=== PATIENT | male | born 1965 | race Two or more races ===

== ENCOUNTER 2017-07-20 11:19 | Inpatient (IN) | payer MEDICAID ==
[2017-07-20] VITALS (26 sets, daily range): BP systolic 82–108; BP diastolic 47–81
[~2017-07-20] VITALS: Ht 172.7 cm; Wt 57.6 kg
--- NOTE | 2017-07-20 12:47 | Emergency Room Report ---
History of Present Illness General Chief Complaint: General Complaint Source: Patient Present Illness HPI 51-year-old male brought in by ambulance with 3-4 months of generalized weakness , unintentional weight loss, occasional fevers and chills, occasional diarrhea occasional "acid" in stomach. History of HIV, not on anticoagulation for a number of years. Denies history of PCP pneumonia, TB, or other opportunistic infections. Patient not taking any other medications. States unable to keep any food or liquid down lately. Otherwise denies chest pain, shortness of breath, abdominal pain, urinary complaints. Allergies: Coded Allergies: No Known Allergies (Unverified , 07/20/17) Patient History Past Medical History: HIV Past Surgical History: none Pertinent Family History: none Social History: Denies: smoking, alcohol use, drug use Immunizations: UTD Reviewed Nursing Documentation: PMH: Agreed, PSxH: Agreed Review of Systems All Other Systems: negative except mentioned in HPI Physical Exam Vital Signs Date Time Temp Pulse Resp B/P (MAP) Pulse Ox O2 Delivery O2 Flow Rate FiO2 07/20/17 11:06 98.1 110 16 105/77 98 Sp02 EP Interpretation: reviewed, normal General Appearance: normal inspection, well appearing, no apparent distress, alert, GCS 15, non-toxic, cachetic, thin Head: normocephalic, atraumatic Eyes: bilateral eye PERRL, bilateral eye EOMI ENT: normal ENT inspection, hearing grossly normal, normal voice Neck: normal inspection, full range of motion, supple, no bony tend Respiratory: normal inspection, lungs clear, normal breath sounds, no respiratory distress, no retraction, no wheezing Cardiovascular #1: regular rate, rhythm, no edema Gastrointestinal: normal inspection, normal bowel sounds, non tender, soft, no guarding, no hernia Genitourinary: no CVA tenderness Musculoskeletal: normal inspection, back normal, normal range of motion, Miranda' s Sign negative Neurologic: normal inspection, alert, oriented x3, responsive, mustanger III-XII nml as tested, motor strength/tone normal, speech normal Psychiatric: normal inspection, judgement/insight normal, mood/affect normal Skin: normal inspection, normal color, no rash Lymphatic: normal inspection Medical Decision Making Diagnostic Impression: Primary Impression: Weakness Additional Impressions: HIV disease Hyponatremia Elevated lipase Pneumonia Qualified Codes: J18.9 - Pneumonia, unspecified organism ER Course Labs significant for hyponatremia, elevated lipase No leukocytosis, H&H stable No other significant metabolic abnormality Patient was given IV fluid hydration in the ER CXR with left sided infiltrates - possibly PNA Given history of HIV, also possible TB although unlikely given no adenopathy on CXR Was given Abx Blood Cx pending Patient placed in isolation - PCR in progress CT shows ground glass opacities Endorsed to Dr Weir at 211pm EKG Diagnostic Results Rate: tachycardiac Rhythm: NSR ST Segments: other Rhythm Strip Diag. Results EP Interpretation: yes Rate: 127 Rhythm: NSR, no PVC's Chest X-Ray Diagnostic Results Chest X-Ray Diagnostic Results : Chest X-Ray Ordered: Yes # of Views/Limited/Complete: 1 View Indication: Other - weakness EP Interpretation: Yes Interpretation: no effusion, no pneumothorax, other - Left sided infiltrates Last Vital Signs Date Time Temp Pulse Resp B/P (MAP) Pulse Ox O2 Delivery O2 Flow Rate FiO2 07/20/17 11:06 98.1 110 16 105/77 98 Status: improved Disposition: ADMITTED INPATIENT Condition: Serious Referrals: NOT CHOSEN ROHAN/,REFERRING (PCP) HALEY ZAMORA M.D. Jul 20, 2017 12:47
[2017-07-20 13:04] LABS: MEAN CORPUSCULAR HEMOGLOBIN 28.8 PG (27.0-31.0); MEAN CORPUSCULAR HGB CONC 34.1 G/DL (32.0-36.0); MEAN CORPUSCULAR VOLUME 85 FL (80-99); PLATELET COUNT 180 K/UL (150-450); RED BLOOD COUNT 4.42 M/UL (4.70-6.10); RED CELL DISTRIBUTION WIDTH 11.6 % (11.6-14.8); WHITE BLOOD COUNT 10.8 K/UL (4.8-10.8)
[2017-07-20 13:10] LABS: INR 1.2 (0.9-1.1); PROTHROMBIN TIME 12.5 SEC (9.30-11.50)
[2017-07-20 13:27] LABS: ALANINE AMINOTRANSFERASE 44 U/L (12-78); ALBUMIN/GLOBULIN RATIO 0.5 (1.0-2.7); ANION GAP 9 mmol/L (5-15); ASPARTATE AMINO TRANSFERASE 67 U/L (15-37); CALCIUM 8.4 MG/DL (8.5-10.1); CARBON DIOXIDE 23 MMOL/L (21-32); CHLORIDE 95 MMOL/L (98-107); CREATININE 1.3 MG/DL (0.55-1.30); GLOMERULAR FILTRATION RATE 58.7 mL/min (>60); LIPASE 641 U/L (73-393); POTASSIUM 3.5 MMOL/L (3.5-5.1); SODIUM 127 MMOL/L (136-145)
[2017-07-20 14:04] LABS: BAND NEUTROPHILS % (MANUAL) 0 % (0-8); BASOPHILS % (MANUAL) 0 % (0-2); EOSINOPHILS % (MANUAL) 0 % (0-3); LYMPHOCYTES % (MANUAL) 6 % (20-45); NEUTROPHILS % (MANUAL) 92 % (45-75); PLATELET ESTIMATE ADEQUATE; PLATELET MORPHOLOGY NORMAL; TOTAL CELLS COUNTED 100
[2017-07-20 14:05] LABS: HYPOCHROMASIA 1+
--- NOTE | 2017-07-20 14:18 | Diagnostic Imaging Report ---
Clinical Indication: PAIN, weakness, 3-4 months generalized weakness, unintentional weight loss, occasional fevers and chills, occasional diarrhea Technique: No oral contrast utilized, per emergency room physician request IV administration nonionic contrast. Venous phase spiral acquisition obtained through the abdomen and pelvis. Multiplanar reconstructions were generated. Total dose length product 526 mGycm. CTDIvol(s) 10 mGy. Dose reduction achieved using automated exposure control Comparison: None Findings: Lack of enteric contrast limits assessment of the GI tract. The appendix is not identified, but there are no findings to suggest acute appendicitis. No evidence of diverticulosis or acute diverticulitis. No small bowel distention. No free or loculated intraperitoneal air or fluid is evident. The liver is slightly hypoattenuating, consistent with mild fatty change. Bladder, bile ducts, pancreas, spleen are unremarkable. Multiple accessory splenules. The adrenals and kidneys are unremarkable. No retroperitoneal or mesenteric mass or adenopathy. No pelvic mass or adenopathy. The lung bases demonstrate some groundglass consolidation in the inferior left lower lobe, atelectasis or scarring in the anterior left lower lobe, and reticular infrahilar opacities on the right. No effusions. The bones are unremarkable. Impression: Limit evaluation of the GI tract, due to lack of enteric contrast No definite acute abdominal pathology Left basilar on or groundglass opacity, likely infiltrates secondary to pneumonia. There is also some atelectasis or scarring in the anterior left lower lobe. Reticular opacities in the right pulmonary infrahilar region likely represent chronic postinflammatory changes. Mild fatty liver The CT scanner at [facility] is accredited by the [employer] and the scans are performed using protocols designed to limit radiation exposure to as low as reasonably achievable to attain images of sufficient resolution adequate for diagnostic evaluation.
--- NOTE | 2017-07-20 14:38 | Diagnostic Imaging Report ---
Indication: COUGH Technique: One view of the chest Comparison: none Findings: Multiple patchy infiltrates are seen scattered throughout the left lung, predominantly peripherally. More questionable faint patchy infiltrates are seen scattered within the right lung. There may be some minimal right hilar adenopathy. Normal heart size. The pleural spaces are clear Impression: Scattered patchy left lung infiltrates, more questionable scattered right lung infiltrates, is likely representing pneumonia, nonspecific as regards etiology. Equivocal slight right hilar adenopathy; if real, raises possibility of tuberculous pneumonia as etiology of the above Findings discussed by phone with Dr. Gomez and Dr. Phillips in the emergency room at the time of interpretation
[2017-07-20] MEDS ORDERED: NS 1000ml 1,400 ML IVLG ONE (15:30)
[2017-07-20] MEDS ORDERED: cefTRIAXone 1 GM in D5W 55 ML IVPB ONE (15:45)
[2017-07-20] MEDS ORDERED: Azithromycin 500 MG in D5W 275 ML IVPB ONE (15:45)
[2017-07-20] MEDS ORDERED: Azithromycin 500mg Inj IV ONE (15:47)
[2017-07-20] MEDS ORDERED: Cefepime 2gm ONE (16:23)
[2017-07-20] MEDS ORDERED: Zosyn 3.375gm inj ONE (16:24)
[2017-07-20] MEDS: Piperacillin/Tazobactam 3.375 GM in NS 55 ML IV ONE ×2 (16:30→17:20)
[2017-07-20] MEDS: Cefepime HCl 2 GM in NS 110 ML IV ONE ×2 (16:37→16:43)
[2017-07-20] MEDS ORDERED: Hydromorphone 0.5mg/0.5ml inj IVP PRN (17:15)
--- NOTE | 2017-07-20 17:28 | Infectious Diseases Prog Note ---
Assessment/Plan Assessment/Plan Full consult dictated: A) 1) pna, ? cap, ? pcp, ? fungal, sepsis, shock, fevers, ? TB pna 2) hiv, aids 3) allergies - negative 4) pmh o/w negative P) 1) zosyn, vancomycin, bactrim, diflucan, azithromycin 2) check culture, sputum, afb, isolation, labs, chest x-ray 3) orders entered and noted 4) thank you Subjective Allergies: Coded Allergies: No Known Allergies (Unverified , 07/20/17) Objective Vital Signs Last 24 Hour Vital Signs Date Time Temp Pulse Resp B/P (MAP) Pulse Ox O2 Delivery O2 Flow Rate FiO2 07/20/17 16:33 115 23 96/59 100 Room Air 07/20/17 16:06 103.5 125 31 85/65 99 Room Air 07/20/17 13:20 124 20 93/59 98 Room Air 07/20/17 13:10 122 20 94/63 98 Room Air 07/20/17 12:50 131 20 94/63 98 Room Air 07/20/17 12:40 137 20 92/59 98 Room Air 07/20/17 12:20 135 22 82/51 98 Room Air 07/20/17 12:10 137 16 92/48 98 Room Air 07/20/17 11:06 98.1 110 16 105/77 98 Height (Feet): 5 Height (Inches): 8.00 Weight (Pounds): 100 Laboratory Tests Test 07/20/17 12:20 07/20/17 14:35 07/20/17 16:12 White Blood Count 10.8 K/UL (4.8-10.8) Red Blood Count 4.42 M/UL (4.70-6.10) L Hemoglobin 12.7 G/DL (14.2-18.0) L Hematocrit 37.4 % (42.0-52.0) L Mean Corpuscular Volume 85 FL (80-99) Mean Corpuscular Hemoglobin 28.8 PG (27.0-31.0) Mean Corpuscular Hemoglobin Concent 34.1 G/DL (32.0-36.0) Red Cell Distribution Width 11.6 % (11.6-14.8) Platelet Count 180 K/UL (150-450) Mean Platelet Volume 9.0 FL (6.5-10.1) Neutrophils (%) (Auto) % (45.0-75.0) Lymphocytes (%) (Auto) % (20.0-45.0) Monocytes (%) (Auto) % (1.0-10.0) Eosinophils (%) (Auto) % (0.0-3.0) Basophils (%) (Auto) % (0.0-2.0) Differential Total Cells Counted 100 Neutrophils % (Manual) 92 % (45-75) H Lymphocytes % (Manual) 6 % (20-45) L Monocytes % (Manual) 2 % (1-10) Eosinophils % (Manual) 0 % (0-3) Basophils % (Manual) 0 % (0-2) Band Neutrophils 0 % (0-8) Platelet Estimate Adequate Platelet Morphology Normal Hypochromasia 1+ Prothrombin Time 12.5 SEC (9.30-11.50) H Prothromb Time International Ratio 1.2 (0.9-1.1) H Activated Partial Thromboplast Time 36 SEC (23-33) H Sodium Level 127 MMOL/L (136-145) L Potassium Level 3.5 MMOL/L (3.5-5.1) Chloride Level 95 MMOL/L (98-107) L Carbon Dioxide Level 23 MMOL/L (21-32) Anion Gap 9 mmol/L (5-15) Blood Urea Nitrogen 16 mg/dL (7-18) Creatinine 1.3 MG/DL (0.55-1.30) Estimat Glomerular Filtration Rate 58.7 mL/min (>60) Glucose Level 110 MG/DL (74-106) H Calcium Level 8.4 MG/DL (8.5-10.1) L Total Bilirubin 0.8 MG/DL (0.2-1.0) Aspartate Amino Transf (AST/SGOT) 67 U/L (15-37) H Alanine Aminotransferase (ALT/SGPT) 44 U/L (12-78) Alkaline Phosphatase 59 U/L (46-116) Total Protein 7.0 G/DL (6.4-8.2) Albumin 2.2 G/DL (3.4-5.0) L Globulin 4.8 g/dL Albumin/Globulin Ratio 0.5 (1.0-2.7) L Lipase 641 U/L (73-393) H M. tuberculosis Complex DNA (PCR) Pending Lactic Acid Level 1.30 mmol/L (0.66-2.22) Current Medications Medications (Trade) Dose Ordered Sig/Gabriela Route PRN Reason Start Time Stop Time Status Last Admin Dose Admin Acetaminophen (Tylenol) 650 mg Q4H PRN ORAL Mild Pain (Pain Scale 1-3) 07/20/17 17:15 08/19/17 17:14 Dextrose (Dextrose 50%) STAT PRN IV Hypoglycemia 07/20/17 17:15 08/19/17 17:14 Dextrose/ Electrolytes 1,000 ml @ 125 mls/hr Q8H IV 07/20/17 18:00 08/19/17 17:59 Diphenhydramine HCl (Benadryl) 25 mg Q6H PRN ORAL Itching/Pruritis 07/20/17 17:15 08/19/17 17:14 Docusate Sodium (Colace) 100 mg EVERY 12 HOURS ORAL 07/20/17 21:00 08/19/17 20:59 Enoxaparin Sodium (Lovenox) 40 mg QHS SUBQ 07/20/17 21:00 08/19/17 20:59 Hydromorphone HCl (Dilaudid) 0.5 mg Q6H PRN IVP Moderate to Severe Pain 07/20/17 17:15 07/27/17 17:14 Ondansetron HCl (Zofran) 4 mg Q6H PRN IVP Nausea & Vomiting 07/20/17 17:15 08/19/17 17:14 WEN ANTOINE Jul 20, 2017 17:28
[2017-07-20] MEDS ORDERED: Lidocaine 1% MPF 10mg/ml 5ml ONE (17:45)
[2017-07-20] MEDS ORDERED: Levophed 4mg/4mL Inj IV ONE (17:58)
[2017-07-20] MEDS ORDERED: Lidocaine 1% MPF 10mg/ml 5ml INJ ONE (18:00)
--- NOTE | 2017-07-20 18:13 | Emergency Room Report ---
History of Present Illness General Chief Complaint: General Complaint Source: Patient Present Illness Allergies: Coded Allergies: No Known Allergies (Unverified , 07/20/17) Physical Exam Vital Signs Date Time Temp Pulse Resp B/P (MAP) Pulse Ox O2 Delivery O2 Flow Rate FiO2 07/20/17 11:06 98.1 110 16 105/77 98 07/20/17 12:10 Room Air Procedures Critical Care Time Critical Care Time 40 minutes of CC time 51-year-old female, septic shock VS: Febrile hypotensive tachycardic Airway patent. Not hypoxic. PLAN: IV access, labs, lactate, troponin, Blood/Urine Cx, Abx, IVF Anticipate admission to ICU CC time also includes review of labs, review of EMR, discussion with family and paperwork from SNF, d/w hospitalist CC could include dosing of pressors, additional Abx CC time does not include procedures Central Line Central Line : Consent: Written Maximal Sterile Barrier Tech: yes cap, yes mask, yes sterile gown, yes sterile gloves, yes large sterile sheet, yes hand hygiene, yes chlorhexidine prep Central Line Postion: internal jugular (R) Anesthesia: Lidocaine cc's of anesthesia: 5 Complications: none Central Line Post Position: sutured, good blood return, position confirmed w / CXR Attempts: One Patient Tolerated: Well Complications: None Medical Decision Making Diagnostic Impression: Primary Impression: Weakness Additional Impressions: Elevated lipase Hyponatremia Pneumonia Qualified Codes: J18.9 - Pneumonia, unspecified organism HIV disease Septic shock ER Course I received signout on this patient 51-year-old male, not feeling well for multiple days, HIV, cough, diarrhea Patient persistently hypotensive and tachycardic Fluids, antibiotics, Tylenol given Patient continues to be hypotensive with a map of 53 despite 3 L Left-sided IJ central line placed with ultrasound Patient tolerated this procedure well Patient was already seen by Dr Yarbrough, I informed him at 630pm patient going to ICU Patient will be admitted to ICU Sepsis Re-examination Time: 6pm VS: Temp 99.5 HR 95 BP 90/60 RR AND 20 CVS: RRR Respiratory: Lungs clear bilaterally Peripheral pulses: 2+ radial Capillary refill: <2 seconds Skin exam: warm, dry, no rash, not mottled Chest X-Ray Diagnostic Results Chest X-Ray Diagnostic Results : Chest X-Ray Ordered: Yes # of Views/Limited/Complete: 1 View Indication: Other - cvp EP Interpretation: Yes Interpretation: no consolidation, no effusion, no pneumothorax, other - cvp in appropriate position Impression: No acute disease Electronically Signed by: Electronically signed by Anat Phillips MD Last Vital Signs Date Time Temp Pulse Resp B/P (MAP) Pulse Ox O2 Delivery O2 Flow Rate FiO2 07/20/17 17:32 99.5 98 21 82/47 95 Room Air Disposition: ADMITTED INPATIENT Condition: Serious Referrals: NOT CHOSEN IPA/,REFERRING (PCP) Anat Phillips M.D. Jul 20, 2017 18:13
[2017-07-20 19:14] LABS: APPEARANCE,URINE CLEAR; KETONES,URINE 1+ (NEGATIVE); LEUKOCYTE ESTERASE ,URINE NEGATIVE (NEGATIVE); NITRITE,URINE NEGATIVE (NEGATIVE); PH,URINE 6.5 (4.5-8.0); PROTEIN,URINE 1+ (NEGATIVE); UROBILINOGEN,URINE NORMAL MG/DL (0.0-1.0)
[2017-07-20 19:22] LABS: BACTERIA,URINE FEW /HPF; SQUAMOUS EPITHELIAL CELL,UR OCCASIONAL /LPF (NONE/OCC); WBC,URINE 0-2 /HPF (0 - 0)
[2017-07-20] MEDS ORDERED: Vancomycin 1gm in D5W 275ml IVPB SCH (20:00)
[2017-07-20] MEDS: Docusate 100mg cap ORAL SCH (21:00)
[2017-07-20] MEDS: Enoxaparin 40mg Inj SUBQ SCH (21:18)
[2017-07-20] MEDS: Trimethoprim/Sulfamethoxazole 20 ML in D5W 500ml 550 ML IV SCH (21:58)
[2017-07-20] MEDS ORDERED: Trimethoprim/Sulfamethoxazole 20 ML in D5W 500ml 550 ML IV SCH (23:00)
[2017-07-20] MEDS: D5NS w/KCl 40mEq 1000ml 1,000 ML IV SCH (23:01)
[2017-07-20] MEDS: Piperacillin/Tazobactam 3.375 GM in D5W 55 ML IVPB SCH (23:03)
--- NOTE | 2017-07-20 23:17 | History and Physical Report ---
DATE OF ADMISSION: 07/20/2017 CHIEF COMPLAINT: Generalized weakness and cough. HISTORY OF PRESENT ILLNESS: This is a 51-year-old male, who was brought in by the ambulance. The patient has been suffering from generalized weakness. The patient has AIDS. The patient has been neglecting himself. He has been diagnosed with AIDS in 2009. The patient stopped taking his anti-HIV medications many years ago. He has noticed gradual weight loss during the last 3 years. The patient also noticed a gradual development of nonproductive cough and fever. He also developed other symptoms such as acid reflux. 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 PAST MEDICAL HISTORY: AIDS. MEDICATIONS: None. ALLERGIES: No known allergies. FAMILY HISTORY: Unremarkable. SOCIAL HISTORY: Nonsmoker and nondrinker. No history of illicit drug abuse. REVIEW OF SYSTEMS: HEENT: Hearing and eyesight are normal. ENDOCRINE: No history of diabetes, thyroid, or adrenal problems. RESPIRATORY: Significant for nonproductive cough. He denies hemoptysis. CARDIOVASCULAR: He denies chest pain or palpitations. GASTROINTESTINAL: Significant for diarrhea. He denies hematochezia or melena. NEUROLOGICAL: No history of stroke, syncope, or Parkinson disease. PHYSICAL EXAMINATION: GENERAL: This is a middle-aged male, who is extremely cachectic. VITAL SIGNS: Temperature is 103.5, rectal; pulse 115, apical; respiratory rate 23; blood pressure 96/57; and pulse oximetry is 100% on room air. HEENT: Head is normocephalic and atraumatic. Pupils are equal, round, and reactive to light and accommodation consensually. NECK: Supple. Trachea midline. There was no lymphadenopathy or thyromegaly. LUNGS: Clear to auscultation and percussion. HEART: Tachycardia. S1 and S2. No rubs, murmurs, or gallops. ABDOMEN: Scaphoid. Soft and nontender. Bowel sounds were active. There was no hepatosplenomegaly. EXTREMITIES: Notable for muscle wasting. There was no clubbing, cyanosis, or edema. NEUROLOGICAL: He is alert and oriented x4. Cranial nerves II through XII intact. LABORATORY AND ANCILLARY DATA: CBC; hemoglobin 12.7, WBC 10.8 with 92% neutrophils. Serum chemistry sodium 127, potassium 3.5, and albumin is 2.2. MTB PCR pending. Chest x-ray shows scattered patchy left lung infiltrates, questionable scattered right lung infiltrates, representing pneumonia, cannot rule out TB. His CT scan of the abdomen and pelvis shows left basilar ground-glass appearing lung infiltrates and reticular opacities in the right pulmonary area, infrahilar, most likely representing chronic postinflammatory changes. ASSESSMENT: 1. Acquired immunodeficiency syndrome, untreated. 2. Pneumonia, rule out tuberculosis versus other types of pneumonia, immunocompromised. 3. Wasting syndrome. PLAN: 1. ID consult. 2. Reinstitute anti-HIV treatment. 3. Nutritional support. 4. IV fluid Rehydration. Jose Roberson M.D. DR: ZIYAD JOB#: [id number] CC:
[2017-07-21] VITALS (43 sets, daily range): BP systolic 90–113; BP diastolic 58–80
--- NOTE | 2017-07-21 01:46 | Consultation ---
DATE OF CONSULTATION: 07/20/2017 INFECTIOUS DISEASES CONSULTATION CONSULTING PHYSICIAN: Gisela Garcia M.D. ATTENDING PHYSICIAN: Jose Roberson M.D. REASON FOR CONSULTATION: Sepsis, shock, pneumonia, HIV, AIDS. CHIEF COMPLAINT: The patient's chief complaint coming in to the hospital is sepsis, shock, pneumonia, and weakness. HISTORY OF PRESENT ILLNESS: This is a 51-year-old male with a history of HIV in presumptive age at this time, was cachectic, who has been not taking his HIV medications. He was on Atripla in the past. He does not know his T-cell count or viral load. The patient presents to [facility] and is in septic shock, right now requiring full support. His systolic blood pressure has been in the 80s and he has been tachycardic. The patient on chest x-ray has pneumonia. CT of the abdomen and pelvis is unremarkable. The patient has been placed on tuberculosis isolation based on the chest x-ray findings and also CT scan findings. The patient will be started on broad-spectrum antibiotics including Zosyn and vancomycin. In addition, the patient will be placed on Diflucan, Bactrim, and azithromycin. The patient's workup including cultures and further workup for ruling out tuberculosis is pending at this time. Case was discussed with the ER physician. MAR was noted. Orders were noted. Notes were reviewed. Case was discussed with the RN. PAST MEDICAL HISTORY: The patient's past medical history includes the following. The patient has a past medical history of HIV in presumptive age. He has been off his antiretroviral therapy since 2013. He has no history of diabetes or hypertension. No opportunistic infections. ALLERGIES: No known drug allergies. MEDICATIONS: Upon reviewing the MAR, he is on IV fluids, Colace, Lovenox, Tylenol, Dilaudid, Zofran, and Benadryl. I am going to put him on Zosyn, vancomycin, Bactrim, Diflucan, and azithromycin. He has gotten medications including Zosyn and cefepime in the ER and azithromycin. FAMILY HISTORY: Noncontributory. SOCIAL HISTORY: Negative for smoking, alcohol, or drug abuse. REVIEW OF SYSTEMS: CONSTITUTIONAL: The patient has generalized weakness, fatigue, some cough and congestion, and some sputum production. HEAD AND NECK: No head pain or neck pain. No thrush, or dysphagia. CARDIAC: No chest pain. GASTROINTESTINAL: No nausea, vomiting, or diarrhea. GENITOURINARY: I did not see a Irving. PULMONARY: He has congestion and shortness of breath. SKIN: No rash. EXTREMITIES: No extremity pain. NEUROLOGIC: No seizures. . He has weight loss. No headaches, change in vision, neck stiffness. PHYSICAL EXAMINATION: GENERAL: Alert, responsive, in no acute distress. VITAL SIGNS: Temperature is 103.5, pulse rate 115, respiratory rate 23, blood pressure 96/59, and saturation 100%. HEAD AND NECK: Oral exam, no thrush. Eye exam, no icterus. Normocephalic. No facial droop. No neck stiffness. Neck is supple. He is oriented x3. HEART: Regular. No obvious gallop or murmur. Tachycardic. LUNGS: Bilateral rhonchi and rales. ABDOMEN: Soft. Positive bowel sounds. Nontender. No organomegaly. SKIN: No rash. MUSCULOSKELETAL: No effusion. Legs are without cellulitis. PERIPHERAL VASCULAR: No cyanosis or gangrene. GENITOURINARY: Deferred. LINES: Line sites without phlebitis. NEUROLOGIC: Generalized weakness, responsive. No CVA tenderness. LABORATORY AND DIAGNOSTIC DATA: Laboratory data is as follows: Creatinine is 1.3. Lipase is 614. Alkaline phosphatase is 59. Cultures are pending. Sodium 127, creatinine 1.3. White count 10.8, hemoglobin 12.7, and platelet count is 180,000. PCR is pending. Chest x-ray showed the following. It showed scattered patchy left lung infiltrates with possible right lung infiltrates representing pneumonia. CT of the abdomen and pelvis showed no abscess, but it did show left basal ground-glass opacity, likely infiltrate and pneumonia. ASSESSMENT AND PLAN: 1. The patient has sepsis, shock, fevers, systemic inflammatory response syndrome criteria, and tachycardia. The patient has pneumonia. Rule out community-acquired pneumonia versus TB pneumonia versus fungal pneumonia versus PCP pneumonia. Continue antibiotics, Zosyn, vancomycin, Diflucan, Bactrim, and azithromycin. Check serology for Legionella, Mycoplasma, and cryptococcal antigen. Check sputum culture. Follow up labs and chest x-ray. Consider Pulmonary evaluation for possible eventual bronchoscopy. Continue TB workup. The patient will be placed on isolation. Continue IV antibiotics pending final workup. The patient may need ICU care. Discussed with ER MD. 2. Human immunodeficiency virus, likely acquired immunodeficiency syndrome. Check CD4 count. Antiretroviral therapy will have to be addressed as an outpatient. I would not give it at this time because of the possibility of the immune reconstitution syndrome. 3. The patient may need ICU care. 4. Rule out TB. The patient will need isolation. 5. Hyponatremia. 6. Anemia. 7. No history of diabetes or hypertension. 8. No history of opportunistic infections. 9. No allergies. 10. Social history is negative. 11. MAR was noted. 12. Case was discussed with RN. 13. Family history is noncontributory. 14. Case was discussed with the ER physician. 15. Continue treatment per primary consultants. 16. Also, case was discussed with Dr. Roberson. Gisela Garcia M.D. DR: FEDERICO JOB#: [id number] CC:
[2017-07-21] MEDS: D5NS w/KCl 40mEq 1000ml 1,000 ML IV SCH ×3 (02:00→16:06)
[2017-07-21 04:33] LABS: MEAN CORPUSCULAR HEMOGLOBIN 29.7 PG (27.0-31.0); MEAN CORPUSCULAR HGB CONC 35.2 G/DL (32.0-36.0); MEAN CORPUSCULAR VOLUME 84 FL (80-99); MEAN PLATELET VOLUME 9.7 FL (6.5-10.1); PLATELET COUNT 175 K/UL (150-450); RED BLOOD COUNT 3.86 M/UL (4.70-6.10); RED CELL DISTRIBUTION WIDTH 11.7 % (11.6-14.8); WHITE BLOOD COUNT 6.8 K/UL (4.8-10.8)
[2017-07-21 05:15] LABS: ALANINE AMINOTRANSFERASE 31 U/L (12-78); ALBUMIN/GLOBULIN RATIO 0.4 (1.0-2.7); ANION GAP 9 mmol/L (5-15); ASPARTATE AMINO TRANSFERASE 38 U/L (15-37); CALCIUM 7.3 MG/DL (8.5-10.1); CARBON DIOXIDE 19 MMOL/L (21-32); CHLORIDE 112 MMOL/L (98-107); CREATININE 0.8 MG/DL (0.55-1.30); GLOMERULAR FILTRATION RATE > 60 mL/min (>60); MAGNESIUM 2.1 MG/DL (1.8-2.4); POTASSIUM 3.5 MMOL/L (3.5-5.1); SODIUM 140 MMOL/L (136-145); TOTAL PROTEIN 5.4 G/DL (6.4-8.2)
[2017-07-21] MEDS: Piperacillin/Tazobactam 3.375 GM in D5W 55 ML IVPB SCH ×3 (06:13→22:44)
[2017-07-21] MEDS: Azithromycin 250mg tab ORAL SCH (08:21)
[2017-07-21] MEDS: Docusate 100mg cap ORAL SCH ×2 (08:21→21:00)
[2017-07-21] MEDS: Fluconazole 100mg tab ORAL SCH (08:21)
[2017-07-21] MEDS: Trimethoprim/Sulfamethoxazole 20 ML in D5W 500ml 550 ML IV SCH ×2 (08:40→16:05)
[2017-07-21] MEDS: Vancomycin 1gm in D5W 275ml IVPB SCH ×2 (09:51→21:17)
--- NOTE | 2017-07-21 10:06 | Diagnostic Imaging Report ---
Indication: Central line placement Technique: XRAY CHEST 1 V Comparison:Current examination obtained at 1815 is compared with one obtained earlier 07/20/2017 at 1339 Findings: A left jugular central catheter has been placed with the tip in the superior vena cava above the right atrium. There is no other change. No pneumothorax. Impression: Left jugular central catheter placement in adequate position. No other significant change.
--- NOTE | 2017-07-21 10:37 | General Progress Note ---
Assessment/Plan Assessment/Plan Hypotension mulifactoria volume depletion - on IVF. On pressors. BP improving. AIDS - per ID. Pneumonia on Broad Spectrum IV Abx for immuno Compromised HIV patients. Doubt MTB. Subjective Allergies: Coded Allergies: No Known Allergies (Unverified , 07/20/17) Subjective No new c/o Objective Last 24 Hour Vital Signs Date Time Temp Pulse Resp B/P (MAP) Pulse Ox O2 Delivery O2 Flow Rate FiO2 07/21/17 10:00 102/69 07/21/17 10:00 92 18 101/70 100 Room Air 07/21/17 09:30 87 19 102/69 100 Room Air 07/21/17 09:00 86 19 110/77 100 Room Air 07/21/17 09:00 110/77 07/21/17 08:30 94 20 98/71 100 Room Air 07/21/17 08:00 97 07/21/17 08:00 98.6 98 30 100/67 100 Room Air 07/21/17 08:00 100/67 07/21/17 07:30 95 25 102/75 100 Room Air 07/21/17 07:00 87 29 108/71 100 Room Air 07/21/17 07:00 108/71 07/21/17 06:30 82 21 97/72 96 Room Air 07/21/17 06:00 89 20 108/73 100 Room Air 07/21/17 06:00 108/73 07/21/17 05:30 86 30 92/79 99 Room Air 07/21/17 05:00 82 24 102/77 100 Room Air 07/21/17 05:00 92/79 07/21/17 04:30 80 22 101/70 99 Room Air 07/21/17 04:00 76 07/21/17 04:00 100/71 07/21/17 04:00 97.9 76 21 100/71 98 Room Air 07/21/17 03:30 79 16 101/74 99 Room Air 07/21/17 03:01 106/74 07/21/17 03:00 73 23 97/74 98 Room Air 07/21/17 02:30 79 26 106/74 98 Room Air 07/21/17 02:00 77 28 103/75 99 Room Air 07/21/17 02:00 103/75 07/21/17 01:30 72 12 101/67 99 Room Air 07/21/17 01:00 78 26 107/61 99 Room Air 07/21/17 00:30 79 22 101/69 99 Room Air 07/21/17 00:00 99/69 07/21/17 00:00 97.5 72 22 99/69 100 Room Air 07/21/17 00:00 73 07/20/17 23:30 83 22 105/69 99 Room Air 07/20/17 23:01 101/69 07/20/17 23:00 79 27 101/69 99 Room Air 07/20/17 22:30 78 23 103/67 99 Room Air 07/20/17 22:15 77 23 103/81 100 Room Air 07/20/17 22:00 82 23 104/68 100 Room Air 07/20/17 21:45 82 23 108/81 100 Room Air 07/20/17 21:30 83 23 104/69 100 Room Air 07/20/17 21:15 83 23 103/68 100 Room Air 07/20/17 21:15 104/67 07/20/17 21:00 82 23 97/62 100 Room Air 07/20/17 20:45 83 23 104/67 100 Room Air 07/20/17 20:30 88 23 101/65 100 Room Air 07/20/17 20:15 83 23 104/68 100 Room Air 07/20/17 20:00 98.7 84 26 99/65 96 Room Air 07/20/17 20:00 84 07/20/17 19:45 87 27 101/61 100 Room Air 07/20/17 19:30 101/61 07/20/17 19:20 103/67 07/20/17 19:12 84 20 105/68 100 Room Air 07/20/17 19:10 97.3 86 27 102/69 100 Room Air 07/20/17 19:10 105/68 07/20/17 19:00 102/69 07/20/17 18:50 104/64 07/20/17 18:45 95/64 07/20/17 18:40 97/65 07/20/17 18:35 89/59 07/20/17 18:32 98.9 99 24 83/58 99 Room Air 07/20/17 18:30 83/58 07/20/17 18:25 89/57 07/20/17 18:13 91 25 89/53 98 Room Air 07/20/17 17:32 99.5 98 21 82/47 95 Room Air 07/20/17 17:30 99.5 07/20/17 16:33 115 23 96/59 100 Room Air 07/20/17 16:06 103.5 125 31 85/65 99 Room Air 07/20/17 13:20 124 20 93/59 98 Room Air 07/20/17 13:10 122 20 94/63 98 Room Air 07/20/17 12:50 131 20 94/63 98 Room Air 07/20/17 12:40 137 20 92/59 98 Room Air 07/20/17 12:20 135 22 82/51 98 Room Air 07/20/17 12:10 137 16 92/48 98 Room Air 07/20/17 11:06 98.1 110 16 105/77 98 Intake and Output 07/21/17 07/22/17 19:00 07:00 Intake Total 1302.50 ml Output Total 750 ml Balance 552.50 ml Intake Oral 450 ml IV Total 852.50 ml Output Urine Total 700 ml Emesis 50 ml # Bowel Movements 2 Laboratory Tests 07/20/17 12:20: White Blood Count 10.8, Red Blood Count 4.42L, Hemoglobin 12.7L, Hematocrit 37.4L, Mean Corpuscular Volume 85, Mean Corpuscular Hemoglobin 28.8, Mean Corpuscular Hemoglobin Concent 34.1, Red Cell Distribution Width 11.6, Platelet Count 180, Mean Platelet Volume 9.0, Neutrophils (%) (Auto) , Lymphocytes (%) ( Auto) , Monocytes (%) (Auto) , Eosinophils (%) (Auto) , Basophils (%) (Auto) , Differential Total Cells Counted 100, Neutrophils % (Manual) 92H, Lymphocytes % (Manual) 6L, Monocytes % (Manual) 2, Eosinophils % (Manual) 0, Basophils % ( Manual) 0, Band Neutrophils 0, Platelet Estimate Adequate, Platelet Morphology Normal, Hypochromasia 1+, Prothrombin Time 12.5H, Prothromb Time International Ratio 1.2H, Activated Partial Thromboplast Time 36H, Sodium Level 127L, Potassium Level 3.5, Chloride Level 95L, Carbon Dioxide Level 23, Anion Gap 9, Blood Urea Nitrogen 16, Creatinine 1.3, Estimat Glomerular Filtration Rate 58.7 , Glucose Level 110H, Calcium Level 8.4L, Total Bilirubin 0.8, Aspartate Amino Transf (AST/SGOT) 67H, Alanine Aminotransferase (ALT/SGPT) 44, Alkaline Phosphatase 59, Total Protein 7.0, Albumin 2.2L, Globulin 4.8, Albumin/Globulin Ratio 0.5L, Lipase 641H 07/20/17 14:35: M. tuberculosis Complex DNA (PCR) [Pending] 07/20/17 16:12: Lactic Acid Level 1.30 07/20/17 17:15: Urine Color Pale yellow, Urine Appearance Clear, Urine pH 6.5, Urine Specific [place] 1.005, Urine Protein 1+H, Urine Glucose (UA) Negative, Urine Ketones 1+H , Urine Occult Blood 2+H, Urine Nitrite Negative, Urine Bilirubin Negative, Urine Urobilinogen Normal, Urine Leukocyte Esterase Negative, Urine RBC 2-4H, Urine WBC 0-2, Urine Squamous Epithelial Cells Occasional, Urine Bacteria Few 07/20/17 20:55: White Blood Count [Pending], Lymphocytes [Pending], Lactate Dehydrogenase 308H, Percent CD3 Cells [Pending], Absolute CD3 Count [Pending], Percent CD4 Cells [ Pending], Absolute CD4 Count [Pending], T-Lymphocyte CD4/CD8 Ratio [Pending], Percent CD8 Cells [Pending], Absolute CD8 Count [Pending] 07/21/17 03:00: White Blood Count 6.8, Red Blood Count 3.86L, Hemoglobin 11.5L, Hematocrit 32.6L , Mean Corpuscular Volume 84, Mean Corpuscular Hemoglobin 29.7, Mean Corpuscular Hemoglobin Concent 35.2, Red Cell Distribution Width 11.7, Platelet Count 175, Mean Platelet Volume 9.7, Neutrophils (%) (Auto) , Lymphocytes (%) ( Auto) , Monocytes (%) (Auto) , Eosinophils (%) (Auto) , Basophils (%) (Auto) , Sodium Level 140#, Potassium Level 3.5, Chloride Level 112H, Carbon Dioxide Level 19L, Anion Gap 9, Blood Urea Nitrogen 9, Creatinine 0.8, Estimat Glomerular Filtration Rate > 60, Glucose Level 184H, Calcium Level 7.3L, Magnesium Level 2.1, Total Bilirubin 0.4, Aspartate Amino Transf (AST/SGOT) 38H , Alanine Aminotransferase (ALT/SGPT) 31, Alkaline Phosphatase 44L, Total Protein 5.4L, Albumin 1.6L, Globulin 3.8, Albumin/Globulin Ratio 0.4L, Cryptococcus Antigen [Pending] Height (Feet): 5 Height (Inches): 8.00 Weight (Pounds): 129 Objective CV RR Lungs CTA Abd SNT BS + E No CCE MOLLY VÁZQUEZ Jul 21, 2017 10:37
[2017-07-21] MEDS ORDERED: NS 275ml ONE (15:44)
[2017-07-21] MEDS ORDERED: Tubing IV Secondary IV ONE ×2 (15:44→15:51)
[2017-07-21] MEDS ORDERED: Dyna-Hex 2% Top Sol 2oz TOPIC SCH (20:00)
[2017-07-21] MEDS: Enoxaparin 40mg Inj SUBQ SCH (21:16)
[2017-07-22] VITALS (17 sets, daily range): BP systolic 92–127; BP diastolic 65–106
[2017-07-22] MEDS: D5NS w/KCl 40mEq 1000ml 1,000 ML IV SCH ×3 (00:29→14:44)
[2017-07-22] MEDS: Trimethoprim/Sulfamethoxazole 20 ML in D5W 500ml 550 ML IV SCH ×3 (00:29→16:00)
[2017-07-22] MEDS: Piperacillin/Tazobactam 3.375 GM in D5W 55 ML IVPB SCH ×4 (05:41→21:49)
[2017-07-22] MEDS: Docusate 100mg cap ORAL SCH ×2 (08:39→21:00)
[2017-07-22] MEDS: Fluconazole 100mg tab ORAL SCH (08:39)
[2017-07-22] MEDS: Azithromycin 250mg tab ORAL SCH (08:40)
--- NOTE | 2017-07-22 08:56 | General Progress Note ---
Assessment/Plan Assessment/Plan Hypotension mulifactorial volume depletion - on IVF. Resoling. Off pressors. AIDS - per ID. Pneumonia on Broad Spectrum IV Abx for immuno Compromised HIV patients. Doubt MTB. Transfer to [facility]. Needs Dietary eval. Subjective Allergies: Coded Allergies: No Known Allergies (Unverified , 07/20/17) Subjective No new c/o Objective Last 24 Hour Vital Signs Date Time Temp Pulse Resp B/P (MAP) Pulse Ox O2 Delivery O2 Flow Rate FiO2 07/22/17 07:00 91 23 119/80 100 Room Air 07/22/17 06:00 92 21 119/80 100 Room Air 07/22/17 05:00 95 23 99/68 100 Room Air 07/22/17 04:00 93 07/22/17 04:00 97.8 96 23 97/66 100 Room Air 07/22/17 03:00 93 23 96/69 99 Room Air 07/22/17 02:00 93 25 92/76 100 Room Air 07/22/17 01:00 98 25 104/68 100 Room Air 07/22/17 00:00 98.0 94 23 92/65 100 Room Air 07/22/17 00:00 95 07/21/17 23:00 95 20 113/80 100 Room Air 07/21/17 22:00 96 21 95/71 100 Room Air 07/21/17 21:00 96 20 93/61 100 Room Air 07/21/17 20:00 101 07/21/17 20:00 97.9 101 23 98/68 100 Room Air 07/21/17 19:00 101 21 93/63 100 Room Air 07/21/17 18:30 97 21 100/63 99 Room Air 07/21/17 18:00 108 24 99/71 99 Room Air 07/21/17 17:30 97 24 103/71 100 Room Air 07/21/17 17:00 96 24 98/58 99 Room Air 07/21/17 16:30 105 24 100/61 100 Room Air 07/21/17 16:00 99 07/21/17 16:00 99.0 91 25 105/67 100 Room Air 07/21/17 15:30 108 20 102/73 100 Room Air 07/21/17 15:00 100 20 90/66 100 Room Air 07/21/17 14:30 95 19 92/63 100 Room Air 07/21/17 14:00 94 18 94/66 100 Room Air 07/21/17 13:30 100 20 100/70 100 Room Air 07/21/17 13:00 92 21 101/70 100 Room Air 07/21/17 12:30 100 21 104/77 100 Room Air 07/21/17 12:00 94 07/21/17 12:00 105/67 07/21/17 12:00 98.7 98 22 105/67 100 Room Air 07/21/17 11:30 102 24 113/73 100 Room Air 07/21/17 11:00 107/74 07/21/17 11:00 92 18 107/74 100 Room Air 07/21/17 10:30 84 18 98/67 100 Room Air 07/21/17 10:00 102/69 07/21/17 10:00 92 18 101/70 100 Room Air 07/21/17 09:30 87 19 102/69 100 Room Air 07/21/17 09:00 86 19 110/77 100 Room Air 07/21/17 09:00 110/77 Laboratory Tests 07/22/17 08:00: Vancomycin Level Trough 6.7 Height (Feet): 5 Height (Inches): 8.00 Weight (Pounds): 129 Objective CV RR Lungs CTA Abd SNT BS + E No CCE MOLLY VÁZQUEZ Jul 22, 2017 08:55
[2017-07-22] MEDS: Vancomycin 1gm in D5W 275ml IVPB SCH (09:55)
--- NOTE | 2017-07-22 13:03 | Diagnostic Imaging Report ---
Indication: Chest pain Technique: One view of the chest Comparison: 07/20/2017 Findings: Left jugular central venous catheter is again demonstrated. Infiltrates in the left lung appears slightly more diffuse, and infiltrates in the right lung appear slightly more extensive. Pleural spaces remain clear. Heart size is normal Impression: Slightly increased infiltrates bilaterally, over 2 days
[2017-07-22] MEDS ORDERED: Hydromorphone 0.5mg/0.5ml inj IVP PRN (14:30)
--- NOTE | 2017-07-22 15:11 | Infectious Diseases Prog Note ---
Assessment/Plan Assessment/Plan A) 1) pna, ? cap, ? pcp, ? fungal, sepsis, shock, fevers, ? TB pna/ ? other OI 2) hiv, aids 3) allergies - negative, fh-nc, sh-negative, mar noted 4) d/w RN 5) notes and records noted P) 1) zosyn, vancomycin, bactrim, diflucan, azithromycin 2) check culture, sputum, afb, isolation, labs, chest x-ray 3) orders entered and noted 4) continue tx per primary and consultants 5) d/w patient Subjective Constitutional: Denies: fever HEENT: Reports: congestion - less Respiratory: Reports: shortness of breath - less Gastrointestinal/Abdominal: Denies: nausea, vomiting, diarrhea, constipation Neurologic: Denies: headache Psychiatric: Denies: depression Skin: Denies: rash Hematologic: Denies: bleeding Musculoskeletal: Denies: pain Allergies: Coded Allergies: No Known Allergies (Unverified , 07/20/17) Objective Vital Signs Last 24 Hour Vital Signs Date Time Temp Pulse Resp B/P (MAP) Pulse Ox O2 Delivery O2 Flow Rate FiO2 07/22/17 14:00 104 22 107/70 100 Room Air 07/22/17 13:00 101 23 104/74 100 Room Air 07/22/17 12:00 98.8 94 23 101/71 100 Room Air 07/22/17 12:00 94 07/22/17 11:00 87 19 103/70 100 Room Air 07/22/17 10:00 94 25 104/75 100 Room Air 07/22/17 09:00 104 22 114/83 100 Room Air 07/22/17 08:00 97.5 101 22 127/106 100 Room Air 07/22/17 08:00 96 07/22/17 07:00 91 23 119/80 100 Room Air 07/22/17 06:00 92 21 119/80 100 Room Air 07/22/17 05:00 95 23 99/68 100 Room Air 07/22/17 04:00 93 07/22/17 04:00 97.8 96 23 97/66 100 Room Air 07/22/17 03:00 93 23 96/69 99 Room Air 07/22/17 02:00 93 25 92/76 100 Room Air 07/22/17 01:00 98 25 104/68 100 Room Air 07/22/17 00:00 98.0 94 23 92/65 100 Room Air 07/22/17 00:00 95 07/21/17 23:00 95 20 113/80 100 Room Air 07/21/17 22:00 96 21 95/71 100 Room Air 07/21/17 21:00 96 20 93/61 100 Room Air 07/21/17 20:00 101 07/21/17 20:00 97.9 101 23 98/68 100 Room Air 07/21/17 19:00 101 21 93/63 100 Room Air 07/21/17 18:30 97 21 100/63 99 Room Air 07/21/17 18:00 108 24 99/71 99 Room Air 07/21/17 17:30 97 24 103/71 100 Room Air 07/21/17 17:00 96 24 98/58 99 Room Air 07/21/17 16:30 105 24 100/61 100 Room Air 07/21/17 16:00 99 07/21/17 16:00 99.0 91 25 105/67 100 Room Air 07/21/17 15:30 108 20 102/73 100 Room Air Height (Feet): 5 Height (Inches): 8.00 Weight (Pounds): 129 General Appearance: no acute distress HEENT: normocephalic, atraumatic, anicteric, mucous membranes moist, EOMI, pharynx normal, supple, no JVD Respiratory/Chest: crackles/rales, rhonchi - bilaterally Cardiovascular: normal rate, regular rhythm Abdomen: normal bowel sounds, soft, non tender, no organomegaly Genitourinary: other - no cox Extremities: no cyanosis Skin: no rash 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 Infiltrates in the left lung appears slightly more diffuse, and infiltrates in the right lung appear slightly more extensive. Pleural spaces remain clear. Heart size is normal Impression: Slightly increased infiltrates bilaterally, over 2 days Microbiology Date/Time Source Procedure Growth Status 07/20/17 16:19 Blood Blood Culture - Preliminary NO GROWTH AFTER 24 HOURS Resulted 07/20/17 16:12 Blood Blood Culture - Preliminary NO GROWTH AFTER 24 HOURS Resulted 07/20/17 15:40 Nasal Nares MRSA Culture - Final NO METHICILLIN RESISTANT STAPH AUREUS... Complete 07/20/17 14:35 Sputum Gram Stain - Final Resulted 07/20/17 14:35 Sputum Sputum Culture Pending Resulted 07/20/17 22:30 Stool Clostridium difficile Toxin Assay - Final Complete 07/20/17 15:40 Rectum VRE Culture - Final NO VANCOMYCIN RESISTANT ENTEROCOCCUS ... Complete Labs Test 07/20/17 12:20 07/20/17 14:35 07/20/17 16:12 07/20/17 17:15 White Blood Count 10.8 K/UL (4.8-10.8) Red Blood Count 4.42 M/UL (4.70-6.10) Hemoglobin 12.7 G/DL (14.2-18.0) Hematocrit 37.4 % (42.0-52.0) Mean Corpuscular Volume 85 FL (80-99) Mean Corpuscular Hemoglobin 28.8 PG (27.0-31.0) Mean Corpuscular Hemoglobin Concent 34.1 G/DL (32.0-36.0) Red Cell Distribution Width 11.6 % (11.6-14.8) Platelet Count 180 K/UL (150-450) Mean Platelet Volume 9.0 FL (6.5-10.1) Neutrophils (%) (Auto) % (45.0-75.0) Lymphocytes (%) (Auto) % (20.0-45.0) Monocytes (%) (Auto) % (1.0-10.0) Eosinophils (%) (Auto) % (0.0-3.0) Basophils (%) (Auto) % (0.0-2.0) Differential Total Cells Counted 100 Neutrophils % (Manual) 92 % (45-75) Lymphocytes % (Manual) 6 % (20-45) Monocytes % (Manual) 2 % (1-10) Eosinophils % (Manual) 0 % (0-3) Basophils % (Manual) 0 % (0-2) Band Neutrophils 0 % (0-8) Platelet Estimate Adequate Platelet Morphology Normal Hypochromasia 1+ Prothrombin Time 12.5 SEC (9.30-11.50) Prothromb Time International Ratio 1.2 (0.9-1.1) Activated Partial Thromboplast Time 36 SEC (23-33) Sodium Level 127 MMOL/L (136-145) Potassium Level 3.5 MMOL/L (3.5-5.1) Chloride Level 95 MMOL/L (98-107) Carbon Dioxide Level 23 MMOL/L (21-32) Anion Gap 9 mmol/L (5-15) Blood Urea Nitrogen 16 mg/dL (7-18) Creatinine 1.3 MG/DL (0.55-1.30) Estimat Glomerular Filtration Rate 58.7 mL/min (>60) Glucose Level 110 MG/DL (74-106) Calcium Level 8.4 MG/DL (8.5-10.1) Total Bilirubin 0.8 MG/DL (0.2-1.0) Aspartate Amino Transf (AST/SGOT) 67 U/L (15-37) Alanine Aminotransferase (ALT/SGPT) 44 U/L (12-78) Alkaline Phosphatase 59 U/L (46-116) Total Protein 7.0 G/DL (6.4-8.2) Albumin 2.2 G/DL (3.4-5.0) Globulin 4.8 g/dL Albumin/Globulin Ratio 0.5 (1.0-2.7) Lipase 641 U/L (73-393) Lactic Acid Level 1.30 mmol/L (0.66-2.22) Urine Color Pale yellow Urine Appearance Clear Urine pH 6.5 (4.5-8.0) Urine Specific [place] 1.005 (1.005-1.035) Urine Protein 1+ (NEGATIVE) Urine Glucose (UA) Negative (NEGATIVE) Urine Ketones 1+ (NEGATIVE) Urine Occult Blood 2+ (NEGATIVE) Urine Nitrite Negative (NEGATIVE) Urine Bilirubin Negative (NEGATIVE) Urine Urobilinogen Normal MG/DL (0.0-1.0) Urine Leukocyte Esterase Negative (NEGATIVE) Urine RBC 2-4 /HPF (0 - 0) Urine WBC 0-2 /HPF (0 - 0) Urine Squamous Epithelial Cells Occasional /LPF Urine Bacteria Few /HPF (NONE) Test 07/20/17 20:55 07/21/17 03:00 07/22/17 08:00 Lactate Dehydrogenase 308 U/L (81-234) White Blood Count 6.8 K/UL (4.8-10.8) Red Blood Count 3.86 M/UL (4.70-6.10) Hemoglobin 11.5 G/DL (14.2-18.0) Hematocrit 32.6 % (42.0-52.0) Mean Corpuscular Volume 84 FL (80-99) Mean Corpuscular Hemoglobin 29.7 PG (27.0-31.0) Mean Corpuscular Hemoglobin Concent 35.2 G/DL (32.0-36.0) Red Cell Distribution Width 11.7 % (11.6-14.8) Platelet Count 175 K/UL (150-450) Mean Platelet Volume 9.7 FL (6.5-10.1) Neutrophils (%) (Auto) % (45.0-75.0) Lymphocytes (%) (Auto) % (20.0-45.0) Monocytes (%) (Auto) % (1.0-10.0) Eosinophils (%) (Auto) % (0.0-3.0) Basophils (%) (Auto) % (0.0-2.0) Sodium Level 140 MMOL/L (136-145) Potassium Level 3.5 MMOL/L (3.5-5.1) Chloride Level 112 MMOL/L (98-107) Carbon Dioxide Level 19 MMOL/L (21-32) Anion Gap 9 mmol/L (5-15) Blood Urea Nitrogen 9 mg/dL (7-18) Creatinine 0.8 MG/DL (0.55-1.30) Estimat Glomerular Filtration Rate > 60 mL/min (>60) Glucose Level 184 MG/DL (74-106) Calcium Level 7.3 MG/DL (8.5-10.1) Magnesium Level 2.1 MG/DL (1.8-2.4) Total Bilirubin 0.4 MG/DL (0.2-1.0) Aspartate Amino Transf (AST/SGOT) 38 U/L (15-37) Alanine Aminotransferase (ALT/SGPT) 31 U/L (12-78) Alkaline Phosphatase 44 U/L (46-116) Total Protein 5.4 G/DL (6.4-8.2) Albumin 1.6 G/DL (3.4-5.0) Globulin 3.8 g/dL Albumin/Globulin Ratio 0.4 (1.0-2.7) Vancomycin Level Trough 6.7 ug/mL (5.0-12.0) Laboratory Tests Test 07/22/17 08:00 Vancomycin Level Trough 6.7 ug/mL (5.0-12.0) Current Medications Medications (Trade) Dose Ordered Sig/Gabriela Route PRN Reason Start Time Stop Time Status Last Admin Dose Admin Acetaminophen (Tylenol) 650 mg Q4H PRN ORAL Mild Pain (Pain Scale 1-3) 07/22/17 14:30 08/19/17 14:29 Azithromycin (Zithromax) 250 mg DAILY ORAL 07/23/17 09:00 07/28/17 08:59 Chlorhexidine Gluconate (Denisse-Hex 2%) 1 applic DAILY@2000 TOPIC 07/22/17 20:00 08/20/17 19:59 Dextrose (Dextrose 50%) STAT PRN IV Hypoglycemia 07/22/17 14:30 08/19/17 14:29 Dextrose/ Electrolytes 1,000 ml @ 125 mls/hr Q8H IV 07/22/17 15:00 08/19/17 14:59 07/22/17 14:44 Diphenhydramine HCl (Benadryl) 25 mg Q6H PRN ORAL Itching/Pruritis 07/22/17 14:30 08/19/17 14:29 Docusate Sodium (Colace) 100 mg EVERY 12 HOURS ORAL 07/22/17 21:00 08/19/17 20:59 Enoxaparin Sodium (Lovenox) 40 mg QHS SUBQ 07/22/17 21:00 08/19/17 20:59 Fluconazole (Diflucan) 400 mg DAILY ORAL 07/23/17 09:00 07/28/17 08:59 Hydromorphone HCl (Dilaudid) 0.5 mg Q6H PRN IVP Moderate to Severe Pain 07/22/17 14:30 07/27/17 14:29 Ondansetron HCl (Zofran) 4 mg Q6H PRN IVP Nausea & Vomiting 07/22/17 14:30 08/19/17 14:29 Pantoprazole (Protonix) 40 mg DAILY ORAL 07/23/17 09:00 08/21/17 08:59 Piperacillin Sod/ Tazobactam Sod 3.375 gm/Dextrose 55 ml @ 13.75 mls/ hr EVERY 8 HOURS IVPB 07/22/17 22:00 07/27/17 21:59 Trimethoprim/ Sulfamethoxazole 20 ml/Dextrose 570 ml @ 380 mls/hr Q8HR@0000,0800,1600 IV 07/22/17 16:00 07/27/17 21:59 Vancomycin HCl (Vanco rx to dose) 1 ea DAILYPRN PRN MISC Per rx protocol 07/23/17 09:00 08/22/17 08:59 Vancomycin HCl 1 gm/Dextrose 275 ml @ 183.708 mls/hr Q12H IVPB 07/22/17 21:00 07/26/17 08:59 WEN ANTOINE Jul 22, 2017 15:11
[2017-07-22] MEDS: Dyna-Hex 2% Top Sol 2oz TOPIC SCH (20:29)
[2017-07-22] MEDS: Vancomycin 1 GM in D5W 275 ML IVPB SCH (21:33)
[2017-07-22] MEDS: Enoxaparin 40mg Inj SUBQ SCH (21:37)
[2017-07-23] VITALS: BP 110/69
[2017-07-23] MEDS: D5NS w/KCl 40mEq 1000ml 1,000 ML IV SCH ×5 (00:43→22:42)
[2017-07-23] MEDS: Trimethoprim/Sulfamethoxazole 20 ML in D5W 500ml 550 ML IV SCH ×3 (00:45→15:45)
[2017-07-23 04:00] VITALS: BP 109/71
[2017-07-23] MEDS: Piperacillin/Tazobactam 3.375 GM in D5W 55 ML IVPB SCH ×3 (06:39→22:42)
[2017-07-23 07:45] LABS: MEAN CORPUSCULAR HEMOGLOBIN 28.9 PG (27.0-31.0); MEAN CORPUSCULAR HGB CONC 34.2 G/DL (32.0-36.0); MEAN CORPUSCULAR VOLUME 85 FL (80-99); MEAN PLATELET VOLUME 9.3 FL (6.5-10.1); PLATELET COUNT 178 K/UL (150-450); RED BLOOD COUNT 3.75 M/UL (4.70-6.10); RED CELL DISTRIBUTION WIDTH 11.8 % (11.6-14.8); WHITE BLOOD COUNT 5.4 K/UL (4.8-10.8)
[2017-07-23 08:00] VITALS: BP 108/72
[2017-07-23 08:05] LABS: ANISOCYTOSIS 1+; BAND NEUTROPHILS % (MANUAL) 0 % (0-8); BASOPHILS % (MANUAL) 0 % (0-2); EOSINOPHILS % (MANUAL) 5 % (0-3); HYPOCHROMASIA 1+; LYMPHOCYTES % (MANUAL) 6 % (20-45); NEUTROPHILS % (MANUAL) 84 % (45-75); PLATELET ESTIMATE ADEQUATE; PLATELET MORPHOLOGY NORMAL; TOTAL CELLS COUNTED 100
[2017-07-23 08:30] LABS: ALANINE AMINOTRANSFERASE 46 U/L (12-78); ALBUMIN/GLOBULIN RATIO 0.5 (1.0-2.7); ANION GAP 10 mmol/L (5-15); ASPARTATE AMINO TRANSFERASE 60 U/L (15-37); CALCIUM 8.2 MG/DL (8.5-10.1); CARBON DIOXIDE 19 MMOL/L (21-32); CHLORIDE 108 MMOL/L (98-107); CREATININE 0.8 MG/DL (0.55-1.30); GLOMERULAR FILTRATION RATE > 60 mL/min (>60); MAGNESIUM 1.6 MG/DL (1.8-2.4); PHOSPHORUS 2.4 MG/DL (2.5-4.9); SODIUM 137 MMOL/L (136-145); TOTAL PROTEIN 5.7 G/DL (6.4-8.2)
[2017-07-23] MEDS: Docusate 100mg cap ORAL SCH ×2 (08:59→21:00)
[2017-07-23] MEDS: Azithromycin 250mg tab ORAL SCH (09:00)
[2017-07-23] MEDS ORDERED: Fluconazole 100mg tab ORAL SCH (09:00)
--- NOTE | 2017-07-23 10:08 | General Progress Note ---
Assessment/Plan Assessment/Plan Hypotension mulifactorial volume depletion - on IVF. Resoling. Off pressors. AIDS - per ID. Pneumonia on Broad Spectrum IV Abx for immuno Compromised HIV patients. Doubt MTB. Transfer to [facility]. Needs Dietary eval. Encephalopathy check Brain MRI + EEG Subjective Allergies: Coded Allergies: No Known Allergies (Unverified , 07/20/17) Subjective No new c/o. Nocturnal Confusion!!! Objective Last 24 Hour Vital Signs Date Time Temp Pulse Resp B/P (MAP) Pulse Ox O2 Delivery O2 Flow Rate FiO2 07/23/17 08:00 96 07/23/17 08:00 97.3 96 20 108/72 97 Room Air 07/23/17 04:00 97.0 105 20 109/71 97 Room Air 07/23/17 04:00 93 07/23/17 00:00 97.7 111 22 110/69 100 Room Air 07/23/17 00:00 146 07/22/17 21:47 100.0 07/22/17 21:01 100.8 07/22/17 20:00 109 07/22/17 18:40 97.1 106 24 126/77 97 Room Air 07/22/17 16:00 96 07/22/17 16:00 97.6 97 22 114/69 99 Room Air 07/22/17 14:00 104 22 107/70 100 Room Air 07/22/17 13:00 101 23 104/74 100 Room Air 07/22/17 12:00 98.8 94 23 101/71 100 Room Air 07/22/17 12:00 94 07/22/17 11:00 87 19 103/70 100 Room Air Intake and Output 07/23/17 07/24/17 19:00 07:00 Intake Total 138.75 ml Balance 138.75 ml IV Total 138.75 ml # Voids 2 Laboratory Tests 07/23/17 06:30: White Blood Count 5.4, Red Blood Count 3.75L, Hemoglobin 10.9L, Hematocrit 31.8L , Mean Corpuscular Volume 85, Mean Corpuscular Hemoglobin 28.9, Mean Corpuscular Hemoglobin Concent 34.2, Red Cell Distribution Width 11.8, Platelet Count 178, Mean Platelet Volume 9.3, Neutrophils (%) (Auto) , Lymphocytes (%) ( Auto) , Monocytes (%) (Auto) , Eosinophils (%) (Auto) , Basophils (%) (Auto) , Differential Total Cells Counted 100, Neutrophils % (Manual) 84H, Lymphocytes % (Manual) 6L, Monocytes % (Manual) 5, Eosinophils % (Manual) 5H, Basophils % ( Manual) 0, Band Neutrophils 0, Platelet Estimate Adequate, Platelet Morphology Normal, Hypochromasia 1+, Anisocytosis 1+, Sodium Level 137, Potassium Level 4.0 , Chloride Level 108H, Carbon Dioxide Level 19L, Anion Gap 10, Blood Urea Nitrogen 3L, Creatinine 0.8, Estimat Glomerular Filtration Rate > 60, Glucose Level 76, Calcium Level 8.2L, Phosphorus Level 2.4L, Magnesium Level 1.6L, Total Bilirubin 0.3, Aspartate Amino Transf (AST/SGOT) 60H, Alanine Aminotransferase (ALT/SGPT) 46, Alkaline Phosphatase 56, Total Protein 5.7L, Albumin 1.8L, Globulin 3.9, Albumin/Globulin Ratio 0.5L Height (Feet): 5 Height (Inches): 8.00 Weight (Pounds): 130 Objective CV RR Lungs CTA Abd SNT BS + E No CCE MOLLY VÁZQUEZ Jul 23, 2017 10:08
[2017-07-23] MEDS: LORazepam 1mg tab ORAL PRN (10:51)
[2017-07-23] MEDS: Vancomycin 1 GM in D5W 275 ML IVPB SCH ×2 (10:57→21:12)
[2017-07-23 11:54] LABS: CD3 ABSOLUTE 644 /uL (622-2402); CD4 ABSOLUTE 55 /uL (359-1519); CD8 ABSOLUTE 582 /uL (109-897); LYMPHOCYTES ABSOLUTE 0.8 x10E3/uL (0.7-3.1); LYMPHS 11 % (Not Estab.); WBC 7.3 x10E3/uL (3.4-10.8)
[2017-07-23 12:00] VITALS: BP 105/65
[2017-07-23] MEDS ORDERED: Tubing IV Secondary IV ONE (15:10)
[2017-07-23] MEDS ORDERED: D5 1/2NS 1000ml IV ONE (15:10)
[2017-07-23] MEDS ORDERED: NS 500ML ONE (15:16)
[2017-07-23] MEDS ORDERED: D5W 275ml ONE (15:16)
[2017-07-23 16:00] VITALS: BP 121/68
[2017-07-23] MEDS ORDERED: NS IVPB ONE (18:30)
[2017-07-23] MEDS ORDERED: SODIUM PHOSPHATE IVPB ONE (18:30)
--- NOTE | 2017-07-23 19:25 | Infectious Diseases Prog Note ---
Assessment/Plan Assessment/Plan A) 1) pna, ? cap, ? pcp, ? fungal, sepsis, shock, fevers, ? TB pna/ ? other OI 2) hiv, aids 3) allergies - negative, fh-nc, sh-negative, mar noted 4) d/w RN 5) notes and records noted P) 1) zosyn, vancomycin, bactrim, diflucan, azithromycin 2) check culture, sputum, afb, isolation, labs, chest x-ray 3) orders entered and noted 4) continue tx per primary and consultants 5) d/w patient Subjective Constitutional: Denies: fever HEENT: Reports: congestion - less Respiratory: Reports: shortness of breath - less Cardiovascular: Denies: chest pain Gastrointestinal/Abdominal: Denies: nausea, diarrhea Neurologic: Denies: headache Psychiatric: Denies: depression Skin: Denies: rash Hematologic: Denies: bleeding Musculoskeletal: Denies: pain Allergies: Coded Allergies: No Known Allergies (Unverified , 07/20/17) Objective Vital Signs Last 24 Hour Vital Signs Date Time Temp Pulse Resp B/P (MAP) Pulse Ox O2 Delivery O2 Flow Rate FiO2 07/23/17 16:00 98.1 113 26 121/68 97 Room Air 07/23/17 16:00 113 07/23/17 12:00 97.7 111 20 105/65 96 Room Air 07/23/17 11:49 104 07/23/17 08:00 98 07/23/17 08:00 97.3 96 20 108/72 97 Room Air 07/23/17 04:00 97.0 105 20 109/71 97 Room Air 07/23/17 04:00 93 07/23/17 00:00 97.7 111 22 110/69 100 Room Air 07/23/17 00:00 146 07/22/17 21:47 100.0 07/22/17 21:01 100.8 07/22/17 20:00 109 Height (Feet): 5 Height (Inches): 8.00 Weight (Pounds): 130 General Appearance: no acute distress HEENT: normocephalic, atraumatic, anicteric, mucous membranes moist, EOMI, pharynx normal, supple, no JVD Respiratory/Chest: no accessory muscle use, crackles/rales, rhonchi - bilaterally Cardiovascular: normal rate, regular rhythm, no gallop/murmur, no JVD Abdomen: normal bowel sounds, soft, non tender, no organomegaly, non distended Genitourinary: other - no cox Extremities: no cyanosis Skin: no rash 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 Infiltrates in the left lung appears slightly more diffuse, and infiltrates in the right lung appear slightly more extensive. Pleural spaces remain clear. Heart size is normal Impression: Slightly increased infiltrates bilaterally, over 2 days Microbiology Date/Time Source Procedure Growth Status 07/22/17 12:00 Sputum Expectorated Gram Stain - Final Resulted 07/22/17 12:00 Sputum Expectorated Sputum Culture Pending Resulted 07/20/17 22:30 Stool Clostridium difficile Toxin Assay - Final Complete Laboratory Tests Test 07/23/17 06:30 White Blood Count 5.4 K/UL (4.8-10.8) Red Blood Count 3.75 M/UL (4.70-6.10) L Hemoglobin 10.9 G/DL (14.2-18.0) L Hematocrit 31.8 % (42.0-52.0) L Mean Corpuscular Volume 85 FL (80-99) Mean Corpuscular Hemoglobin 28.9 PG (27.0-31.0) Mean Corpuscular Hemoglobin Concent 34.2 G/DL (32.0-36.0) Red Cell Distribution Width 11.8 % (11.6-14.8) Platelet Count 178 K/UL (150-450) Mean Platelet Volume 9.3 FL (6.5-10.1) Neutrophils (%) (Auto) % (45.0-75.0) Lymphocytes (%) (Auto) % (20.0-45.0) Monocytes (%) (Auto) % (1.0-10.0) Eosinophils (%) (Auto) % (0.0-3.0) Basophils (%) (Auto) % (0.0-2.0) Differential Total Cells Counted 100 Neutrophils % (Manual) 84 % (45-75) H Lymphocytes % (Manual) 6 % (20-45) L Monocytes % (Manual) 5 % (1-10) Eosinophils % (Manual) 5 % (0-3) H Basophils % (Manual) 0 % (0-2) Band Neutrophils 0 % (0-8) Platelet Estimate Adequate Platelet Morphology Normal Hypochromasia 1+ Anisocytosis 1+ Sodium Level 137 MMOL/L (136-145) Potassium Level 4.0 MMOL/L (3.5-5.1) Chloride Level 108 MMOL/L (98-107) H Carbon Dioxide Level 19 MMOL/L (21-32) L Anion Gap 10 mmol/L (5-15) Blood Urea Nitrogen 3 mg/dL (7-18) L Creatinine 0.8 MG/DL (0.55-1.30) Estimat Glomerular Filtration Rate > 60 mL/min (>60) Glucose Level 76 MG/DL (74-106) Calcium Level 8.2 MG/DL (8.5-10.1) L Phosphorus Level 2.4 MG/DL (2.5-4.9) L Magnesium Level 1.6 MG/DL (1.8-2.4) L Total Bilirubin 0.3 MG/DL (0.2-1.0) Aspartate Amino Transf (AST/SGOT) 60 U/L (15-37) H Alanine Aminotransferase (ALT/SGPT) 46 U/L (12-78) Alkaline Phosphatase 56 U/L (46-116) Total Protein 5.7 G/DL (6.4-8.2) L Albumin 1.8 G/DL (3.4-5.0) L Globulin 3.9 g/dL Albumin/Globulin Ratio 0.5 (1.0-2.7) L Current Medications Medications (Trade) Dose Ordered Sig/Gabriela Route PRN Reason Start Time Stop Time Status Last Admin Dose Admin Acetaminophen (Tylenol) 650 mg Q4H PRN ORAL Mild Pain (Pain Scale 1-3) 07/22/17 14:30 08/19/17 14:29 07/22/17 20:48 Azithromycin (Zithromax) 250 mg DAILY ORAL 07/23/17 09:00 07/28/17 08:59 07/23/17 09:00 Chlorhexidine Gluconate (Denisse-Hex 2%) 1 applic DAILY@1999 TOPIC 07/22/17 20:00 08/20/17 19:59 07/22/17 20:29 Dextrose (Dextrose 50%) STAT PRN IV Hypoglycemia 07/22/17 14:30 08/19/17 14:29 Dextrose/ Electrolytes 1,000 ml @ 125 mls/hr Q8H IV 07/22/17 15:00 08/19/17 14:59 07/23/17 15:19 Diphenhydramine HCl (Benadryl) 25 mg Q6H PRN ORAL Itching/Pruritis 07/22/17 14:30 08/19/17 14:29 07/22/17 20:29 Docusate Sodium (Colace) 100 mg EVERY 12 HOURS ORAL 07/22/17 21:00 08/19/17 20:59 07/23/17 08:59 Enoxaparin Sodium (Lovenox) 40 mg QHS SUBQ 07/22/17 21:00 08/19/17 20:59 07/22/17 21:37 Fluconazole (Diflucan) 400 mg DAILY ORAL 07/23/17 09:00 07/28/17 08:59 07/23/17 09:00 Hydromorphone HCl (Dilaudid) 0.5 mg Q6H PRN IVP Moderate to Severe Pain 07/22/17 14:30 07/27/17 14:29 07/22/17 20:31 Lorazepam (Ativan) 1 mg Q6H PRN ORAL For Anxiety 07/23/17 08:00 07/30/17 07:59 07/23/17 10:51 Ondansetron HCl (Zofran) 4 mg Q6H PRN IVP Nausea & Vomiting 07/22/17 14:30 08/19/17 14:29 Pantoprazole (Protonix) 40 mg ACBREAKFAST ORAL 07/23/17 09:00 08/22/17 08:59 07/23/17 09:00 Piperacillin Sod/ Tazobactam Sod 3.375 gm/Dextrose 55 ml @ 13.75 mls/ hr EVERY 8 HOURS IVPB 07/22/17 22:00 07/27/17 21:59 07/23/17 14:26 Sodium Phosphate 40 mm/Sodium Chloride 288.3333 ml @ 47.5 mls/hr ONCE ONCE IVPB 07/23/17 18:30 07/24/17 00:34 07/23/17 17:56 Trimethoprim/ Sulfamethoxazole 20 ml/Dextrose 570 ml @ 380 mls/hr Q8HR@0000,0800,1600 IV 07/22/17 16:00 07/27/17 21:59 07/23/17 15:45 Vancomycin HCl (Vanco rx to dose) 1 ea DAILYPRN PRN MISC Per rx protocol 07/23/17 09:00 08/22/17 08:59 Vancomycin HCl 1 gm/Dextrose 275 ml @ 183.708 mls/hr Q12H IVPB 07/22/17 21:00 07/26/17 08:59 07/23/17 10:57 WEN ANTOINE Jul 23, 2017 19:25
[2017-07-23 20:10] LABS: MTB PROCESSING Concentration (.)
[2017-07-23 20:13] VITALS: BP 102/67
[2017-07-23] MEDS: Dyna-Hex 2% Top Sol 2oz TOPIC SCH (21:12)
[2017-07-23] MEDS: Enoxaparin 40mg Inj SUBQ SCH (21:14)
[2017-07-24] MEDS: Trimethoprim/Sulfamethoxazole 20 ML in D5W 500ml 550 ML IV SCH ×3 (00:03→16:29)
[2017-07-24 00:10] VITALS: BP 104/66
[2017-07-24 04:00] VITALS: BP 101/61
[2017-07-24 05:14] LABS: MEAN CORPUSCULAR HEMOGLOBIN 28.7 PG (27.0-31.0); MEAN CORPUSCULAR HGB CONC 34.1 G/DL (32.0-36.0); MEAN CORPUSCULAR VOLUME 84 FL (80-99); MEAN PLATELET VOLUME 8.9 FL (6.5-10.1); PLATELET COUNT 180 K/UL (150-450); RED BLOOD COUNT 3.37 M/UL (4.70-6.10); RED CELL DISTRIBUTION WIDTH 11.7 % (11.6-14.8); WHITE BLOOD COUNT 3.3 K/UL (4.8-10.8)
[2017-07-24 05:29] LABS: ANION GAP 10 mmol/L (5-15); CALCIUM 7.7 MG/DL (8.5-10.1); CARBON DIOXIDE 21 MMOL/L (21-32); CHLORIDE 107 MMOL/L (98-107); CREATININE 0.9 MG/DL (0.55-1.30); GLOMERULAR FILTRATION RATE > 60 mL/min (>60); POTASSIUM 4.4 MMOL/L (3.5-5.1); SODIUM 138 MMOL/L (136-145)
[2017-07-24] MEDS: Piperacillin/Tazobactam 3.375 GM in D5W 55 ML IVPB SCH ×2 (06:09→13:44)
[2017-07-24] MEDS: D5NS w/KCl 40mEq 1000ml 1,000 ML IV SCH ×3 (06:09→23:05)
[2017-07-24 07:49] LABS: BAND NEUTROPHILS % (MANUAL) 0 % (0-8); BASOPHILS % (MANUAL) 1 % (0-2); EOSINOPHILS % (MANUAL) 9 % (0-3); LYMPHOCYTES % (MANUAL) 12 % (20-45); NEUTROPHILS % (MANUAL) 64 % (45-75); PLATELET ESTIMATE ADEQUATE; PLATELET MORPHOLOGY NORMAL; TOTAL CELLS COUNTED 100
[2017-07-24 07:50] LABS: BURR CELLS 1+; SCHISTOCYTES 1+
[2017-07-24 08:00] VITALS: BP 164/84
[2017-07-24] MEDS: Docusate 100mg cap ORAL SCH ×2 (08:45→21:00)
[2017-07-24] MEDS ORDERED: Vancomycin 1250mg/D5W 250ml IVPB SCH (10:00)
--- NOTE | 2017-07-24 10:02 | Diagnostic Imaging Report ---
Indication: Chest pain Technique: XRAY CHEST 1 V Comparison: 07/22/17 Findings: Left internal jugular central line is again noted. Cardiomediastinal silhouette is stable. Patchy infiltrates are again noted of the lungs bilaterally. Osseous structures are stable. Impression: No interval change from 07/22/17.
[2017-07-24] MEDS: Azithromycin 250mg tab ORAL SCH (10:04)
--- NOTE | 2017-07-24 11:41 | General Progress Note ---
Assessment/Plan Assessment/Plan AIDS - per ID. Pneumonia on Broad Spectrum IV Abx for immuno Compromised HIV patients. Doubt MTB. AFB's 1st one done. In [place]. Needs Dietary eval. Encephalopathy check Brain MRI + EEG Subjective Allergies: Coded Allergies: No Known Allergies (Unverified , 07/20/17) Subjective No new c/o. Nocturnal Confusion!!! Objective Last 24 Hour Vital Signs Date Time Temp Pulse Resp B/P (MAP) Pulse Ox O2 Delivery O2 Flow Rate FiO2 07/24/17 08:00 111 07/24/17 08:00 98.2 78 18 164/84 99 Room Air 07/24/17 04:00 98.1 97 20 101/61 97 Room Air 07/24/17 04:00 93 07/24/17 00:10 98.4 101 20 104/66 96 Room Air 07/24/17 00:00 104 07/23/17 20:13 98.1 109 20 102/67 98 Room Air 07/23/17 20:00 105 07/23/17 16:00 98.1 113 26 121/68 97 Room Air 07/23/17 16:00 113 07/23/17 12:00 97.7 111 20 105/65 96 Room Air 07/23/17 11:49 104 Intake and Output 07/24/17 07/25/17 19:00 07:00 Intake Total 891.25 ml Balance 891.25 ml IV Total 891.25 ml Laboratory Tests 07/24/17 04:30: White Blood Count 3.3L, Red Blood Count 3.37L, Hemoglobin 9.7L, Hematocrit 28.5L , Mean Corpuscular Volume 84, Mean Corpuscular Hemoglobin 28.7, Mean Corpuscular Hemoglobin Concent 34.1, Red Cell Distribution Width 11.7, Platelet Count 180, Mean Platelet Volume 8.9, Neutrophils (%) (Auto) , Lymphocytes (%) ( Auto) , Monocytes (%) (Auto) , Eosinophils (%) (Auto) , Basophils (%) (Auto) , Differential Total Cells Counted 100, Neutrophils % (Manual) 64, Lymphocytes % ( Manual) 12L, Monocytes % (Manual) 14H, Eosinophils % (Manual) 9H, Basophils % ( Manual) 1, Band Neutrophils 0, Platelet Estimate Adequate, Platelet Morphology Normal, Blister Cells , Gabriela Cells 1+, Schistocytes 1+, Sodium Level 138, Potassium Level 4.4, Chloride Level 107, Carbon Dioxide Level 21, Anion Gap 10, Blood Urea Nitrogen 3L, Creatinine 0.9, Estimat Glomerular Filtration Rate > 60 , Glucose Level 84, Calcium Level 7.7L, Lactate Dehydrogenase 277H 07/24/17 08:05: Vancomycin Level Trough 7.9 Height (Feet): 5 Height (Inches): 8.00 Weight (Pounds): 129 Objective CV RR Lungs CTA Abd SNT BS + E No CCE MOLLY VÁZQUEZ Jul 24, 2017 11:41
[2017-07-24 12:00] VITALS: BP 113/60
[2017-07-24 12:14] LABS: MAGNESIUM 2.4 MG/DL (1.8-2.4); PHOSPHORUS 4.9 MG/DL (2.5-4.9)
[2017-07-24] MEDS ORDERED: Tubing IV Secondary IV ONE (15:59)
[2017-07-24] MEDS ORDERED: NS 500ML ONE (15:59)
[2017-07-24 16:00] VITALS: BP 119/77
--- NOTE | 2017-07-24 18:57 | Infectious Diseases Prog Note ---
Assessment/Plan Assessment/Plan A) 1) pna, ? cap, ? pcp, sepsis, shock, fevers, ? TB pna/ ? other OI, thrush, sc - daisy albicans 2) hiv, aids - cd4 - 57 3) allergies - negative, fh-nc, sh-negative, mar noted 4) d/w RN 5) notes and records noted P) 1) rocephin, bactrim, diflucan, azithromycin 2) check serolgy, TB pcr, sputum, afb, isolation, labs, chest x-ray 3) orders entered and noted 4) continue tx per primary and consultants 5) d/w patient 6) will need outpatient evaluation for hiv anti-retroviral tx, including genotyping, viral load etc Subjective Constitutional: Denies: fever HEENT: Reports: congestion - less Respiratory: Reports: shortness of breath - less Cardiovascular: Denies: chest pain Gastrointestinal/Abdominal: Denies: nausea, vomiting, diarrhea Genitourinary: Denies: dysuria Neurologic: Denies: headache Skin: Denies: rash Hematologic: Denies: bleeding Allergies: Coded Allergies: No Known Allergies (Unverified , 07/20/17) Objective Vital Signs Last 24 Hour Vital Signs Date Time Temp Pulse Resp B/P (MAP) Pulse Ox O2 Delivery O2 Flow Rate FiO2 07/24/17 16:00 101 07/24/17 12:00 97.9 104 18 113/60 99 Room Air 07/24/17 12:00 101 07/24/17 08:00 111 07/24/17 08:00 98.2 78 18 164/84 99 Room Air 07/24/17 04:00 98.1 97 20 101/61 97 Room Air 07/24/17 04:00 93 07/24/17 00:10 98.4 101 20 104/66 96 Room Air 07/24/17 00:00 104 07/23/17 20:13 98.1 109 20 102/67 98 Room Air 07/23/17 20:00 105 Height (Feet): 5 Height (Inches): 8.00 Weight (Pounds): 129 General Appearance: no acute distress HEENT: normocephalic, atraumatic, anicteric, mucous membranes moist Respiratory/Chest: crackles/rales, rhonchi - bilaterally Cardiovascular: normal rate, regular rhythm, no gallop/murmur, no JVD Abdomen: normal bowel sounds, soft, non tender, no organomegaly, non distended Genitourinary: other - no cox Extremities: no cyanosis Skin: no rash 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 Infiltrates in the left lung appears slightly more diffuse, and infiltrates in the right lung appear slightly more extensive. Pleural spaces remain clear. Heart size is normal Impression: Slightly increased infiltrates bilaterally, over 2 days Chest x-ray - 07/24 Findings: Left internal jugular central line is again noted. Cardiomediastinal silhouette is stable. Patchy infiltrates are again noted of the lungs bilaterally. Osseous structures are stable. Impression: No interval change from 07/22/17. Microbiology Date/Time Source Procedure Growth Status 07/23/17 06:50 Sputum AFB Specimen Processing Tissue - Final Resulted 07/23/17 06:50 Sputum Acid Fast Bacilli Smear - Final Resulted 07/23/17 06:50 Sputum Acid Fast Bacilli Culture Pending Resulted 07/22/17 12:00 Sputum Expectorated Gram Stain - Final Resulted 07/22/17 12:00 Sputum Culture - Preliminary Daisy Albicans Resulted Laboratory Tests Test 07/24/17 04:30 07/24/17 04:35 07/24/17 08:05 White Blood Count 3.3 K/UL (4.8-10.8) L Red Blood Count 3.37 M/UL (4.70-6.10) L Hemoglobin 9.7 G/DL (14.2-18.0) L Hematocrit 28.5 % (42.0-52.0) L Mean Corpuscular Volume 84 FL (80-99) Mean Corpuscular Hemoglobin 28.7 PG (27.0-31.0) Mean Corpuscular Hemoglobin Concent 34.1 G/DL (32.0-36.0) Red Cell Distribution Width 11.7 % (11.6-14.8) Platelet Count 180 K/UL (150-450) Mean Platelet Volume 8.9 FL (6.5-10.1) Neutrophils (%) (Auto) % (45.0-75.0) Lymphocytes (%) (Auto) % (20.0-45.0) Monocytes (%) (Auto) % (1.0-10.0) Eosinophils (%) (Auto) % (0.0-3.0) Basophils (%) (Auto) % (0.0-2.0) Differential Total Cells Counted 100 Neutrophils % (Manual) 64 % (45-75) Lymphocytes % (Manual) 12 % (20-45) L Monocytes % (Manual) 14 % (1-10) H Eosinophils % (Manual) 9 % (0-3) H Basophils % (Manual) 1 % (0-2) Band Neutrophils 0 % (0-8) Platelet Estimate Adequate Platelet Morphology Normal Blister Cells Gabriela Cells 1+ Schistocytes 1+ Sodium Level 138 MMOL/L (136-145) Potassium Level 4.4 MMOL/L (3.5-5.1) Chloride Level 107 MMOL/L (98-107) Carbon Dioxide Level 21 MMOL/L (21-32) Anion Gap 10 mmol/L (5-15) Blood Urea Nitrogen 3 mg/dL (7-18) L Creatinine 0.9 MG/DL (0.55-1.30) Estimat Glomerular Filtration Rate > 60 mL/min (>60) Glucose Level 84 MG/DL (74-106) Calcium Level 7.7 MG/DL (8.5-10.1) L Lactate Dehydrogenase 277 U/L (81-234) H Phosphorus Level 4.9 MG/DL (2.5-4.9) Magnesium Level 2.4 MG/DL (1.8-2.4) Vancomycin Level Trough 7.9 ug/mL (5.0-12.0) Current Medications Medications (Trade) Dose Ordered Sig/Gabriela Route PRN Reason Start Time Stop Time Status Last Admin Dose Admin Acetaminophen (Tylenol) 650 mg Q4H PRN ORAL Mild Pain (Pain Scale 1-3) 07/22/17 14:30 08/19/17 14:29 07/22/17 20:48 Azithromycin (Zithromax) 250 mg DAILY ORAL 07/23/17 09:00 07/28/17 08:59 07/24/17 10:04 Chlorhexidine Gluconate (Denisse-Hex 2%) 1 applic DAILY@2000 TOPIC 07/22/17 20:00 08/20/17 19:59 07/23/17 21:12 Dextrose (Dextrose 50%) STAT PRN IV Hypoglycemia 07/22/17 14:30 08/19/17 14:29 Dextrose/ Electrolytes 1,000 ml @ 125 mls/hr Q8H IV 07/22/17 15:00 08/19/17 14:59 07/24/17 13:56 Diphenhydramine HCl (Benadryl) 25 mg Q6H PRN ORAL Itching/Pruritis 07/22/17 14:30 08/19/17 14:29 07/22/17 20:29 Docusate Sodium (Colace) 100 mg EVERY 12 HOURS ORAL 07/22/17 21:00 08/19/17 20:59 07/24/17 08:45 Enoxaparin Sodium (Lovenox) 40 mg QHS SUBQ 07/22/17 21:00 08/19/17 20:59 07/23/17 21:14 Hydromorphone HCl (Dilaudid) 0.5 mg Q6H PRN IVP Moderate to Severe Pain 07/22/17 14:30 07/27/17 14:29 07/22/17 20:31 Lorazepam (Ativan) 1 mg Q6H PRN ORAL For Anxiety 07/23/17 08:00 07/30/17 07:59 07/23/17 10:51 Multivitamins Therapeutic (Therapeutic Multivitamin) 1 ea DAILY ORAL 07/25/17 09:00 08/24/17 08:59 Ondansetron HCl (Zofran) 4 mg Q6H PRN IVP Nausea & Vomiting 07/22/17 14:30 08/19/17 14:29 Pantoprazole (Protonix) 40 mg ACBREAKFAST ORAL 07/23/17 09:00 08/22/17 08:59 07/24/17 06:09 Piperacillin Sod/ Tazobactam Sod 3.375 gm/Dextrose 55 ml @ 13.75 mls/ hr EVERY 8 HOURS IVPB 07/22/17 22:00 07/27/17 21:59 07/24/17 13:44 Trimethoprim/ Sulfamethoxazole 20 ml/Dextrose 570 ml @ 380 mls/hr Q8HR@0000,0800,1600 IV 07/22/17 16:00 07/27/17 21:59 07/24/17 16:29 Vancomycin HCl (Vanco rx to dose) 1 ea DAILYPRN PRN MISC Per rx protocol 07/23/17 09:00 08/22/17 08:59 Vancomycin HCl/ Dextrose 250 ml @ 166.667 mls/hr Q12HR@1000,2200 IVPB 07/24/17 10:00 07/29/17 09:59 07/24/17 10:04 Vitamin D (Vitamin D) 1,000 intlu DAILY ORAL 07/25/17 09:00 08/24/17 08:59 WEN ANTOINE Jul 24, 2017 18:57
[2017-07-24 20:16] VITALS: BP 105/74
[2017-07-24] MEDS: Dyna-Hex 2% Top Sol 2oz TOPIC SCH (20:24)
[2017-07-24] MEDS: Enoxaparin 40mg Inj SUBQ SCH (20:39)
[2017-07-24] MEDS: cefTRIAXone 1 GM in D5W 50 ML IVPB SCH (20:46)
[2017-07-25 00:03] VITALS: BP 110/68
[2017-07-25] MEDS: Trimethoprim/Sulfamethoxazole 20 ML in D5W 500ml 550 ML IV SCH ×3 (00:15→16:04)
[2017-07-25 04:01] VITALS: BP 103/60
[2017-07-25 05:04] LABS: BASOPHILS % (AUTO) 0.7 % (0.0-2.0); EOSINOPHILS % (AUTO) 0.2 % (0.0-3.0); LYMPHOCYTES % (AUTO) 14.5 % (20.0-45.0); MEAN CORPUSCULAR HEMOGLOBIN 28.6 PG (27.0-31.0); MEAN CORPUSCULAR HGB CONC 33.8 G/DL (32.0-36.0); MEAN CORPUSCULAR VOLUME 85 FL (80-99); MEAN PLATELET VOLUME 8.5 FL (6.5-10.1); MONOCYTES % (AUTO) 6.1 % (1.0-10.0); NEUTROPHILS % (AUTO) 78.6 % (45.0-75.0); PLATELET COUNT 201 K/UL (150-450); RED BLOOD COUNT 3.42 M/UL (4.70-6.10); RED CELL DISTRIBUTION WIDTH 12.1 % (11.6-14.8); WHITE BLOOD COUNT 3.5 K/UL (4.8-10.8)
[2017-07-25 05:36] LABS: ANION GAP 8 mmol/L (5-15); CALCIUM 7.9 MG/DL (8.5-10.1); CARBON DIOXIDE 23 MMOL/L (21-32); CHLORIDE 104 MMOL/L (98-107); CREATININE 0.8 MG/DL (0.55-1.30); GLOMERULAR FILTRATION RATE > 60 mL/min (>60); POTASSIUM 4.2 MMOL/L (3.5-5.1); SODIUM 135 MMOL/L (136-145)
[2017-07-25] MEDS: D5NS w/KCl 40mEq 1000ml 1,000 ML IV SCH ×3 (06:28→23:01)
[2017-07-25 08:00] VITALS: BP 104/60
[2017-07-25] MEDS: Docusate 100mg cap ORAL SCH ×2 (09:00→21:00)
[2017-07-25] MEDS: Fluconazole 100mg tab ORAL SCH (09:08)
[2017-07-25] MEDS: Azithromycin 250mg tab ORAL SCH (09:08)
[2017-07-25] MEDS: Multivitamin w/Minerals tab ORAL SCH (09:08)
[2017-07-25] MEDS: Vitamin D 1000 IU Tab ORAL SCH (09:08)
--- NOTE | 2017-07-25 10:14 | Diagnostic Imaging Report ---
APPROVED REPORT CPT Code: 21587 Present Symptoms Shortness of breath BILATERAL: Imaging reveals a patent deep venous system bilaterally. There is no evidence of thrombus within the femoral, popliteal or tibial segments. The greater saphenous veins are also within normal limits. Doppler indicates normal spontaneous flow within these segments.
[2017-07-25 12:00] VITALS: BP 106/59
[2017-07-25 12:14] LABS: MTB DETECTION NAA Negative (Negative)
--- NOTE | 2017-07-25 12:14 | General Progress Note ---
Assessment/Plan Assessment/Plan AIDS - per ID. Pneumonia on Broad Spectrum IV Abx for immuno Compromised HIV patients. Doubt MTB. AFB's smear negative. DC Resp. Isolation. In [place]. Needs Dietary eval. Encephalopathy check Brain MRI + EEG Subjective Allergies: Coded Allergies: No Known Allergies (Unverified , 07/20/17) Subjective No new c/o. Objective Last 24 Hour Vital Signs Date Time Temp Pulse Resp B/P (MAP) Pulse Ox O2 Delivery O2 Flow Rate FiO2 07/25/17 12:00 96.8 115 21 106/59 100 Room Air 07/25/17 08:00 97.7 106 21 104/60 95 Room Air 07/25/17 08:00 99 07/25/17 04:01 97.5 101 18 103/60 96 Room Air 07/25/17 04:00 92 07/25/17 00:03 97.6 90 18 110/68 98 Room Air 07/25/17 00:00 105 07/24/17 20:16 99.5 122 18 105/74 96 Room Air 07/24/17 20:00 114 07/24/17 16:00 101 07/24/17 16:00 99.7 114 20 119/77 97 Room Air Intake and Output 07/25/17 07/26/17 19:00 07:00 Intake Total 100 ml Output Total 250 ml Balance -150 ml Intake Oral 100 ml Output Urine Total 250 ml # Bowel Movements 1 Laboratory Tests 07/25/17 03:40: White Blood Count 3.5L, Red Blood Count 3.42L, Hemoglobin 9.8L, Hematocrit 28.9L , Mean Corpuscular Volume 85, Mean Corpuscular Hemoglobin 28.6, Mean Corpuscular Hemoglobin Concent 33.8, Red Cell Distribution Width 12.1, Platelet Count 201, Mean Platelet Volume 8.5, Neutrophils (%) (Auto) 78.6H, Lymphocytes ( %) (Auto) 14.5L, Monocytes (%) (Auto) 6.1, Eosinophils (%) (Auto) 0.2, Basophils (%) (Auto) 0.7, Sodium Level 135L, Potassium Level 4.2, Chloride Level 104, Carbon Dioxide Level 23, Anion Gap 8, Blood Urea Nitrogen 3L, Creatinine 0.8, Estimat Glomerular Filtration Rate > 60, Glucose Level 74, Calcium Level 7.9L Height (Feet): 5 Height (Inches): 8.00 Weight (Pounds): 128 Objective CV RR Lungs CTA Abd SNT BS + E No CCE MOLLY VÁZQUEZ Jul 25, 2017 12:14
[2017-07-25] MEDS ORDERED: PPD Tuberculin Skin Test 5TU IDERMAL ONE (15:30)
--- NOTE | 2017-07-25 15:56 | Diagnostic Imaging Report ---
Indication: Shortness of breath Technique: One view of the chest Comparison: 07/24/2017 Findings: There is a left jugular central venous catheter and demonstrated. Diffuse mostly upper lung interstitial and alveolar patchy parenchymal infiltrates appears slightly improved, patient on the left. New infiltrates. No effusions. Normal heart size Impression: Slight improvement of parenchymal disease on the left. Otherwise little change, over one day
[2017-07-25 16:05] VITALS: BP 109/61
[2017-07-25] MEDS ORDERED: D5W 275ml ONE (16:06)
[2017-07-25] MEDS ORDERED: NS 500ML ONE (16:06)
[2017-07-25 20:00] VITALS: BP 109/63
[2017-07-25] MEDS: cefTRIAXone 1 GM in D5W 50 ML IVPB SCH (20:02)
[2017-07-25] MEDS: Dyna-Hex 2% Top Sol 2oz TOPIC SCH (20:02)
[2017-07-25] MEDS: Enoxaparin 40mg Inj SUBQ SCH (20:43)
--- NOTE | 2017-07-25 21:49 | Infectious Diseases Prog Note ---
Assessment/Plan Assessment/Plan A) 1) pna, ? cap, ? pcp, sepsis, shock, fevers, ? TB pna/ ? other OI, thrush, sc - daisy albicans - clinically improved - afb - negative x 2 2) hiv, aids - cd4 - 57 3) allergies - negative, fh-nc, sh-negative, mar noted 4) d/w RN 5) notes and records noted P) 1) rocephin, bactrim, diflucan, azithromycin 2) check serolgy, TB pcr, sputum, afb, isolation, labs, chest x-ray 3) orders entered and noted 4) continue tx per primary and consultants 5) d/w patient 6) will need outpatient evaluation for hiv anti-retroviral tx, including genotyping, viral load etc 7) once afb negative x 3 the discontinue isolation Subjective Constitutional: Denies: fever HEENT: Reports: congestion - less Respiratory: Reports: shortness of breath - less Cardiovascular: Denies: chest pain Gastrointestinal/Abdominal: Reports: diarrhea, Denies: nausea, vomiting Genitourinary: Denies: dysuria Neurologic: Denies: headache Psychiatric: Denies: depression Skin: Denies: rash Hematologic: Denies: bleeding Musculoskeletal: Denies: pain Allergies: Coded Allergies: No Known Allergies (Unverified , 07/20/17) Objective Vital Signs Last 24 Hour Vital Signs Date Time Temp Pulse Resp B/P (MAP) Pulse Ox O2 Delivery O2 Flow Rate FiO2 07/25/17 20:00 107 07/25/17 16:05 99.0 108 21 109/61 20 Room Air 07/25/17 16:00 100 07/25/17 15:42 107 07/25/17 12:00 110 07/25/17 12:00 96.8 115 21 106/59 100 Room Air 07/25/17 12:00 113 07/25/17 08:00 97.7 106 21 104/60 95 Room Air 07/25/17 08:00 99 07/25/17 04:01 97.5 101 18 103/60 96 Room Air 07/25/17 04:00 92 07/25/17 00:03 97.6 90 18 110/68 98 Room Air 07/25/17 00:00 105 Height (Feet): 5 Height (Inches): 8.00 Weight (Pounds): 128 General Appearance: no acute distress HEENT: normocephalic, atraumatic, anicteric, mucous membranes moist Respiratory/Chest: crackles/rales - less, rhonchi - bilaterally - less Cardiovascular: normal rate, regular rhythm, no gallop/murmur, no JVD Abdomen: normal bowel sounds, soft, non tender, no organomegaly, non distended Genitourinary: other - no cox Extremities: no cyanosis Skin: no rash Neurologic/Psychiatric: hospitalist II-XII 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 Infiltrates in the left lung appears slightly more diffuse, and infiltrates in the right lung appear slightly more extensive. Pleural spaces remain clear. Heart size is normal Impression: Slightly increased infiltrates bilaterally, over 2 days Chest x-ray - 07/24 Findings: Left internal jugular central line is again noted. Cardiomediastinal silhouette is stable. Patchy infiltrates are again noted of the lungs bilaterally. Osseous structures are stable. Impression: No interval change from 07/22/17. 07/25 - chest x-ray Comparison: 07/24/2017 Findings: There is a left jugular central venous catheter and demonstrated. Diffuse mostly upper lung interstitial and alveolar patchy parenchymal infiltrates appears slightly improved, patient on the left. New infiltrates. No effusions. Normal heart size Impression: Slight improvement of parenchymal disease on the left. Otherwise little change, over one day Microbiology Date/Time Source Procedure Growth Status 07/20/17 16:19 Blood Blood Culture - Preliminary NO GROWTH AFTER 4 DAYS Resulted 07/24/17 04:00 Sputum AFB Specimen Processing Tissue - Final Resulted 07/24/17 04:00 Sputum Acid Fast Bacilli Smear - Final Resulted 07/24/17 04:00 Sputum Acid Fast Bacilli Culture Pending Resulted 07/20/17 22:30 Stool Clostridium difficile Toxin Assay - Final Complete 07/20/17 15:40 Rectum VRE Culture - Final NO VANCOMYCIN RESISTANT ENTEROCOCCUS ... Complete Microbiology Date/Time Source Procedure Growth Status 07/24/17 04:00 Sputum AFB Specimen Processing Tissue - Final Resulted 07/24/17 04:00 Sputum Acid Fast Bacilli Smear - Final Resulted 07/24/17 04:00 Sputum Acid Fast Bacilli Culture Pending Resulted 07/23/17 06:50 Sputum AFB Specimen Processing Tissue - Final Resulted 07/23/17 06:50 Sputum Acid Fast Bacilli Smear - Final Resulted 07/23/17 06:50 Sputum Acid Fast Bacilli Culture Pending Resulted Laboratory Tests Test 07/25/17 03:40 White Blood Count 3.5 K/UL (4.8-10.8) L Red Blood Count 3.42 M/UL (4.70-6.10) L Hemoglobin 9.8 G/DL (14.2-18.0) L Hematocrit 28.9 % (42.0-52.0) L Mean Corpuscular Volume 85 FL (80-99) Mean Corpuscular Hemoglobin 28.6 PG (27.0-31.0) Mean Corpuscular Hemoglobin Concent 33.8 G/DL (32.0-36.0) Red Cell Distribution Width 12.1 % (11.6-14.8) Platelet Count 201 K/UL (150-450) Mean Platelet Volume 8.5 FL (6.5-10.1) Neutrophils (%) (Auto) 78.6 % (45.0-75.0) H Lymphocytes (%) (Auto) 14.5 % (20.0-45.0) L Monocytes (%) (Auto) 6.1 % (1.0-10.0) Eosinophils (%) (Auto) 0.2 % (0.0-3.0) Basophils (%) (Auto) 0.7 % (0.0-2.0) Sodium Level 135 MMOL/L (136-145) L Potassium Level 4.2 MMOL/L (3.5-5.1) Chloride Level 104 MMOL/L (98-107) Carbon Dioxide Level 23 MMOL/L (21-32) Anion Gap 8 mmol/L (5-15) Blood Urea Nitrogen 3 mg/dL (7-18) L Creatinine 0.8 MG/DL (0.55-1.30) Estimat Glomerular Filtration Rate > 60 mL/min (>60) Glucose Level 74 MG/DL (74-106) Calcium Level 7.9 MG/DL (8.5-10.1) L Current Medications Medications (Trade) Dose Ordered Sig/Gabriela Route PRN Reason Start Time Stop Time Status Last Admin Dose Admin Acetaminophen (Tylenol) 650 mg Q4H PRN ORAL Mild Pain (Pain Scale 1-3) 07/22/17 14:30 08/19/17 14:29 07/22/17 20:48 Azithromycin (Zithromax) 250 mg DAILY ORAL 07/23/17 09:00 07/28/17 08:59 07/25/17 09:08 Ceftriaxone Sodium 1 gm/ Dextrose 50 ml @ 100 mls/hr Q24H IVPB 07/24/17 20:00 07/31/17 19:59 07/25/17 20:02 Chlorhexidine Gluconate (Denisse-Hex 2%) 1 applic DAILY@2000 TOPIC 07/22/17 20:00 08/20/17 19:59 07/25/17 20:02 Dextrose (Dextrose 50%) STAT PRN IV Hypoglycemia 07/22/17 14:30 08/19/17 14:29 Dextrose/ Electrolytes 1,000 ml @ 125 mls/hr Q8H IV 07/22/17 15:00 08/19/17 14:59 07/25/17 14:49 Diphenhydramine HCl (Benadryl) 25 mg Q6H PRN ORAL Itching/Pruritis 07/22/17 14:30 08/19/17 14:29 07/22/17 20:29 Docusate Sodium (Colace) 100 mg EVERY 12 HOURS ORAL 07/22/17 21:00 08/19/17 20:59 07/24/17 08:45 Enoxaparin Sodium (Lovenox) 40 mg QHS SUBQ 07/22/17 21:00 08/19/17 20:59 07/25/17 20:43 Fluconazole (Diflucan) 200 mg DAILY ORAL 07/25/17 09:00 08/01/17 08:59 07/25/17 09:08 Hydromorphone HCl (Dilaudid) 0.5 mg Q6H PRN IVP Moderate to Severe Pain 07/22/17 14:30 07/27/17 14:29 07/22/17 20:31 Lorazepam (Ativan) 1 mg Q6H PRN ORAL For Anxiety 07/23/17 08:00 07/30/17 07:59 07/23/17 10:51 Multivitamins Therapeutic (Therapeutic Multivitamin) 1 ea DAILY ORAL 07/25/17 09:00 08/24/17 08:59 07/25/17 09:08 Ondansetron HCl (Zofran) 4 mg Q6H PRN IVP Nausea & Vomiting 07/22/17 14:30 08/19/17 14:29 Pantoprazole (Protonix) 40 mg ACBREAKFAST ORAL 07/23/17 09:00 08/22/17 08:59 07/25/17 06:28 Trimethoprim/ Sulfamethoxazole 20 ml/Dextrose 570 ml @ 380 mls/hr Q8HR@0000,0800,1600 IV 07/22/17 16:00 07/27/17 21:59 07/25/17 16:04 Vitamin D (Vitamin D) 1,000 intlu DAILY ORAL 07/25/17 09:00 08/24/17 08:59 07/25/17 09:08 WEN ANTOINE Jul 25, 2017 21:49
--- NOTE | 2017-07-25 22:30 | Electroencephalogram ---
DATE OF PROCEDURE: 07/24/2017 ELECTROENCEPHALOGRAPHY REPORT REQUESTING PHYSICIAN: Jose oRberson M.D. HISTORY: This is a 51-year-old presenting with encephalopathy, confusion, now treated with vancomycin, Dilaudid, and Zithromax. EEG was done using 18 electrodes placed scalp to scalp, scalp to ear montages according to 10/20 International System. During the recording, the patient was awake or drowsy, but fairly cooperative and normal mentality. Most wakeful portions of recording, background activity consists of low voltage, somewhat poorly identifiable presumptive delta episodes, predominantly low voltage beta activities mixed with 8 to 9 cycles per second alpha activities. As recording progressed, there was generalized slowing with the slipped spindles bilaterally. There is no spike or wave activity. No asymmetry from [id number]. IMPRESSION: Normal awake stage I/II sleep electroencephalogram. COMMENT: Absence of paroxysmal event on a single recording does not rule out seizure disorder. Mauri Johnson M.D. DR: SEAN JOB#: [id number] CC:
[2017-07-26] VITALS: BP 104/69
[2017-07-26] MEDS: Trimethoprim/Sulfamethoxazole 20 ML in D5W 500ml 550 ML IV SCH ×3 (00:11→15:49)
[2017-07-26 04:00] VITALS: BP 98/60
[2017-07-26 04:58] LABS: MEAN CORPUSCULAR HEMOGLOBIN 28.6 PG (27.0-31.0); MEAN CORPUSCULAR HGB CONC 33.9 G/DL (32.0-36.0); MEAN CORPUSCULAR VOLUME 84 FL (80-99); MEAN PLATELET VOLUME 7.9 FL (6.5-10.1); PLATELET COUNT 243 K/UL (150-450); RED BLOOD COUNT 3.71 M/UL (4.70-6.10); RED CELL DISTRIBUTION WIDTH 11.9 % (11.6-14.8); WHITE BLOOD COUNT 3.1 K/UL (4.8-10.8)
[2017-07-26 05:24] LABS: ANION GAP 7 mmol/L (5-15); CALCIUM 8.1 MG/DL (8.5-10.1); CARBON DIOXIDE 25 MMOL/L (21-32); CHLORIDE 103 MMOL/L (98-107); CREATININE 0.8 MG/DL (0.55-1.30); GLOMERULAR FILTRATION RATE > 60 mL/min (>60); POTASSIUM 4.4 MMOL/L (3.5-5.1); SODIUM 135 MMOL/L (136-145)
[2017-07-26] MEDS: D5NS w/KCl 40mEq 1000ml 1,000 ML IV SCH ×2 (06:44→14:58)
[2017-07-26 08:00] VITALS: BP 102/73
[2017-07-26] MEDS: Multivitamin w/Minerals tab ORAL SCH (08:52)
[2017-07-26] MEDS: Vitamin D 1000 IU Tab ORAL SCH (08:53)
[2017-07-26] MEDS: Azithromycin 250mg tab ORAL SCH (08:53)
[2017-07-26] MEDS: Docusate 100mg cap ORAL SCH ×2 (08:53→21:00)
[2017-07-26] MEDS: Fluconazole 100mg tab ORAL SCH (08:53)
[2017-07-26] MEDS ORDERED: Heparin 2000 units/Ns 1000ml INJ ONE (09:30)
[2017-07-26] MEDS ORDERED: Lidocaine 1% Plain 30 ml INJ ONE (09:30)
[2017-07-26 12:00] VITALS: BP 111/71
[2017-07-26 16:00] VITALS: BP 99/58
[2017-07-26 20:00] VITALS: BP 111/62
[2017-07-26] MEDS ORDERED: Dyna-Hex 2% Top Sol 2oz TOPIC SCH (20:00)
[2017-07-26] MEDS: Dyna-Hex 2% Top Sol 2oz TOPIC SCH (20:05)
[2017-07-26] MEDS: cefTRIAXone 1 GM in D5W 50 ML IVPB SCH (20:06)
--- NOTE | 2017-07-26 20:31 | Infectious Diseases Prog Note ---
Assessment/Plan Assessment/Plan A) 1) pna, ? cap, ? pcp, sepsis, shock, fevers, ? TB pna/ ? other OI, thrush, sc - daisy albicans - clinically improved - afb - negative x 3, TB dna pcr negative - can remove isolation 2) hiv, aids - cd4 - 57 3) allergies - negative, fh-nc, sh-negative, mar noted 4) d/w RN 5) notes and records noted P) 1) rocephin, bactrim, diflucan, azithromycin 2) check serology, labs an 3) orders entered and noted 4) continue tx per primary and consultants 5) d/w patient 6) will need outpatient evaluation for hiv anti-retroviral tx, including genotyping, viral load etc Subjective Constitutional: Denies: fever HEENT: Denies: congestion Respiratory: Denies: shortness of breath Cardiovascular: Denies: chest pain Gastrointestinal/Abdominal: Denies: nausea, vomiting, diarrhea Genitourinary: Reports: other - no cox Neurologic: Denies: headache Psychiatric: Denies: depression Skin: Denies: rash Hematologic: Denies: bleeding Musculoskeletal: Denies: pain Allergies: Coded Allergies: No Known Allergies (Unverified , 07/20/17) Objective Vital Signs Last 24 Hour Vital Signs Date Time Temp Pulse Resp B/P (MAP) Pulse Ox O2 Delivery O2 Flow Rate FiO2 07/26/17 16:00 113 07/26/17 16:00 97.3 111 20 99/58 99 Room Air 07/26/17 12:00 109 07/26/17 12:00 97.7 109 20 111/71 97 Room Air 07/26/17 08:00 92 07/26/17 08:00 97.9 114 20 102/73 97 Room Air 07/26/17 04:00 98 07/26/17 04:00 97.9 104 20 98/60 100 Room Air 07/26/17 00:00 97 07/26/17 00:00 98.2 106 20 104/69 100 Room Air Height (Feet): 5 Height (Inches): 8.00 Weight (Pounds): 129 General Appearance: no acute distress HEENT: normocephalic, atraumatic, anicteric, mucous membranes moist, EOMI, pharynx normal, supple, no JVD Respiratory/Chest: crackles/rales, rhonchi - bilaterally Cardiovascular: normal rate, regular rhythm, no gallop/murmur, no JVD Abdomen: normal bowel sounds, soft, non tender, no organomegaly, non distended Genitourinary: other - no cox Extremities: no cyanosis Skin: no rash Neurologic/Psychiatric: bi manager II-XII 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 Infiltrates in the left lung appears slightly more diffuse, and infiltrates in the right lung appear slightly more extensive. Pleural spaces remain clear. Heart size is normal Impression: Slightly increased infiltrates bilaterally, over 2 days Chest x-ray - 07/24 Findings: Left internal jugular central line is again noted. Cardiomediastinal silhouette is stable. Patchy infiltrates are again noted of the lungs bilaterally. Osseous structures are stable. Impression: No interval change from 07/22/17. 07/25 - chest x-ray Comparison: 07/24/2017 Findings: There is a left jugular central venous catheter and demonstrated. Diffuse mostly upper lung interstitial and alveolar patchy parenchymal infiltrates appears slightly improved, patient on the left. New infiltrates. No effusions. Normal heart size Impression: Slight improvement of parenchymal disease on the left. Otherwise little change, over one day Microbiology Date/Time Source Procedure Growth Status 07/20/17 16:19 Blood Blood Culture - Final NO GROWTH AFTER 5 DAYS Complete 07/25/17 06:00 Sputum AFB Specimen Processing Tissue - Final Resulted 07/25/17 06:00 Sputum Acid Fast Bacilli Smear - Final Resulted 07/25/17 06:00 Sputum Acid Fast Bacilli Culture Pending Resulted 07/20/17 22:30 Stool Clostridium difficile Toxin Assay - Final Complete 07/20/17 15:40 Rectum VRE Culture - Final NO VANCOMYCIN RESISTANT ENTEROCOCCUS ... Complete Microbiology Date/Time Source Procedure Growth Status 07/25/17 06:00 Sputum AFB Specimen Processing Tissue - Final Resulted 07/25/17 06:00 Sputum Acid Fast Bacilli Smear - Final Resulted 07/25/17 06:00 Sputum Acid Fast Bacilli Culture Pending Resulted 07/24/17 04:00 Sputum AFB Specimen Processing Tissue - Final Resulted 07/24/17 04:00 Sputum Acid Fast Bacilli Smear - Final Resulted 07/24/17 04:00 Sputum Acid Fast Bacilli Culture Pending Resulted Laboratory Tests Test 07/26/17 04:00 White Blood Count 3.1 K/UL (4.8-10.8) L Red Blood Count 3.71 M/UL (4.70-6.10) L Hemoglobin 10.6 G/DL (14.2-18.0) L Hematocrit 31.3 % (42.0-52.0) L Mean Corpuscular Volume 84 FL (80-99) Mean Corpuscular Hemoglobin 28.6 PG (27.0-31.0) Mean Corpuscular Hemoglobin Concent 33.9 G/DL (32.0-36.0) Red Cell Distribution Width 11.9 % (11.6-14.8) Platelet Count 243 K/UL (150-450) Mean Platelet Volume 7.9 FL (6.5-10.1) Neutrophils (%) (Auto) % (45.0-75.0) Lymphocytes (%) (Auto) % (20.0-45.0) Monocytes (%) (Auto) % (1.0-10.0) Eosinophils (%) (Auto) % (0.0-3.0) Basophils (%) (Auto) % (0.0-2.0) Sodium Level 135 MMOL/L (136-145) L Potassium Level 4.4 MMOL/L (3.5-5.1) Chloride Level 103 MMOL/L (98-107) Carbon Dioxide Level 25 MMOL/L (21-32) Anion Gap 7 mmol/L (5-15) Blood Urea Nitrogen 2 mg/dL (7-18) L Creatinine 0.8 MG/DL (0.55-1.30) Estimat Glomerular Filtration Rate > 60 mL/min (>60) Glucose Level 76 MG/DL (74-106) Calcium Level 8.1 MG/DL (8.5-10.1) L Current Medications Medications (Trade) Dose Ordered Sig/Gabriela Route PRN Reason Start Time Stop Time Status Last Admin Dose Admin Acetaminophen (Tylenol) 650 mg Q4H PRN ORAL Mild Pain (Pain Scale 1-3) 07/22/17 14:30 08/19/17 14:29 07/22/17 20:48 Azithromycin (Zithromax) 250 mg DAILY ORAL 07/23/17 09:00 07/28/17 08:59 07/26/17 08:53 Ceftriaxone Sodium 1 gm/ Dextrose 50 ml @ 100 mls/hr Q24H IVPB 07/24/17 20:00 07/31/17 19:59 07/26/17 20:06 Chlorhexidine Gluconate (Denisse-Hex 2%) 1 applic DAILY@2000 TOPIC 07/22/17 20:00 08/20/17 19:59 07/26/17 20:05 Dextrose (Dextrose 50%) STAT PRN IV Hypoglycemia 07/22/17 14:30 08/19/17 14:29 Dextrose/ Electrolytes 1,000 ml @ 125 mls/hr Q8H IV 07/22/17 15:00 08/19/17 14:59 07/26/17 14:58 Diphenhydramine HCl (Benadryl) 25 mg Q6H PRN ORAL Itching/Pruritis 07/22/17 14:30 08/19/17 14:29 07/22/17 20:29 Docusate Sodium (Colace) 100 mg EVERY 12 HOURS ORAL 07/22/17 21:00 08/19/17 20:59 07/24/17 08:45 Enoxaparin Sodium (Lovenox) 40 mg QHS SUBQ 07/22/17 21:00 08/19/17 20:59 07/25/17 20:43 Fluconazole (Diflucan) 200 mg DAILY ORAL 07/25/17 09:00 08/01/17 08:59 07/26/17 08:53 Hydromorphone HCl (Dilaudid) 0.5 mg Q6H PRN IVP Moderate to Severe Pain 07/22/17 14:30 07/27/17 14:29 07/22/17 20:31 Lorazepam (Ativan) 1 mg Q6H PRN ORAL For Anxiety 07/23/17 08:00 07/30/17 07:59 07/23/17 10:51 Multivitamins Therapeutic (Therapeutic Multivitamin) 1 ea DAILY ORAL 07/25/17 09:00 08/24/17 08:59 07/26/17 08:52 Ondansetron HCl (Zofran) 4 mg Q6H PRN IVP Nausea & Vomiting 07/22/17 14:30 08/19/17 14:29 Pantoprazole (Protonix) 40 mg ACBREAKFAST ORAL 07/23/17 09:00 08/22/17 08:59 07/26/17 06:29 Trimethoprim/ Sulfamethoxazole 20 ml/Dextrose 570 ml @ 380 mls/hr Q8HR@0000,0800,1600 IV 07/22/17 16:00 07/27/17 21:59 07/26/17 15:49 Vitamin D (Vitamin D) 1,000 intlu DAILY ORAL 07/25/17 09:00 08/24/17 08:59 07/26/17 08:53 WEN ANTOINE Jul 26, 2017 20:31
[2017-07-26] MEDS: Enoxaparin 40mg Inj SUBQ SCH (21:00)
[2017-07-26] MEDS ORDERED: NS 500ML ONE (22:28)
[2017-07-27] VITALS: BP 107/59
[2017-07-27] MEDS: D5NS w/KCl 40mEq 1000ml 1,000 ML IV SCH ×4 (00:08→23:09)
[2017-07-27] MEDS: Trimethoprim/Sulfamethoxazole 20 ML in D5W 500ml 550 ML IV SCH ×4 (00:08→23:09)
[2017-07-27 04:00] VITALS: BP 117/62
--- NOTE | 2017-07-27 07:23 | General Progress Note ---
Assessment/Plan Assessment/Plan AIDS - per ID. Pneumonia on Broad Spectrum IV Abx for immuno Compromised HIV patients. Doubt MTB. AFB's smear negative. DC Resp. Isolation. In [facility]. Needs Dietary eval. Encephalopathy check Brain MRI + EEG, EEg Negative. M. TB negative. Off isolation Subjective Allergies: Coded Allergies: No Known Allergies (Unverified , 07/20/17) Subjective No new c/o. Objective Last 24 Hour Vital Signs Date Time Temp Pulse Resp B/P (MAP) Pulse Ox O2 Delivery O2 Flow Rate FiO2 07/27/17 04:00 97.4 110 18 117/62 98 Room Air 07/27/17 04:00 108 07/27/17 00:00 104 07/27/17 00:00 98.7 105 20 107/59 99 Room Air 07/26/17 20:00 98.0 99 20 111/62 99 Room Air 07/26/17 20:00 114 07/26/17 16:00 113 07/26/17 16:00 97.3 111 20 99/58 99 Room Air 07/26/17 12:00 109 07/26/17 12:00 97.7 109 20 111/71 97 Room Air 07/26/17 08:00 92 07/26/17 08:00 97.9 114 20 102/73 97 Room Air Laboratory Tests 07/27/17 03:20: TB Test (T-Spot) [Pending], TB Test Nil Control (T-Spot) [Pending], TB Test Panel A (T-Spot) [Pending], TB Test Panel B (T-Spot) [Pending], TB Test Positive Control (T-Spot) [Pending] Height (Feet): 5 Height (Inches): 8.00 Weight (Pounds): 131 Objective CV RR Lungs CTA Abd SNT BS + E No CCE MOLLY VÁZQUEZ Jul 27, 2017 07:23
[2017-07-27 08:00] VITALS: BP 106/71
[2017-07-27] MEDS: Docusate 100mg cap ORAL SCH ×2 (09:00→20:25)
[2017-07-27] MEDS: Vitamin D 1000 IU Tab ORAL SCH (09:02)
[2017-07-27] MEDS: Multivitamin w/Minerals tab ORAL SCH (09:02)
[2017-07-27] MEDS: Azithromycin 250mg tab ORAL SCH (09:02)
[2017-07-27] MEDS: Fluconazole 100mg tab ORAL SCH (09:02)
[2017-07-27 12:00] VITALS: BP 109/76
[2017-07-27 16:00] VITALS: BP 103/72
[2017-07-27] MEDS ORDERED: NS 500ML ONE (16:11)
[2017-07-27] MEDS ORDERED: Tubing IV Secondary IV ONE (16:11)
--- NOTE | 2017-07-27 17:03 | Diagnostic Imaging Report ---
Indication: 51-year-old male inpatient with altered level of consciousness and confusion Technique: sagittal T1 fast spin echo, axial T1 and T2 FLAIR PROPELLER, axial T2 FS PROPELLER, T2* GRE, axial diffusion weighted images, post contrast axial and coronal T1 FLAIR PROPELLER images. ADC and exponential ADC maps generated Comparison: None Findings: . Ribbonlike foci of restricted diffusion are seen in the left high parietal lobe at the vertex. A single similar focus is seen in the high right parietal lobe. There is no associated abnormality on the ADC map, and no T2 abnormality is seen that would correlate with this. There is also no associated abnormal contrast enhancement. No other abnormal foci of restricted diffusion are demonstrated. No acute hemorrhage or edema. No mass effect nor midline shift. No abnormal contrast enhancement. Somewhat prominent, for age, ventricles and extra axial CSF spaces. There are a few nonspecific punctate foci of high T2 signal in the bilateral cerebral deep white matter. No unusual contrast enhancement. Visualized orbits and sinuses are unremarkable. The vascular flow voids are preserved.. Impression: Very unusual ribbonlike foci of restricted diffusion in the superficial left parietal cortex, and a single smaller lesion in the right parietal cortex. Etiology/significance uncertain. Given usual ischemic nature of diffusion abnormalities, the possibility of atypical superficial cortical infarcts should be considered. However, the distribution is essentially nonvascular in nature, and other possibilities should be considered. Seizures have been reported to have a nonvascular cortical appearance. The possibility of an atypical encephalitis or metabolic disorder should also be considered Mild cerebral volume loss, somewhat out of proportion to patient's age There are a few nonspecific bilateral T2 hyperintensities, most likely foci of microvascular ischemic changes. Demyelinating disease also a possibility. Negative for acute intracranial bleed, mass effect, contrast enhancing lesion, or infarct. Findings discussed by phone with Dr. Escobar at the time of interpretation
[2017-07-27 20:00] VITALS: BP 93/58
[2017-07-27] MEDS: cefTRIAXone 1 GM in D5W 50 ML IVPB SCH (20:25)
[2017-07-27] MEDS: Dyna-Hex 2% Top Sol 2oz TOPIC SCH (20:25)
[2017-07-27] MEDS: Enoxaparin 40mg Inj SUBQ SCH (20:27)
--- NOTE | 2017-07-27 22:19 | Infectious Diseases Prog Note ---
Assessment/Plan Assessment/Plan A) 1) pna, ? cap, ? pcp, sepsis, shock, fevers, ? TB pna/ ? other OI, thrush, sc - daisy albicans - clinically improved - afb - negative x 3, TB dna pcr negative - can remove isolation 2) hiv, aids - cd4 - 57 3) allergies - negative, fh-nc, sh-negative, mar noted 4) d/w RN 5) notes and records noted P) 1) rocephin, bactrim, diflucan, azithromycin - can discharge on bactrim x 2 weeks and levofloxacin x one week 2) check serology, labs an 3) orders entered and noted 4) continue tx per primary and consultants 5) d/w patient 6) will need outpatient evaluation for hiv anti-retroviral tx, including genotyping, viral load etc 7) neurology f/u, mri brain noted Subjective Constitutional: Reports: fatigue, Denies: fever, chills HEENT: Denies: congestion Respiratory: Denies: shortness of breath Cardiovascular: Denies: chest pain Gastrointestinal/Abdominal: Denies: nausea, vomiting, diarrhea Genitourinary: Denies: dysuria, hematuria Psychiatric: Denies: depression Skin: Denies: rash Hematologic: Denies: bleeding Musculoskeletal: Denies: pain Allergies: Coded Allergies: No Known Allergies (Unverified , 07/20/17) Objective Vital Signs Last 24 Hour Vital Signs Date Time Temp Pulse Resp B/P (MAP) Pulse Ox O2 Delivery O2 Flow Rate FiO2 07/27/17 20:00 109 07/27/17 20:00 97.9 114 20 93/58 96 Room Air 07/27/17 16:00 98.2 98 20 103/72 96 Room Air 07/27/17 16:00 103 07/27/17 12:00 97.3 96 20 109/76 96 Room Air 07/27/17 08:00 110 07/27/17 08:00 97.0 96 20 106/71 98 Room Air 07/27/17 04:00 97.4 110 18 117/62 98 Room Air 07/27/17 04:00 108 07/27/17 00:00 104 07/27/17 00:00 98.7 105 20 107/59 99 Room Air Height (Feet): 5 Height (Inches): 8.00 Weight (Pounds): 131 General Appearance: no acute distress HEENT: normocephalic, atraumatic, anicteric, mucous membranes moist Respiratory/Chest: crackles/rales, rhonchi - bilaterally Cardiovascular: normal rate, regular rhythm, no gallop/murmur, no JVD Abdomen: normal bowel sounds, soft, non tender, no organomegaly, non distended Genitourinary: other - no cox Extremities: no cyanosis Skin: no rash 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 Infiltrates in the left lung appears slightly more diffuse, and infiltrates in the right lung appear slightly more extensive. Pleural spaces remain clear. Heart size is normal Impression: Slightly increased infiltrates bilaterally, over 2 days Chest x-ray - 07/24 Findings: Left internal jugular central line is again noted. Cardiomediastinal silhouette is stable. Patchy infiltrates are again noted of the lungs bilaterally. Osseous structures are stable. Impression: No interval change from 07/22/17. 07/25 - chest x-ray Comparison: 07/24/2017 Findings: There is a left jugular central venous catheter and demonstrated. Diffuse mostly upper lung interstitial and alveolar patchy parenchymal infiltrates appears slightly improved, patient on the left. New infiltrates. No effusions. Normal heart size Impression: Slight improvement of parenchymal disease on the left. Otherwise little change, over one day Microbiology Date/Time Source Procedure Growth Status 07/26/17 06:45 Sputum AFB Specimen Processing Tissue - Final Resulted 07/26/17 06:45 Sputum Acid Fast Bacilli Smear - Final Resulted 07/26/17 06:45 Sputum Acid Fast Bacilli Culture Pending Resulted 07/25/17 06:00 Sputum AFB Specimen Processing Tissue - Final Resulted 07/25/17 06:00 Sputum Acid Fast Bacilli Smear - Final Resulted 07/25/17 06:00 Sputum Acid Fast Bacilli Culture Pending Resulted Labs Test 07/25/17 03:40 07/26/17 04:00 07/27/17 03:20 White Blood Count 3.5 K/UL (4.8-10.8) 3.1 K/UL (4.8-10.8) Red Blood Count 3.42 M/UL (4.70-6.10) 3.71 M/UL (4.70-6.10) Hemoglobin 9.8 G/DL (14.2-18.0) 10.6 G/DL (14.2-18.0) Hematocrit 28.9 % (42.0-52.0) 31.3 % (42.0-52.0) Mean Corpuscular Volume 85 FL (80-99) 84 FL (80-99) Mean Corpuscular Hemoglobin 28.6 PG (27.0-31.0) 28.6 PG (27.0-31.0) Mean Corpuscular Hemoglobin Concent 33.8 G/DL (32.0-36.0) 33.9 G/DL (32.0-36.0) Red Cell Distribution Width 12.1 % (11.6-14.8) 11.9 % (11.6-14.8) Platelet Count 201 K/UL (150-450) 243 K/UL (150-450) Mean Platelet Volume 8.5 FL (6.5-10.1) 7.9 FL (6.5-10.1) Neutrophils (%) (Auto) 78.6 % (45.0-75.0) % (45.0-75.0) Lymphocytes (%) (Auto) 14.5 % (20.0-45.0) % (20.0-45.0) Monocytes (%) (Auto) 6.1 % (1.0-10.0) % (1.0-10.0) Eosinophils (%) (Auto) 0.2 % (0.0-3.0) % (0.0-3.0) Basophils (%) (Auto) 0.7 % (0.0-2.0) % (0.0-2.0) Sodium Level 135 MMOL/L (136-145) 135 MMOL/L (136-145) Potassium Level 4.2 MMOL/L (3.5-5.1) 4.4 MMOL/L (3.5-5.1) Chloride Level 104 MMOL/L (98-107) 103 MMOL/L (98-107) Carbon Dioxide Level 23 MMOL/L (21-32) 25 MMOL/L (21-32) Anion Gap 8 mmol/L (5-15) 7 mmol/L (5-15) Blood Urea Nitrogen 3 mg/dL (7-18) 2 mg/dL (7-18) Creatinine 0.8 MG/DL (0.55-1.30) 0.8 MG/DL (0.55-1.30) Estimat Glomerular Filtration Rate > 60 mL/min (>60) > 60 mL/min (>60) Glucose Level 74 MG/DL (74-106) 76 MG/DL (74-106) Calcium Level 7.9 MG/DL (8.5-10.1) 8.1 MG/DL (8.5-10.1) Laboratory Tests Test 07/27/17 03:20 TB Test (T-Spot) Pending TB Test Nil Control (T-Spot) Pending TB Test Panel A (T-Spot) Pending TB Test Panel B (T-Spot) Pending TB Test Positive Control (T-Spot) Pending Current Medications Medications (Trade) Dose Ordered Sig/Gabriela Route PRN Reason Start Time Stop Time Status Last Admin Dose Admin Acetaminophen (Tylenol) 650 mg Q4H PRN ORAL Mild Pain (Pain Scale 1-3) 07/22/17 14:30 08/19/17 14:29 07/22/17 20:48 Azithromycin (Zithromax) 250 mg DAILY ORAL 07/27/17 09:00 07/31/17 23:59 07/27/17 09:02 Ceftriaxone Sodium 1 gm/ Dextrose 50 ml @ 100 mls/hr Q24H IVPB 07/24/17 20:00 07/31/17 19:59 07/27/17 20:25 Chlorhexidine Gluconate (Denisse-Hex 2%) 1 applic DAILY@2000 TOPIC 07/22/17 20:00 08/20/17 19:59 07/27/17 20:25 Dextrose (Dextrose 50%) STAT PRN IV Hypoglycemia 07/22/17 14:30 08/19/17 14:29 Dextrose/ Electrolytes 1,000 ml @ 125 mls/hr Q8H IV 07/22/17 15:00 08/19/17 14:59 07/27/17 15:11 Diphenhydramine HCl (Benadryl) 25 mg Q6H PRN ORAL Itching/Pruritis 07/22/17 14:30 08/19/17 14:29 07/22/17 20:29 Docusate Sodium (Colace) 100 mg EVERY 12 HOURS ORAL 07/22/17 21:00 08/19/17 20:59 07/27/17 20:25 Enoxaparin Sodium (Lovenox) 40 mg QHS SUBQ 07/22/17 21:00 08/19/17 20:59 07/27/17 20:27 Fluconazole (Diflucan) 200 mg DAILY ORAL 07/25/17 09:00 08/01/17 08:59 07/27/17 09:02 Lorazepam (Ativan) 1 mg Q6H PRN ORAL For Anxiety 07/23/17 08:00 07/30/17 07:59 07/23/17 10:51 Multivitamins Therapeutic (Therapeutic Multivitamin) 1 ea DAILY ORAL 07/25/17 09:00 08/24/17 08:59 07/27/17 09:02 Ondansetron HCl (Zofran) 4 mg Q6H PRN IVP Nausea & Vomiting 07/22/17 14:30 08/19/17 14:29 Pantoprazole (Protonix) 40 mg ACBREAKFAST ORAL 07/23/17 09:00 08/22/17 08:59 07/27/17 07:03 Trimethoprim/ Sulfamethoxazole 20 ml/Dextrose 570 ml @ 380 mls/hr Q8HR@0000,0800,1600 IV 07/27/17 00:00 07/31/17 23:59 07/27/17 16:07 Vitamin D (Vitamin D) 1,000 intlu DAILY ORAL 07/25/17 09:00 08/24/17 08:59 07/27/17 09:02 WEN ANTOINE Jul 27, 2017 22:19
[2017-07-28] VITALS (9 sets, daily range): BP systolic 102–120; BP diastolic 66–79
[2017-07-28 06:01] LABS: MEAN CORPUSCULAR HEMOGLOBIN 28.3 PG (27.0-31.0); MEAN CORPUSCULAR HGB CONC 33.5 G/DL (32.0-36.0); MEAN CORPUSCULAR VOLUME 85 FL (80-99); MEAN PLATELET VOLUME 7.5 FL (6.5-10.1); PLATELET COUNT 250 K/UL (150-450); RED BLOOD COUNT 3.83 M/UL (4.70-6.10); WHITE BLOOD COUNT 2.8 K/UL (4.8-10.8)
[2017-07-28 06:14] LABS: ANION GAP 6 mmol/L (5-15); CALCIUM 8.3 MG/DL (8.5-10.1); CARBON DIOXIDE 25 MMOL/L (21-32); CHLORIDE 104 MMOL/L (98-107); CREATININE 0.8 MG/DL (0.55-1.30); GLOMERULAR FILTRATION RATE > 60 mL/min (>60); POTASSIUM 4.4 MMOL/L (3.5-5.1); SODIUM 135 MMOL/L (136-145)
[2017-07-28] MEDS: D5NS w/KCl 40mEq 1000ml 1,000 ML IV SCH ×2 (07:01→15:30)
[2017-07-28] MEDS: Trimethoprim/Sulfamethoxazole 20 ML in D5W 500ml 550 ML IV SCH ×3 (08:28→23:38)
[2017-07-28] MEDS: Vitamin D 1000 IU Tab ORAL SCH (08:29)
[2017-07-28] MEDS: Fluconazole 100mg tab ORAL SCH (08:29)
[2017-07-28] MEDS: Multivitamin w/Minerals tab ORAL SCH (08:29)
[2017-07-28] MEDS: Azithromycin 250mg tab ORAL SCH (08:29)
[2017-07-28] MEDS: Docusate 100mg cap ORAL SCH ×2 (09:00→21:00)
--- NOTE | 2017-07-28 13:14 | Diagnostic Imaging Report ---
Indication: Shortness of breath Technique: One view of the chest Comparison: 07/25/2017 Findings: Bilateral mid and upper lung airspace opacities appear largely unchanged in distribution and extent. Some of the opacity on the right, however, may be forming small cavities. No new infiltrates. Pleural spaces are clear. Normal heart size. Left jugular central venous catheter is again demonstrated Impression: Essentially unchanged bilateral mid and upper lung airspace opacities. However, there is questionable interim cavitation of some of the opacities on the right. Dr. Escobar was notified at the time of interpretation by phone
--- NOTE | 2017-07-28 13:26 | Neurology Progress Note ---
Objective Physical Exam Last Vital Signs Date Time Temp Pulse Resp B/P (MAP) Pulse Ox O2 Delivery O2 Flow Rate FiO2 07/28/17 12:00 97.3 104 18 103/71 99 Room Air Laboratory Tests Test 07/28/17 05:30 White Blood Count 2.8 K/UL (4.8-10.8) L Red Blood Count 3.83 M/UL (4.70-6.10) L Hemoglobin 10.9 G/DL (14.2-18.0) L Hematocrit 32.4 % (42.0-52.0) L Mean Corpuscular Volume 85 FL (80-99) Mean Corpuscular Hemoglobin 28.3 PG (27.0-31.0) Mean Corpuscular Hemoglobin Concent 33.5 G/DL (32.0-36.0) Red Cell Distribution Width 12.0 % (11.6-14.8) Platelet Count 250 K/UL (150-450) Mean Platelet Volume 7.5 FL (6.5-10.1) Neutrophils (%) (Auto) % (45.0-75.0) Lymphocytes (%) (Auto) % (20.0-45.0) Monocytes (%) (Auto) % (1.0-10.0) Eosinophils (%) (Auto) % (0.0-3.0) Basophils (%) (Auto) % (0.0-2.0) Sodium Level 135 MMOL/L (136-145) L Potassium Level 4.4 MMOL/L (3.5-5.1) Chloride Level 104 MMOL/L (98-107) Carbon Dioxide Level 25 MMOL/L (21-32) Anion Gap 6 mmol/L (5-15) Blood Urea Nitrogen 4 mg/dL (7-18) L Creatinine 0.8 MG/DL (0.55-1.30) Estimat Glomerular Filtration Rate > 60 mL/min (>60) Glucose Level 80 MG/DL (74-106) Calcium Level 8.3 MG/DL (8.5-10.1) L Lactate Dehydrogenase 222 U/L (81-234) Impression/Recommendations Problems: (1) 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
[2017-07-28] MEDS ORDERED: NS 500ML ONE (13:38)
--- NOTE | 2017-07-28 14:54 | General Progress Note ---
Assessment/Plan Assessment/Plan AIDS - per ID. Pneumonia on Broad Spectrum IV Abx for immuno Compromised HIV patients. Doubt MTB. AFB's smear negative. DC Resp. Isolation. In [place]. Needs Dietary eval. Encephalopathy check Brain MRI + EEG, EEG Negative. M. TB negative. Off isolation DC home. Continue oral ABx. Follow up with HIV specialist. Subjective Allergies: Coded Allergies: No Known Allergies (Unverified , 07/20/17) Subjective No new c/o. Objective Last 24 Hour Vital Signs Date Time Temp Pulse Resp B/P (MAP) Pulse Ox O2 Delivery O2 Flow Rate FiO2 07/28/17 12:00 97.3 104 18 103/71 99 Room Air 07/28/17 11:59 104 07/28/17 08:00 98.8 114 18 102/73 94 Room Air 07/28/17 07:43 111 07/28/17 04:00 98 07/28/17 04:00 97.7 99 20 110/68 96 Room Air 07/28/17 00:00 103 07/28/17 00:00 97.7 96 20 103/66 97 Room Air 07/27/17 20:00 109 07/27/17 20:00 97.9 114 20 93/58 96 Room Air 07/27/17 16:00 98.2 98 20 103/72 96 Room Air 07/27/17 16:00 103 Intake and Output 07/28/17 07/29/17 19:00 07:00 Intake Total 1445 ml Balance 1445 ml IV Total 1445 ml Laboratory Tests 07/28/17 05:30: White Blood Count 2.8L, Red Blood Count 3.83L, Hemoglobin 10.9L, Hematocrit 32.4L, Mean Corpuscular Volume 85, Mean Corpuscular Hemoglobin 28.3, Mean Corpuscular Hemoglobin Concent 33.5, Red Cell Distribution Width 12.0, Platelet Count 250, Mean Platelet Volume 7.5, Neutrophils (%) (Auto) , Lymphocytes (%) ( Auto) , Monocytes (%) (Auto) , Eosinophils (%) (Auto) , Basophils (%) (Auto) , Sodium Level 135L, Potassium Level 4.4, Chloride Level 104, Carbon Dioxide Level 25, Anion Gap 6, Blood Urea Nitrogen 4L, Creatinine 0.8, Estimat Glomerular Filtration Rate > 60, Glucose Level 80, Calcium Level 8.3L, Lactate Dehydrogenase 222 Height (Feet): 5 Height (Inches): 8.00 Weight (Pounds): 130 Objective CV RR Lungs CTA Abd SNT BS + E No CCE MOLLY VÁZQUEZ Jul 28, 2017 14:54
--- NOTE | 2017-07-28 17:45 | Consultation ---
DATE OF CONSULTATION: 07/28/2017 NEUROLOGICAL CONSULTATION REQUESTING PHYSICIAN: Jose Roberson M.D. HISTORY OF PRESENT ILLNESS: The patient is a 51-year-old man seen in neurological consultation to evaluate the episodes of abnormal behavior and abnormal MRI study and profound generalized weakness with difficulty for ambulation. According to the patient, he developed a positive human immunodeficiency virus in 2009 and lives in [place] and was placed on Atripla and some other treatment to cover underlying human immunodeficiency virus disease. This was fully tolerated. In 2013, he moved to [place], but because of fear of taking the medication, he was off of any treatment. Since approximately 04/2017, he had developed very frequent loose stools. This became continuous. He was straining his muscles. He developed rectal pain and rectal bleeding. He developed profound generalized weakness and he estimates he lost approximately 36 pounds. He lost weight of 36 pounds. 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 He was admitted to emergency room by ambulance with a history of fevers, chills, diarrhea, generalized weakness, and weight loss. Currently, the patient also added that. In addition, he started to have blurriness of vision of his right eye. Gradually over the last few weeks, he developed complete blindness of his right eye. On admission, his vital signs were stable, blood pressure 105/77 and temperature 98.1 degrees. Since admission, he was hypotensive with a systolic pressure of 80 with tachycardia. Chest x-ray revealed presence of pneumonia. CT scan of the abdomen and pelvis was unremarkable, no mass lesions. Initially suspected to have TB, which was not confirmed. Lab work revealed signs of anemia with hemoglobin 12.7 and hematocrit 17. Mild coagulopathy, INR 1.2 and PT of 12.5. Urinalysis, 1+ protein. Chemistry panel with glucose 110, calcium 8.4, elevated AST at 67, albumin 2.2, and elevated lipase 641. Continue with hypocalcemia 7.7. Elevated LDH of 308. Low total protein and albumin of 1.8. Low sodium 135. Following admission, he was profoundly weak. He was confused and disoriented. EEG was requested, this was normal study. An MRI of the brain was obtained and this was abnormal revealing very unusual rhythm like fossa restricted diffusion, superficial left parietal cortex and single smaller lesion in right parietal cortex with the possibility of "atypical superficial cortical infarct," atypical encephalitis or metastatic disease should be considered. There was a mild cerebral volume loss and few nonspecific T2 hyperintensity, probably microvascular ischemic changes. There was no acute intracranial abnormalities. No enhancement lesion. Neurologic consult was requested to address that issue. Diagnostic studies included human immunodeficiency virus study with CD4 of 55. Serology panel, negative TB DNA, and negative cryptococcal. Last three days, the patient started to improve and generalized weakness subsided. He was able to ambulate with assistance. He felt some dizziness and lightheadedness on upright position on admission in the last few days. SOCIAL HISTORY: Lives alone, has the family in town. No alcohol. No drug abuse. Nonsmoker. 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 FAMILY HISTORY: Noncontributory. REVIEW OF SYSTEMS: Generalized weakness, weight loss, rectal pain. No urine or bowel incontinence. Some diarrhea. Still some loose stools. Denies headaches, less often dizziness. He has blindness of right eye. No swallowing difficulties. He has a left tooth protruding and scratching inside of his mouth. PHYSICAL EXAMINATION: GENERAL: A well-developed, cachectic, ill-appearing man, not in acute distress, lying in bed, and having his lunch. VITAL SIGNS: He has a heart rate of 104 and temperature 97.3 degrees. HEENT: Head, normocephalic. There is no evidence of trauma. Eyes, ears, and throat are clear. No deformities. NECK: Supple. No meningeal signs. MUSCULOSKELETAL: Unremarkable. There are no deformities. Peripheral pulses 1+ symmetric. MENTAL STATUS: He is fully alert and oriented x3 with no evidence of aphasia or apraxia. Cognitive function normal. CRANIAL NERVE II: Pupils on the left 3 mm and the right 3 mm, but right pupil is somewhat sluggish to the light response. Visual acuity, absent vision on the right, except minor light perception, but is unable to identify any hand movement. Extraocular movement intact. No nystagmus. Fundi poorly visualized. CRANIAL NERVE II: Normal corneal responses. CRANIAL NERVE VII: No facial asymmetry. CRANIAL NERVE VIII: Normal hearing. CRANIAL NERVE IX THROUGH XII: With normal limits. MOTOR EXAMINATION: Normal muscle tone and strength 5/5 in all extremities. No involuntary movement. Deep reflexes 1+ symmetric with downgoing toes on both sides. SENSORY EXAM: Withdrawing to pin stimulation in all limbs. Gait not tested, but reported able to ambulate when transferring from bed to the bathroom and back. IMPRESSION: 1. The patient is a 51-year-old man with positive human immunodeficiency virus/acquired immunodeficiency syndrome, presented with a progressive neurological disturbance including confusion, disorientation, abnormal MRI findings, and progressive right eye blindness, probably optic neuritis. 2. Wasting syndrome. 3. Recurrent diarrhea. 4. Pneumonia. 5. Anemia. 6. Hyponatremia. DISCUSSION: The patient appears to have recent onset of AIDS, which was not treated, recurrent diarrhea, probably contributed to changes in mental status, presence of superficial cortical lesions in bilateral parietal area, more on the left. Etiology of biparietal left more than right cortical lesion is not completely clear, but may relate to ischemia due to acute hypertensive episode or human immunodeficiency virus and encephalitis. There is no sufficient clinical presentation to confirm such diagnosis. Currently, his mental status is normal. He has no focal neurological deficit except presence of right eye blindness. The patient to be seen by electric shipyard operator for additional assessment of optic nerve versus retinal lesion. The patient will remain with the appropriate treatment as per Infectious Disease including intravenous fluids, antibiotics, and nutritional support. The patient to be observed for any paroxysmal events. At this time with normal EEG, no anticonvulsants will be necessary. Thank you for allowing me to see this interesting patient in neurological consultation. Mauri Johnson M.D. DR: AMILCAR JOB#: [id number] CC:
--- NOTE | 2017-07-28 18:32 | Infectious Diseases Prog Note ---
Assessment/Plan Assessment/Plan A) 1) pna, ? cap, ? pcp, sepsis, shock, fevers, ? TB pna/ ? other OI, thrush, sc - daisy albicans - clinically improved - afb - negative x 3, TB dna pcr negative - can remove isolation - ldh improved, now wnl 2) hiv, aids - cd4 - 57 3) allergies - negative, fh-nc, sh-negative, mar noted 4) d/w RN 5) notes and records noted P) 1) rocephin, bactrim, diflucan, azithromycin - can discharge on po bactrim x 13 days and levofloxacin x 6 days 2) check serology, labs an 3) orders entered and noted 4) continue tx per primary and consultants 5) d/w patient 6) will need outpatient evaluation for hiv anti-retroviral tx, including genotyping, viral load etc 7) neurology f/u, mri brain noted Subjective Constitutional: Denies: fever HEENT: Denies: congestion Respiratory: Denies: shortness of breath Cardiovascular: Denies: chest pain Gastrointestinal/Abdominal: Denies: nausea, vomiting, diarrhea Genitourinary: Denies: dysuria, hematuria, frequency Neurologic: Denies: headache, numbness Psychiatric: Denies: depression Skin: Denies: rash Hematologic: Denies: bleeding Musculoskeletal: Denies: pain Allergies: Coded Allergies: No Known Allergies (Unverified , 07/20/17) Objective Vital Signs Last 24 Hour Vital Signs Date Time Temp Pulse Resp B/P (MAP) Pulse Ox O2 Delivery O2 Flow Rate FiO2 07/28/17 18:14 128 25 107/79 100 Nasal Cannula 2.0 07/28/17 16:00 98.2 114 18 108/73 99 Room Air 07/28/17 15:28 113 07/28/17 12:00 97.3 104 18 103/71 99 Room Air 07/28/17 11:59 104 07/28/17 08:00 98.8 114 18 102/73 94 Room Air 07/28/17 07:43 111 07/28/17 04:00 98 07/28/17 04:00 97.7 99 20 110/68 96 Room Air 07/28/17 00:00 103 07/28/17 00:00 97.7 96 20 103/66 97 Room Air 07/27/17 20:00 109 07/27/17 20:00 97.9 114 20 93/58 96 Room Air Height (Feet): 5 Height (Inches): 8.00 Weight (Pounds): 130 General Appearance: no acute distress HEENT: normocephalic, mucous membranes moist, EOMI, supple, no JVD Respiratory/Chest: crackles/rales - less, rhonchi - bilaterally - less Cardiovascular: normal rate, regular rhythm, no gallop/murmur, no JVD Abdomen: normal bowel sounds, soft, non tender, no organomegaly, non distended Genitourinary: other - no cox Extremities: no cyanosis Skin: no rash Neurologic/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 Infiltrates in the left lung appears slightly more diffuse, and infiltrates in the right lung appear slightly more extensive. Pleural spaces remain clear. Heart size is normal Impression: Slightly increased infiltrates bilaterally, over 2 days Chest x-ray - 07/24 Findings: Left internal jugular central line is again noted. Cardiomediastinal silhouette is stable. Patchy infiltrates are again noted of the lungs bilaterally. Osseous structures are stable. Impression: No interval change from 07/22/17. 07/25 - chest x-ray Comparison: 07/24/2017 Findings: There is a left jugular central venous catheter and demonstrated. Diffuse mostly upper lung interstitial and alveolar patchy parenchymal infiltrates appears slightly improved, patient on the left. New infiltrates. No effusions. Normal heart size Impression: Slight improvement of parenchymal disease on the left. Otherwise little change, over one day Chest x-ray - 07/28 - Impression: Essentially unchanged bilateral mid and upper lung airspace opacities. However, there is questionable interim cavitation of some of the opacities on the right. Microbiology Date/Time Source Procedure Growth Status 07/20/17 16:19 Blood Blood Culture - Final NO GROWTH AFTER 5 DAYS Complete 07/26/17 06:45 Sputum AFB Specimen Processing Tissue - Final Resulted 07/26/17 06:45 Sputum Acid Fast Bacilli Smear - Final Resulted 07/26/17 06:45 Sputum Acid Fast Bacilli Culture Pending Resulted 07/20/17 22:30 Stool Clostridium difficile Toxin Assay - Final Complete 07/20/17 15:40 Rectum VRE Culture - Final NO VANCOMYCIN RESISTANT ENTEROCOCCUS ... Complete Microbiology Date/Time Source Procedure Growth Status 07/26/17 06:45 Sputum AFB Specimen Processing Tissue - Final Resulted 07/26/17 06:45 Sputum Acid Fast Bacilli Smear - Final Resulted 07/26/17 06:45 Sputum Acid Fast Bacilli Culture Pending Resulted Laboratory Tests Test 07/28/17 05:30 White Blood Count 2.8 K/UL (4.8-10.8) L Red Blood Count 3.83 M/UL (4.70-6.10) L Hemoglobin 10.9 G/DL (14.2-18.0) L Hematocrit 32.4 % (42.0-52.0) L Mean Corpuscular Volume 85 FL (80-99) Mean Corpuscular Hemoglobin 28.3 PG (27.0-31.0) Mean Corpuscular Hemoglobin Concent 33.5 G/DL (32.0-36.0) Red Cell Distribution Width 12.0 % (11.6-14.8) Platelet Count 250 K/UL (150-450) Mean Platelet Volume 7.5 FL (6.5-10.1) Neutrophils (%) (Auto) % (45.0-75.0) Lymphocytes (%) (Auto) % (20.0-45.0) Monocytes (%) (Auto) % (1.0-10.0) Eosinophils (%) (Auto) % (0.0-3.0) Basophils (%) (Auto) % (0.0-2.0) Sodium Level 135 MMOL/L (136-145) L Potassium Level 4.4 MMOL/L (3.5-5.1) Chloride Level 104 MMOL/L (98-107) Carbon Dioxide Level 25 MMOL/L (21-32) Anion Gap 6 mmol/L (5-15) Blood Urea Nitrogen 4 mg/dL (7-18) L Creatinine 0.8 MG/DL (0.55-1.30) Estimat Glomerular Filtration Rate > 60 mL/min (>60) Glucose Level 80 MG/DL (74-106) Calcium Level 8.3 MG/DL (8.5-10.1) L Lactate Dehydrogenase 222 U/L (81-234) Current Medications Medications (Trade) Dose Ordered Sig/Gabriela Route PRN Reason Start Time Stop Time Status Last Admin Dose Admin Acetaminophen (Tylenol) 650 mg Q4H PRN ORAL Mild Pain (Pain Scale 1-3) 07/22/17 14:30 08/19/17 14:29 07/22/17 20:48 Azithromycin (Zithromax) 250 mg DAILY ORAL 07/27/17 09:00 07/31/17 23:59 07/28/17 08:29 Ceftriaxone Sodium 1 gm/ Dextrose 50 ml @ 100 mls/hr Q24H IVPB 07/24/17 20:00 07/31/17 19:59 07/27/17 20:25 Dextrose (Dextrose 50%) STAT PRN IV Hypoglycemia 07/22/17 14:30 08/19/17 14:29 Diphenhydramine HCl (Benadryl) 25 mg Q6H PRN ORAL Itching/Pruritis 07/22/17 14:30 08/19/17 14:29 07/22/17 20:29 Docusate Sodium (Colace) 100 mg EVERY 12 HOURS ORAL 07/22/17 21:00 08/19/17 20:59 07/27/17 20:25 Enoxaparin Sodium (Lovenox) 40 mg QHS SUBQ 07/22/17 21:00 08/19/17 20:59 07/27/17 20:27 Fluconazole (Diflucan) 200 mg DAILY ORAL 07/25/17 09:00 08/01/17 08:59 07/28/17 08:29 Lorazepam (Ativan) 1 mg Q6H PRN ORAL For Anxiety 07/23/17 08:00 07/30/17 07:59 07/23/17 10:51 Multivitamins Therapeutic (Therapeutic Multivitamin) 1 ea DAILY ORAL 07/25/17 09:00 08/24/17 08:59 07/28/17 08:29 Ondansetron HCl (Zofran) 4 mg Q6H PRN IVP Nausea & Vomiting 07/22/17 14:30 08/19/17 14:29 Pantoprazole (Protonix) 40 mg ACBREAKFAST ORAL 07/23/17 09:00 08/22/17 08:59 07/28/17 05:29 Trimethoprim/ Sulfamethoxazole 20 ml/Dextrose 570 ml @ 380 mls/hr Q8HR@0000,0800,1600 IV 07/27/17 00:00 08/03/17 00:30 07/28/17 08:28 Vitamin D (Vitamin D) 1,000 intlu DAILY ORAL 07/25/17 09:00 08/24/17 08:59 07/28/17 08:29 WEN ANTOINE Jul 28, 2017 18:32
[2017-07-28] MEDS: cefTRIAXone 1 GM in D5W 50 ML IVPB SCH (20:00)
[2017-07-28] MEDS: Enoxaparin 40mg Inj SUBQ SCH (21:00)
[2017-07-28] MEDS: LORazepam 1mg tab ORAL PRN (21:56)
[2017-07-28] MEDS ORDERED: LORazepam Inj 2mg/ml 1ml IV PRN (22:30)
[2017-07-29 04:00] VITALS: BP 94/61
[2017-07-29 05:16] LABS: BASOPHILS % (AUTO) 0.6 % (0.0-2.0); EOSINOPHILS % (AUTO) 1.7 % (0.0-3.0); LYMPHOCYTES % (AUTO) 15.9 % (20.0-45.0); MEAN CORPUSCULAR HEMOGLOBIN 28.3 PG (27.0-31.0); MEAN CORPUSCULAR HGB CONC 33.4 G/DL (32.0-36.0); MEAN CORPUSCULAR VOLUME 85 FL (80-99); MONOCYTES % (AUTO) 6.1 % (1.0-10.0); NEUTROPHILS % (AUTO) 75.8 % (45.0-75.0); PLATELET COUNT 259 K/UL (150-450); RED CELL DISTRIBUTION WIDTH 12.1 % (11.6-14.8); WHITE BLOOD COUNT 5.5 K/UL (4.8-10.8)
[2017-07-29 05:39] LABS: ALANINE AMINOTRANSFERASE 51 U/L (12-78); ALBUMIN/GLOBULIN RATIO 0.5 (1.0-2.7); ANION GAP 7 mmol/L (5-15); ASPARTATE AMINO TRANSFERASE 38 U/L (15-37); CALCIUM 8.7 MG/DL (8.5-10.1); CARBON DIOXIDE 27 MMOL/L (21-32); CHLORIDE 99 MMOL/L (98-107); CREATININE 0.9 MG/DL (0.55-1.30); GLOMERULAR FILTRATION RATE > 60 mL/min (>60); POTASSIUM 4.5 MMOL/L (3.5-5.1); SODIUM 133 MMOL/L (136-145); TOTAL PROTEIN 6.5 G/DL (6.4-8.2)
[2017-07-29 07:09] LABS: IONIZED CALCIUM 1.1 mmol/L (1.10-1.35)
[2017-07-29 08:00] VITALS: BP 94/62
--- NOTE | 2017-07-29 08:37 | Diagnostic Imaging Report ---
Indication: Altered mental status Technique: Continuous helical CT scanning of the head was performed without intravenous contrast material. Axial and coronal 5 mm sections were generated. Radiation dose was minimized using automated exposure control Dose: Total Dose Length Product - DLP [address] Dose Index - CTDIvol(s) 70.38 mGy. Comparison: Reference made to MRI brain 07/23/2017 Findings: The ventricular system is normal in size and configuration. There is no shift of midline structures. No abnormal extra-axial fluid collections are noted. There is no evidence of intracerebral bleeding. No other abnormal high or low density areas are noted within the brain. A small focus of low attenuation is seen in the high left parietal deep white matter, axial images 24 through 26. There is no MRI correlate. No findings related both to the cortical diffusion abnormality described on recent MRI demonstrated. Impression: Negative for acute intracranial bleed or mass effect No cortical abnormality to correlate to the diffusion abnormality described on recent MRI Nonspecific tiny focus of low-attenuation in the high left parietal deep white matter, without evidence of correlate to abnormality on recent MRI. Suspect artifactual; may reflect prominent perivascular space or a tiny lacunar infarct. A This agrees with the preliminary interpretation provided overnight by [facility] teleradiology service. The CT scanner at [facility] is accredited by the [employer] and the scans are performed using protocols designed to limit radiation exposure to as low as reasonably achievable to attain images of sufficient resolution adequate for diagnostic evaluation.
[2017-07-29] MEDS: Vitamin D 1000 IU Tab ORAL SCH (09:09)
[2017-07-29] MEDS: Trimethoprim/Sulfamethoxazole 20 ML in D5W 500ml 550 ML IV SCH ×2 (09:09→15:53)
[2017-07-29] MEDS: Multivitamin w/Minerals tab ORAL SCH (09:09)
[2017-07-29] MEDS: Azithromycin 250mg tab ORAL SCH (09:10)
[2017-07-29] MEDS: Fluconazole 100mg tab ORAL SCH (09:11)
[2017-07-29] MEDS: Docusate 100mg cap ORAL SCH ×2 (09:11→20:46)
[2017-07-29] MEDS: Metoprolol Succinate XL 50mg tab ORAL SCH (10:28)
--- NOTE | 2017-07-29 11:18 | Neurology Progress Note ---
Interim History Interim History ROS Limited/Unobtainable: No Complaints: clumsy R arm sinc ePICC line d/c last night Events: last night transient R hemiolegia resolving in 1-2 hrs, tremors/ confusion, Objective Physical Exam Last Vital Signs Date Time Temp Pulse Resp B/P (MAP) Pulse Ox O2 Delivery O2 Flow Rate FiO2 07/29/17 10:28 127 94/62 07/29/17 08:00 98.2 20 07/28/17 23:32 96 07/28/17 18:14 Nasal Cannula 2.0 Laboratory Tests Test 07/29/17 03:40 White Blood Count 5.5 K/UL (4.8-10.8) # Red Blood Count 4.20 M/UL (4.70-6.10) L Hemoglobin 11.9 G/DL (14.2-18.0) L Hematocrit 35.6 % (42.0-52.0) L Mean Corpuscular Volume 85 FL (80-99) Mean Corpuscular Hemoglobin 28.3 PG (27.0-31.0) Mean Corpuscular Hemoglobin Concent 33.4 G/DL (32.0-36.0) Red Cell Distribution Width 12.1 % (11.6-14.8) Platelet Count 259 K/UL (150-450) Mean Platelet Volume 8.0 FL (6.5-10.1) Neutrophils (%) (Auto) 75.8 % (45.0-75.0) H Lymphocytes (%) (Auto) 15.9 % (20.0-45.0) L Monocytes (%) (Auto) 6.1 % (1.0-10.0) Eosinophils (%) (Auto) 1.7 % (0.0-3.0) Basophils (%) (Auto) 0.6 % (0.0-2.0) Sodium Level 133 MMOL/L (136-145) L Potassium Level 4.5 MMOL/L (3.5-5.1) Chloride Level 99 MMOL/L (98-107) Carbon Dioxide Level 27 MMOL/L (21-32) Anion Gap 7 mmol/L (5-15) Blood Urea Nitrogen 7 mg/dL (7-18) Creatinine 0.9 MG/DL (0.55-1.30) Estimat Glomerular Filtration Rate > 60 mL/min (>60) Glucose Level 81 MG/DL (74-106) Calcium Level 8.7 MG/DL (8.5-10.1) Ionized Calcium (Measured) 1.10 mmol/L (1.10-1.35) Total Bilirubin 0.2 MG/DL (0.2-1.0) Aspartate Amino Transf (AST/SGOT) 38 U/L (15-37) H Alanine Aminotransferase (ALT/SGPT) 51 U/L (12-78) Alkaline Phosphatase 109 U/L (46-116) Ammonia 22 umol/L (11-32) Total Protein 6.5 G/DL (6.4-8.2) Albumin 2.1 G/DL (3.4-5.0) L Globulin 4.4 g/dL Albumin/Globulin Ratio 0.5 (1.0-2.7) L Vitamin B6 Level Pending Vitamin B12 Level 566 PG/ML (193-986) General: well developed, no acute distress, other - cachectic Head: normocophalic, atraumatic Neck: no rigidity Neurologic Exam Mental Status: awake, alert, oriented x4, normal cognition Speech: normal speech, no dysarthia Language: normal language, no aphasia Cranial Nerve II: other - blind R eye Cranial Nerves III, IV, : PERRLA, EOMI, pupils Cranial Nerve V: normal facial sensations, temporales function normal, masseters function normal, pterygoids function normal Cranial Nerve VII: no facial asymmetry, normal facial expressions Cranial Nerve VIII: normal hearing, no nystagmus Cranial Nerve IX: normal palate elevation, gag response Cranial Nerve X: no voice hoarseness Cranial Nerve XI: SCM symmetric, trapezii function normal Cranial Nerve XII: tongue midline, no tongue atrophy/fasciculations Motor System: normal muscle tone, no involuntary movement, other - 4/5 R arm Sensory: normal pinprick Coordination: other - very clumsy R arm Deep Tendon Reflexes: 3+ bicep (L), 3+ bicep (R), 3+ tricep (L), 3+ tricep (R) , 3+ brachioradialis (L), 3+ brachioradialis (R), 3+ knee (L), 3+ knee (R), 3+ ankle (L), 3+ ankle (R) Reflexes: mute plantar (L), mute plantar (R) Impression/Recommendations Problems: (1) TIA (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
--- NOTE | 2017-07-29 11:58 | General Progress Note ---
Assessment/Plan Assessment/Plan AIDS - per ID. Pneumonia on [employer] IV Abx for immuno Compromised HIV patients. Doubt MTB. AFB's smear negative. DC Resp. Isolation. In KAY. Needs Dietary eval. Encephalopathy check Brain MRI + EEG, EEG Negative. M. TB negative. Off isolation Hold DC R/O AIDS Encephalopathy, R/O Syphilitic brain disease. DW ID. Subjective Allergies: Coded Allergies: No Known Allergies (Unverified , 07/20/17) Subjective c/o Rt. eye blindness x 4-6 weeks. Rt arm weakness x1 day. Objective Last 24 Hour Vital Signs Date Time Temp Pulse Resp B/P (MAP) Pulse Ox O2 Delivery O2 Flow Rate FiO2 07/29/17 10:28 127 94/62 07/29/17 08:00 98.2 127 20 94/62 07/29/17 08:00 119 07/29/17 04:00 128 07/29/17 04:00 98.8 121 20 94/61 07/29/17 00:00 144 07/28/17 23:32 99.0 151 20 110/68 96 07/28/17 21:00 100.0 149 20 120/75 98 07/28/17 20:00 133 07/28/17 19:58 97.9 127 20 120/78 98 07/28/17 18:14 128 25 107/79 100 Nasal Cannula 2.0 07/28/17 16:00 98.2 114 18 108/73 99 Room Air 07/28/17 15:28 113 07/28/17 12:00 97.3 104 18 103/71 99 Room Air 07/28/17 11:59 104 Laboratory Tests 07/29/17 03:40: White Blood Count 5.5#, Red Blood Count 4.20L, Hemoglobin 11.9L, Hematocrit 35.6L, Mean Corpuscular Volume 85, Mean Corpuscular Hemoglobin 28.3, Mean Corpuscular Hemoglobin Concent 33.4, Red Cell Distribution Width 12.1, Platelet Count 259, Mean Platelet Volume 8.0, Neutrophils (%) (Auto) 75.8H, Lymphocytes ( %) (Auto) 15.9L, Monocytes (%) (Auto) 6.1, Eosinophils (%) (Auto) 1.7, Basophils (%) (Auto) 0.6, Sodium Level 133L, Potassium Level 4.5, Chloride Level 99, Carbon Dioxide Level 27, Anion Gap 7, Blood Urea Nitrogen 7, Creatinine 0.9, Estimat Glomerular Filtration Rate > 60, Glucose Level 81, Calcium Level 8.7, Ionized Calcium (Measured) 1.10, Total Bilirubin 0.2, Aspartate Amino Transf (AST/SGOT) 38H, Alanine Aminotransferase (ALT/SGPT) 51, Alkaline Phosphatase 109, Ammonia 22, Total Protein 6.5, Albumin 2.1L, Globulin 4.4, Albumin/Globulin Ratio 0.5L, Vitamin B6 Level [Pending], Vitamin B12 Level 566 Height (Feet): 5 Height (Inches): 8.00 Weight (Pounds): 130 Objective CV RR Lungs CTA Abd SNT BS + E No CCE Nuero decreased vision Rt. eye. No evidence of rt hemiparesis. MOLLY VÁZQUEZ Jul 29, 2017 11:58
[2017-07-29 12:00] VITALS: BP 107/73
--- NOTE | 2017-07-29 12:03 | Infectious Diseases Prog Note ---
Assessment/Plan Assessment/Plan A) 1) pna, ? cap, ? pcp, sepsis, shock, fevers, ? TB pna/ ? other OI, thrush, sc - daisy albicans, ? syphilis for neuro changes, ? neurosyphilis, ? cmv right eye with blindness - clinically improved - afb - negative x 3, TB dna pcr negative - LP planned, order RPR, ophthalmology evaluation right eye - D/w primary and neurology - check imaging 2) hiv, aids - cd4 - 57 3) allergies - negative, fh-nc, sh-negative, mar noted 4) d/w RN 5) notes and records noted P) 1) rocephin, bactrim, diflucan, azithromycin - can discharge on po bactrim x 13 days and levofloxacin x 6 days 2) check serology, labs an 3) orders entered and noted 4) continue tx per primary and consultants 5) d/w patient 6) will need outpatient evaluation for hiv anti-retroviral tx, including genotyping, viral load etc 7) neurology f/u, mri brain noted Subjective Constitutional: Denies: fever HEENT: Denies: congestion Respiratory: Denies: shortness of breath Cardiovascular: Denies: chest pain Gastrointestinal/Abdominal: Denies: nausea, vomiting Genitourinary: Denies: dysuria, hematuria Neurologic: Reports: other - some left arm weakness and loss of right eye vision , Denies: headache Psychiatric: Reports: depression Skin: Reports: rash Hematologic: Reports: bleeding Musculoskeletal: Reports: pain Allergies: Coded Allergies: No Known Allergies (Unverified , 07/20/17) Objective Vital Signs Last 24 Hour Vital Signs Date Time Temp Pulse Resp B/P (MAP) Pulse Ox O2 Delivery O2 Flow Rate FiO2 07/29/17 10:28 127 94/62 07/29/17 08:00 98.2 127 20 94/62 07/29/17 08:00 119 07/29/17 04:00 128 07/29/17 04:00 98.8 121 20 94/61 07/29/17 00:00 144 07/28/17 23:32 99.0 151 20 110/68 96 07/28/17 21:00 100.0 149 20 120/75 98 07/28/17 20:00 133 07/28/17 19:58 97.9 127 20 120/78 98 07/28/17 18:14 128 25 107/79 100 Nasal Cannula 2.0 07/28/17 16:00 98.2 114 18 108/73 99 Room Air 07/28/17 15:28 113 07/28/17 12:00 97.3 104 18 103/71 99 Room Air 07/28/17 11:59 104 Height (Feet): 5 Height (Inches): 8.00 Weight (Pounds): 130 General Appearance: no acute distress HEENT: normocephalic, atraumatic, anicteric, mucous membranes moist Respiratory/Chest: lungs clear, normal breath sounds, no respiratory distress, no accessory muscle use Cardiovascular: normal rate, regular rhythm, no gallop/murmur, no JVD Abdomen: normal bowel sounds, soft, non tender, no organomegaly, non distended Genitourinary: other - no cox Extremities: no cyanosis Skin: no rash, no lesions 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 Infiltrates in the left lung appears slightly more diffuse, and infiltrates in the right lung appear slightly more extensive. Pleural spaces remain clear. Heart size is normal Impression: Slightly increased infiltrates bilaterally, over 2 days Chest x-ray - 07/24 Findings: Left internal jugular central line is again noted. Cardiomediastinal silhouette is stable. Patchy infiltrates are again noted of the lungs bilaterally. Osseous structures are stable. Impression: No interval change from 07/22/17. 07/25 - chest x-ray Comparison: 07/24/2017 Findings: There is a left jugular central venous catheter and demonstrated. Diffuse mostly upper lung interstitial and alveolar patchy parenchymal infiltrates appears slightly improved, patient on the left. New infiltrates. No effusions. Normal heart size Impression: Slight improvement of parenchymal disease on the left. Otherwise little change, over one day Chest x-ray - 07/28 - Impression: Essentially unchanged bilateral mid and upper lung airspace opacities. However, there is questionable interim cavitation of some of the opacities on the right. Microbiology Date/Time Source Procedure Growth Status 07/20/17 16:19 Blood Blood Culture - Final NO GROWTH AFTER 5 DAYS Complete 07/26/17 06:45 Sputum AFB Specimen Processing Tissue - Final Resulted 07/26/17 06:45 Sputum Acid Fast Bacilli Smear - Final Resulted 07/26/17 06:45 Sputum Acid Fast Bacilli Culture Pending Resulted 07/20/17 22:30 Stool Clostridium difficile Toxin Assay - Final Complete 07/20/17 15:40 Rectum VRE Culture - Final NO VANCOMYCIN RESISTANT ENTEROCOCCUS ... Complete Laboratory Tests Test 07/29/17 03:40 White Blood Count 5.5 K/UL (4.8-10.8) # Red Blood Count 4.20 M/UL (4.70-6.10) L Hemoglobin 11.9 G/DL (14.2-18.0) L Hematocrit 35.6 % (42.0-52.0) L Mean Corpuscular Volume 85 FL (80-99) Mean Corpuscular Hemoglobin 28.3 PG (27.0-31.0) Mean Corpuscular Hemoglobin Concent 33.4 G/DL (32.0-36.0) Red Cell Distribution Width 12.1 % (11.6-14.8) Platelet Count 259 K/UL (150-450) Mean Platelet Volume 8.0 FL (6.5-10.1) Neutrophils (%) (Auto) 75.8 % (45.0-75.0) H Lymphocytes (%) (Auto) 15.9 % (20.0-45.0) L Monocytes (%) (Auto) 6.1 % (1.0-10.0) Eosinophils (%) (Auto) 1.7 % (0.0-3.0) Basophils (%) (Auto) 0.6 % (0.0-2.0) Sodium Level 133 MMOL/L (136-145) L Potassium Level 4.5 MMOL/L (3.5-5.1) Chloride Level 99 MMOL/L (98-107) Carbon Dioxide Level 27 MMOL/L (21-32) Anion Gap 7 mmol/L (5-15) Blood Urea Nitrogen 7 mg/dL (7-18) Creatinine 0.9 MG/DL (0.55-1.30) Estimat Glomerular Filtration Rate > 60 mL/min (>60) Glucose Level 81 MG/DL (74-106) Calcium Level 8.7 MG/DL (8.5-10.1) Ionized Calcium (Measured) 1.10 mmol/L (1.10-1.35) Total Bilirubin 0.2 MG/DL (0.2-1.0) Aspartate Amino Transf (AST/SGOT) 38 U/L (15-37) H Alanine Aminotransferase (ALT/SGPT) 51 U/L (12-78) Alkaline Phosphatase 109 U/L (46-116) Ammonia 22 umol/L (11-32) Total Protein 6.5 G/DL (6.4-8.2) Albumin 2.1 G/DL (3.4-5.0) L Globulin 4.4 g/dL Albumin/Globulin Ratio 0.5 (1.0-2.7) L Vitamin B6 Level Pending Vitamin B12 Level 566 PG/ML (193-986) Current Medications Medications (Trade) Dose Ordered Sig/Gabriela Route PRN Reason Start Time Stop Time Status Last Admin Dose Admin Acetaminophen (Tylenol) 650 mg Q4H PRN ORAL Mild Pain (Pain Scale 1-3) 07/22/17 14:30 08/19/17 14:29 07/22/17 20:48 Aspirin (Ecotrin) 81 mg DAILY ORAL 07/30/17 09:00 08/29/17 08:59 Azithromycin (Zithromax) 250 mg DAILY ORAL 07/27/17 09:00 07/31/17 23:59 07/29/17 09:10 Ceftriaxone Sodium 1 gm/ Dextrose 50 ml @ 100 mls/hr Q24H IVPB 07/24/17 20:00 07/31/17 19:59 07/28/17 20:00 Dextrose (Dextrose 50%) STAT PRN IV Hypoglycemia 07/22/17 14:30 08/19/17 14:29 Diphenhydramine HCl (Benadryl) 25 mg Q6H PRN ORAL Itching/Pruritis 07/22/17 14:30 08/19/17 14:29 07/22/17 20:29 Docusate Sodium (Colace) 100 mg EVERY 12 HOURS ORAL 07/22/17 21:00 08/19/17 20:59 07/29/17 09:11 Enoxaparin Sodium (Lovenox) 40 mg QHS SUBQ 07/22/17 21:00 08/19/17 20:59 07/28/17 21:00 Fluconazole (Diflucan) 200 mg DAILY ORAL 07/25/17 09:00 08/01/17 08:59 07/29/17 09:11 Lorazepam (Ativan 2mg/ml 1ml) 2 mg Q4H PRN IV For Anxiety 07/28/17 22:30 08/04/17 22:29 Lorazepam (Ativan) 1 mg Q6H PRN ORAL For Anxiety 07/23/17 08:00 07/30/17 07:59 Future Hold 07/28/17 21:56 Metoprolol Succinate (Toprol XL) 50 mg DAILY ORAL 07/29/17 11:00 08/28/17 10:59 07/29/17 10:28 Multivitamins Therapeutic (Therapeutic Multivitamin) 1 ea DAILY ORAL 07/25/17 09:00 08/24/17 08:59 07/29/17 09:09 Ondansetron HCl (Zofran) 4 mg Q6H PRN IVP Nausea & Vomiting 07/22/17 14:30 08/19/17 14:29 Pantoprazole (Protonix) 40 mg ACBREAKFAST ORAL 07/23/17 09:00 08/22/17 08:59 07/29/17 05:46 Trimethoprim/ Sulfamethoxazole 20 ml/Dextrose 570 ml @ 380 mls/hr Q8HR@0000,0800,1600 IV 07/27/17 00:00 08/03/17 00:30 07/29/17 09:09 Vitamin D (Vitamin D) 1,000 intlu DAILY ORAL 07/25/17 09:00 08/24/17 08:59 07/29/17 09:09 WEN ANTOINE Jul 29, 2017 12:03
[2017-07-29 13:50] LABS: CHOLESTEROL 155 MG/DL (< 200)
[2017-07-29 16:00] VITALS: BP 96/64
--- NOTE | 2017-07-29 16:47 | Diagnostic Imaging Report ---
Indication: New onset right-sided weakness Technique: sagittal T1 fast spin echo, axial T1 and T2 FLAIR PROPELLER, axial T2 FS PROPELLER, T2* GRE, axial diffusion weighted images, post contrast axial and coronal T1 FLAIR PROPELLER images. ADC and exponential ADC maps generated Comparison: 1129.17 Findings: . Again demonstrated are foci of restricted diffusion in the left posterior frontal and anterior parietal cortex, appearing more prominent and more intense but no more extensive. A similar focus of diffusion restriction is again demonstrated in the right postcentral gyrus, also slightly more intense and extending over a slightly larger amount of cortex. Interim development of T2 signal abnormalities in these areas. The largest area of diffusion abnormality, in the postcentral gyrus on the left, also demonstrates a very subtle degree of enhancement on postcontrast images. No new foci of diffusion restriction are demonstrated. There is equivocally a small focus of diffusion restriction in the left parasagittal parietal lobe, in retrospect evident previously although possibly artifactual as there is no definite associated T2 abnormality. No acute hemorrhage or edema. No mass effect nor midline shift. No other foci of abnormal contrast enhancement. Small lacunar infarct versus prominent perivascular spaces are again demonstrated in the bilateral basal ganglia and in the left cerebral peduncle. No findings to correlate to the focal left deep white matter hypodensity reported on CT scan of earlier the same day demonstrated. Again demonstrated are a few scattered focal T2 deep white matter hyperintensities, unchanged. The vascular flow voids are preserved.. Normal size ventricles and extra axial CSF spaces. Visualized orbits and sinuses are unremarkable. Impression: Since previous exam of 2 days earlier, prominent bilateral parietal and left posterior frontal cortical foci of diffusion restriction, now with associated T2 abnormality and a single small focus of contrast enhancement. Findings most likely represent evolution of atypical cortical infarcts. Multiplicity raises possibility of embolic etiology. However, the distribution is unusual, and other possibilities of ischemia such as vasculitis should be considered. Other nonischemic etiologies should be considered, as previously described, including inflammatory etiologies. Negative for acute intracranial bleed or mass effect. No new infarct Nonspecific bilateral T2 hyperintensities, also previously described, likely foci of chronic ischemia Mild cerebral volume loss, out of proportion to age, also previously described Findings discussed by phone with Dr. Johnson previously
[2017-07-29 20:00] VITALS: BP 93/57
[2017-07-29] MEDS: cefTRIAXone 1 GM in D5W 50 ML IVPB SCH (20:11)
[2017-07-29] MEDS: Enoxaparin 40mg Inj SUBQ SCH (20:48)
[2017-07-30] VITALS: BP 97/72
[2017-07-30] MEDS: Trimethoprim/Sulfamethoxazole 20 ML in D5W 500ml 550 ML IV SCH ×4 (00:01→23:28)
[2017-07-30 04:00] VITALS: BP 95/60
[2017-07-30 08:00] VITALS: BP 119/58
[2017-07-30] MEDS: Docusate 100mg cap ORAL SCH ×2 (09:19→20:30)
[2017-07-30] MEDS: Vitamin D 1000 IU Tab ORAL SCH (09:19)
[2017-07-30] MEDS: Azithromycin 250mg tab ORAL SCH (09:19)
[2017-07-30] MEDS: Metoprolol Succinate XL 50mg tab ORAL SCH (09:19)
[2017-07-30] MEDS: Aspirin EC 81mg tab ORAL SCH (09:19)
[2017-07-30] MEDS: Fluconazole 100mg tab ORAL SCH (09:19)
[2017-07-30] MEDS: Multivitamin w/Minerals tab ORAL SCH (09:20)
--- NOTE | 2017-07-30 10:26 | General Progress Note ---
Assessment/Plan Assessment/Plan 1) AIDS encephalopathy 2) left eye vision impairment 3) PNA 4) HIV/AIDS Plan continue Abx per ID f/u neuro pending ophthalmo eval Subjective Allergies: Coded Allergies: No Known Allergies (Unverified , 07/20/17) Subjective Denies any c/o. No acute event. Left sided vision impairment Objective Last 24 Hour Vital Signs Date Time Temp Pulse Resp B/P (MAP) Pulse Ox O2 Delivery O2 Flow Rate FiO2 07/30/17 09:19 117 119/58 07/30/17 08:00 97.5 117 20 119/58 96 Room Air 07/30/17 08:00 113 07/30/17 04:00 94 07/30/17 04:00 97.2 96 18 95/60 99 Room Air 07/30/17 00:00 98.1 101 18 97/72 98 Room Air 07/30/17 00:00 106 07/29/17 20:00 98.1 101 18 93/57 99 Room Air 07/29/17 20:00 99 07/29/17 16:00 117 07/29/17 16:00 98.1 108 20 96/64 07/29/17 12:12 126 07/29/17 12:00 97.9 116 20 107/73 07/29/17 10:28 127 94/62 Laboratory Tests 07/29/17 13:05: Protein C Activity [Pending], Protein S Activity [Pending], Anti-Thrombin III Antigen [Pending], Factor V Mutation [Pending], Triglycerides Level 205H, Cholesterol Level 155, LDL Cholesterol 89, HDL Cholesterol 26L, Cholesterol/HDL Ratio 6.0H, Phospholipids Level [Pending], Anti-Nuclear Antibody Screen [Pending ], c-ANCA Titer [Pending], p-ANCA Titer [Pending], Anti-Double Strand DNA Antibody [Pending], Rapid Plasma Reagin [Pending], Cytomegalovirus IgG Antibody [Pending], Toxoplasma IgG Antibody [Pending], Toxoplasma IgM Antibody [Pending] Height (Feet): 5 Height (Inches): 8.00 Weight (Pounds): 125 Objective NAD, AAOx3 mild bilat basilar crackles+ S1,S2,RRR, no M/R/G soft,non tender, BS+ no edema PORTER,OSITO Jul 30, 2017 10:26
--- NOTE | 2017-07-30 11:04 | Diagnostic Imaging Report ---
Indication: Dyspnea Comparison: 07/28/17 A single view chest radiograph was obtained. Findings: Patchy infiltrates in the upper lobes noted once again. Left jugular line seen previously is no longer present. Heart size remains normal. Impression: Stable patchy bilateral infiltrates
[2017-07-30 12:00] VITALS: BP 91/68
--- NOTE | 2017-07-30 12:15 | Neurology Progress Note ---
Interim History Interim History ROS Limited/Unobtainable: No Complaints: clumsy R arm Events: no change, nausea Objective Physical Exam Last Vital Signs Date Time Temp Pulse Resp B/P (MAP) Pulse Ox O2 Delivery O2 Flow Rate FiO2 07/30/17 09:19 117 119/58 07/30/17 08:00 97.5 20 96 Room Air 07/28/17 18:14 2.0 Laboratory Tests Test 07/29/17 13:05 Protein C Activity Pending Protein S Activity Pending Anti-Thrombin III Antigen Pending Factor V Mutation Pending Triglycerides Level 205 MG/DL (30-150) H Cholesterol Level 155 MG/DL (< 200) LDL Cholesterol 89 mg/dL (<100) HDL Cholesterol 26 MG/DL (40-60) L Cholesterol/HDL Ratio 6.0 (3.3-4.4) H Phospholipids Level Pending Anti-Nuclear Antibody Screen Pending c-ANCA Titer Pending p-ANCA Titer Pending Anti-Double Strand DNA Antibody Pending Rapid Plasma Reagin Pending Cytomegalovirus IgG Antibody Pending Toxoplasma IgG Antibody Pending Toxoplasma IgM Antibody Pending General: well developed, no acute distress, other - cachectic Head: normocophalic, atraumatic Neck: no rigidity Neurologic Exam Mental Status: awake, alert, oriented x4, normal cognition Speech: normal speech, no dysarthia Language: normal language, no aphasia Cranial Nerve II: other - blind R eye Cranial Nerves III, IV, : PERRLA, EOMI, pupils Cranial Nerve V: normal facial sensations, temporales function normal, masseters function normal, pterygoids function normal Cranial Nerve VII: no facial asymmetry, normal facial expressions Cranial Nerve VIII: normal hearing, no nystagmus Cranial Nerve IX: normal palate elevation, gag response Cranial Nerve X: no voice hoarseness Cranial Nerve XI: SCM symmetric, trapezii function normal Cranial Nerve XII: tongue midline, no tongue atrophy/fasciculations Motor System: normal muscle tone, no involuntary movement, other - 4/5 R arm Sensory: normal pinprick Coordination: other - very clumsy R arm Deep Tendon Reflexes: 3+ bicep (L), 3+ bicep (R), 3+ tricep (L), 3+ tricep (R) , 3+ brachioradialis (L), 3+ brachioradialis (R), 3+ knee (L), 3+ knee (R), 3+ ankle (L), 3+ ankle (R) Reflexes: mute plantar (L), mute plantar (R) Stance: other Gait: other Impression/Recommendations Problems: (1) acute ischemic L MCA stroke, R arm weakness/ataxia. (2) Multiple atypical cortical ischemic lesions, r/o vasculitis (3) Hyponatremia (4) Right eye blindness. r/o optic neuritis (5) HIV disease (6) AIDS (acquired immune deficiency syndrome) (7) Cachexia associated with AIDS Status: unchanged Recommendations #[id number] ophtalm consult LP pend pt/ot labs pend coag panel asaSWEETIE HICKEY Jul 30, 2017 12:15
--- NOTE | 2017-07-30 15:06 | Infectious Diseases Prog Note ---
Assessment/Plan Assessment/Plan A) 1) pna, ? cap, ? pcp, sepsis, shock, fevers, ? TB pna/ ? other OI, thrush, sc - daisy albicans, ? syphilis for neuro changes, ? neurosyphilis, ? cmv right eye with blindness - clinically improved - afb - negative x 3, TB dna pcr negative - LP planned, order RPR, ophthalmology evaluation right eye - D/w primary and neurology - check imaging 2) hiv, aids - cd4 - 57 3) allergies - negative, fh-nc, sh-negative, mar noted 4) d/w RN 5) notes and records noted P) 1) rocephin, bactrim, diflucan, azithromycin - can discharge on po bactrim x 13 days and levofloxacin x 6 days 2) check serology, labs an 3) orders entered and noted 4) continue tx per primary and consultants 5) d/w patient 6) will need outpatient evaluation for hiv anti-retroviral tx, including genotyping, viral load etc 7) neurology f/u, mri brain noted Subjective Constitutional: Reports: fever HEENT: Denies: congestion Cardiovascular: Reports: palpitations, Denies: chest pain Gastrointestinal/Abdominal: Reports: nausea, vomiting, Denies: diarrhea Genitourinary: Reports: hematuria, Denies: frequency Neurologic: Reports: headache Skin: Denies: rash Musculoskeletal: Reports: pain Allergies: Coded Allergies: No Known Allergies (Unverified , 07/20/17) Objective Vital Signs Last 24 Hour Vital Signs Date Time Temp Pulse Resp B/P (MAP) Pulse Ox O2 Delivery O2 Flow Rate FiO2 07/30/17 12:00 97.1 101 19 91/68 97 Room Air 07/30/17 12:00 94 07/30/17 09:19 117 119/58 07/30/17 08:00 97.5 117 20 119/58 96 Room Air 07/30/17 08:00 113 07/30/17 04:00 94 07/30/17 04:00 97.2 96 18 95/60 99 Room Air 07/30/17 00:00 98.1 101 18 97/72 98 Room Air 07/30/17 00:00 106 07/29/17 20:00 98.1 101 18 93/57 99 Room Air 07/29/17 20:00 99 07/29/17 16:00 117 07/29/17 16:00 98.1 108 20 96/64 Height (Feet): 5 Height (Inches): 8.00 Weight (Pounds): 125 General Appearance: no acute distress HEENT: normocephalic, atraumatic, anicteric, mucous membranes moist, EOMI, pharynx normal, supple, no JVD Respiratory/Chest: crackles/rales - less, rhonchi - bilaterally - less Cardiovascular: normal rate, regular rhythm, no gallop/murmur, no JVD Abdomen: normal bowel sounds, soft, non tender, no organomegaly, non distended Genitourinary: other - no cox Extremities: no cyanosis Skin: no rash Neurologic/Psychiatric: telesales team leader II-XII 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 Infiltrates in the left lung appears slightly more diffuse, and infiltrates in the right lung appear slightly more extensive. Pleural spaces remain clear. Heart size is normal Impression: Slightly increased infiltrates bilaterally, over 2 days Chest x-ray - 07/24 Findings: Left internal jugular central line is again noted. Cardiomediastinal silhouette is stable. Patchy infiltrates are again noted of the lungs bilaterally. Osseous structures are stable. Impression: No interval change from 07/22/17. 07/25 - chest x-ray Comparison: 07/24/2017 Findings: There is a left jugular central venous catheter and demonstrated. Diffuse mostly upper lung interstitial and alveolar patchy parenchymal infiltrates appears slightly improved, patient on the left. New infiltrates. No effusions. Normal heart size Impression: Slight improvement of parenchymal disease on the left. Otherwise little change, over one day Chest x-ray - 07/28 - Impression: Essentially unchanged bilateral mid and upper lung airspace opacities. However, there is questionable interim cavitation of some of the opacities on the right. 07/30 - chest x-ray - no change (report noted) Microbiology Date/Time Source Procedure Growth Status 07/20/17 16:19 Blood Blood Culture - Final NO GROWTH AFTER 5 DAYS Complete 07/26/17 06:45 Sputum AFB Specimen Processing Tissue - Final Resulted 07/26/17 06:45 Sputum Acid Fast Bacilli Smear - Final Resulted 07/26/17 06:45 Sputum Acid Fast Bacilli Culture Pending Resulted 07/20/17 22:30 Stool Clostridium difficile Toxin Assay - Final Complete 07/20/17 15:40 Rectum VRE Culture - Final NO VANCOMYCIN RESISTANT ENTEROCOCCUS ... Complete Labs Test 07/28/17 05:30 07/29/17 03:40 07/29/17 13:05 White Blood Count 2.8 K/UL (4.8-10.8) 5.5 K/UL (4.8-10.8) Red Blood Count 3.83 M/UL (4.70-6.10) 4.20 M/UL (4.70-6.10) Hemoglobin 10.9 G/DL (14.2-18.0) 11.9 G/DL (14.2-18.0) Hematocrit 32.4 % (42.0-52.0) 35.6 % (42.0-52.0) Mean Corpuscular Volume 85 FL (80-99) 85 FL (80-99) Mean Corpuscular Hemoglobin 28.3 PG (27.0-31.0) 28.3 PG (27.0-31.0) Mean Corpuscular Hemoglobin Concent 33.5 G/DL (32.0-36.0) 33.4 G/DL (32.0-36.0) Red Cell Distribution Width 12.0 % (11.6-14.8) 12.1 % (11.6-14.8) Platelet Count 250 K/UL (150-450) 259 K/UL (150-450) Mean Platelet Volume 7.5 FL (6.5-10.1) 8.0 FL (6.5-10.1) Neutrophils (%) (Auto) % (45.0-75.0) 75.8 % (45.0-75.0) Lymphocytes (%) (Auto) % (20.0-45.0) 15.9 % (20.0-45.0) Monocytes (%) (Auto) % (1.0-10.0) 6.1 % (1.0-10.0) Eosinophils (%) (Auto) % (0.0-3.0) 1.7 % (0.0-3.0) Basophils (%) (Auto) % (0.0-2.0) 0.6 % (0.0-2.0) Sodium Level 135 MMOL/L (136-145) 133 MMOL/L (136-145) Potassium Level 4.4 MMOL/L (3.5-5.1) 4.5 MMOL/L (3.5-5.1) Chloride Level 104 MMOL/L (98-107) 99 MMOL/L (98-107) Carbon Dioxide Level 25 MMOL/L (21-32) 27 MMOL/L (21-32) Anion Gap 6 mmol/L (5-15) 7 mmol/L (5-15) Blood Urea Nitrogen 4 mg/dL (7-18) 7 mg/dL (7-18) Creatinine 0.8 MG/DL (0.55-1.30) 0.9 MG/DL (0.55-1.30) Estimat Glomerular Filtration Rate > 60 mL/min (>60) > 60 mL/min (>60) Glucose Level 80 MG/DL (74-106) 81 MG/DL (74-106) Calcium Level 8.3 MG/DL (8.5-10.1) 8.7 MG/DL (8.5-10.1) Lactate Dehydrogenase 222 U/L (81-234) Ionized Calcium (Measured) 1.10 mmol/L (1.10-1.35) Total Bilirubin 0.2 MG/DL (0.2-1.0) Aspartate Amino Transf (AST/SGOT) 38 U/L (15-37) Alanine Aminotransferase (ALT/SGPT) 51 U/L (12-78) Alkaline Phosphatase 109 U/L (46-116) Ammonia 22 umol/L (11-32) Total Protein 6.5 G/DL (6.4-8.2) Albumin 2.1 G/DL (3.4-5.0) Globulin 4.4 g/dL Albumin/Globulin Ratio 0.5 (1.0-2.7) Vitamin B12 Level 566 PG/ML (193-986) Triglycerides Level 205 MG/DL (30-150) Cholesterol Level 155 MG/DL (< 200) LDL Cholesterol 89 mg/dL (<100) HDL Cholesterol 26 MG/DL (40-60) Cholesterol/HDL Ratio 6.0 (3.3-4.4) Current Medications Medications (Trade) Dose Ordered Sig/Gabriela Route PRN Reason Start Time Stop Time Status Last Admin Dose Admin Acetaminophen (Tylenol) 650 mg Q4H PRN ORAL Mild Pain (Pain Scale 1-3) 07/22/17 14:30 08/19/17 14:29 07/22/17 20:48 Aspirin (Ecotrin) 81 mg DAILY ORAL 07/30/17 09:00 08/29/17 08:59 07/30/17 09:19 Azithromycin (Zithromax) 250 mg DAILY ORAL 07/30/17 09:00 08/02/17 08:59 07/30/17 09:19 Ceftriaxone Sodium 1 gm/ Dextrose 50 ml @ 100 mls/hr Q24H IVPB 07/29/17 20:00 08/05/17 19:59 07/29/17 20:11 Dextrose (Dextrose 50%) STAT PRN IV Hypoglycemia 07/22/17 14:30 08/19/17 14:29 Diphenhydramine HCl (Benadryl) 25 mg Q6H PRN ORAL Itching/Pruritis 07/22/17 14:30 08/19/17 14:29 07/22/17 20:29 Docusate Sodium (Colace) 100 mg EVERY 12 HOURS ORAL 07/22/17 21:00 08/19/17 20:59 07/30/17 09:19 Enoxaparin Sodium (Lovenox) 40 mg QHS SUBQ 07/22/17 21:00 08/19/17 20:59 07/29/17 20:48 Fluconazole (Diflucan) 200 mg DAILY ORAL 07/30/17 09:00 08/05/17 08:59 07/30/17 09:19 Lorazepam (Ativan 2mg/ml 1ml) 2 mg Q4H PRN IV For Anxiety 07/28/17 22:30 08/04/17 22:29 Metoprolol Succinate (Toprol XL) 50 mg DAILY ORAL 07/29/17 11:00 08/28/17 10:59 07/30/17 09:19 Multivitamins Therapeutic (Therapeutic Multivitamin) 1 ea DAILY ORAL 07/25/17 09:00 08/24/17 08:59 07/30/17 09:20 Ondansetron HCl (Zofran) 4 mg Q6H PRN IVP Nausea & Vomiting 07/22/17 14:30 08/19/17 14:29 Pantoprazole (Protonix) 40 mg ACBREAKFAST ORAL 07/23/17 09:00 08/22/17 08:59 07/30/17 05:58 Trimethoprim/ Sulfamethoxazole 20 ml/Dextrose 570 ml @ 380 mls/hr Q8HR@0000,0800,1600 IV 07/27/17 00:00 08/03/17 00:30 07/30/17 08:12 Vitamin D (Vitamin D) 1,000 intlu DAILY ORAL 07/25/17 09:00 08/24/17 08:59 07/30/17 09:19 WEN ANTOINE Jul 30, 2017 15:06
[2017-07-30 16:00] VITALS: BP 103/66
--- NOTE | 2017-07-30 17:59 | Cardiology Report ---
APPROVED REPORT EKG Measurement Heart [id number] OR [id number] [id number] Sinus tachycardia Rightward axis Borderline ECG
[2017-07-30 20:00] VITALS: BP 109/69
[2017-07-30] MEDS ORDERED: NS 500ML ONE (20:13)
[2017-07-30] MEDS: cefTRIAXone 1 GM in D5W 50 ML IVPB SCH (20:14)
[2017-07-30] MEDS: Enoxaparin 40mg Inj SUBQ SCH (20:31)
[2017-07-31] VITALS: BP 105/66
[2017-07-31 04:00] VITALS: BP 91/64
[2017-07-31 05:20] LABS: BASOPHILS % (AUTO) 1.2 % (0.0-2.0); EOSINOPHILS % (AUTO) 0.9 % (0.0-3.0); LYMPHOCYTES % (AUTO) 15.9 % (20.0-45.0); MEAN CORPUSCULAR HEMOGLOBIN 28.7 PG (27.0-31.0); MEAN CORPUSCULAR HGB CONC 33.7 G/DL (32.0-36.0); MEAN CORPUSCULAR VOLUME 85 FL (80-99); MEAN PLATELET VOLUME 8.9 FL (6.5-10.1); MONOCYTES % (AUTO) 7.3 % (1.0-10.0); NEUTROPHILS % (AUTO) 74.7 % (45.0-75.0); PLATELET COUNT 216 K/UL (150-450); RED BLOOD COUNT 4.17 M/UL (4.70-6.10); RED CELL DISTRIBUTION WIDTH 13.1 % (11.6-14.8); WHITE BLOOD COUNT 4.2 K/UL (4.8-10.8)
[2017-07-31 05:36] LABS: ALANINE AMINOTRANSFERASE 38 U/L (12-78); ALBUMIN/GLOBULIN RATIO 0.5 (1.0-2.7); ANION GAP 9 mmol/L (5-15); ASPARTATE AMINO TRANSFERASE 28 U/L (15-37); CALCIUM 8.8 MG/DL (8.5-10.1); CARBON DIOXIDE 24 MMOL/L (21-32); CHLORIDE 100 MMOL/L (98-107); CREATININE 0.9 MG/DL (0.55-1.30); GLOMERULAR FILTRATION RATE > 60 mL/min (>60); POTASSIUM 4.4 MMOL/L (3.5-5.1); SODIUM 133 MMOL/L (136-145); TOTAL PROTEIN 6.6 G/DL (6.4-8.2)
[2017-07-31 08:00] VITALS: BP 115/80
--- NOTE | 2017-07-31 10:09 | General Progress Note ---
Assessment/Plan Assessment/Plan 1) AIDS encephalopathy 2) left eye vision impairment 3) PNA 4) HIV/AIDS 5) mild hyponatremia Plan continue Abx per ID f/u neuro pending ophthalmo eval Subjective Allergies: Coded Allergies: No Known Allergies (Unverified , 07/20/17) Subjective Denies any c/o. No acute event. Left sided vision impairment Objective Last 24 Hour Vital Signs Date Time Temp Pulse Resp B/P (MAP) Pulse Ox O2 Delivery O2 Flow Rate FiO2 07/31/17 08:00 110 07/31/17 08:00 97.5 117 20 115/80 96 Room Air 07/31/17 04:00 95 07/31/17 04:00 97.9 95 18 91/64 97 Room Air 07/31/17 00:00 99 07/31/17 00:00 98.1 104 18 105/66 97 Room Air 07/30/17 20:00 97 07/30/17 20:00 97.3 95 20 109/69 98 Room Air 07/30/17 16:00 96.3 102 20 103/66 98 Room Air 07/30/17 16:00 99 07/30/17 12:00 97.1 101 19 91/68 97 Room Air 07/30/17 12:00 94 Laboratory Tests 07/31/17 03:40: White Blood Count 4.2L, Red Blood Count 4.17L, Hemoglobin 12.0L, Hematocrit 35.6L, Mean Corpuscular Volume 85, Mean Corpuscular Hemoglobin 28.7, Mean Corpuscular Hemoglobin Concent 33.7, Red Cell Distribution Width 13.1, Platelet Count 216, Mean Platelet Volume 8.9, Neutrophils (%) (Auto) 74.7, Lymphocytes (% ) (Auto) 15.9L, Monocytes (%) (Auto) 7.3, Eosinophils (%) (Auto) 0.9, Basophils (%) (Auto) 1.2, Sodium Level 133L, Potassium Level 4.4, Chloride Level 100, Carbon Dioxide Level 24, Anion Gap 9, Blood Urea Nitrogen 8, Creatinine 0.9, Estimat Glomerular Filtration Rate > 60, Glucose Level 71L, Calcium Level 8.8, Total Bilirubin 0.2, Aspartate Amino Transf (AST/SGOT) 28, Alanine Aminotransferase (ALT/SGPT) 38, Alkaline Phosphatase 102, Total Protein 6.6, Albumin 2.3L, Globulin 4.3, Albumin/Globulin Ratio 0.5L Height (Feet): 5 Height (Inches): 8.00 Weight (Pounds): 125 Objective NAD, AAOx3 mild bilat basilar crackles+ S1,S2,RRR, no M/R/G soft,non tender, BS+ no edema PORTER,OSITO Jul 31, 2017 10:09
[2017-07-31] MEDS: Docusate 100mg cap ORAL SCH ×2 (10:39→20:11)
[2017-07-31] MEDS: Trimethoprim/Sulfamethoxazole 20 ML in D5W 500ml 550 ML IV SCH (10:39)
[2017-07-31] MEDS: Metoprolol Succinate XL 50mg tab ORAL SCH (10:39)
[2017-07-31] MEDS: Fluconazole 100mg tab ORAL SCH (10:40)
[2017-07-31] MEDS: Azithromycin 250mg tab ORAL SCH (10:40)
[2017-07-31] MEDS: Multivitamin w/Minerals tab ORAL SCH (10:40)
[2017-07-31] MEDS: Vitamin D 1000 IU Tab ORAL SCH (10:40)
[2017-07-31] MEDS: Aspirin EC 81mg tab ORAL SCH (10:40)
[2017-07-31 12:00] VITALS: BP 108/71
[2017-07-31 15:47] VITALS: BP 112/69
[2017-07-31] MEDS: Bactrim DS (160mg/800mg) tab ORAL SCH ×2 (16:19→22:34)
[2017-07-31 20:00] VITALS: BP 100/67
[2017-07-31] MEDS: cefTRIAXone 1 GM in D5W 50 ML IVPB SCH (20:10)
[2017-07-31] MEDS: Enoxaparin 40mg Inj SUBQ SCH (20:13)
--- NOTE | 2017-07-31 20:15 | Consultation ---
DATE OF CONSULTATION: 07/31/2017 OPHTHALMOLOGY CONSULTATION CONSULTING PHYSICIAN: Afshin Donis M.D. REFERRING PHYSICIAN: Jose Roberson M.D. HISTORY OF PRESENT ILLNESS: I was called to see this 51-year-old male who is HIV positive with apparently systemic activity of age. He has had a variety of GI and chest issues. More recently, he has complained of some weakness in the right hand and the right leg. He noted that the right leg has recovered where as the right hand is still weak. Ophthalmology consultation was requested as he gives a 4 to 6-week history of decreasing vision in his right eye. He claims that the left eye is normal. He feels that the visual acuity in both eyes was 20/20 recently. He does not wear glasses for near or far. He has no prior eye problems. EYE EXAMINATION: The ocular examination at the bedside revealed an uncorrected vision of no light perception in the right eye and 20/100 in the left eye. With correction of [id number] reading glasses, visual acuity in the right eye did not improve. The left eye improved to 20/25. The center evaluation revealed an afferent pupillary defect. Ocular motility revealed full ductions and versions. There was no manifest strabismus. Confrontation visual caceres were full to finger counting in the periphery of the left eye. External examination revealed normal lids and lashes. A penlight examination of the ocular surface revealed quite conjunctiva and clear corneas. The anterior chambers appeared clear and the irises were brown. Both lenses appeared clear. Jose L-Pen applanation tonometry showed a drop of pressures of 12 mmHg in each eye. Dilated fundus examination was carried with both direct and indirect ophthalmoscopy. The right eye showed diffuse retinitis throughout the posterior segment with what appeared to be associated series of retinal detachment. Examination of the left fundus revealed a clear vitreous cavity. The disk was pink and flat with spontaneous venous pulsations. The retinal vasculature appeared healthy. Examination of the retinal periphery revealed no signs of CMV retinitis or other significant pathology. FINAL DIAGNOSES: 1. Subacute viral retinitis, right eye. 2. Age-related presbyopia. COMMENT: The patient appears to have probable CMV retinitis in his right fundus. I recommend Retinovitreous consultation for decision of management with an intravitreal implant and/or intravenous antiviral medications. We will make calls to arrange a followup consultation while he is hospitalized. Please do not hesitate to contact me, as I explained to the patient, should he have any changes in signs or symptoms in the left eye. Afshin Donis M.D. DR: NIKOLAS JOB#: [id number] CC:
[2017-08-01] VITALS: BP 108/72
[2017-08-01 04:00] VITALS: BP 112/68
[2017-08-01] MEDS: Bactrim DS (160mg/800mg) tab ORAL SCH ×3 (05:34→21:29)
[2017-08-01 08:00] VITALS: BP 112/69
[2017-08-01 09:02] LABS: ANTI DNA DS ANTIBODY 1 IU/mL (0-9); TOXOPLASMA IGG ANTIBODY <3.0 IU/mL (0.0-7.1)
[2017-08-01] MEDS: Docusate 100mg cap ORAL SCH ×2 (09:09→21:26)
[2017-08-01] MEDS: Vitamin D 1000 IU Tab ORAL SCH (09:09)
[2017-08-01] MEDS: Aspirin EC 81mg tab ORAL SCH (09:09)
[2017-08-01] MEDS: Fluconazole 100mg tab ORAL SCH (09:09)
[2017-08-01] MEDS: Metoprolol Succinate XL 50mg tab ORAL SCH (09:09)
[2017-08-01] MEDS: Multivitamin w/Minerals tab ORAL SCH (09:09)
[2017-08-01] MEDS: Azithromycin 600mg Tab ORAL SCH (09:12)
[2017-08-01 09:33] LABS: PHOSPHOLIPID LEVEL 192 mg/dL (150-250)
[2017-08-01 10:23] LABS: ANTI THROMBIN III ANTIGEN 93 % (72-124); PROTEIN C ACTIVITY 143 % (73-180); PROTEIN S ACTIVITY 77 % (63-140)
[2017-08-01 12:01] VITALS: BP 103/69
--- NOTE | 2017-08-01 12:23 | Neurology Progress Note ---
Interim History Interim History ROS Limited/Unobtainable: No Complaints: clumsy R arm Events: feel same Objective Physical Exam Last Vital Signs Date Time Temp Pulse Resp B/P (MAP) Pulse Ox O2 Delivery O2 Flow Rate FiO2 08/01/17 12:01 97.2 107 19 103/69 97 Room Air 07/28/17 18:14 2.0 General: well developed, no acute distress, other - cachectic Head: normocophalic, atraumatic Neck: no rigidity Neurologic Exam Mental Status: awake, alert, oriented x4, normal cognition Speech: normal speech, no dysarthia Language: normal language, no aphasia Cranial Nerve II: other - blind R eye Cranial Nerves III, IV, : PERRLA, EOMI, pupils Cranial Nerve V: normal facial sensations, temporales function normal, masseters function normal, pterygoids function normal Cranial Nerve VII: no facial asymmetry, normal facial expressions Cranial Nerve VIII: normal hearing, no nystagmus Cranial Nerve IX: normal palate elevation, gag response Cranial Nerve X: no voice hoarseness Cranial Nerve XI: SCM symmetric, trapezii function normal Cranial Nerve XII: tongue midline, no tongue atrophy/fasciculations Motor System: normal muscle tone, no involuntary movement, other - 4/5 R arm Sensory: normal pinprick Coordination: other - very clumsy R arm Deep Tendon Reflexes: 3+ bicep (L), 3+ bicep (R), 3+ tricep (L), 3+ tricep (R) , 3+ brachioradialis (L), 3+ brachioradialis (R), 3+ knee (L), 3+ knee (R), 3+ ankle (L), 3+ ankle (R) Reflexes: mute plantar (L), mute plantar (R) Stance: other Gait: other Impression/Recommendations Problems: (1) acute ischemic L MCA stroke, R arm weakness/ataxia. (2) Multiple atypical cortical ischemic lesions, r/o vasculitis (3) AIDS (acquired immune deficiency syndrome) (4) Cachexia associated with AIDS (5) CMV retinitis Status: unchanged Recommendations #[id number] ophtalm consult noted LP pend pt/ot labs pend coag panel asaSWEETIE HICKEY Aug 01, 2017 12:23
[2017-08-01] MEDS ORDERED: Lidocaine 2% 20mg/ml/Epi 0.005mg/ml 20ml vial INJ ONE (13:00)
[2017-08-01] MEDS ORDERED: Lidocaine 1% Plain 30 ml INJ ONE (13:45)
--- NOTE | 2017-08-01 15:25 | Infectious Diseases Prog Note ---
Assessment/Plan Assessment/Plan A) 1) pna, ? cap, ? 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, encephalopathy - clinically improved - afb - negative x 3, TB dna pcr negative - LP planned, orders entered and d/w RN - D/w Dr. Flores - check imaging 2) hiv, aids - cd4 - 57 3) allergies - negative, fh-nc, sh-negative, mar noted 4) d/w RN 5) notes and records noted P) 1) po bactrim x 11 days and levofloxacin x 4 days, diflucan, azithromycin prophylaxis, 2) valganciclovir 900mg bid for two weeks and then 900 mg daily for suppression 3) check LP and labs 4) orders entered and noted 5) continue tx per primary and consultants 6) d/w patient 7) will start anti-retroviral therapy once treatment of OI under control to avoid immune reconstitution syndrome 8) will check viral load 9) neurology f/u, mri brain noted, ophthalmology f/u for in Subjective Constitutional: Denies: fever HEENT: Denies: congestion Respiratory: Denies: shortness of breath Cardiovascular: Denies: chest pain Gastrointestinal/Abdominal: Denies: nausea, vomiting, diarrhea Genitourinary: Denies: dysuria, hematuria, frequency Neurologic: Denies: headache, numbness Psychiatric: Denies: depression Skin: Denies: rash Hematologic: Denies: bleeding Musculoskeletal: Denies: pain Allergies: Coded Allergies: No Known Allergies (Unverified , 07/20/17) Objective Vital Signs Last 24 Hour Vital Signs Date Time Temp Pulse Resp B/P (MAP) Pulse Ox O2 Delivery O2 Flow Rate FiO2 08/01/17 12:01 97.2 107 19 103/69 97 Room Air 08/01/17 11:14 87 08/01/17 09:09 95 112/69 08/01/17 08:00 97.9 95 20 112/69 96 Room Air 08/01/17 08:00 95 08/01/17 04:00 96 08/01/17 04:00 98.3 88 18 112/68 98 Room Air 08/01/17 00:00 99 08/01/17 00:00 98.1 93 18 108/72 98 Room Air 07/31/17 20:00 107 07/31/17 20:00 97.8 100 18 100/67 97 Room Air 07/31/17 15:47 97.9 105 20 112/69 96 Room Air 07/31/17 15:47 105 Height (Feet): 5 Height (Inches): 8.00 Weight (Pounds): 125 General Appearance: no acute distress HEENT: normocephalic, atraumatic, anicteric, mucous membranes moist, EOMI, pharynx normal, supple, no JVD Respiratory/Chest: no respiratory distress, respiratory distress, crackles/ rales Cardiovascular: normal rate, regular rhythm, no gallop/murmur Abdomen: soft, non tender, no organomegaly, non distended Genitourinary: other - no cox Extremities: no cyanosis Skin: no rash 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 Infiltrates in the left lung appears slightly more diffuse, and infiltrates in the right lung appear slightly more extensive. Pleural spaces remain clear. Heart size is normal Impression: Slightly increased infiltrates bilaterally, over 2 days Chest x-ray - 07/24 Findings: Left internal jugular central line is again noted. Cardiomediastinal silhouette is stable. Patchy infiltrates are again noted of the lungs bilaterally. Osseous structures are stable. Impression: No interval change from 07/22/17. 07/25 - chest x-ray Comparison: 07/24/2017 Findings: There is a left jugular central venous catheter and demonstrated. Diffuse mostly upper lung interstitial and alveolar patchy parenchymal infiltrates appears slightly improved, patient on the left. New infiltrates. No effusions. Normal heart size Impression: Slight improvement of parenchymal disease on the left. Otherwise little change, over one day Chest x-ray - 07/28 - Impression: Essentially unchanged bilateral mid and upper lung airspace opacities. However, there is questionable interim cavitation of some of the opacities on the right. 07/30 - chest x-ray - no change (report noted) Microbiology Date/Time Source Procedure Growth Status 07/20/17 16:19 Blood Blood Culture - Final NO GROWTH AFTER 5 DAYS Complete 07/26/17 06:45 Sputum AFB Specimen Processing Tissue - Final Resulted 07/26/17 06:45 Sputum Acid Fast Bacilli Smear - Final Resulted 07/26/17 06:45 Sputum Acid Fast Bacilli Culture Pending Resulted 07/20/17 22:30 Stool Clostridium difficile Toxin Assay - Final Complete 07/20/17 15:40 Rectum VRE Culture - Final NO VANCOMYCIN RESISTANT ENTEROCOCCUS ... Complete Labs Test 07/31/17 03:40 White Blood Count 4.2 K/UL (4.8-10.8) Red Blood Count 4.17 M/UL (4.70-6.10) Hemoglobin 12.0 G/DL (14.2-18.0) Hematocrit 35.6 % (42.0-52.0) Mean Corpuscular Volume 85 FL (80-99) Mean Corpuscular Hemoglobin 28.7 PG (27.0-31.0) Mean Corpuscular Hemoglobin Concent 33.7 G/DL (32.0-36.0) Red Cell Distribution Width 13.1 % (11.6-14.8) Platelet Count 216 K/UL (150-450) Mean Platelet Volume 8.9 FL (6.5-10.1) Neutrophils (%) (Auto) 74.7 % (45.0-75.0) Lymphocytes (%) (Auto) 15.9 % (20.0-45.0) Monocytes (%) (Auto) 7.3 % (1.0-10.0) Eosinophils (%) (Auto) 0.9 % (0.0-3.0) Basophils (%) (Auto) 1.2 % (0.0-2.0) Sodium Level 133 MMOL/L (136-145) Potassium Level 4.4 MMOL/L (3.5-5.1) Chloride Level 100 MMOL/L (98-107) Carbon Dioxide Level 24 MMOL/L (21-32) Anion Gap 9 mmol/L (5-15) Blood Urea Nitrogen 8 mg/dL (7-18) Creatinine 0.9 MG/DL (0.55-1.30) Estimat Glomerular Filtration Rate > 60 mL/min (>60) Glucose Level 71 MG/DL (74-106) Calcium Level 8.8 MG/DL (8.5-10.1) Total Bilirubin 0.2 MG/DL (0.2-1.0) Aspartate Amino Transf (AST/SGOT) 28 U/L (15-37) Alanine Aminotransferase (ALT/SGPT) 38 U/L (12-78) Alkaline Phosphatase 102 U/L (46-116) Total Protein 6.6 G/DL (6.4-8.2) Albumin 2.3 G/DL (3.4-5.0) Globulin 4.3 g/dL Albumin/Globulin Ratio 0.5 (1.0-2.7) Current Medications Medications (Trade) Dose Ordered Sig/Gabriela Route PRN Reason Start Time Stop Time Status Last Admin Dose Admin Acetaminophen (Tylenol) 650 mg Q4H PRN ORAL Mild Pain (Pain Scale 1-3) 07/22/17 14:30 08/19/17 14:29 07/22/17 20:48 Aspirin (Ecotrin) 81 mg DAILY ORAL 07/30/17 09:00 08/29/17 08:59 08/01/17 09:09 Azithromycin (Zithromax) 1,200 mg QWEEK ORAL 08/01/17 09:00 08/08/17 08:59 08/01/17 09:12 Ceftriaxone Sodium 1 gm/ Dextrose 50 ml @ 100 mls/hr Q24H IVPB 07/29/17 20:00 08/05/17 19:59 07/31/17 20:10 Dextrose (Dextrose 50%) STAT PRN IV Hypoglycemia 07/22/17 14:30 08/19/17 14:29 Diphenhydramine HCl (Benadryl) 25 mg Q6H PRN ORAL Itching/Pruritis 07/22/17 14:30 08/19/17 14:29 07/22/17 20:29 Docusate Sodium (Colace) 100 mg EVERY 12 HOURS ORAL 07/22/17 21:00 08/19/17 20:59 08/01/17 09:09 Enoxaparin Sodium (Lovenox) 40 mg QHS SUBQ 07/22/17 21:00 08/19/17 20:59 07/31/17 20:13 Fluconazole (Diflucan) 200 mg DAILY ORAL 07/30/17 09:00 08/05/17 08:59 08/01/17 09:09 Lorazepam (Ativan 2mg/ml 1ml) 2 mg Q4H PRN IV For Anxiety 07/28/17 22:30 12/7/17 22:29 Metoprolol Succinate (Toprol XL) 50 mg DAILY ORAL 07/29/17 11:00 08/28/17 10:59 08/01/17 09:09 Multivitamins Therapeutic (Therapeutic Multivitamin) 1 ea DAILY ORAL 07/25/17 09:00 08/24/17 08:59 08/01/17 09:09 Non-Formulary Medication (Non-Formulary Med) 1 ea Q12HR ORAL 07/31/17 21:00 08/30/17 20:59 UNV Ondansetron HCl (Zofran) 4 mg Q6H PRN IVP Nausea & Vomiting 07/22/17 14:30 08/19/17 14:29 Pantoprazole (Protonix) 40 mg ACBREAKFAST ORAL 07/23/17 09:00 08/22/17 08:59 08/01/17 05:34 Trimethoprim/ Sulfamethoxazole (Bactrim-DS) 2 ea Q8HR ORAL 07/31/17 16:00 08/07/17 15:59 08/01/17 05:34 Valganciclovir (Valcyte) 900 mg Q12HR@0630,1830 ORAL 07/31/17 17:00 08/30/17 16:59 08/01/17 05:35 Vitamin D (Vitamin D) 1,000 intlu DAILY ORAL 07/25/17 09:00 08/24/17 08:59 08/01/17 09:09 WEN ANTOINE Aug 01, 2017 15:25
--- NOTE | 2017-08-01 15:42 | Pre-Procedure Note/Attestation ---
Pre-Procedure Note/Attestation Complete Prior to Procedure Planned Procedure: not applicable Procedure Narrative: lumbar puncture Indications for Procedure Pre-Operative Diagnosis: altered neurological status and right sided weakness abnormal MRI Attestation I attest that I discussed the nature of the procedure; its benefits; risks and complications; and alternatives (and the risks and benefits of such alternatives ), prior to the procedure, with the patient (or the patient's legal medical center representative). I attest that, if there was a reasonable possibility of needing a blood transfusion, the patient (or the patient's legal medical center representative) was given the [facility] standardized written summary, pursuant to the Mahesh Moises Blood Safety Act ([place] Health and Safety Code # 1645, as amended). I attest that I re-evaluated the patient just prior to the surgery and that there has been no change in the patient's H&P, except as documented below: MARIA GUADALUPE FRANCO M.D. Aug 01, 2017 15:42
--- NOTE | 2017-08-01 15:55 | Brief Operative Note ---
Immediate Post Operative Note Operative Note Pre-op Diagnosis: altered neurological status and right sided weakness abnormal MRI Procedure: Lumbar puncture Post-op Diagnosis: same as pre-op Findings: consistent w/pre-op dx studies - opening pressure 4 cm H2O closing pressure 3 cm H2O Surgeon: Laura FRANCO Anesthesia: local Specimen: yes - 8 ml clear CSF Complications: none Condition: stable Fluids: none Estimated Blood Loss: none Drains: none Implant(s) used?: No MARIA GUADALUPE FRANCO M.D. Aug 01, 2017 15:55
[2017-08-01 16:00] VITALS: BP 101/64
[2017-08-01] MEDS ORDERED: Phenylephrine 2.5% Op 2ml Soln BOTH EYES ONE (17:00)
[2017-08-01] MEDS ORDERED: Cyclopentolate 1% Opth Sol 2ml BOTH EYES ONE (17:00)
--- NOTE | 2017-08-01 17:25 | Diagnostic Imaging Report ---
Indication: Altered mental status, right-sided weakness, abnormal recent MRI Technique: Informed consent obtained prior to commencement of the procedure. Procedure performed. The skin was sterilely prepped and draped. Local anesthesia with 1% lidocaine. Using a left of midline sublaminar approach, spinal canal was accessed at the L3-4 level. Initial attempted puncture demonstrated satisfactory needle position but no CSF was returned, so repeat puncture was attempted, this time yielding spontaneous return of clear CSF. Opening pressure measured, found to be 4 cm H2O. 8 mL of clear CSF obtained divided into 4 vials. Closing pressure came, found to be 3 cm of H2O. Needle removed, dressing applied. The patient tolerated the procedure well, without immediate complication. Total fluoroscopy time 1.3 minutes. Total dose area product 23 dGycm2 Comparison: None Findings: Opening pressure 4 cm H2O. Closing pressure 3 cm H2O. CSF clear Impression: Successful fluoroscopy guided lumbar puncture, as described Note low opening and closing pressures, intracranial hypotension not excludable
[2017-08-01 17:55] LABS: GLUCOSE,CSF 38 mg/dL (50-80)
--- NOTE | 2017-08-01 18:48 | General Progress Note ---
Progress Note Progress Note Retinal Surgery Initial Note. Asked by Dr Donis to see this 51 y/o male HIV positive patient with a 6 week history of slow, painless visual loss in the right eye. Patient has a negative ocular history with previously perfect vision according to history. Viral retinitis is suspected. Patient's history and Dr Donis's note reviewed. Exam. Vision: Bare LP OD. 20/25 OS at near. Tensions by Dr Donis 14 OU. Dense afferent defect OD. OS normal. Full ROM. Full caceres OS. OD absent. Penlight exam: reveals clear corneas and quiet AC's OU. Conjunctivae are without injection. Fundus exam: OD shows dense vitritis with cells and inflammatory debris. Retina OD shows widespread retinitis with pigmentary atrophy, vasculitis, and infiltrates extending from periphery to macula. Nerve moderate pallor. No evidence or retinal detachment is noted. OS shows clear vitreous. A single cotton wool spot is noted in papillomacular bundle. No evidence of acute retinitis is seen. 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 Discussion/Plan: Prognosis for visual recovery OD is limited and there is roughly a 65% incidence of bilateral involvement if untreated. Likely viral causes include HSV, Zoster, and CMV. Consideration should be made for vitreous tap with PCR assays for the aforementioned viruses and simultaneous intravitreal injection of Foscarnet and Ganciclovir. Oral Valganciclovir, which this patient is receiving, should be adequate for opposite-eye prophylaxis but may not be adequate to control the acute/chronic infection OD. If drugs are available and PCR assays can be handled by our facility, I can perform the procedure on Wed AM. If not, I would suggest transfer. Kong Santoro MD. [phone] KONG SANTORO Aug 01, 2017 18:48
[2017-08-01 20:00] VITALS: BP 118/86
[2017-08-01 20:36] LABS: APPEARANCE,CSF CLEAR; COLOR,CSF COLORLESS
[2017-08-01 20:37] LABS: WHITE BLOOD CELL,CSF 2 /CU MM (0-5)
[2017-08-01] MEDS: Enoxaparin 40mg Inj SUBQ SCH (21:29)
[2017-08-02] VITALS: BP 91/65
[2017-08-02 04:00] VITALS: BP 98/76
[2017-08-02] MEDS: Bactrim DS (160mg/800mg) tab ORAL SCH ×3 (06:50→22:50)
[2017-08-02 08:00] VITALS: BP 107/71
[2017-08-02 08:07] LABS: NIL (NEG) CONTROL SPOT COUNT 0 (0-9); PANEL A SPOT COUNT 0; PANEL B SPOT COUNT 0; T SPOT TB INVALID NEG CONTROL
[2017-08-02 08:08] LABS: POSITIVE CONTROL SPOT COUNT 7
[2017-08-02] MEDS: Docusate 100mg cap ORAL SCH ×2 (09:00→21:00)
[2017-08-02] MEDS: Vitamin D 1000 IU Tab ORAL SCH (10:22)
[2017-08-02] MEDS: Aspirin EC 81mg tab ORAL SCH (10:22)
[2017-08-02] MEDS: Multivitamin w/Minerals tab ORAL SCH (10:22)
[2017-08-02] MEDS: Metoprolol Succinate XL 50mg tab ORAL SCH (10:22)
[2017-08-02] MEDS: Fluconazole 100mg tab ORAL SCH (10:22)
[2017-08-02 11:24] VITALS: BP 109/65
--- NOTE | 2017-08-02 12:21 | General Progress Note ---
Assessment/Plan Assessment/Plan AIDS - per ID. Pneumonia on [employer] IV Abx for immuno Compromised HIV patients. Doubt MTB. AFB's smear negative. DC Resp. Isolation. In [facility]AY. Needs Dietary eval. Encephalopathy check Brain MRI + EEG, EEG Negative. M. TB negative. Off isolation Has CMV Retinitis. On Valacyclovir oral which is a good alternative! Spoke to Dr. García. Patient still high risk for M. TB. despite negative AFBs. She recommends CSF M. TB PCR + CSF AFB to be added. Left VM to Micro lab. Pt. needs SNF!!!!! Subjective Allergies: Coded Allergies: No Known Allergies (Unverified , 07/20/17) Subjective c/o Rt. eye blindness x 4-6 weeks. Rt arm weakness x1 week. Seen by Dr. Donis. Objective Last 24 Hour Vital Signs Date Time Temp Pulse Resp B/P (MAP) Pulse Ox O2 Delivery O2 Flow Rate FiO2 08/02/17 11:24 104 08/02/17 11:24 97.2 102 18 109/65 97 Room Air 08/02/17 10:22 104 107/71 08/02/17 08:00 97.5 104 19 107/71 97 Room Air 08/02/17 08:00 104 08/02/17 04:00 102 08/02/17 04:00 97.1 94 18 98/76 97 Room Air 08/02/17 00:00 98 08/02/17 00:00 97.1 101 18 91/65 97 Room Air 08/01/17 20:00 112 08/01/17 20:00 97.0 117 18 118/86 96 Room Air 08/01/17 16:00 97.3 96 18 101/64 96 Room Air 08/01/17 16:00 101 Laboratory Tests 08/01/17 16:30: CSF Appearance Clear, CSF Color Colorless, CSF WBC 2, CSF RBC 795, CSF Neutrophils % , CSF Lymphocytes % , CSF Monocytes % , CSF Crenated Cells , CSF Glucose 38L, CSF Total Protein 66H, CSF VDRL [Pending], CSF Herpes Simplex II DNA (PCR) [Pending], Herpes Simplex Virus I IgG Antibody [Pending], Herpes Simplex Virus II IgG Ab [Pending], Herpes Simplex Virus I DNA (PCR) [Pending], HIV-1 RNA (PCR) log10 Value [Pending], HIV-1 RNA Ultraquantitative (PCR) [ Pending], Varicella-Zoster Virus DNA (PCR) [Pending] 08/01/17 16:40: Cryptococcus Antigen [Pending], Cryptococcus Antigen Titer [Pending], Cytomegalovirus DNA Qual (PCR) [Pending], Cytomegalovirus DNA PCR copies/ml [ Pending], Cytomegalovirus DNA PCR log10 [Pending] 08/02/17 11:45: TB Test (T-Spot) [Pending], TB Test Nil Control (T-Spot) [Pending], TB Test Panel A (T-Spot) [Pending], TB Test Panel B (T-Spot) [Pending], TB Test Positive Control (T-Spot) [Pending] Height (Feet): 5 Height (Inches): 8.00 Weight (Pounds): 126 Objective CV RR Lungs CTA Abd SNT BS + E No CCE Nuero decreased vision Rt. eye. No evidence of rt hemiparesis. MOLLY VÁZQUEZ Aug 02, 2017 12:21
--- NOTE | 2017-08-02 14:02 | Neurology Progress Note ---
Interim History Interim History ROS Limited/Unobtainable: No Complaints: clumsy R arm Events: feel same/ now blurry vision/ loose stool Objective Physical Exam Last Vital Signs Date Time Temp Pulse Resp B/P (MAP) Pulse Ox O2 Delivery O2 Flow Rate FiO2 08/02/17 11:24 104 08/02/17 11:24 97.2 18 109/65 97 Room Air 07/28/17 18:14 2.0 Laboratory Tests Test 08/01/17 16:30 08/01/17 16:40 08/02/17 11:45 CSF Appearance Clear CSF Color Colorless CSF WBC 2 /CU MM (0-5) CSF RBC 795 /CU MM CSF Neutrophils % % CSF Lymphocytes % % CSF Monocytes % % CSF Crenated Cells % CSF Glucose 38 mg/dL (50-80) L CSF Total Protein 66 MG/DL (15-45) H CSF VDRL Pending CSF Herpes Simplex II DNA (PCR) Pending Herpes Simplex Virus I IgG Antibody Pending Herpes Simplex Virus II IgG Ab Pending Herpes Simplex Virus I DNA (PCR) Pending HIV-1 RNA (PCR) log10 Value Pending HIV-1 RNA Ultraquantitative (PCR) Pending Varicella-Zoster Virus DNA (PCR) Pending Cryptococcus Antigen Pending Cryptococcus Antigen Titer Pending Cytomegalovirus DNA Qual (PCR) Pending Cytomegalovirus DNA PCR copies/ml Pending Cytomegalovirus DNA PCR log10 Pending TB Test (T-Spot) Pending TB Test Nil Control (T-Spot) Pending TB Test Panel A (T-Spot) Pending TB Test Panel B (T-Spot) Pending TB Test Positive Control (T-Spot) Pending General: well developed, no acute distress, other - cachectic/illappearing Head: normocophalic, atraumatic Neck: no rigidity Neurologic Exam Mental Status: awake, alert, oriented x4, normal cognition Speech: normal speech, no dysarthia Language: normal language, no aphasia Cranial Nerve II: other - blind R eye Cranial Nerves III, IV, : PERRLA, EOMI, pupils Cranial Nerve V: normal facial sensations, temporales function normal, masseters function normal, pterygoids function normal Cranial Nerve VII: no facial asymmetry, normal facial expressions Cranial Nerve VIII: normal hearing, no nystagmus Cranial Nerve IX: normal palate elevation, gag response Cranial Nerve X: no voice hoarseness Cranial Nerve XI: SCM symmetric, trapezii function normal Cranial Nerve XII: tongue midline, no tongue atrophy/fasciculations Motor System: normal muscle tone, no involuntary movement, other - 4/5 R arm Sensory: normal pinprick Coordination: other - very clumsy R arm Deep Tendon Reflexes: 3+ bicep (L), 3+ bicep (R), 3+ tricep (L), 3+ tricep (R) , 3+ brachioradialis (L), 3+ brachioradialis (R), 3+ knee (L), 3+ knee (R), 3+ ankle (L), 3+ ankle (R) Reflexes: mute plantar (L), mute plantar (R) Stance: other Gait: other Impression/Recommendations Problems: (1) acute ischemic L MCA stroke, R arm weakness/ataxia. 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
[2017-08-02 16:00] VITALS: BP 102/64
--- NOTE | 2017-08-02 16:00 | Consultation ---
DATE OF CONSULTATION: 08/01/2017 CONSULTING PHYSICIAN: Theodore Villeda M.D. REQUESTING PHYSICIAN: Afshin Donis M.D. ATTENDING PHYSICIAN: Molly Roberson M.D. BRIEF NOTE: This consultation was requested by Dr. Donis for follow up evaluation of the patient who is a 51-year-old HIV positive male with a six-week history of slow progressive and painless visual loss in the right eye. He was evaluated by Dr. Donis, who suspected an infectious etiology. The patient has a negative ocular history with regards to surgery and previous inflammation. He claims his vision was in the 20/20 range two months ago prior to development of this condition. The patient has a history of HIV positivity and was being successfully treated on medications, but discontinued the medications sometime ago and noted progressive weight loss, fevers, and loose stools. He was admitted in septic shock and the visual complaint was noted. Ocular examination at the bedside revealed vision of bare light perception in the right eye and 20/25 at near in the left. Ocular tensions were done by Dr. Donis and were 14 mm in either eye. There was a dense afferent defect on the right. The left pupil was normal. Range of motion was full. Charles were grossly full in the left eye, but absent on the right. A penlight examination revealed quiet conjunctivae and clear corneas in either eye. Specifically, there was no evidence of precipitate formation on the right cornea and the anterior chamber was quiet. The left anterior segment was clear. Funduscopic examination of the right eye showed a dense vitreitis with cells and inflammatory debris and strands. The view was hazy. The retina showed widespread retinitis with areas of RPE atrophy, active infiltrates, vasculitis, and retinal edema. The pathology extended from the far periphery through to the macula. The optic nerve showed moderate pallor. No evidence of retinal detachment was noted through the AC view. The left fundus showed a clear vitreous. A single cotton-wool spot was noted in the papillomacular bundle between the nerve and macula. This was not associated with hemorrhage. There was no vasculitis. ASSESSMENT: Probable acute retinal necrosis syndrome, right eye, complicated by immunodeficiency. DISCUSSION/PLAN: The prognosis for visual recovery in the right eye is going to be limited, but the disease should be controlled. He is on systemic medications at the moment including valganciclovir orally. This should provide fairly significant levels of ganciclovir inside the eye and also persistent prophylaxis for the left eye, which in many cases as a significant likelihood of developing the same disease. For diagnosis, we feel that vitreous or aqueous sampling with PCR assays for CMV, zoster, and herpes simplex should be obtained. We would like to inject foscarnet directly into the vitreous of the right eye and possibly ganciclovir if available. We will check with the pharmacy to see if the drugs are available and with the laboratory to see if these essays can be handle and sent for evaluation. A brief vitreous or anterior chamber tap and injection of antibiotics will be planned for the operating room on Tuesday. Theodore Villeda M.D. DR: MERLINE JOB#: [id number] CC: Afshin Donis M.D.; Fax#: [phone] MOLLY ROBERSON M.D. ; FAX#: [phone] BEV
--- NOTE | 2017-08-02 19:02 | Progress Note ---
DATE: 08/02/2017 PROGRESS NOTE UPDATE BRIEF NOTE: The planned operation on this patient tomorrow morning has been canceled. The hospital pharmacy is unable to obtain Foscarnet and is unable to compound ganciclovir. After further discussion, it was felt that because of the fact the patient has been on oral medications for the last several days that samples and cultures to identify a specific infectious etiology may not be useful if intravitreal drug levels have reached a certain point. Based on this, the surgery will not be performed, but instead the patient will be observed for regression in the right eye and possible progression in the left at which point attention would be paid to the left eye only. It is advised that the current medication regimen be maintained. Theodore Villeda M.D. DR: [place] JOB#: [id number] CC: BEV
[2017-08-02 20:00] VITALS: BP 112/63
--- NOTE | 2017-08-02 20:12 | Infectious Diseases Prog Note ---
Assessment/Plan Assessment/Plan A) 1) pna, ? cap, ? 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, doubt meningitis based on LP with 2 wbc - clinically improved 2) hiv, aids - cd4 - 57 3) allergies - negative, fh-nc, sh-negative, mar noted 4) d/w RN 5) notes and records noted P) 1) po bactrim x 10 days and levofloxacin x 3 days, diflucan, azithromycin prophylaxis, 2) valganciclovir 900mg bid for two weeks and then 900 mg daily for suppression 3) check LP and labs 4) orders entered and noted 5) continue tx per primary and consultants 6) d/w patient 7) will start anti-retroviral therapy once treatment of OI under control to avoid immune reconstitution syndrome 8) will check viral load 9) neurology f/u, mri brain noted, ophthalmology f/u for in 10) patient will likely need outpatient genotyping because has been on atripla and truvada (by itself) in past to guide anti-retroviral therapy Subjective Constitutional: Denies: fever HEENT: Reports: other - right eye vision loss without change, Denies: congestion Respiratory: Denies: shortness of breath Cardiovascular: Denies: chest pain Gastrointestinal/Abdominal: Denies: nausea, vomiting, diarrhea, constipation Genitourinary: Denies: dysuria, hematuria, frequency Neurologic: Denies: headache Psychiatric: Denies: depression Skin: Denies: rash Hematologic: Denies: bleeding Musculoskeletal: Denies: pain Allergies: Coded Allergies: No Known Allergies (Unverified , 07/20/17) Objective Vital Signs Last 24 Hour Vital Signs Date Time Temp Pulse Resp B/P (MAP) Pulse Ox O2 Delivery O2 Flow Rate FiO2 08/02/17 16:00 97.3 96 18 102/64 96 Room Air 08/02/17 15:05 102 08/02/17 11:24 104 08/02/17 11:24 97.2 102 18 109/65 97 Room Air 08/02/17 10:22 104 107/71 08/02/17 08:00 97.5 104 19 107/71 97 Room Air 08/02/17 08:00 104 08/02/17 04:00 102 08/02/17 04:00 97.1 94 18 98/76 97 Room Air 08/02/17 00:00 98 08/02/17 00:00 97.1 101 18 91/65 97 Room Air Height (Feet): 5 Height (Inches): 8.00 Weight (Pounds): 126 General Appearance: no acute distress HEENT: normocephalic, atraumatic, anicteric, mucous membranes moist, EOMI, pharynx normal, supple, no JVD Respiratory/Chest: lungs clear, normal breath sounds, no respiratory distress, no accessory muscle use Cardiovascular: normal rate, regular rhythm, no gallop/murmur, no JVD Abdomen: normal bowel sounds, soft, non tender, no organomegaly, non distended Genitourinary: other - no cox Extremities: no cyanosis Skin: no rash Neurologic/Psychiatric: video intern II-XII 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 Infiltrates in the left lung appears slightly more diffuse, and infiltrates in the right lung appear slightly more extensive. Pleural spaces remain clear. Heart size is normal Impression: Slightly increased infiltrates bilaterally, over 2 days Chest x-ray - 07/24 Findings: Left internal jugular central line is again noted. Cardiomediastinal silhouette is stable. Patchy infiltrates are again noted of the lungs bilaterally. Osseous structures are stable. Impression: No interval change from 07/22/17. 07/25 - chest x-ray Comparison: 07/24/2017 Findings: There is a left jugular central venous catheter and demonstrated. Diffuse mostly upper lung interstitial and alveolar patchy parenchymal infiltrates appears slightly improved, patient on the left. New infiltrates. No effusions. Normal heart size Impression: Slight improvement of parenchymal disease on the left. Otherwise little change, over one day Chest x-ray - 07/28 - Impression: Essentially unchanged bilateral mid and upper lung airspace opacities. However, there is questionable interim cavitation of some of the opacities on the right. 07/30 - chest x-ray - no change (report noted) Microbiology Date/Time Source Procedure Growth Status 08/01/17 16:30 Cerebral Spinal Fluid Gram Stain - Final Resulted 08/01/17 16:30 Cerebral Spinal Fluid CSF Culture - Preliminary NO GROWTH AFTER 24 HOURS Resulted Laboratory Tests Test 08/02/17 11:45 TB Test (T-Spot) Pending TB Test Nil Control (T-Spot) Pending TB Test Panel A (T-Spot) Pending TB Test Panel B (T-Spot) Pending TB Test Positive Control (T-Spot) Pending Current Medications Medications (Trade) Dose Ordered Sig/Gabriela Route PRN Reason Start Time Stop Time Status Last Admin Dose Admin Acetaminophen (Tylenol) 650 mg Q4H PRN ORAL Mild Pain (Pain Scale 1-3) 07/22/17 14:30 08/19/17 14:29 07/22/17 20:48 Aspirin (Ecotrin) 81 mg DAILY ORAL 07/30/17 09:00 08/29/17 08:59 08/02/17 10:22 Azithromycin (Zithromax) 1,200 mg QWEEK ORAL 08/01/17 09:00 08/08/17 08:59 08/01/17 09:12 Dextrose (Dextrose 50%) STAT PRN IV Hypoglycemia 07/22/17 14:30 08/19/17 14:29 Diphenhydramine HCl (Benadryl) 25 mg Q6H PRN ORAL Itching/Pruritis 07/22/17 14:30 08/19/17 14:29 07/22/17 20:29 Docusate Sodium (Colace) 100 mg EVERY 12 HOURS ORAL 07/22/17 21:00 08/19/17 20:59 08/01/17 21:26 Enoxaparin Sodium (Lovenox) 40 mg QHS SUBQ 07/22/17 21:00 08/19/17 20:59 08/01/17 21:29 Fluconazole (Diflucan) 200 mg DAILY ORAL 07/30/17 09:00 08/05/17 08:59 08/02/17 10:22 Levofloxacin (Levaquin) 750 mg DAILY ORAL 08/02/17 09:00 08/09/17 08:59 08/02/17 10:22 Lorazepam (Ativan 2mg/ml 1ml) 2 mg Q4H PRN IV For Anxiety 07/28/17 22:30 08/04/17 22:29 Metoprolol Succinate (Toprol XL) 50 mg DAILY ORAL 07/29/17 11:00 08/28/17 10:59 08/02/17 10:22 Multivitamins Therapeutic (Therapeutic Multivitamin) 1 ea DAILY ORAL 07/25/17 09:00 08/24/17 08:59 08/02/17 10:22 Ondansetron HCl (Zofran) 4 mg Q6H PRN IVP Nausea & Vomiting 07/22/17 14:30 08/19/17 14:29 Pantoprazole (Protonix) 40 mg ACBREAKFAST ORAL 07/23/17 09:00 08/22/17 08:59 08/02/17 06:50 Trimethoprim/ Sulfamethoxazole (Bactrim-DS) 2 ea Q8HR ORAL 07/31/17 16:00 08/07/17 15:59 08/02/17 14:55 Valganciclovir (Valcyte) 900 mg Q12HR@0630,1830 ORAL 07/31/17 17:00 08/30/17 16:59 08/02/17 19:00 Vitamin D (Vitamin D) 1,000 intlu DAILY ORAL 07/25/17 09:00 08/24/17 08:59 08/02/17 10:22 WEN ANTOINE Aug 02, 2017 20:12
[2017-08-02] MEDS: Enoxaparin 40mg Inj SUBQ SCH (22:49)
[2017-08-03] VITALS: BP 107/68
[2017-08-03 04:00] VITALS: BP 107/62
[2017-08-03] MEDS: Bactrim DS (160mg/800mg) tab ORAL SCH ×3 (06:47→21:23)
[2017-08-03 08:00] VITALS: BP 108/66
[2017-08-03] MEDS: Multivitamin w/Minerals tab ORAL SCH (09:04)
[2017-08-03] MEDS: Docusate 100mg cap ORAL SCH ×2 (09:04→21:00)
[2017-08-03] MEDS: Vitamin D 1000 IU Tab ORAL SCH (09:04)
[2017-08-03] MEDS: Aspirin EC 81mg tab ORAL SCH (09:05)
[2017-08-03] MEDS: Metoprolol Succinate XL 50mg tab ORAL SCH (09:05)
[2017-08-03] MEDS: Fluconazole 100mg tab ORAL SCH (09:06)
[2017-08-03 10:03] LABS: CSF COMMENT PATHOLOGIST COMMENT
[2017-08-03 11:16] LABS: HSV 1 ANTIBODY IGG 8.17 index (0.00-0.90); HSV 2 ANTIBODY IGG 1.57 index (0.00-0.90)
[2017-08-03 12:00] VITALS: BP 93/73
--- NOTE | 2017-08-03 12:02 | General Progress Note ---
Assessment/Plan Assessment/Plan AIDS - per ID. Pneumonia on Broad Spectrum IV Abx for immuno Compromised HIV patients. Doubt MTB. AFB's smear negative. DC Resp. Isolation. In [facility]. Needs Dietary eval. Encephalopathy check Brain MRI + EEG, EEG Negative. M. TB negative. Off isolation Has CMV Retinitis. On Valacyclovir oral which is a good alternative! Spoke to Dr. García in @ [facility]. Patient still high risk for M. TB. despite negative AFBs. She recommends CSF M. TB PCR + CSF AFB to be added. Left VM to Micro lab. 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 Patient poses great risk to himself and others. Need to live with another adult 21/03. 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 Subjective Allergies: Coded Allergies: No Known Allergies (Unverified , 07/20/17) Subjective c/o Rt. eye blindness x 4-6 weeks. Rt arm weakness x1 week. Seen by Dr. Donis. Objective Last 24 Hour Vital Signs Date Time Temp Pulse Resp B/P (MAP) Pulse Ox O2 Delivery O2 Flow Rate FiO2 08/03/17 09:05 104 108/66 08/03/17 08:00 95.0 104 21 108/66 99 Room Air 08/03/17 08:00 95 08/03/17 04:00 96.1 95 20 107/62 96 Room Air 08/03/17 04:00 103 08/03/17 00:00 96.1 102 20 107/68 96 Room Air 08/03/17 00:00 93 08/02/17 20:00 96.4 101 20 112/63 97 Room Air 08/02/17 20:00 105 08/02/17 16:00 97.3 96 18 102/64 96 Room Air 08/02/17 15:05 102 Intake and Output 08/03/17 08/04/17 19:00 07:00 # Bowel Movements 1 Height (Feet): 5 Height (Inches): 8.00 Weight (Pounds): 122 Objective CV RR Lungs CTA Abd SNT BS + E No CCE Nuero decreased vision Rt. eye. No evidence of rt hemiparesis. MOLLY VÁZQUEZ Aug 03, 2017 12:02
--- NOTE | 2017-08-03 14:07 | Infectious Diseases Prog Note ---
Assessment/Plan Assessment/Plan A) 1) pna, ? cap, ? 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, doubt meningitis based on LP with 2 wbc -pna clinically better - still with right eye vision loss 2) hiv, aids - cd4 - 57 3) allergies - negative, fh-nc, sh-negative, mar noted 4) d/w RN 5) notes and records noted P) 1) po bactrim x 9 days and levofloxacin x 2 days, diflucan, azithromycin prophylaxis, 2) valganciclovir 900mg bid for two weeks and then 900 mg daily for suppression 3) ophthalmology f/u for intravitreal ganciclovir or foscarnet 4) orders entered and noted 5) continue tx per primary and consultants 6) d/w patient 7) will start anti-retroviral therapy once treatment of OI under control to avoid immune reconstitution syndrome - once intravitreal therapy initiated 8) will check viral load 9) neurology f/u, mri brain noted, ophthalmology f/u for in 10) patient will likely need outpatient genotyping because has been on atripla and truvada (by itself) in past to guide anti-retroviral therapy Subjective Constitutional: Denies: fever HEENT: Reports: other - right eye vision loss, Denies: congestion Respiratory: Denies: shortness of breath Cardiovascular: Denies: chest pain Gastrointestinal/Abdominal: Denies: nausea, vomiting, diarrhea Genitourinary: Reports: other - no cox Neurologic: Denies: headache Psychiatric: Denies: depression Skin: Denies: rash Hematologic: Denies: bleeding Musculoskeletal: Denies: pain Allergies: Coded Allergies: No Known Allergies (Unverified , 07/20/17) Objective Vital Signs Last 24 Hour Vital Signs Date Time Temp Pulse Resp B/P (MAP) Pulse Ox O2 Delivery O2 Flow Rate FiO2 08/03/17 12:00 101 08/03/17 09:05 104 108/66 08/03/17 08:00 95.0 104 21 108/66 99 Room Air 08/03/17 08:00 95 08/03/17 04:00 96.1 95 20 107/62 96 Room Air 08/03/17 04:00 103 08/03/17 00:00 96.1 102 20 107/68 96 Room Air 08/03/17 00:00 93 08/02/17 20:00 96.4 101 20 112/63 97 Room Air 08/02/17 20:00 105 08/02/17 16:00 97.3 96 18 102/64 96 Room Air 08/02/17 15:05 102 Height (Feet): 5 Height (Inches): 8.00 Weight (Pounds): 122 General Appearance: no acute distress HEENT: normocephalic, atraumatic, anicteric, mucous membranes moist Respiratory/Chest: lungs clear, normal breath sounds, no accessory muscle use, respiratory distress Cardiovascular: normal rate, regular rhythm, no gallop/murmur, no JVD Abdomen: normal bowel sounds, soft, non tender, no organomegaly, non distended Genitourinary: other - no cox Extremities: no cyanosis Skin: no rash Neurologic/Psychiatric: web specialist II-XII 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 Infiltrates in the left lung appears slightly more diffuse, and infiltrates in the right lung appear slightly more extensive. Pleural spaces remain clear. Heart size is normal Impression: Slightly increased infiltrates bilaterally, over 2 days Chest x-ray - 07/24 Findings: Left internal jugular central line is again noted. Cardiomediastinal silhouette is stable. Patchy infiltrates are again noted of the lungs bilaterally. Osseous structures are stable. Impression: No interval change from 07/22/17. 07/25 - chest x-ray Comparison: 07/24/2017 Findings: There is a left jugular central venous catheter and demonstrated. Diffuse mostly upper lung interstitial and alveolar patchy parenchymal infiltrates appears slightly improved, patient on the left. New infiltrates. No effusions. Normal heart size Impression: Slight improvement of parenchymal disease on the left. Otherwise little change, over one day Chest x-ray - 07/28 - Impression: Essentially unchanged bilateral mid and upper lung airspace opacities. However, there is questionable interim cavitation of some of the opacities on the right. 07/30 - chest x-ray - no change (report noted) Microbiology Date/Time Source Procedure Growth Status 07/20/17 16:19 Blood Blood Culture - Final NO GROWTH AFTER 5 DAYS Complete 08/01/17 16:30 Cerebral Spinal Fluid Gram Stain - Final Resulted 08/01/17 16:30 Cerebral Spinal Fluid CSF Culture - Preliminary NO GROWTH AFTER 48 HOURS Resulted 07/26/17 06:45 Sputum AFB Specimen Processing Tissue - Final Resulted 07/26/17 06:45 Sputum Acid Fast Bacilli Smear - Final Resulted 07/26/17 06:45 Sputum Acid Fast Bacilli Culture Pending Resulted 07/20/17 22:30 Stool Clostridium difficile Toxin Assay - Final Complete 07/20/17 15:40 Rectum VRE Culture - Final NO VANCOMYCIN RESISTANT ENTEROCOCCUS ... Complete Microbiology Date/Time Source Procedure Growth Status 08/01/17 16:30 Cerebral Spinal Fluid Gram Stain - Final Resulted 08/01/17 16:30 Cerebral Spinal Fluid CSF Culture - Preliminary NO GROWTH AFTER 48 HOURS Resulted cr - 0.9 wbc - 4.2 hgb - 12.0 Current Medications Medications (Trade) Dose Ordered Sig/Gabriela Route PRN Reason Start Time Stop Time Status Last Admin Dose Admin Acetaminophen (Tylenol) 650 mg Q4H PRN ORAL Mild Pain (Pain Scale 1-3) 07/22/17 14:30 08/19/17 14:29 07/22/17 20:48 Aspirin (Ecotrin) 81 mg DAILY ORAL 07/30/17 09:00 08/29/17 08:59 08/03/17 09:05 Azithromycin (Zithromax) 1,200 mg QWEEK ORAL 08/01/17 09:00 08/08/17 08:59 08/01/17 09:12 Dextrose (Dextrose 50%) STAT PRN IV Hypoglycemia 07/22/17 14:30 08/19/17 14:29 Diphenhydramine HCl (Benadryl) 25 mg Q6H PRN ORAL Itching/Pruritis 07/22/17 14:30 08/19/17 14:29 07/22/17 20:29 Docusate Sodium (Colace) 100 mg EVERY 12 HOURS ORAL 07/22/17 21:00 08/19/17 20:59 08/03/17 09:04 Enoxaparin Sodium (Lovenox) 40 mg QHS SUBQ 07/22/17 21:00 08/19/17 20:59 08/02/17 22:49 Fluconazole (Diflucan) 200 mg DAILY ORAL 08/04/17 09:00 08/09/17 23:59 UNV Levofloxacin (Levaquin) 750 mg DAILY ORAL 08/02/17 09:00 08/09/17 08:59 08/03/17 09:06 Lorazepam (Ativan 2mg/ml 1ml) 2 mg Q4H PRN IV For Anxiety 07/28/17 22:30 08/04/17 22:29 Metoprolol Succinate (Toprol XL) 50 mg DAILY ORAL 07/29/17 11:00 08/28/17 10:59 08/03/17 09:05 Multivitamins Therapeutic (Therapeutic Multivitamin) 1 ea DAILY ORAL 07/25/17 09:00 08/24/17 08:59 08/03/17 09:04 Ondansetron HCl (Zofran) 4 mg Q6H PRN IVP Nausea & Vomiting 07/22/17 14:30 08/19/17 14:29 08/02/17 22:54 Pantoprazole (Protonix) 40 mg ACBREAKFAST ORAL 07/23/17 09:00 08/22/17 08:59 08/03/17 06:48 Trimethoprim/ Sulfamethoxazole (Bactrim-DS) 2 ea Q8HR ORAL 07/31/17 16:00 08/07/17 15:59 08/03/17 06:47 Valganciclovir (Valcyte) 900 mg Q12HR@0630,1830 ORAL 07/31/17 17:00 08/30/17 16:59 08/03/17 06:48 Vitamin D (Vitamin D) 1,000 intlu DAILY ORAL 07/25/17 09:00 08/24/17 08:59 08/03/17 09:04 WEN ANTOINE Aug 03, 2017 14:07
[2017-08-03 16:00] VITALS: BP 92/66
[2017-08-03 20:00] VITALS: BP 102/68
[2017-08-03] MEDS: Enoxaparin 40mg Inj SUBQ SCH (21:20)
[2017-08-04] VITALS: BP 107/65
[2017-08-04 04:00] VITALS: BP 96/64
[2017-08-04 05:14] LABS: EOSINOPHILS % (AUTO) 0.3 % (0.0-3.0); LYMPHOCYTES % (AUTO) 23.1 % (20.0-45.0); MEAN CORPUSCULAR HEMOGLOBIN 28.6 PG (27.0-31.0); MEAN CORPUSCULAR HGB CONC 33.6 G/DL (32.0-36.0); MEAN CORPUSCULAR VOLUME 85 FL (80-99); MEAN PLATELET VOLUME 8.8 FL (6.5-10.1); NEUTROPHILS % (AUTO) 68.5 % (45.0-75.0); PLATELET COUNT 262 K/UL (150-450); RED CELL DISTRIBUTION WIDTH 14.1 % (11.6-14.8); WHITE BLOOD COUNT 3.9 K/UL (4.8-10.8)
[2017-08-04 06:00] LABS: ALANINE AMINOTRANSFERASE 31 U/L (12-78); ALBUMIN/GLOBULIN RATIO 0.6 (1.0-2.7); ANION GAP 12 mmol/L (5-15); ASPARTATE AMINO TRANSFERASE 20 U/L (15-37); CALCIUM 9.3 MG/DL (8.5-10.1); CARBON DIOXIDE 21 MMOL/L (21-32); CHLORIDE 92 MMOL/L (98-107); CREATININE 1.1 MG/DL (0.55-1.30); GLOMERULAR FILTRATION RATE > 60 mL/min (>60); POTASSIUM 4.6 MMOL/L (3.5-5.1); SODIUM 125 MMOL/L (136-145); TOTAL PROTEIN 7.4 G/DL (6.4-8.2)
[2017-08-04] MEDS: Bactrim DS (160mg/800mg) tab ORAL SCH ×3 (06:04→21:26)
[2017-08-04 08:00] VITALS: BP 107/49
[2017-08-04] MEDS: Docusate 100mg cap ORAL SCH ×2 (08:48→21:00)
[2017-08-04] MEDS: Fluconazole 100mg tab ORAL SCH (08:49)
[2017-08-04] MEDS: Aspirin EC 81mg tab ORAL SCH (08:49)
[2017-08-04] MEDS: Multivitamin w/Minerals tab ORAL SCH (08:50)
[2017-08-04] MEDS: Metoprolol Succinate XL 50mg tab ORAL SCH (08:50)
[2017-08-04] MEDS: Vitamin D 1000 IU Tab ORAL SCH (08:51)
[2017-08-04] MEDS ORDERED: Cyclopentolate 1% Opth Sol 2ml BOTH EYES ONE (11:00)
[2017-08-04] MEDS ORDERED: Cyclopentolate 1% Opth Sol 2ml RIGHT EYE ONE (11:00)
[2017-08-04] MEDS ORDERED: Phenylephrine 2.5% Op 2ml Soln BOTH EYES ONE (11:00)
[2017-08-04] MEDS ORDERED: Phenylephrine 2.5% Op 2ml Soln RIGHT EYE ONE (11:00)
[2017-08-04 12:00] VITALS: BP 103/60
[2017-08-04 12:20] LABS: LOG 10 CMV QN PCR 4.262 (.)
[2017-08-04 12:20] LABS: VDRL CSF Non Reactive (Non Rea:<1:1)
--- NOTE | 2017-08-04 13:12 | General Progress Note ---
Assessment/Plan Assessment/Plan AIDS - per ID. Pneumonia - m/p PCP with [facility]. On Broad Spectrum IV Abx and IV Bactrim for immuno Compromised HIV patients. Doubt MTB. AFB's smear negative. DC Resp. Isolation. In [facility]. AIDS Cachexia Encephalopathy s/p LP. Results pending. Has CMV Retinitis. On Valacyclovir oral which is a good alternative! Spoke to Dr. García in [facility] @ [facility]. Patient still high risk for M. TB. despite negative AFBs. She recommends CSF M. TB PCR + CSF AFB to be added. 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 Need to live with another adult 21/03. 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 Subjective Allergies: Coded Allergies: No Known Allergies (Unverified , 07/20/17) Subjective cNo new c/o Objective Last 24 Hour Vital Signs Date Time Temp Pulse Resp B/P (MAP) Pulse Ox O2 Delivery O2 Flow Rate FiO2 08/04/17 12:00 97.5 101 20 103/60 98 Room Air 08/04/17 12:00 97 08/04/17 08:50 100 107/49 08/04/17 08:00 94.5 100 19 107/49 98 Room Air 08/04/17 08:00 118 08/04/17 04:00 97.5 100 20 96/64 98 Room Air 08/04/17 04:00 110 08/04/17 00:00 94 08/04/17 00:00 98.0 72 20 107/65 97 Room Air 08/03/17 20:00 97.5 77 20 102/68 96 Room Air 08/03/17 20:00 100 08/03/17 16:00 96.0 107 20 92/66 98 Room Air 08/03/17 16:00 105 Intake and Output 08/04/17 08/05/17 19:00 07:00 Intake Total 120 ml Balance 120 ml Intake Oral 120 ml Laboratory Tests 08/04/17 03:40: White Blood Count 3.9L, Red Blood Count 4.50L, Hemoglobin 12.9L, Hematocrit 38.3L, Mean Corpuscular Volume 85, Mean Corpuscular Hemoglobin 28.6, Mean Corpuscular Hemoglobin Concent 33.6, Red Cell Distribution Width 14.1, Platelet Count 262, Mean Platelet Volume 8.8, Neutrophils (%) (Auto) 68.5, Lymphocytes (% ) (Auto) 23.1, Monocytes (%) (Auto) 7.0, Eosinophils (%) (Auto) 0.3, Basophils ( %) (Auto) 1.0, Sodium Level 125L, Potassium Level 4.6, Chloride Level 92L, Carbon Dioxide Level 21, Anion Gap 12, Blood Urea Nitrogen 24H, Creatinine 1.1, Estimat Glomerular Filtration Rate > 60, Glucose Level 94, Calcium Level 9.3, Total Bilirubin 0.2, Aspartate Amino Transf (AST/SGOT) 20, Alanine Aminotransferase (ALT/SGPT) 31, Alkaline Phosphatase 121H, Total Protein 7.4, Albumin 2.8L, Globulin 4.6, Albumin/Globulin Ratio 0.6L Height (Feet): 5 Height (Inches): 8.00 Weight (Pounds): 123 Objective Rt. eye poor vision CV RR Lungs CTA Abd SNT BS + E No CCE MOLLY VÁZQUEZ Aug 04, 2017 13:12
[2017-08-04 14:01] LABS: NIL (NEG) CONTROL SPOT COUNT 0 (0-9); PANEL A SPOT COUNT 0; PANEL B SPOT COUNT 0; POSITIVE CONTROL SPOT COUNT > 20; T SPOT TB NEGATIVE
[2017-08-04 16:00] VITALS: BP 101/67
[2017-08-04 20:00] VITALS: BP 101/64
[2017-08-04] MEDS: Enoxaparin 40mg Inj SUBQ SCH (21:24)
[2017-08-05] VITALS (7 sets, daily range): BP systolic 95–116; BP diastolic 56–80
[2017-08-05] MEDS: Bactrim DS (160mg/800mg) tab ORAL SCH ×3 (06:09→21:44)
[2017-08-05] MEDS: Vitamin D 1000 IU Tab ORAL SCH ×2 (09:00→13:27)
[2017-08-05] MEDS: Docusate 100mg cap ORAL SCH ×2 (09:00→13:27)
--- NOTE | 2017-08-05 10:28 | Diagnostic Imaging Report ---
Indication: Dyspnea Technique: XRAY CHEST 1 V Comparison: 08-14 Findings: Patchy infiltrates in the bilateral upper lobes are again noted, slightly decreased when compared to the prior exam. There is no pleural effusion or pneumothorax. Heart size and the subchondral stable. No acute osseous abnormalities seen. Impression: Persistent patchy bilateral upper lobe opacities, slightly decreased compared to the prior exam.
--- NOTE | 2017-08-05 11:41 | General Progress Note ---
Assessment/Plan Assessment/Plan AIDS - per ID. Pneumonia - m/p PCP with [facility]. On Broad Spectrum IV Abx and IV Bactrim for immuno Compromised HIV patients. Doubt MTB. AFB's smear negative. DC Resp. Isolation. In [facility]. AIDS Cachexia Encephalopathy s/p LP. Results pending. Has CMV Retinitis. On Valacyclovir oral which is a good alternative! Spoke to Dr. García in [facility] @ [facility]. Patient still high risk for M. TB. despite negative AFBs. She recommends CSF M. TB PCR + CSF AFB to be added. Left VM to Micro lab. 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 From checking with the lab these tests were not done! Patient poses great risk to himself and others. Need to live with another adult 21/03. 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 Subjective Allergies: Coded Allergies: No Known Allergies (Unverified , 07/20/17) Subjective cNo new c/o Objective Last 24 Hour Vital Signs Date Time Temp Pulse Resp B/P (MAP) Pulse Ox O2 Delivery O2 Flow Rate FiO2 08/05/17 08:00 97.0 105 20 95/66 99 Room Air 08/05/17 08:00 97 08/05/17 04:00 98.2 99 24 100/65 100 Room Air 08/05/17 04:00 102 08/05/17 00:00 97.7 97 20 100/67 98 Room Air 08/05/17 00:00 102 08/04/17 20:00 97.9 97 18 101/64 99 Room Air 08/04/17 20:00 97.9 97 18 101/64 99 Room Air 08/04/17 20:00 104 08/04/17 16:42 93 08/04/17 16:00 97.5 93 19 101/67 98 Room Air 08/04/17 12:00 97.5 101 20 103/60 98 Room Air 08/04/17 12:00 97 Height (Feet): 5 Height (Inches): 8.00 Weight (Pounds): 124 Objective Rt. eye poor vision CV RR Lungs CTA Abd SNT BS + E No CCE MOLLY VÁZQUEZ Aug 05, 2017 11:41
[2017-08-05 12:22] LABS: V.ZOSTER DNA RT-PCR BLOOD/CSF Negative (Negative)
[2017-08-05 12:22] LABS: CRYPTOCOCCAL ANTIGEN Negative (Negative)
[2017-08-05 13:18] LABS: HIV RNA PCR QUANT 347790 copies/mL (.); HIV RNA PCR QUANT 5.541 (.)
[2017-08-05] MEDS: Fluconazole 100mg tab ORAL SCH (13:26)
[2017-08-05] MEDS: Aspirin EC 81mg tab ORAL SCH (13:26)
[2017-08-05] MEDS: Multivitamin w/Minerals tab ORAL SCH (13:27)
[2017-08-05] MEDS: Metoprolol Succinate XL 50mg tab ORAL SCH (13:27)
--- NOTE | 2017-08-05 16:05 | Infectious Diseases Prog Note ---
Assessment/Plan Assessment/Plan A) 1) pna, + H. Influenza pna/cap pna, ? pcp, ? 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, doubt meningitis based on LP with 2 wbc -pna clinically better, less sob, chest x-ray better - still with right eye vision loss 2) hiv, aids - cd4 - 55, viral load pending 3) allergies - negative, fh-nc, sh-negative, mar noted 4) d/w RN 5) notes and records noted P) 1) po bactrim x 7 days, finish levofloxacin for treatment of CAP/haemophilus influenzae pna, diflucan, azithromycin prophylaxis, TB tx started 2) valganciclovir 900mg bid for two weeks and then 900 mg daily for suppression 3) ophthalmology f/u for intravitreal ganciclovir or foscarnet 4) d/w department [facility] health and wants to treat for TB pna for at least 5 days prior to discharge, continue TB isolation, await AFB culture 5) continue tx per primary and consultants 6) f/u labs, lipase and amylase, check viral load, check TB pcr, check CT chest for cavitary lesions 7) will start anti-retroviral therapy once treatment of OI under control to avoid immune reconstitution syndrome - once intravitreal therapy initiated 8) will check viral load 9) neurology f/u, mri brain noted, ophthalmology f/u for in 10) patient will likely need outpatient genotyping because has been on atripla and truvada (by itself) in past to guide anti-retroviral therapy Subjective Constitutional: Denies: fever HEENT: Denies: congestion Respiratory: Denies: shortness of breath Cardiovascular: Denies: chest pain Gastrointestinal/Abdominal: Denies: nausea, vomiting, diarrhea Genitourinary: Denies: dysuria Neurologic: Denies: headache, weakness Psychiatric: Denies: depression Skin: Denies: rash Hematologic: Denies: bleeding Musculoskeletal: Denies: pain Allergies: Coded Allergies: No Known Allergies (Unverified , 07/20/17) Objective Vital Signs Last 24 Hour Vital Signs Date Time Temp Pulse Resp B/P (MAP) Pulse Ox O2 Delivery O2 Flow Rate FiO2 08/05/17 13:27 97 95/66 08/05/17 12:00 97.7 110 20 102/56 98 Room Air 08/05/17 08:00 97.0 105 20 95/66 99 Room Air 08/05/17 08:00 97 08/05/17 04:00 98.2 99 24 100/65 100 Room Air 08/05/17 04:00 102 08/05/17 00:00 97.7 97 20 100/67 98 Room Air 08/05/17 00:00 102 08/04/17 20:00 97.9 97 18 101/64 99 Room Air 08/04/17 20:00 97.9 97 18 101/64 99 Room Air 08/04/17 20:00 104 08/04/17 16:42 93 08/04/17 16:00 97.5 93 19 101/67 98 Room Air Height (Feet): 5 Height (Inches): 8.00 Weight (Pounds): 124 General Appearance: no acute distress HEENT: normocephalic, atraumatic, anicteric, mucous membranes moist, EOMI, pharynx normal, supple, no JVD, other - + right nya vision loss without change Respiratory/Chest: crackles/rales - few , rhonchi - bilaterally Cardiovascular: normal rate, regular rhythm, no gallop/murmur, no JVD Abdomen: normal bowel sounds, soft, non tender, no organomegaly, non distended Genitourinary: other - no cox Extremities: no cyanosis Skin: no rash Neurologic/Psychiatric: erp technical lead II-XII 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 Infiltrates in the left lung appears slightly more diffuse, and infiltrates in the right lung appear slightly more extensive. Pleural spaces remain clear. Heart size is normal Impression: Slightly increased infiltrates bilaterally, over 2 days Chest x-ray - 07/24 Findings: Left internal jugular central line is again noted. Cardiomediastinal silhouette is stable. Patchy infiltrates are again noted of the lungs bilaterally. Osseous structures are stable. Impression: No interval change from 07/22/17. 07/25 - chest x-ray Comparison: 07/24/2017 Findings: There is a left jugular central venous catheter and demonstrated. Diffuse mostly upper lung interstitial and alveolar patchy parenchymal infiltrates appears slightly improved, patient on the left. New infiltrates. No effusions. Normal heart size Impression: Slight improvement of parenchymal disease on the left. Otherwise little change, over one day Chest x-ray - 07/28 - Impression: Essentially unchanged bilateral mid and upper lung airspace opacities. However, there is questionable interim cavitation of some of the opacities on the right. 07/30 - chest x-ray - no change (report noted) Microbiology Date/Time Source Procedure Growth Status 07/20/17 16:19 Blood Blood Culture - Final NO GROWTH AFTER 5 DAYS Complete 08/01/17 16:30 Cerebral Spinal Fluid Gram Stain - Final Complete 08/01/17 16:30 Cerebral Spinal Fluid CSF Culture - Final NO GROWTH Complete 08/03/17 06:00 Sputum AFB Specimen Processing Tissue - Final Resulted 08/03/17 06:00 Sputum Acid Fast Bacilli Smear - Final Resulted 08/03/17 06:00 Sputum Acid Fast Bacilli Culture Pending Resulted 07/20/17 22:30 Stool Clostridium difficile Toxin Assay - Final Complete 07/20/17 15:40 Rectum VRE Culture - Final NO VANCOMYCIN RESISTANT ENTEROCOCCUS ... Complete Microbiology Date/Time Source Procedure Growth Status 08/03/17 06:00 Sputum AFB Specimen Processing Tissue - Final Resulted 08/03/17 06:00 Sputum Acid Fast Bacilli Smear - Final Resulted 08/03/17 06:00 Sputum Acid Fast Bacilli Culture Pending Resulted Labs Test 08/04/17 03:40 White Blood Count 3.9 K/UL (4.8-10.8) Red Blood Count 4.50 M/UL (4.70-6.10) Hemoglobin 12.9 G/DL (14.2-18.0) Hematocrit 38.3 % (42.0-52.0) Mean Corpuscular Volume 85 FL (80-99) Mean Corpuscular Hemoglobin 28.6 PG (27.0-31.0) Mean Corpuscular Hemoglobin Concent 33.6 G/DL (32.0-36.0) Red Cell Distribution Width 14.1 % (11.6-14.8) Platelet Count 262 K/UL (150-450) Mean Platelet Volume 8.8 FL (6.5-10.1) Neutrophils (%) (Auto) 68.5 % (45.0-75.0) Lymphocytes (%) (Auto) 23.1 % (20.0-45.0) Monocytes (%) (Auto) 7.0 % (1.0-10.0) Eosinophils (%) (Auto) 0.3 % (0.0-3.0) Basophils (%) (Auto) 1.0 % (0.0-2.0) Sodium Level 125 MMOL/L (136-145) Potassium Level 4.6 MMOL/L (3.5-5.1) Chloride Level 92 MMOL/L (98-107) Carbon Dioxide Level 21 MMOL/L (21-32) Anion Gap 12 mmol/L (5-15) Blood Urea Nitrogen 24 mg/dL (7-18) Creatinine 1.1 MG/DL (0.55-1.30) Estimat Glomerular Filtration Rate > 60 mL/min (>60) Glucose Level 94 MG/DL (74-106) Calcium Level 9.3 MG/DL (8.5-10.1) Total Bilirubin 0.2 MG/DL (0.2-1.0) Aspartate Amino Transf (AST/SGOT) 20 U/L (15-37) Alanine Aminotransferase (ALT/SGPT) 31 U/L (12-78) Alkaline Phosphatase 121 U/L (46-116) Total Protein 7.4 G/DL (6.4-8.2) Albumin 2.8 G/DL (3.4-5.0) Globulin 4.6 g/dL Albumin/Globulin Ratio 0.6 (1.0-2.7) Current Medications Medications (Trade) Dose Ordered Sig/Gabriela Route PRN Reason Start Time Stop Time Status Last Admin Dose Admin Acetaminophen (Tylenol) 650 mg Q4H PRN ORAL Mild Pain (Pain Scale 1-3) 07/22/17 14:30 08/19/17 14:29 07/22/17 20:48 Aspirin (Ecotrin) 81 mg DAILY ORAL 07/30/17 09:00 08/29/17 08:59 08/05/17 13:26 Azithromycin (Zithromax) 1,200 mg QWEEK ORAL 08/01/17 09:00 09/04/17 08:59 08/01/17 09:12 Dextrose (Dextrose 50%) STAT PRN IV Hypoglycemia 07/22/17 14:30 08/19/17 14:29 Diphenhydramine HCl (Benadryl) 25 mg Q6H PRN ORAL Itching/Pruritis 07/22/17 14:30 08/19/17 14:29 07/22/17 20:29 Docusate Sodium (Colace) 100 mg EVERY 12 HOURS ORAL 07/22/17 21:00 08/19/17 20:59 08/05/17 13:27 Enoxaparin Sodium (Lovenox) 40 mg QHS SUBQ 07/22/17 21:00 08/19/17 20:59 08/04/17 21:24 Ethambutol HCl (Myambutol) 1,200 mg DAILY ORAL 08/06/17 09:00 09/05/17 08:59 UNV Fluconazole (Diflucan) 200 mg DAILY ORAL 08/04/17 09:00 09/04/17 08:59 08/05/17 13:26 Isoniazid (Inh) 300 mg DAILY ORAL 08/06/17 09:00 09/05/17 08:59 UNV Metoprolol Succinate (Toprol XL) 50 mg DAILY ORAL 07/29/17 11:00 08/28/17 10:59 08/05/17 13:27 Multivitamins Therapeutic (Therapeutic Multivitamin) 1 ea DAILY ORAL 07/25/17 09:00 08/24/17 08:59 08/05/17 13:27 Ondansetron HCl (Zofran) 4 mg Q6H PRN IVP Nausea & Vomiting 07/22/17 14:30 08/19/17 14:29 08/05/17 09:13 Pantoprazole (Protonix) 40 mg ACBREAKFAST ORAL 07/23/17 09:00 08/22/17 08:59 08/05/17 13:26 Pyrazinamide (Pza) 1,500 mg DAILY ORAL 08/06/17 09:00 09/05/17 08:59 UNV Pyridoxine HCl (Vitamin B6) 50 mg DAILY ORAL 08/06/17 09:00 09/05/17 08:59 UNV Rifampin (Rifadin) 600 mg DAILY ORAL 08/06/17 09:00 09/05/17 08:59 UNV Trimethoprim/ Sulfamethoxazole (Bactrim-DS) 2 ea Q8HR ORAL 07/31/17 16:00 08/12/17 15:59 08/05/17 13:33 Valganciclovir (Valcyte) 900 mg DAILY ORAL 08/14/17 09:00 09/13/17 08:59 Valganciclovir (Valcyte) 900 mg Q12HR@0630,9540 ORAL 07/31/17 17:00 08/13/17 23:59 08/05/17 06:10 Vitamin D (Vitamin D) 1,000 intlu DAILY ORAL 07/25/17 09:00 08/24/17 08:59 08/05/17 13:27 WEN ANTOINE Aug 05, 2017 16:05
[2017-08-05 18:11] LABS: AMYLASE 327 U/L (25-115); LIPASE 905 U/L (73-393)
[2017-08-05] MEDS: Isoniazid 300mg tab ORAL SCH (18:19)
[2017-08-05] MEDS: Enoxaparin 40mg Inj SUBQ SCH (21:43)
--- NOTE | 2017-08-05 22:45 | Progress Note ---
DATE: 08/04/2017 SUBJECTIVE: The patient complains of no additional pain or discomfort. The vision remains the same in both eyes. OBJECTIVE: HEENT: Vision in the right eye remained bare light perception, the left eye was 20/25 at near. Pupillary examination showed a dense afferent defect on the right. The left was normal. External examination remained normal. The anterior segment still appeared quiet in either eye with no anterior chamber reaction or conjunctival injection. Funduscopic examination of the right eye showed extensive vitreous debris and floaters. There was a very wide spread, near-complete retinitis with areas of active inflammation less prominent. The nerve showed [id number] pallor. Funduscopic examination of the left eye showed no change in the size of a small cotton wool spot in the papillomacular bundle. No evidence of vitreous reaction or peripheral retinal inflammation was seen. 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 Decision was made a few days ago not to proceed with the vitrectomy as it was felt that levels of ganciclovir in the vitreous were more than likely adequate associated with the oral administration of valganciclovir. It was also felt that cultures, because the patient had been on this medication for some time, would not be revealing. It was also felt that the levels of antiviral medication will more than likely be adequate to protect the left eye from development of disease. At this juncture, this appears to be the case. The patient is planning to return to his home in [place] after discharge and records will be forwarded at his request and recommendation will be made for followup with an computer technical support specialist there. Theodore Villeda M.D. DR: Vanesa JOB#: [id number] CC: Theodore Villeda M.D.; Fax#: [phone] RADHA DOMÍNGUEZ M.D. ; FAX#: [phone] [facility]
[2017-08-06] VITALS: BP 106/65
[2017-08-06 04:00] VITALS: BP 100/66
[2017-08-06] MEDS: Bactrim DS (160mg/800mg) tab ORAL SCH ×3 (06:02→21:45)
[2017-08-06 06:43] LABS: BASOPHILS % (AUTO) 0.9 % (0.0-2.0); EOSINOPHILS % (AUTO) 0.7 % (0.0-3.0); LYMPHOCYTES % (AUTO) 23.6 % (20.0-45.0); MEAN CORPUSCULAR HGB CONC 33.1 G/DL (32.0-36.0); MEAN CORPUSCULAR VOLUME 85 FL (80-99); MEAN PLATELET VOLUME 9.1 FL (6.5-10.1); MONOCYTES % (AUTO) 6.4 % (1.0-10.0); NEUTROPHILS % (AUTO) 68.4 % (45.0-75.0); PLATELET COUNT 293 K/UL (150-450); RED BLOOD COUNT 4.68 M/UL (4.70-6.10); RED CELL DISTRIBUTION WIDTH 14.7 % (11.6-14.8)
[2017-08-06 07:28] LABS: ALANINE AMINOTRANSFERASE 29 U/L (12-78); ALBUMIN/GLOBULIN RATIO 0.6 (1.0-2.7); ANION GAP 8 mmol/L (5-15); ASPARTATE AMINO TRANSFERASE 21 U/L (15-37); CALCIUM 9.4 MG/DL (8.5-10.1); CARBON DIOXIDE 22 MMOL/L (21-32); CHLORIDE 95 MMOL/L (98-107); GLOMERULAR FILTRATION RATE > 60 mL/min (>60); POTASSIUM 5.5 MMOL/L (3.5-5.1); SODIUM 125 MMOL/L (136-145)
[2017-08-06 08:00] VITALS: BP 97/65
[2017-08-06] MEDS: Metoprolol Succinate XL 50mg tab ORAL SCH (09:00)
[2017-08-06] MEDS: Docusate 100mg cap ORAL SCH ×2 (09:00→21:45)
[2017-08-06] MEDS: Aspirin EC 81mg tab ORAL SCH (09:05)
[2017-08-06] MEDS: Pyridoxine 50mg tab ORAL SCH (09:05)
[2017-08-06] MEDS: Multivitamin w/Minerals tab ORAL SCH (09:06)
[2017-08-06] MEDS: Isoniazid 300mg tab ORAL SCH (09:06)
--- NOTE | 2017-08-06 10:44 | Pulmonology Progress Note ---
Assessment/Plan Problems: (1) HIV disease (2) AIDS (acquired immune deficiency syndrome) (3) Pneumonia Assessment/Plan pneumomediastinum no pneumothorax possibly due to intrapulmonary disease monitor clinically oxygen therapy ID noted thoracic surgery if worsens CT chest appears stable at present would likely monitor Subjective Allergies: Coded Allergies: No Known Allergies (Unverified , 07/20/17) Subjective asked to follow Objective Last 24 Hour Vital Signs Date Time Temp Pulse Resp B/P (MAP) Pulse Ox O2 Delivery O2 Flow Rate FiO2 08/06/17 09:00 91 97/65 08/06/17 08:00 97.2 91 20 97/65 100 Room Air 08/06/17 08:00 90 08/06/17 04:00 98.1 87 20 100/66 98 Room Air 08/06/17 03:43 84 08/06/17 00:00 97.5 95 20 106/65 98 Room Air 08/06/17 00:00 86 08/05/17 20:00 97.7 110 18 100/73 98 Room Air 08/05/17 20:00 102 08/05/17 16:00 111 08/05/17 16:00 97.5 106 20 116/80 97 Room Air 08/05/17 13:27 97 95/66 08/05/17 12:00 114 08/05/17 12:00 97.7 110 20 102/56 98 Room Air Intake and Output 08/06/17 08/07/17 19:00 07:00 # Bowel Movements 1 Objective cachectic WDWN NAD clear breath sounds bilaterally without rhonchi or wheeze [id number] without MRG NABS nontender no HSM no CCE nonfocal Laboratory Tests 08/05/17 17:40: Amylase Level 327H, Lipase 905H 08/06/17 06:00: White Blood Count 4.0L, Red Blood Count 4.68L, Hemoglobin 13.1L, Hematocrit 39.6L, Mean Corpuscular Volume 85, Mean Corpuscular Hemoglobin 28.0, Mean Corpuscular Hemoglobin Concent 33.1, Red Cell Distribution Width 14.7, Platelet Count 293, Mean Platelet Volume 9.1, Neutrophils (%) (Auto) 68.4, Lymphocytes (% ) (Auto) 23.6, Monocytes (%) (Auto) 6.4, Eosinophils (%) (Auto) 0.7, Basophils ( %) (Auto) 0.9, Sodium Level 125L, Potassium Level 5.5H, Chloride Level 95L, Carbon Dioxide Level 22, Anion Gap 8, Blood Urea Nitrogen 28H, Creatinine 1.0, Estimat Glomerular Filtration Rate > 60, Glucose Level 88, Calcium Level 9.4, Total Bilirubin 0.2, Aspartate Amino Transf (AST/SGOT) 21, Alanine Aminotransferase (ALT/SGPT) 29, Alkaline Phosphatase 122H, Total Protein 8.0, Albumin 3.1L, Globulin 4.9, Albumin/Globulin Ratio 0.6L Current Medications Medications (Trade) Dose Ordered Sig/Gabriela Route PRN Reason Start Time Stop Time Status Last Admin Dose Admin Acetaminophen (Tylenol) 650 mg Q4H PRN ORAL Mild Pain (Pain Scale 1-3) 07/22/17 14:30 08/19/17 14:29 07/22/17 20:48 Aspirin (Ecotrin) 81 mg DAILY ORAL 07/30/17 09:00 08/29/17 08:59 08/06/17 09:05 Azithromycin (Zithromax) 1,200 mg QWEEK ORAL 08/01/17 09:00 09/04/17 08:59 08/01/17 09:12 Dextrose (Dextrose 50%) STAT PRN IV Hypoglycemia 07/22/17 14:30 08/19/17 14:29 Diphenhydramine HCl (Benadryl) 25 mg Q6H PRN ORAL Itching/Pruritis 07/22/17 14:30 08/19/17 14:29 08/05/17 22:28 Docusate Sodium (Colace) 100 mg EVERY 12 HOURS ORAL 07/22/17 21:00 08/19/17 20:59 08/05/17 13:27 Enoxaparin Sodium (Lovenox) 40 mg QHS SUBQ 07/22/17 21:00 08/19/17 20:59 08/05/17 21:43 Ethambutol HCl (Myambutol) 1,200 mg DAILY ORAL 08/05/17 18:00 09/04/17 17:59 08/06/17 09:06 Isoniazid (Inh) 300 mg DAILY ORAL 08/05/17 18:00 09/04/17 17:59 08/06/17 09:06 Metoprolol Succinate (Toprol XL) 50 mg DAILY ORAL 07/29/17 11:00 08/28/17 10:59 08/05/17 13:27 Multivitamins Therapeutic (Therapeutic Multivitamin) 1 ea DAILY ORAL 07/25/17 09:00 08/24/17 08:59 08/06/17 09:06 Ondansetron HCl (Zofran) 4 mg Q6H PRN IVP Nausea & Vomiting 07/22/17 14:30 08/19/17 14:29 08/05/17 22:28 Pantoprazole (Protonix) 40 mg ACBREAKFAST ORAL 07/23/17 09:00 08/22/17 08:59 08/05/17 13:26 Pyrazinamide (Pza) 1,500 mg DAILY ORAL 08/05/17 18:00 09/04/17 17:59 08/06/17 09:06 Pyridoxine HCl (Vitamin B6) 50 mg DAILY ORAL 08/06/17 09:00 09/05/17 08:59 08/06/17 09:05 Rifampin (Rifadin) 600 mg DAILY ORAL 08/05/17 18:00 09/04/17 17:59 08/06/17 09:06 Trimethoprim/ Sulfamethoxazole (Bactrim-DS) 2 ea Q8HR ORAL 07/31/17 16:00 08/12/17 15:59 08/06/17 06:02 Valganciclovir (Valcyte) 900 mg DAILY ORAL 08/14/17 09:00 08/14/17 09:00 Valganciclovir (Valcyte) 900 mg Q12HR@0630,1830 ORAL 07/31/17 17:00 08/13/17 23:59 08/06/17 06:02 Vitamin D (Vitamin D) 1,000 intlu DAILY ORAL 07/25/17 09:00 08/24/17 08:59 08/05/17 13:27 MAKAYLA GARZA Aug 06, 2017 10:44
--- NOTE | 2017-08-06 10:44 | Diagnostic Imaging Report ---
Indication: Chest pain Technique: XRAY CHEST 1 V Comparison: 08/02/17 Findings: Cardiomediastinal silhouette is stable. Interstitial and linear opacities are again noted of the lungs bilaterally. There is now soft tissue emphysema involving the neck. Osseous structures are grossly stable. There is no gross pneumothorax. Impression: Soft tissue emphysema involving the neck and upper mediastinum. No gross pneumothorax. Bilateral interstitial linear opacities predominantly involving the mid and upper lung caceres grossly stable. Findings discussed with Dr. Escobar at 1035 hrs. by phone.
[2017-08-06 12:00] VITALS: BP 98/66
--- NOTE | 2017-08-06 12:54 | General Progress Note ---
Assessment/Plan Assessment/Plan AIDS - per ID. Pneumonia - m/p PCP with [facility]. On [employer] IV Abx and IV Bactrim for immuno Compromised HIV patients. Doubt MTB. AFB's smear negative. DC Resp. Isolation. In [facility]. AIDS Cachexia Encephalopathy s/p LP. Results pending. Has CMV Retinitis. On Valacyclovir oral which is a good alternative! Spoke to Dr. García in [facility] @ [facility]. Patient still high risk for M. TB. despite negative AFBs. She recommends CSF M. TB PCR + CSF AFB to be added. Left VM to Micro lab. [facility] manager safe. From checking with the lab these tests were not done! Patient poses great risk to himself and others. Need to live with another adult 21/03. 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 So far I don't see any arrangements for family f/u. New findings from today : CXR pneumomediastinum+ neck subcutaneus emphysema. Called Dr. Mathis (pulm) Subjective Allergies: Coded Allergies: No Known Allergies (Unverified , 07/20/17) Subjective cNo new c/o Objective Last 24 Hour Vital Signs Date Time Temp Pulse Resp B/P (MAP) Pulse Ox O2 Delivery O2 Flow Rate FiO2 08/06/17 09:00 91 97/65 08/06/17 08:00 97.2 91 20 97/65 100 Room Air 08/06/17 08:00 90 08/06/17 04:00 98.1 87 20 100/66 98 Room Air 08/06/17 03:43 84 08/06/17 00:00 97.5 95 20 106/65 98 Room Air 08/06/17 00:00 86 08/05/17 20:00 97.7 110 18 100/73 98 Room Air 08/05/17 20:00 102 08/05/17 16:00 111 08/05/17 16:00 97.5 106 20 116/80 97 Room Air 08/05/17 13:27 97 95/66 Intake and Output 08/06/17 08/07/17 19:00 07:00 # Bowel Movements 1 Laboratory Tests 08/05/17 17:40: Amylase Level 327H, Lipase 905H 08/06/17 06:00: White Blood Count 4.0L, Red Blood Count 4.68L, Hemoglobin 13.1L, Hematocrit 39.6L, Mean Corpuscular Volume 85, Mean Corpuscular Hemoglobin 28.0, Mean Corpuscular Hemoglobin Concent 33.1, Red Cell Distribution Width 14.7, Platelet Count 293, Mean Platelet Volume 9.1, Neutrophils (%) (Auto) 68.4, Lymphocytes (% ) (Auto) 23.6, Monocytes (%) (Auto) 6.4, Eosinophils (%) (Auto) 0.7, Basophils ( %) (Auto) 0.9, Sodium Level 125L, Potassium Level 5.5H, Chloride Level 95L, Carbon Dioxide Level 22, Anion Gap 8, Blood Urea Nitrogen 28H, Creatinine 1.0, Estimat Glomerular Filtration Rate > 60, Glucose Level 88, Calcium Level 9.4, Total Bilirubin 0.2, Aspartate Amino Transf (AST/SGOT) 21, Alanine Aminotransferase (ALT/SGPT) 29, Alkaline Phosphatase 122H, Total Protein 8.0, Albumin 3.1L, Globulin 4.9, Albumin/Globulin Ratio 0.6L Height (Feet): 5 Height (Inches): 8.00 Weight (Pounds): 123 Objective Rt. eye poor vision CV RR Lungs CTA Abd SNT BS + E No CCE MOLLY VÁZQUEZ Aug 06, 2017 12:54
[2017-08-06 16:00] VITALS: BP 93/66
[2017-08-06 20:00] VITALS: BP 94/71
[2017-08-06] MEDS: Enoxaparin 40mg Inj SUBQ SCH (21:46)
[2017-08-07] VITALS: BP 99/71
[2017-08-07 04:00] VITALS: BP 96/58
[2017-08-07] MEDS: Bactrim DS (160mg/800mg) tab ORAL SCH ×3 (06:45→21:58)
[2017-08-07 08:00] VITALS: BP 94/64
[2017-08-07] MEDS: Pyridoxine 50mg tab ORAL SCH (09:00)
[2017-08-07] MEDS: Docusate 100mg cap ORAL SCH ×2 (09:00→20:36)
[2017-08-07] MEDS: Metoprolol Succinate XL 50mg tab ORAL SCH (09:00)
[2017-08-07] MEDS: Isoniazid 300mg tab ORAL SCH (09:35)
[2017-08-07] MEDS: Vitamin D 1000 IU Tab ORAL SCH (09:36)
[2017-08-07] MEDS: Multivitamin w/Minerals tab ORAL SCH (09:36)
[2017-08-07] MEDS: Aspirin EC 81mg tab ORAL SCH (09:36)
--- NOTE | 2017-08-07 10:28 | Pulmonology Progress Note ---
Assessment/Plan Problems: (1) HIV disease (2) AIDS (acquired immune deficiency syndrome) (3) Pneumonia Assessment/Plan pneumomediastinum no pneumothorax possibly due to intrapulmonary disease monitor clinically oxygen therapy ID noted thoracic surgery called CT chest pending appears stable at present would likely monitor Subjective Allergies: Coded Allergies: No Known Allergies (Unverified , 07/20/17) Subjective no distress Objective Last 24 Hour Vital Signs Date Time Temp Pulse Resp B/P (MAP) Pulse Ox O2 Delivery O2 Flow Rate FiO2 08/07/17 08:00 97 08/07/17 04:00 97.6 94 20 96/58 99 Room Air 08/07/17 03:51 94 08/07/17 00:00 98.4 99 18 99/71 95 Room Air 08/06/17 23:34 96 08/06/17 20:00 97.9 90 18 94/71 98 Room Air 08/06/17 19:23 91 08/06/17 16:00 97.3 88 20 93/66 99 Room Air 08/06/17 16:00 95 08/06/17 12:00 90 08/06/17 12:00 97.0 88 20 98/66 98 Room Air Objective cachectic WDWN NAD clear breath sounds bilaterally without rhonchi or wheeze [id number] without MRG NABS nontender no HSM no CCE nonfocal Current Medications Medications (Trade) Dose Ordered Sig/Gabriela Route PRN Reason Start Time Stop Time Status Last Admin Dose Admin Acetaminophen (Tylenol) 650 mg Q4H PRN ORAL Mild Pain (Pain Scale 1-3) 07/22/17 14:30 08/19/17 14:29 07/22/17 20:48 Aspirin (Ecotrin) 81 mg DAILY ORAL 07/30/17 09:00 08/29/17 08:59 08/07/17 09:36 Azithromycin (Zithromax) 1,200 mg QWEEK ORAL 08/01/17 09:00 09/04/17 08:59 08/01/17 09:12 Dextrose (Dextrose 50%) STAT PRN IV Hypoglycemia 07/22/17 14:30 08/19/17 14:29 Diphenhydramine HCl (Benadryl) 25 mg Q6H PRN ORAL Itching/Pruritis 07/22/17 14:30 08/19/17 14:29 08/05/17 22:28 Docusate Sodium (Colace) 100 mg EVERY 12 HOURS ORAL 07/22/17 21:00 08/19/17 20:59 08/06/17 21:45 Enoxaparin Sodium (Lovenox) 40 mg QHS SUBQ 07/22/17 21:00 08/19/17 20:59 08/06/17 21:46 Ethambutol HCl (Myambutol) 1,200 mg DAILY ORAL 08/05/17 18:00 09/04/17 17:59 08/07/17 09:37 Isoniazid (Inh) 300 mg DAILY ORAL 08/05/17 18:00 09/04/17 17:59 08/07/17 09:35 Metoprolol Succinate (Toprol XL) 50 mg DAILY ORAL 07/29/17 11:00 08/28/17 10:59 08/05/17 13:27 Multivitamins Therapeutic (Therapeutic Multivitamin) 1 ea DAILY ORAL 07/25/17 09:00 08/24/17 08:59 08/07/17 09:36 Ondansetron HCl (Zofran) 4 mg Q6H PRN IVP Nausea & Vomiting 07/22/17 14:30 08/19/17 14:29 08/05/17 22:28 Pantoprazole (Protonix) 40 mg ACBREAKFAST ORAL 07/23/17 09:00 08/22/17 08:59 08/07/17 06:44 Pyrazinamide (Pza) 1,500 mg DAILY ORAL 08/05/17 18:00 09/04/17 17:59 08/07/17 09:37 Pyridoxine HCl (Vitamin B6) 50 mg DAILY ORAL 08/06/17 09:00 09/05/17 08:59 08/06/17 09:05 Rifampin (Rifadin) 600 mg DAILY ORAL 08/05/17 18:00 09/04/17 17:59 08/07/17 09:36 Trimethoprim/ Sulfamethoxazole (Bactrim-DS) 2 ea Q8HR ORAL 07/31/17 16:00 08/12/17 15:59 08/07/17 06:45 Valganciclovir (Valcyte) 900 mg DAILY ORAL 08/14/17 09:00 08/14/17 09:00 Valganciclovir (Valcyte) 900 mg Q12HR@0630,1830 ORAL 07/31/17 17:00 08/13/17 23:59 08/07/17 06:44 Vitamin D (Vitamin D) 1,000 intlu DAILY ORAL 07/25/17 09:00 08/24/17 08:59 08/07/17 09:36 MAKAYLA GARZA Aug 07, 2017 10:28
--- NOTE | 2017-08-07 11:01 | Diagnostic Imaging Report ---
Indication: SOB Technique: CT scan of the chest was performed without intravenous contrast material. Continuous helical scanning was obtained with displayed 5 mm sections in axial and coronal planes. Dose: Total Dose Length Product - DLP [address] Dose Index - CTDIvol(s) local 20 mGy. Automated exposure control was utilized for dose reduction. Comparison: None Findings: The patient demonstrates extensive subcutaneous emphysema in the neck. Subjacent emphysema is also noted in the supraclavicular regions and upper posterior chest wall. There is mediastinal emphysema. The heart is normal in size. There is no evidence of mediastinal adenopathy. There is no hilar adenopathy. Patchy bilateral pulmonary infiltrates are identified. Lungs are diffusely hyperexpanded. There is a nodular density measuring 10 mm in the right upper lobe. Numerous other groundglass nodular ill-defined opacities are noted bilaterally. Some of these are particular. The pleural spaces unremarkable. Impression: Pulmonary hyperexpansion. Subcutaneous emphysema in neck and upper chest as well as mediastinal emphysema. Multiple ill-defined groundglass opacities in the lungs bilaterally. This is likely inflammatory. Ill-defined nodule in the right upper lobe, also probably inflammatory given the nature of the other infiltrates. Attempts to reach Dr. Escobar are unsuccessful. The patient's nurse was notified by phone at 10:55 AM 08/07/2017. She informed me that she would relay the message to Dr. Escobar. The CT scanner at [facility] is accredited by the [employer] and the scans are performed using protocols designed to limit radiation exposure to as low as reasonably achievable to attain images of sufficient resolution adequate for diagnostic evaluation.
[2017-08-07 12:00] VITALS: BP 95/67
--- NOTE | 2017-08-07 12:03 | Infectious Diseases Prog Note ---
Assessment/Plan Assessment/Plan A) 1) pna, + H. Influenza pna/cap pna, ? pcp, ? 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, doubt meningitis based on LP with 2 wbc -pna clinically better, less sob, chest x-ray better - still with right eye vision loss - CT chest findings noted 2) hiv, aids - cd4 - 55, viral load pending 3) ? pancreatitis with elevated amylase and lipase 4) allergies - negative, fh-nc, sh-negative, mar noted 5) d/w RN 6) notes and records noted P) 1) po bactrim x 5 days, s/p 2 week treatment of CAP/haemophilus influenzae pna, s/p diflucan, azithromycin prophylaxis, TB treatment - day # 3 2) valganciclovir 900mg bid for two weeks and then 900 mg daily for suppression (to start suppression 08/14) 3) ophthalmology f/u for intravitreal ganciclovir or foscarnet if available 4) d/w [facility] and wants to treat for TB pna for at least 5 days prior to discharge, continue TB isolation, await AFB culture 5) continue tx per primary and consultants, ? GI evaluation for ? pancreatitis, pulmonary evaluation noted for CT chest findings 6) f/u labs, lipase and amylase, check viral load, check TB pcr 7) want to start anti-retroviral therapy with genvoya but not available at [facility] in discussion with pharmacy 8) will check viral load - ordered 9) neurology f/u, mri brain noted, ophthalmology f/u for in 10) patient will likely need outpatient genotyping because has been on atripla and truvada (by itself) in past to guide anti-retroviral therapy Subjective Constitutional: Denies: fever HEENT: Denies: congestion Respiratory: Denies: shortness of breath Cardiovascular: Denies: chest pain Gastrointestinal/Abdominal: Denies: nausea, vomiting, diarrhea Genitourinary: Denies: dysuria Neurologic: Denies: headache Psychiatric: Denies: depression Skin: Denies: rash Hematologic: Denies: bleeding Musculoskeletal: Denies: pain Allergies: Coded Allergies: No Known Allergies (Unverified , 07/20/17) Objective Vital Signs Last 24 Hour Vital Signs Date Time Temp Pulse Resp B/P (MAP) Pulse Ox O2 Delivery O2 Flow Rate FiO2 08/07/17 09:00 95 94/64 08/07/17 08:00 97 08/07/17 04:00 97.6 94 20 96/58 99 Room Air 08/07/17 03:51 94 08/07/17 00:00 98.4 99 18 99/71 95 Room Air 08/06/17 23:34 96 08/06/17 20:00 97.9 90 18 94/71 98 Room Air 08/06/17 19:23 91 08/06/17 16:00 97.3 88 20 93/66 99 Room Air 08/06/17 16:00 95 08/06/17 12:00 90 08/06/17 12:00 97.0 88 20 98/66 98 Room Air Height (Feet): 5 Height (Inches): 8.00 Weight (Pounds): 123 General Appearance: no acute distress HEENT: normocephalic, atraumatic, anicteric, mucous membranes moist, EOMI, pharynx normal, supple, no JVD Respiratory/Chest: no respiratory distress, no accessory muscle use, rhonchi - bilaterally Cardiovascular: normal rate, regular rhythm, no gallop/murmur, no JVD Abdomen: normal bowel sounds, soft, non tender, no organomegaly, non distended Genitourinary: other - no cox Extremities: no cyanosis Skin: no rash Neurologic/Psychiatric: senior painter II-XII 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 Infiltrates in the left lung appears slightly more diffuse, and infiltrates in the right lung appear slightly more extensive. Pleural spaces remain clear. Heart size is normal Impression: Slightly increased infiltrates bilaterally, over 2 days Chest x-ray - 07/24 Findings: Left internal jugular central line is again noted. Cardiomediastinal silhouette is stable. Patchy infiltrates are again noted of the lungs bilaterally. Osseous structures are stable. Impression: No interval change from 07/22/17. 07/25 - chest x-ray Comparison: 07/24/2017 Findings: There is a left jugular central venous catheter and demonstrated. Diffuse mostly upper lung interstitial and alveolar patchy parenchymal infiltrates appears slightly improved, patient on the left. New infiltrates. No effusions. Normal heart size Impression: Slight improvement of parenchymal disease on the left. Otherwise little change, over one day Chest x-ray - 07/28 - Impression: Essentially unchanged bilateral mid and upper lung airspace opacities. However, there is questionable interim cavitation of some of the opacities on the right. 07/30 - chest x-ray - no change (report noted) CT chest: Impression: Pulmonary hyperexpansion. Subcutaneous emphysema in neck and upper chest as well as mediastinal emphysema. Multiple ill-defined groundglass opacities in the lungs bilaterally. This is likely inflammatory. Ill-defined nodule in the right upper lobe, also probably inflammatory given the nature of the other infiltrates. Attempts to reach Dr. Escobar are unsuccessful. The patient's nurse was notified by phone at 10:55 AM 08/07/2017. She informed me that she would relay the message to Dr. Escobar. Microbiology Date/Time Source Procedure Growth Status 07/20/17 16:19 Blood Blood Culture - Final NO GROWTH AFTER 5 DAYS Complete 08/01/17 16:30 Cerebral Spinal Fluid Gram Stain - Final Complete 08/01/17 16:30 Cerebral Spinal Fluid CSF Culture - Final NO GROWTH Complete 08/03/17 06:00 Sputum AFB Specimen Processing Tissue - Final Resulted 08/03/17 06:00 Sputum Acid Fast Bacilli Smear - Final Resulted 08/03/17 06:00 Sputum Acid Fast Bacilli Culture Pending Resulted 07/20/17 22:30 Stool Clostridium difficile Toxin Assay - Final Complete 07/20/17 15:40 Rectum VRE Culture - Final NO VANCOMYCIN RESISTANT ENTEROCOCCUS ... Complete Labs Test 08/05/17 17:40 08/06/17 06:00 Amylase Level 327 U/L (25-115) Lipase 905 U/L (73-393) White Blood Count 4.0 K/UL (4.8-10.8) Red Blood Count 4.68 M/UL (4.70-6.10) Hemoglobin 13.1 G/DL (14.2-18.0) Hematocrit 39.6 % (42.0-52.0) Mean Corpuscular Volume 85 FL (80-99) Mean Corpuscular Hemoglobin 28.0 PG (27.0-31.0) Mean Corpuscular Hemoglobin Concent 33.1 G/DL (32.0-36.0) Red Cell Distribution Width 14.7 % (11.6-14.8) Platelet Count 293 K/UL (150-450) Mean Platelet Volume 9.1 FL (6.5-10.1) Neutrophils (%) (Auto) 68.4 % (45.0-75.0) Lymphocytes (%) (Auto) 23.6 % (20.0-45.0) Monocytes (%) (Auto) 6.4 % (1.0-10.0) Eosinophils (%) (Auto) 0.7 % (0.0-3.0) Basophils (%) (Auto) 0.9 % (0.0-2.0) Sodium Level 125 MMOL/L (136-145) Potassium Level 5.5 MMOL/L (3.5-5.1) Chloride Level 95 MMOL/L (98-107) Carbon Dioxide Level 22 MMOL/L (21-32) Anion Gap 8 mmol/L (5-15) Blood Urea Nitrogen 28 mg/dL (7-18) Creatinine 1.0 MG/DL (0.55-1.30) Estimat Glomerular Filtration Rate > 60 mL/min (>60) Glucose Level 88 MG/DL (74-106) Calcium Level 9.4 MG/DL (8.5-10.1) Total Bilirubin 0.2 MG/DL (0.2-1.0) Aspartate Amino Transf (AST/SGOT) 21 U/L (15-37) Alanine Aminotransferase (ALT/SGPT) 29 U/L (12-78) Alkaline Phosphatase 122 U/L (46-116) Total Protein 8.0 G/DL (6.4-8.2) Albumin 3.1 G/DL (3.4-5.0) Globulin 4.9 g/dL Albumin/Globulin Ratio 0.6 (1.0-2.7) Current Medications Medications (Trade) Dose Ordered Sig/Gabriela Route PRN Reason Start Time Stop Time Status Last Admin Dose Admin Acetaminophen (Tylenol) 650 mg Q4H PRN ORAL Mild Pain (Pain Scale 1-3) 07/22/17 14:30 08/19/17 14:29 07/22/17 20:48 Aspirin (Ecotrin) 81 mg DAILY ORAL 07/30/17 09:00 08/29/17 08:59 08/07/17 09:36 Azithromycin (Zithromax) 1,200 mg QWEEK ORAL 08/01/17 09:00 09/04/17 08:59 08/01/17 09:12 Dextrose (Dextrose 50%) STAT PRN IV Hypoglycemia 07/22/17 14:30 08/19/17 14:29 Diphenhydramine HCl (Benadryl) 25 mg Q6H PRN ORAL Itching/Pruritis 07/22/17 14:30 08/19/17 14:29 08/05/17 22:28 Docusate Sodium (Colace) 100 mg EVERY 12 HOURS ORAL 07/22/17 21:00 08/19/17 20:59 08/06/17 21:45 Enoxaparin Sodium (Lovenox) 40 mg QHS SUBQ 07/22/17 21:00 08/19/17 20:59 08/06/17 21:46 Ethambutol HCl (Myambutol) 1,200 mg DAILY ORAL 08/05/17 18:00 09/04/17 17:59 08/07/17 09:37 Isoniazid (Inh) 300 mg DAILY ORAL 08/05/17 18:00 09/04/17 17:59 08/07/17 09:35 Metoprolol Succinate (Toprol XL) 50 mg DAILY ORAL 07/29/17 11:00 08/28/17 10:59 08/05/17 13:27 Multivitamins Therapeutic (Therapeutic Multivitamin) 1 ea DAILY ORAL 07/25/17 09:00 08/24/17 08:59 08/07/17 09:36 Ondansetron HCl (Zofran) 4 mg Q6H PRN IVP Nausea & Vomiting 07/22/17 14:30 08/19/17 14:29 08/05/17 22:28 Pantoprazole (Protonix) 40 mg ACBREAKFAST ORAL 07/23/17 09:00 08/22/17 08:59 08/07/17 06:44 Pyrazinamide (Pza) 1,500 mg DAILY ORAL 08/05/17 18:00 09/04/17 17:59 08/07/17 09:37 Pyridoxine HCl (Vitamin B6) 50 mg DAILY ORAL 08/06/17 09:00 09/05/17 08:59 12/10/17 09:00 Rifampin (Rifadin) 600 mg DAILY ORAL 08/05/17 18:00 09/04/17 17:59 08/07/17 09:36 Trimethoprim/ Sulfamethoxazole (Bactrim-DS) 2 ea Q8HR ORAL 07/31/17 16:00 08/12/17 15:59 08/07/17 06:45 Valganciclovir (Valcyte) 900 mg DAILY ORAL 08/14/17 09:00 08/14/17 09:00 Valganciclovir (Valcyte) 900 mg Q12HR@0630,1830 ORAL 07/31/17 17:00 08/13/17 23:59 08/07/17 06:44 Vitamin D (Vitamin D) 1,000 intlu DAILY ORAL 07/25/17 09:00 08/24/17 08:59 08/07/17 09:36 WEN ANTOINE Aug 07, 2017 12:03
--- NOTE | 2017-08-07 13:44 | General Progress Note ---
Assessment/Plan Assessment/Plan AIDS - per ID. Pneumonia - m/p PCP with [facility]. On Broad Spectrum IV Abx and IV Bactrim for immuno Compromised HIV patients. Doubt MTB. AFB's smear negative. DC Resp. Isolation. In [facility]. New neck Emphysema + Pneumomediastinum both minimal on CT scan. AIDS Cachexia Encephalopathy s/p LP. Results pending. Has CMV Retinitis. On Valacyclovir oral which is a good alternative! Spoke to Dr. García in [facility] @ [facility]. Patient still high risk for M. TB. despite negative AFBs. She recommends CSF M. TB PCR + CSF AFB to be added. Left VM to Micro lab. 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 From checking with the lab these tests were not done! Patient poses great risk to himself and others. Need to live with another adult 21/03. 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 So far I don't see any arrangements for family f/u. New findings from today : CXR pneumomediastinum+ neck subcutaneus emphysema. Called Dr. Mathis (pulm). Called thoracic Surgeon. Hyponatremia, elevated Amylase + Lipase noted. See Orders Subjective Allergies: Coded Allergies: No Known Allergies (Unverified , 07/20/17) Subjective No new c/o Objective Last 24 Hour Vital Signs Date Time Temp Pulse Resp B/P (MAP) Pulse Ox O2 Delivery O2 Flow Rate FiO2 08/07/17 09:00 95 94/64 08/07/17 08:00 97 08/07/17 04:00 97.6 94 20 96/58 99 Room Air 08/07/17 03:51 94 08/07/17 00:00 98.4 99 18 99/71 95 Room Air 08/06/17 23:34 96 08/06/17 20:00 97.9 90 18 94/71 98 Room Air 08/06/17 19:23 91 08/06/17 16:00 97.3 88 20 93/66 99 Room Air 08/06/17 16:00 95 Height (Feet): 5 Height (Inches): 8.00 Weight (Pounds): 123 Objective Rt. eye poor vision CV RR Lungs CTA Abd SNT BS + E No CCE Neuro: very slow mentation! MOLLY VÁZQUEZ Aug 07, 2017 13:44
[2017-08-07] MEDS: Dolutegravir Sodium 50mg tab ORAL SCH (15:04)
[2017-08-07 16:00] VITALS: BP 101/57
[2017-08-07 20:00] VITALS: BP 94/65
[2017-08-07] MEDS: Enoxaparin 40mg Inj SUBQ SCH (20:38)
[2017-08-08] VITALS: BP 94/61
[2017-08-08 04:00] VITALS: BP 95/73
[2017-08-08 04:58] LABS: MEAN CORPUSCULAR HEMOGLOBIN 29.8 PG (27.0-31.0); MEAN CORPUSCULAR HGB CONC 34.9 G/DL (32.0-36.0); MEAN CORPUSCULAR VOLUME 85 FL (80-99); MEAN PLATELET VOLUME 8.7 FL (6.5-10.1); PLATELET COUNT 299 K/UL (150-450); RED BLOOD COUNT 4.32 M/UL (4.70-6.10); RED CELL DISTRIBUTION WIDTH 15.7 % (11.6-14.8); WHITE BLOOD COUNT 2.5 K/UL (4.8-10.8)
[2017-08-08 05:12] LABS: ALANINE AMINOTRANSFERASE 30 U/L (12-78); ALBUMIN/GLOBULIN RATIO 0.6 (1.0-2.7); ANION GAP 12 mmol/L (5-15); ASPARTATE AMINO TRANSFERASE 22 U/L (15-37); CALCIUM 8.9 MG/DL (8.5-10.1); CARBON DIOXIDE 17 MMOL/L (21-32); CHLORIDE 94 MMOL/L (98-107); GLOMERULAR FILTRATION RATE > 60 mL/min (>60); POTASSIUM 4.9 MMOL/L (3.5-5.1); SODIUM 123 MMOL/L (136-145); TOTAL PROTEIN 7.4 G/DL (6.4-8.2)
[2017-08-08] MEDS: Bactrim DS (160mg/800mg) tab ORAL SCH ×3 (05:43→21:39)
[2017-08-08 08:00] VITALS: BP 103/79
[2017-08-08 08:19] LABS: ANISOCYTOSIS 1+; BAND NEUTROPHILS % (MANUAL) 0 % (0-8); BASOPHILS % (MANUAL) 0 % (0-2); EOSINOPHILS % (MANUAL) 0 % (0-3); LYMPHOCYTES % (MANUAL) 34 % (20-45); NEUTROPHILS % (MANUAL) 65 % (45-75); PLATELET ESTIMATE ADEQUATE; PLATELET MORPHOLOGY NORMAL; TOTAL CELLS COUNTED 100
--- NOTE | 2017-08-08 08:47 | Pulmonology Progress Note ---
Assessment/Plan Problems: (1) HIV disease (2) AIDS (acquired immune deficiency syndrome) (3) Pneumonia Assessment/Plan pneumomediastinum no pneumothorax possibly due to intrapulmonary disease monitor clinically oxygen therapy ID noted thoracic surgery called CT chest reviewed monitor imaging expect resolution appears stable at present would likely monitor Subjective Allergies: Coded Allergies: No Known Allergies (Unverified , 07/20/17) Subjective no distress Objective Last 24 Hour Vital Signs Date Time Temp Pulse Resp B/P (MAP) Pulse Ox O2 Delivery O2 Flow Rate FiO2 08/08/17 04:00 98.0 97 20 95/73 98 Room Air 08/08/17 04:00 91 08/08/17 00:05 20 99 Room Air 08/08/17 00:00 101 08/08/17 00:00 97.9 92 20 94/61 99 Room Air 08/07/17 20:00 97.5 94 18 94/65 97 Room Air 08/07/17 20:00 94 08/07/17 16:00 96 08/07/17 16:00 97.0 86 20 101/57 96 Room Air 08/07/17 12:00 97.0 98 20 95/67 98 Room Air 08/07/17 11:50 87 08/07/17 09:00 95 94/64 Objective cachectic WDWN NAD clear breath sounds bilaterally without rhonchi or wheeze [id number] without MRG NABS nontender no HSM no CCE nonfocal Laboratory Tests 08/08/17 03:45: White Blood Count 2.5L, Red Blood Count 4.32L, Hemoglobin 12.9L, Hematocrit 36.9L, Mean Corpuscular Volume 85, Mean Corpuscular Hemoglobin 29.8, Mean Corpuscular Hemoglobin Concent 34.9, Red Cell Distribution Width 15.7H, Platelet Count 299, Mean Platelet Volume 8.7, Neutrophils (%) (Auto) , Lymphocytes (%) (Auto) , Monocytes (%) (Auto) , Eosinophils (%) (Auto) , Basophils (%) (Auto) , Differential Total Cells Counted 100, Neutrophils % ( Manual) 65, Lymphocytes % (Manual) 34, Monocytes % (Manual) 1, Eosinophils % ( Manual) 0, Basophils % (Manual) 0, Band Neutrophils 0, Platelet Estimate Adequate, Platelet Morphology Normal, Red Blood Cell Morphology Normal, Anisocytosis 1+, Sodium Level 123L, Potassium Level 4.9, Chloride Level 94L, Carbon Dioxide Level 17L, Anion Gap 12, Blood Urea Nitrogen 28H, Creatinine 1.0 , Estimat Glomerular Filtration Rate > 60, Glucose Level 95, Calcium Level 8.9, Total Bilirubin 0.3, Aspartate Amino Transf (AST/SGOT) 22, Alanine Aminotransferase (ALT/SGPT) 30, Alkaline Phosphatase 120H, Total Protein 7.4, Albumin 2.9L, Globulin 4.5, Albumin/Globulin Ratio 0.6L Current Medications Medications (Trade) Dose Ordered Sig/Gabriela Route PRN Reason Start Time Stop Time Status Last Admin Dose Admin Acetaminophen (Tylenol) 650 mg Q4H PRN ORAL Mild Pain (Pain Scale 1-3) 07/22/17 14:30 08/19/17 14:29 07/22/17 20:48 Aspirin (Ecotrin) 81 mg DAILY ORAL 07/30/17 09:00 08/29/17 08:59 08/07/17 09:36 Azithromycin (Zithromax) 1,200 mg QWEEK ORAL 08/01/17 09:00 09/04/17 08:59 08/01/17 09:12 Dextrose (Dextrose 50%) STAT PRN IV Hypoglycemia 07/22/17 14:30 08/19/17 14:29 Diphenhydramine HCl (Benadryl) 25 mg Q6H PRN ORAL Itching/Pruritis 07/22/17 14:30 08/19/17 14:29 08/05/17 22:28 Docusate Sodium (Colace) 100 mg EVERY 12 HOURS ORAL 07/22/17 21:00 08/19/17 20:59 08/06/17 21:45 Dolutegravir Sodium (Tivicay) 50 mg DAILY ORAL 08/07/17 14:00 09/06/17 13:59 08/07/17 15:04 Emtricitabine/ Tenofovir (Truvada 200/ 300mg) 1 tab DAILY ORAL 08/07/17 14:00 09/06/17 13:59 08/07/17 15:04 Enoxaparin Sodium (Lovenox) 40 mg QHS SUBQ 07/22/17 21:00 08/19/17 20:59 08/07/17 20:38 Ethambutol HCl (Myambutol) 1,200 mg DAILY ORAL 08/05/17 18:00 09/04/17 17:59 08/07/17 09:37 Isoniazid (Inh) 300 mg DAILY ORAL 08/05/17 18:00 09/04/17 17:59 08/07/17 09:35 Metoprolol Succinate (Toprol XL) 50 mg DAILY ORAL 07/29/17 11:00 08/28/17 10:59 08/05/17 13:27 Multivitamins Therapeutic (Therapeutic Multivitamin) 1 ea DAILY ORAL 07/25/17 09:00 08/24/17 08:59 08/07/17 09:36 Ondansetron HCl (Zofran) 4 mg Q6H PRN IVP Nausea & Vomiting 07/22/17 14:30 08/19/17 14:29 08/07/17 20:38 Pantoprazole (Protonix) 40 mg ACBREAKFAST ORAL 07/23/17 09:00 08/22/17 08:59 08/08/17 05:43 Pyrazinamide (Pza) 1,500 mg DAILY ORAL 08/05/17 18:00 09/04/17 17:59 08/07/17 09:37 Pyridoxine HCl (Vitamin B6) 50 mg DAILY ORAL 08/06/17 09:00 09/05/17 08:59 08/07/17 09:00 Rifampin (Rifadin) 600 mg DAILY ORAL 08/05/17 18:00 09/04/17 17:59 08/07/17 09:36 Sodium Chloride 1,000 ml @ 50 mls/hr Q20H IV 08/07/17 15:00 09/06/17 14:59 08/07/17 15:05 Trimethoprim/ Sulfamethoxazole (Bactrim-DS) 2 ea Q8HR ORAL 07/31/17 16:00 08/12/17 15:59 08/08/17 05:43 Valganciclovir (Valcyte) 900 mg DAILY ORAL 08/14/17 09:00 08/14/17 09:00 Valganciclovir (Valcyte) 900 mg Q12HR@0630,1830 ORAL 07/31/17 17:00 08/13/17 23:59 08/08/17 05:43 Vitamin D (Vitamin D) 1,000 intlu DAILY ORAL 07/25/17 09:00 12/27/17 08:59 08/07/17 09:36 MAKAYLA GARZA Aug 08, 2017 08:47
[2017-08-08] MEDS: Metoprolol Succinate XL 50mg tab ORAL SCH (09:00)
[2017-08-08] MEDS: Multivitamin w/Minerals tab ORAL SCH (09:03)
[2017-08-08] MEDS: Docusate 100mg cap ORAL SCH ×2 (09:03→21:00)
[2017-08-08] MEDS: Vitamin D 1000 IU Tab ORAL SCH (09:03)
[2017-08-08] MEDS: Aspirin EC 81mg tab ORAL SCH (09:03)
[2017-08-08] MEDS: Dolutegravir Sodium 50mg tab ORAL SCH (09:03)
[2017-08-08] MEDS: Azithromycin 600mg Tab ORAL SCH (09:03)
[2017-08-08] MEDS: Pyridoxine 50mg tab ORAL SCH (09:04)
[2017-08-08] MEDS: Isoniazid 300mg tab ORAL SCH (09:08)
--- NOTE | 2017-08-08 11:32 | Diagnostic Imaging Report ---
Indication: SOB Technique: One view of the chest Comparison: Phone 05/18/17 Findings: Again demonstrated is bilateral neck and supraclavicular subcutaneous emphysema. Central lucencies may reflect mediastinal emphysema described on recent CT. The lungs are mildly hyperinflated. Upper lung interstitial opacities and right midlung any opacities are again demonstrated, appearing somewhat less prominent than previously. Impression: Stable bilateral neck and supraclavicular subcutaneous emphysema and likely pneumomediastinum Bilateral upper lung interstitial opacities are somewhat less prominent on the current study, may reflect improving parenchymal disease Other findings as noted
--- NOTE | 2017-08-08 11:55 | Infectious Diseases Prog Note ---
Assessment/Plan Assessment/Plan A) 1) pna, + H. Influenza pna/cap pna, ? pcp, ? 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, doubt meningitis based on LP with 2 wbc - pna clinically better, less sob, chest x-ray better - still with right eye vision loss - CT chest findings noted 2) hiv, aids - cd4 - 55, viral load pending 3) ? pancreatitis with elevated amylase and lipase 4) allergies - negative, fh-nc, sh-negative, mar noted 5) d/w RN 6) notes and records noted P) 1) po bactrim x 4 days, s/p 2 week treatment of CAP/haemophilus influenzae pna, s/p diflucan, azithromycin prophylaxis, TB treatment - day # 4 2) valganciclovir 900mg bid for two weeks and then 900 mg daily for suppression (to start suppression 08/14) 3) ophthalmology f/u for intravitreal ganciclovir or foscarnet if available 4) d/w [facility] and wants to treat for TB pna for at least 5 days prior to discharge, continue TB isolation, await AFB culture 5) continue tx per primary and consultants, ? GI evaluation for ? pancreatitis, pulmonary evaluation noted for CT chest findings 6) f/u labs, lipase and amylase, check viral load, check TB pcr 7) want to start anti-retroviral therapy with genvoya but not available at [facility] in discussion with pharmacy 8) will check viral load - ordered 9) neurology f/u, mri brain noted, ophthalmology f/u for in 10) patient will likely need outpatient genotyping because has been on atripla and truvada (by itself) in past to guide anti-retroviral therapy Subjective Constitutional: Denies: fever HEENT: Denies: congestion Respiratory: Denies: shortness of breath Cardiovascular: Denies: chest pain Gastrointestinal/Abdominal: Denies: nausea Genitourinary: Denies: dysuria Neurologic: Denies: headache Psychiatric: Denies: depression Skin: Denies: rash Hematologic: Denies: bleeding Musculoskeletal: Denies: pain Allergies: Coded Allergies: No Known Allergies (Unverified , 07/20/17) Objective Vital Signs Last 24 Hour Vital Signs Date Time Temp Pulse Resp B/P (MAP) Pulse Ox O2 Delivery O2 Flow Rate FiO2 08/08/17 09:00 101 103/79 12/11/17 08:00 102 08/08/17 08:00 97.5 101 19 103/79 98 Room Air 08/08/17 04:00 98.0 97 20 95/73 98 Room Air 08/08/17 04:00 91 08/08/17 00:05 20 99 Room Air 08/08/17 00:00 101 08/08/17 00:00 97.9 92 20 94/61 99 Room Air 08/07/17 20:00 97.5 94 18 94/65 97 Room Air 08/07/17 20:00 94 08/07/17 16:00 96 08/07/17 16:00 97.0 86 20 101/57 96 Room Air 08/07/17 12:00 97.0 98 20 95/67 98 Room Air 08/07/17 11:50 87 Height (Feet): 5 Height (Inches): 8.00 Weight (Pounds): 124 General Appearance: no acute distress HEENT: normocephalic, atraumatic, anicteric, mucous membranes moist Respiratory/Chest: lungs clear, normal breath sounds, no respiratory distress, no accessory muscle use Cardiovascular: normal rate, regular rhythm, no gallop/murmur, no JVD Abdomen: normal bowel sounds, soft, non tender, no organomegaly, non distended Genitourinary: other - no cox Extremities: no cyanosis Skin: no rash 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 Infiltrates in the left lung appears slightly more diffuse, and infiltrates in the right lung appear slightly more extensive. Pleural spaces remain clear. Heart size is normal Impression: Slightly increased infiltrates bilaterally, over 2 days Chest x-ray - 07/24 Findings: Left internal jugular central line is again noted. Cardiomediastinal silhouette is stable. Patchy infiltrates are again noted of the lungs bilaterally. Osseous structures are stable. Impression: No interval change from 07/22/17. 07/25 - chest x-ray Comparison: 07/24/2017 Findings: There is a left jugular central venous catheter and demonstrated. Diffuse mostly upper lung interstitial and alveolar patchy parenchymal infiltrates appears slightly improved, patient on the left. New infiltrates. No effusions. Normal heart size Impression: Slight improvement of parenchymal disease on the left. Otherwise little change, over one day Chest x-ray - 07/28 - Impression: Essentially unchanged bilateral mid and upper lung airspace opacities. However, there is questionable interim cavitation of some of the opacities on the right. 07/30 - chest x-ray - no change (report noted) CT chest: Impression: Pulmonary hyperexpansion. Subcutaneous emphysema in neck and upper chest as well as mediastinal emphysema. Multiple ill-defined groundglass opacities in the lungs bilaterally. This is likely inflammatory. Ill-defined nodule in the right upper lobe, also probably inflammatory given the nature of the other infiltrates. Attempts to reach Dr. Escobar are unsuccessful. The patient's nurse was notified by phone at 10:55 AM 08/07/2017. She informed me that she would relay the message to Dr. Escobar. Chest x-ray - 08/08 - Impression: Stable bilateral neck and supraclavicular subcutaneous emphysema and likely pneumomediastinum Bilateral upper lung interstitial opacities are somewhat less prominent on the current study, may reflect improving parenchymal disease Other findings as noted Labs Test 08/05/17 17:40 08/06/17 06:00 08/08/17 03:45 Amylase Level 327 U/L (25-115) Lipase 905 U/L (73-393) White Blood Count 4.0 K/UL (4.8-10.8) 2.5 K/UL (4.8-10.8) Red Blood Count 4.68 M/UL (4.70-6.10) 4.32 M/UL (4.70-6.10) Hemoglobin 13.1 G/DL (14.2-18.0) 12.9 G/DL (14.2-18.0) Hematocrit 39.6 % (42.0-52.0) 36.9 % (42.0-52.0) Mean Corpuscular Volume 85 FL (80-99) 85 FL (80-99) Mean Corpuscular Hemoglobin 28.0 PG (27.0-31.0) 29.8 PG (27.0-31.0) Mean Corpuscular Hemoglobin Concent 33.1 G/DL (32.0-36.0) 34.9 G/DL (32.0-36.0) Red Cell Distribution Width 14.7 % (11.6-14.8) 15.7 % (11.6-14.8) Platelet Count 293 K/UL (150-450) 299 K/UL (150-450) Mean Platelet Volume 9.1 FL (6.5-10.1) 8.7 FL (6.5-10.1) Neutrophils (%) (Auto) 68.4 % (45.0-75.0) % (45.0-75.0) Lymphocytes (%) (Auto) 23.6 % (20.0-45.0) % (20.0-45.0) Monocytes (%) (Auto) 6.4 % (1.0-10.0) % (1.0-10.0) Eosinophils (%) (Auto) 0.7 % (0.0-3.0) % (0.0-3.0) Basophils (%) (Auto) 0.9 % (0.0-2.0) % (0.0-2.0) Sodium Level 125 MMOL/L (136-145) 123 MMOL/L (136-145) Potassium Level 5.5 MMOL/L (3.5-5.1) 4.9 MMOL/L (3.5-5.1) Chloride Level 95 MMOL/L (98-107) 94 MMOL/L (98-107) Carbon Dioxide Level 22 MMOL/L (21-32) 17 MMOL/L (21-32) Anion Gap 8 mmol/L (5-15) 12 mmol/L (5-15) Blood Urea Nitrogen 28 mg/dL (7-18) 28 mg/dL (7-18) Creatinine 1.0 MG/DL (0.55-1.30) 1.0 MG/DL (0.55-1.30) Estimat Glomerular Filtration Rate > 60 mL/min (>60) > 60 mL/min (>60) Glucose Level 88 MG/DL (74-106) 95 MG/DL (74-106) Calcium Level 9.4 MG/DL (8.5-10.1) 8.9 MG/DL (8.5-10.1) Total Bilirubin 0.2 MG/DL (0.2-1.0) 0.3 MG/DL (0.2-1.0) Aspartate Amino Transf (AST/SGOT) 21 U/L (15-37) 22 U/L (15-37) Alanine Aminotransferase (ALT/SGPT) 29 U/L (12-78) 30 U/L (12-78) Alkaline Phosphatase 122 U/L (46-116) 120 U/L (46-116) Total Protein 8.0 G/DL (6.4-8.2) 7.4 G/DL (6.4-8.2) Albumin 3.1 G/DL (3.4-5.0) 2.9 G/DL (3.4-5.0) Globulin 4.9 g/dL 4.5 g/dL Albumin/Globulin Ratio 0.6 (1.0-2.7) 0.6 (1.0-2.7) Differential Total Cells Counted 100 Neutrophils % (Manual) 65 % (45-75) Lymphocytes % (Manual) 34 % (20-45) Monocytes % (Manual) 1 % (1-10) Eosinophils % (Manual) 0 % (0-3) Basophils % (Manual) 0 % (0-2) Band Neutrophils 0 % (0-8) Platelet Estimate Adequate Platelet Morphology Normal Red Blood Cell Morphology Normal Anisocytosis 1+ Laboratory Tests Test 08/08/17 03:45 White Blood Count 2.5 K/UL (4.8-10.8) L Red Blood Count 4.32 M/UL (4.70-6.10) L Hemoglobin 12.9 G/DL (14.2-18.0) L Hematocrit 36.9 % (42.0-52.0) L Mean Corpuscular Volume 85 FL (80-99) Mean Corpuscular Hemoglobin 29.8 PG (27.0-31.0) Mean Corpuscular Hemoglobin Concent 34.9 G/DL (32.0-36.0) Red Cell Distribution Width 15.7 % (11.6-14.8) H Platelet Count 299 K/UL (150-450) Mean Platelet Volume 8.7 FL (6.5-10.1) Neutrophils (%) (Auto) % (45.0-75.0) Lymphocytes (%) (Auto) % (20.0-45.0) Monocytes (%) (Auto) % (1.0-10.0) Eosinophils (%) (Auto) % (0.0-3.0) Basophils (%) (Auto) % (0.0-2.0) Differential Total Cells Counted 100 Neutrophils % (Manual) 65 % (45-75) Lymphocytes % (Manual) 34 % (20-45) Monocytes % (Manual) 1 % (1-10) Eosinophils % (Manual) 0 % (0-3) Basophils % (Manual) 0 % (0-2) Band Neutrophils 0 % (0-8) Platelet Estimate Adequate Platelet Morphology Normal Red Blood Cell Morphology Normal Anisocytosis 1+ Sodium Level 123 MMOL/L (136-145) L Potassium Level 4.9 MMOL/L (3.5-5.1) Chloride Level 94 MMOL/L (98-107) L Carbon Dioxide Level 17 MMOL/L (21-32) L Anion Gap 12 mmol/L (5-15) Blood Urea Nitrogen 28 mg/dL (7-18) H Creatinine 1.0 MG/DL (0.55-1.30) Estimat Glomerular Filtration Rate > 60 mL/min (>60) Glucose Level 95 MG/DL (74-106) Calcium Level 8.9 MG/DL (8.5-10.1) Total Bilirubin 0.3 MG/DL (0.2-1.0) Aspartate Amino Transf (AST/SGOT) 22 U/L (15-37) Alanine Aminotransferase (ALT/SGPT) 30 U/L (12-78) Alkaline Phosphatase 120 U/L (46-116) H Total Protein 7.4 G/DL (6.4-8.2) Albumin 2.9 G/DL (3.4-5.0) L Globulin 4.5 g/dL Albumin/Globulin Ratio 0.6 (1.0-2.7) L Current Medications Medications (Trade) Dose Ordered Sig/Gabriela Route PRN Reason Start Time Stop Time Status Last Admin Dose Admin Acetaminophen (Tylenol) 650 mg Q4H PRN ORAL Mild Pain (Pain Scale 1-3) 07/22/17 14:30 08/19/17 14:29 07/22/17 20:48 Aspirin (Ecotrin) 81 mg DAILY ORAL 07/30/17 09:00 1/1/18 08:59 08/08/17 09:03 Azithromycin (Zithromax) 1,200 mg QWEEK ORAL 08/01/17 09:00 09/04/17 08:59 08/08/17 09:03 Dextrose (Dextrose 50%) STAT PRN IV Hypoglycemia 07/22/17 14:30 08/19/17 14:29 Diphenhydramine HCl (Benadryl) 25 mg Q6H PRN ORAL Itching/Pruritis 07/22/17 14:30 08/19/17 14:29 08/05/17 22:28 Docusate Sodium (Colace) 100 mg EVERY 12 HOURS ORAL 07/22/17 21:00 08/19/17 20:59 08/08/17 09:03 Dolutegravir Sodium (Tivicay) 50 mg DAILY ORAL 08/07/17 14:00 09/06/17 13:59 08/08/17 09:03 Emtricitabine/ Tenofovir (Truvada 200/ 300mg) 1 tab DAILY ORAL 08/07/17 14:00 09/06/17 13:59 08/08/17 09:04 Enoxaparin Sodium (Lovenox) 40 mg QHS SUBQ 07/22/17 21:00 08/19/17 20:59 08/07/17 20:38 Ethambutol HCl (Myambutol) 1,200 mg DAILY ORAL 08/05/17 18:00 09/04/17 17:59 08/08/17 09:04 Isoniazid (Inh) 300 mg DAILY ORAL 08/05/17 18:00 09/04/17 17:59 08/08/17 09:08 Metoprolol Succinate (Toprol XL) 50 mg DAILY ORAL 07/29/17 11:00 08/28/17 10:59 08/05/17 13:27 Multivitamins Therapeutic (Therapeutic Multivitamin) 1 ea DAILY ORAL 07/25/17 09:00 08/24/17 08:59 08/08/17 09:03 Ondansetron HCl (Zofran) 4 mg Q6H PRN IVP Nausea & Vomiting 07/22/17 14:30 08/19/17 14:29 08/07/17 20:38 Pantoprazole (Protonix) 40 mg ACBREAKFAST ORAL 07/23/17 09:00 08/22/17 08:59 08/08/17 05:43 Pyrazinamide (Pza) 1,500 mg DAILY ORAL 08/05/17 18:00 09/04/17 17:59 08/08/17 09:05 Pyridoxine HCl (Vitamin B6) 50 mg DAILY ORAL 08/06/17 09:00 09/05/17 08:59 08/08/17 09:04 Rifampin (Rifadin) 600 mg DAILY ORAL 08/05/17 18:00 09/04/17 17:59 08/08/17 09:03 Sodium Chloride 1,000 ml @ 50 mls/hr Q20H IV 08/07/17 15:00 09/06/17 14:59 08/08/17 10:54 Trimethoprim/ Sulfamethoxazole (Bactrim-DS) 2 ea Q8HR ORAL 07/31/17 16:00 08/12/17 15:59 08/08/17 05:43 Valganciclovir (Valcyte) 900 mg DAILY ORAL 08/14/17 09:00 08/14/17 09:00 Valganciclovir (Valcyte) 900 mg Q12HR@0630,1830 ORAL 07/31/17 17:00 08/13/17 23:59 08/08/17 05:43 Vitamin D (Vitamin D) 1,000 intlu DAILY ORAL 07/25/17 09:00 08/24/17 08:59 08/08/17 09:03 WEN ANTOINE Aug 08, 2017 11:55
[2017-08-08 12:00] VITALS: BP 101/59
[2017-08-08 12:27] LABS: AMYLASE 390 U/L (25-115); LIPASE 1491 U/L (73-393)
--- NOTE | 2017-08-08 14:36 | General Progress Note ---
Assessment/Plan Assessment/Plan AIDS - per ID. Pneumonia - m/p PCP with [facility]. On Broad Spectrum IV Abx and IV Bactrim for immuno Compromised HIV patients. Doubt MTB. AFB's smear negative. DC Resp. Isolation. In [facility]. New neck Emphysema + Pneumomediastinum both minimal on CT scan. AIDS Cachexia Encephalopathy s/p LP. Results pending. Has CMV Retinitis. On Valacyclovir oral which is a good alternative! Spoke to Dr. García in [facility] @ [facility]. Patient still high risk for M. TB. despite negative AFBs. She recommends CSF M. TB PCR + CSF AFB to be added. Left VM to Micro lab. 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 From checking with the lab these tests were not done! Patient poses great risk to himself and others. Need to live with another adult 21/03. 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 So far I don't see any arrangements for family f/u. New findings from today : CXR pneumomediastinum+ neck subcutaneus emphysema. Called Dr. Mathis (pulm). Called thoracic Surgeon. Hyponatremia, elevated Amylase + Lipase noted. See Orders Needs repeat Chest CT before discharge. See detailed ID + Pulmonary notes. Patient too high risk to fly due to Pulm. blebs. Subjective Allergies: Coded Allergies: No Known Allergies (Unverified , 07/20/17) Subjective No new c/o Objective Last 24 Hour Vital Signs Date Time Temp Pulse Resp B/P (MAP) Pulse Ox O2 Delivery O2 Flow Rate FiO2 08/08/17 12:00 136 08/08/17 12:00 97.0 101 18 101/59 97 Room Air 08/08/17 09:00 101 103/79 08/08/17 08:00 102 08/08/17 08:00 97.5 101 19 103/79 98 Room Air 08/08/17 04:00 98.0 97 20 95/73 98 Room Air 08/08/17 04:00 91 08/08/17 00:05 20 99 Room Air 08/08/17 00:00 101 08/08/17 00:00 97.9 92 20 94/61 99 Room Air 08/07/17 20:00 97.5 94 18 94/65 97 Room Air 08/07/17 20:00 94 12/10/17 16:00 96 08/07/17 16:00 97.0 86 20 101/57 96 Room Air Intake and Output 08/08/17 08/09/17 19:00 07:00 Intake Total 610 ml Output Total 75 ml Balance 535 ml Intake Oral 260 ml IV Total 350 ml Output Urine Total 75 ml # Voids 1 # Bowel Movements 1 Laboratory Tests 08/08/17 03:45: White Blood Count 2.5L, Red Blood Count 4.32L, Hemoglobin 12.9L, Hematocrit 36.9L, Mean Corpuscular Volume 85, Mean Corpuscular Hemoglobin 29.8, Mean Corpuscular Hemoglobin Concent 34.9, Red Cell Distribution Width 15.7H, Platelet Count 299, Mean Platelet Volume 8.7, Neutrophils (%) (Auto) , Lymphocytes (%) (Auto) , Monocytes (%) (Auto) , Eosinophils (%) (Auto) , Basophils (%) (Auto) , Differential Total Cells Counted 100, Neutrophils % ( Manual) 65, Lymphocytes % (Manual) 34, Monocytes % (Manual) 1, Eosinophils % ( Manual) 0, Basophils % (Manual) 0, Band Neutrophils 0, Platelet Estimate Adequate, Platelet Morphology Normal, Red Blood Cell Morphology Normal, Anisocytosis 1+, Sodium Level 123L, Potassium Level 4.9, Chloride Level 94L, Carbon Dioxide Level 17L, Anion Gap 12, Blood Urea Nitrogen 28H, Creatinine 1.0 , Estimat Glomerular Filtration Rate > 60, Glucose Level 95, Calcium Level 8.9, Total Bilirubin 0.3, Aspartate Amino Transf (AST/SGOT) 22, Alanine Aminotransferase (ALT/SGPT) 30, Alkaline Phosphatase 120H, Total Protein 7.4, Albumin 2.9L, Globulin 4.5, Albumin/Globulin Ratio 0.6L 08/08/17 12:00: Amylase Level 390H, Lipase 1491H Height (Feet): 5 Height (Inches): 8.00 Weight (Pounds): 124 Objective Rt. eye poor vision CV RR Lungs CTA Abd SNT BS + E No CCE Neuro: very slow mentation! MOLLY VÁZQUEZ Aug 08, 2017 14:36
[2017-08-08 16:00] VITALS: BP 95/68
[2017-08-08 20:00] VITALS: BP 103/64
[2017-08-08] MEDS: Enoxaparin 40mg Inj SUBQ SCH (21:43)
[2017-08-09] VITALS: BP 109/74
[2017-08-09 04:00] VITALS: BP 111/72
[2017-08-09 05:25] LABS: ANION GAP 11 mmol/L (5-15); CALCIUM 8.4 MG/DL (8.5-10.1); CARBON DIOXIDE 20 MMOL/L (21-32); CHLORIDE 91 MMOL/L (98-107); CREATININE 0.9 MG/DL (0.55-1.30); GLOMERULAR FILTRATION RATE > 60 mL/min (>60); SODIUM 122 MMOL/L (136-145)
[2017-08-09] MEDS: Bactrim DS (160mg/800mg) tab ORAL SCH ×3 (06:20→21:47)
[2017-08-09 08:00] VITALS: BP 107/84
[2017-08-09] MEDS: Docusate 100mg cap ORAL SCH ×2 (09:00→21:00)
[2017-08-09] MEDS: Metoprolol Succinate XL 50mg tab ORAL SCH ×3 (09:00→09:39)
[2017-08-09] MEDS: Isoniazid 300mg tab ORAL SCH (09:20)
[2017-08-09] MEDS: Aspirin EC 81mg tab ORAL SCH (09:22)
[2017-08-09] MEDS: Vitamin D 1000 IU Tab ORAL SCH (09:22)
[2017-08-09] MEDS: Multivitamin w/Minerals tab ORAL SCH (09:23)
[2017-08-09] MEDS: Pyridoxine 50mg tab ORAL SCH (09:23)
[2017-08-09] MEDS: Dolutegravir Sodium 50mg tab ORAL SCH (09:24)
--- NOTE | 2017-08-09 10:50 | Pulmonology Progress Note ---
Assessment/Plan Problems: (1) HIV disease (2) AIDS (acquired immune deficiency syndrome) (3) Pneumonia Assessment/Plan pneumomediastinum no pneumothorax possibly due to intrapulmonary disease monitor clinically oxygen therapy ID noted thoracic surgery called CT chest reviewed and reordered monitor imaging for change expect resolution with time- nontoxic at present appears stable at present would likely monitor after discharge Subjective Allergies: Coded Allergies: No Known Allergies (Unverified , 07/20/17) Subjective no distress Objective Last 24 Hour Vital Signs Date Time Temp Pulse Resp B/P (MAP) Pulse Ox O2 Delivery O2 Flow Rate FiO2 08/09/17 09:00 100 107/84 08/09/17 08:00 97.7 110 20 107/84 100 Room Air 08/09/17 08:00 100 08/09/17 04:00 97.7 92 20 111/72 100 Room Air 08/09/17 04:00 95 08/09/17 00:00 97.7 99 20 109/74 100 Room Air 08/09/17 00:00 91 08/08/17 20:00 97.2 90 20 103/64 Room Air 08/08/17 20:00 99 08/08/17 16:00 101 08/08/17 16:00 97.2 101 18 95/68 98 Room Air 08/08/17 12:00 136 08/08/17 12:00 97.0 101 18 101/59 97 Room Air Intake and Output 08/09/17 08/10/17 19:00 07:00 Intake Total 120 ml Balance 120 ml Intake Oral 120 ml Objective cachectic WDWN NAD clear breath sounds bilaterally without rhonchi or wheeze [id number] without MRG NABS nontender no HSM no CCE nonfocal Laboratory Tests 08/08/17 12:00: Amylase Level 390H, Lipase 1491H 08/09/17 03:30: Sodium Level 122L, Potassium Level 4.0, Chloride Level 91L, Carbon Dioxide Level 20L, Anion Gap 11, Blood Urea Nitrogen 20H, Creatinine 0.9, Estimat Glomerular Filtration Rate > 60, Glucose Level 77, Calcium Level 8.4L Current Medications Medications (Trade) Dose Ordered Sig/Gabriela Route PRN Reason Start Time Stop Time Status Last Admin Dose Admin Acetaminophen (Tylenol) 650 mg Q4H PRN ORAL Mild Pain (Pain Scale 1-3) 07/22/17 14:30 08/19/17 14:29 07/22/17 20:48 Aspirin (Ecotrin) 81 mg DAILY ORAL 07/30/17 09:00 08/29/17 08:59 08/09/17 09:22 Azithromycin (Zithromax) 1,200 mg QWEEK ORAL 08/01/17 09:00 09/04/17 08:59 08/08/17 09:03 Dextrose (Dextrose 50%) STAT PRN IV Hypoglycemia 07/22/17 14:30 08/19/17 14:29 Diphenhydramine HCl (Benadryl) 25 mg Q6H PRN ORAL Itching/Pruritis 07/22/17 14:30 08/19/17 14:29 08/05/17 22:28 Docusate Sodium (Colace) 100 mg EVERY 12 HOURS ORAL 07/22/17 21:00 08/19/17 20:59 08/08/17 09:03 Dolutegravir Sodium (Tivicay) 50 mg DAILY ORAL 08/07/17 14:00 09/06/17 13:59 08/09/17 09:24 Emtricitabine/ Tenofovir (Truvada 200/ 300mg) 1 tab DAILY ORAL 08/07/17 14:00 09/06/17 13:59 08/09/17 09:20 Enoxaparin Sodium (Lovenox) 40 mg QHS SUBQ 07/22/17 21:00 08/19/17 20:59 08/08/17 21:43 Ethambutol HCl (Myambutol) 1,200 mg DAILY ORAL 08/05/17 18:00 09/04/17 17:59 08/09/17 09:20 Isoniazid (Inh) 300 mg DAILY ORAL 08/05/17 18:00 09/04/17 17:59 08/09/17 09:20 Metoprolol Succinate (Toprol XL) 50 mg DAILY ORAL 07/29/17 11:00 08/28/17 10:59 08/05/17 13:27 Multivitamins Therapeutic (Therapeutic Multivitamin) 1 ea DAILY ORAL 07/25/17 09:00 08/24/17 08:59 08/09/17 09:23 Ondansetron HCl (Zofran) 4 mg Q6H PRN IVP Nausea & Vomiting 07/22/17 14:30 08/19/17 14:29 08/08/17 15:53 Pantoprazole (Protonix) 40 mg ACBREAKFAST ORAL 07/23/17 09:00 08/22/17 08:59 08/09/17 06:21 Pyrazinamide (Pza) 1,500 mg DAILY ORAL 08/05/17 18:00 09/04/17 17:59 08/09/17 09:19 Pyridoxine HCl (Vitamin B6) 50 mg DAILY ORAL 08/06/17 09:00 09/05/17 08:59 08/09/17 09:23 Rifampin (Rifadin) 600 mg DAILY ORAL 08/05/17 18:00 09/04/17 17:59 08/09/17 09:20 Sodium Chloride 1,000 ml @ 50 mls/hr Q20H IV 08/07/17 15:00 09/06/17 14:59 08/09/17 06:53 Trimethoprim/ Sulfamethoxazole (Bactrim-DS) 2 ea Q8HR ORAL 07/31/17 16:00 08/12/17 15:59 08/09/17 06:20 Valganciclovir (Valcyte) 900 mg DAILY ORAL 08/14/17 09:00 08/28/17 23:59 Valganciclovir (Valcyte) 900 mg Q12HR@0630,1830 ORAL 07/31/17 17:00 08/13/17 23:59 08/09/17 06:21 Vitamin D (Vitamin D) 1,000 intlu DAILY ORAL 07/25/17 09:00 08/24/17 08:59 08/09/17 09:22 MAKAYLA GARZA Aug 09, 2017 10:50
[2017-08-09] MEDS ORDERED: Phenylephrine 2.5% Op 2ml Soln BOTH EYES ONE (11:30)
[2017-08-09] MEDS ORDERED: Cyclopentolate 1% Opth Sol 2ml BOTH EYES ONE (11:30)
[2017-08-09 12:00] VITALS: BP 103/62
--- NOTE | 2017-08-09 14:04 | General Progress Note ---
Assessment/Plan Assessment/Plan AIDS - per ID. Pneumonia - m/p PCP with Cavitary Lesions. On Broad Spectrum IV Abx and IV Bactrim for immuno Compromised HIV patients. Doubt MTB. AFB's smear negative. DC Resp. Isolation. In KAY. New neck Emphysema + Pneumomediastinum both minimal on CT scan. AIDS Cachexia Encephalopathy s/p LP. Results pending. Has CMV Retinitis. On Valacyclovir oral which is a good alternative! Spoke to Dr. García in [facility] @ [facility]. Patient still high risk for M. TB. despite negative AFBs. She recommends CSF M. TB PCR + CSF AFB to be added. Left VM to Micro lab. 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 Off UIsolation per [facility]. Awaiting repeat Chest CT. From checking with the lab these tests were not done! Subjective Allergies: Coded Allergies: No Known Allergies (Unverified , 07/20/17) Subjective No new c/o Objective Last 24 Hour Vital Signs Date Time Temp Pulse Resp B/P (MAP) Pulse Ox O2 Delivery O2 Flow Rate FiO2 08/09/17 12:00 98.0 97 21 103/62 98 Room Air 08/09/17 11:52 96 08/09/17 09:00 100 107/84 08/09/17 08:00 97.7 110 20 107/84 100 Room Air 08/09/17 08:00 100 08/09/17 04:00 97.7 92 20 111/72 100 Room Air 08/09/17 04:00 95 08/09/17 00:00 97.7 99 20 109/74 100 Room Air 08/09/17 00:00 91 08/08/17 20:00 97.2 90 20 103/64 Room Air 08/08/17 20:00 99 08/08/17 16:00 101 08/08/17 16:00 97.2 101 18 95/68 98 Room Air Intake and Output 08/09/17 08/10/17 19:00 07:00 Intake Total 620 ml Output Total 400 ml Balance 220 ml Intake Oral 320 ml IV Total 300 ml Output Urine Total 400 ml # Bowel Movements 1 Laboratory Tests 08/09/17 03:30: Sodium Level 122L, Potassium Level 4.0, Chloride Level 91L, Carbon Dioxide Level 20L, Anion Gap 11, Blood Urea Nitrogen 20H, Creatinine 0.9, Estimat Glomerular Filtration Rate > 60, Glucose Level 77, Calcium Level 8.4L Height (Feet): 5 Height (Inches): 8.00 Weight (Pounds): 116 Objective Rt. eye poor vision CV RR Lungs CTA Abd SNT BS + E No CCE Neuro: very slow mentation! MOLLY VÁZQUEZ Aug 09, 2017 14:04
--- NOTE | 2017-08-09 14:14 | General Progress Note ---
Assessment/Plan Assessment/Plan AIDS - per ID. Pneumonia - m/p PCP with Cavitary Lesions. On Broad Spectrum IV Abx and IV Bactrim for immuno Compromised HIV patients. Doubt MTB. AFB's smear negative. DC Resp. Isolation. In KAY. New neck Emphysema + Pneumomediastinum both minimal on CT scan. AIDS Cachexia Encephalopathy s/p LP. Results pending. Has CMV Retinitis. On Valacyclovir oral which is a good alternative! Spoke to Dr. García in [facility] @ [facility]. Patient still high risk for M. TB. despite negative AFBs. She recommends CSF M. TB PCR + CSF AFB to be added. 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 Awaiting repeat Chest CT. From checking with the lab these tests were not done! Patient unstable for DC or transfer due to the following developing/unresolving issues: New Pneumomediastinum+ subcutanueous emphysema New pancreatitis New hyponatremia Unresolved blindness Subjective Allergies: Coded Allergies: No Known Allergies (Unverified , 07/20/17) Subjective No new c/o Objective Last 24 Hour Vital Signs Date Time Temp Pulse Resp B/P (MAP) Pulse Ox O2 Delivery O2 Flow Rate FiO2 08/09/17 12:00 98.0 97 21 103/62 98 Room Air 08/09/17 11:52 96 08/09/17 09:00 100 107/84 08/09/17 08:00 97.7 110 20 107/84 100 Room Air 08/09/17 08:00 100 08/09/17 04:00 97.7 92 20 111/72 100 Room Air 08/09/17 04:00 95 08/09/17 00:00 97.7 99 20 109/74 100 Room Air 08/09/17 00:00 91 08/08/17 20:00 97.2 90 20 103/64 Room Air 08/08/17 20:00 99 08/08/17 16:00 101 08/08/17 16:00 97.2 101 18 95/68 98 Room Air Intake and Output 08/09/17 08/10/17 19:00 07:00 Intake Total 620 ml Output Total 400 ml Balance 220 ml Intake Oral 320 ml IV Total 300 ml Output Urine Total 400 ml # Bowel Movements 1 Laboratory Tests 08/09/17 03:30: Sodium Level 122L, Potassium Level 4.0, Chloride Level 91L, Carbon Dioxide Level 20L, Anion Gap 11, Blood Urea Nitrogen 20H, Creatinine 0.9, Estimat Glomerular Filtration Rate > 60, Glucose Level 77, Calcium Level 8.4L Height (Feet): 5 Height (Inches): 8.00 Weight (Pounds): 116 Objective Rt. eye poor vision CV RR Lungs CTA Abd SNT BS + E No CCE Neuro: very slow mentation! MOLLY VÁZQUEZ Aug 09, 2017 14:14
[2017-08-09] MEDS ORDERED: NaCl 3% 500ml 500 ML IV ONE (15:00)
--- NOTE | 2017-08-09 15:07 | Diagnostic Imaging Report ---
Clinical Indication: Reason For Exam: SOB Technique: Spiral acquisitions obtained through the chest. No IV contrast utilized, reason not stated. Multiplanar reconstructions generated. Total dose length product 561 mGycm. CTDIvol(s) 13 mGy. Dose reduction achieved using automated exposure control Comparison: 08/07/2017 Findings: Bilateral reticular and groundglass opacities, predominantly in the upper lobes but also within the superior lower lobes, are again demonstrated and appear unchanged. No new infiltrates. No effusions. Mural opacity of the distal trachea was not evident previously, likely reflects some mucous. The lungs are mildly hyperinflated Again demonstrated is mediastinal emphysema. This appears decreased in extent from the previous exam. Some gas has also dissected into the anterior inferior extrapleural space, likely decreased from previously. Supraclavicular emphysema and bilateral upper chest wall emphysema has likewise decreased. No tracheal defects to suggest a focus of tracheal injury demonstrated. There is no pneumothorax. No mediastinal or hilar mass or adenopathy. Normal heart size. No pericardial effusion. The included thyroid is unremarkable. The included upper abdominal viscera are unremarkable. The bones are unremarkable. Impression: Bilateral parenchymal opacities, as described, unchanged from prior CT scan of 08/07/2017. These are nonspecific, may reflect acute inflammation or edema, or chronic postinflammatory changes, among many other possibilities. Correlate with clinical findings, consider follow-up scanning as indicated. No new parenchymal abnormality demonstrated Considerably improved but persistent pneumomediastinum and supraclavicular and chest wall emphysema No pneumothorax Mild hyperinflation, may indicate mild COPD changes The CT scanner at [facility] is accredited by the [employer] and the scans are performed using protocols designed to limit radiation exposure to as low as reasonably achievable to attain images of sufficient resolution adequate for diagnostic evaluation.
--- NOTE | 2017-08-09 15:45 | Diagnostic Imaging Report ---
Indication: Shortness of breath Technique: One view of the chest Comparison: 08/08/2017 Findings: Again demonstrated on increased interstitial markings in the bilateral mid and upper lungs. The pleural spaces remain clear. The lungs remain somewhat hyperinflated. The heart size is normal. There is decreased neck and supraclavicular mediastinal emphysema. Impression: Decreased neck and supra clavicular mediastinal emphysema Otherwise stable findings, as described
[2017-08-09 16:00] VITALS: BP 106/52
--- NOTE | 2017-08-09 17:29 | Infectious Diseases Prog Note ---
Assessment/Plan Assessment/Plan A) 1) pna, + H. Influenza pna/cap pna, ? pcp, ? 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, doubt meningitis based on LP with 2 wbc - pna clinically better, less sob, chest x-ray better - still with right eye vision loss - CT chest findings noted, pneumomediastinum 2) hiv, aids - cd4 - 55, viral load pending 3) ? pancreatitis with elevated amylase and lipase 4) allergies - negative, fh-nc, sh-negative, mar noted 5) d/w RN 6) notes and records noted P) 1) po bactrim x 3 days, s/p 2 week treatment of CAP/haemophilus influenzae pna, s/p diflucan, azithromycin prophylaxis, TB treatment - day # 5 2) valganciclovir 900mg bid for two weeks and then 900 mg daily for suppression (to start suppression 08/14) 3) ophthalmology f/u for intravitreal ganciclovir or foscarnet once available , still not initiated 4) d/w department of health and wants to treat for TB pna for at least 5 days prior to discharge, continue TB isolation, await AFB culture 5) continue tx per primary and consultants, ? GI evaluation for ? pancreatitis, pulmonary evaluation noted for CT chest findings 6) f/u labs, lipase and amylase, check viral load, check TB pcr 7) want to start anti-retroviral therapy with genvoya but not available at [facility] in discussion with pharmacy 8) will check viral load - ordered 9) neurology f/u, mri brain noted, ophthalmology f/u for in 10) patient will may need outpatient genotyping because has been on atripla and truvada (by itself) in past to guide anti-retroviral therapy Subjective Constitutional: Denies: fever HEENT: Reports: other - still with right eye vision loss without change , Denies: congestion Respiratory: Denies: shortness of breath Cardiovascular: Denies: chest pain Gastrointestinal/Abdominal: Denies: nausea, vomiting Genitourinary: Denies: dysuria Neurologic: Denies: headache Psychiatric: Denies: depression Skin: Denies: rash Hematologic: Denies: bleeding Musculoskeletal: Denies: pain Allergies: Coded Allergies: No Known Allergies (Unverified , 07/20/17) Objective Vital Signs Last 24 Hour Vital Signs Date Time Temp Pulse Resp B/P (MAP) Pulse Ox O2 Delivery O2 Flow Rate FiO2 08/09/17 16:00 97.7 96 20 106/52 98 Room Air 08/09/17 12:00 98.0 97 21 103/62 98 Room Air 08/09/17 11:52 96 08/09/17 09:00 100 107/84 08/09/17 08:00 97.7 110 20 107/84 100 Room Air 08/09/17 08:00 100 08/09/17 04:00 97.7 92 20 111/72 100 Room Air 08/09/17 04:00 95 08/09/17 00:00 97.7 99 20 109/74 100 Room Air 08/09/17 00:00 91 08/08/17 20:00 97.2 90 20 103/64 Room Air 08/08/17 20:00 99 Height (Feet): 5 Height (Inches): 8.00 Weight (Pounds): 116 General Appearance: no acute distress HEENT: normocephalic, atraumatic, anicteric, mucous membranes moist Respiratory/Chest: lungs clear, normal breath sounds, no respiratory distress, no accessory muscle use Cardiovascular: normal rate, regular rhythm, no gallop/murmur, no JVD Abdomen: normal bowel sounds, soft, non tender, no organomegaly, non distended Extremities: no cyanosis Skin: no rash Neurologic/Psychiatric: ldr nurse II-XII 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 Infiltrates in the left lung appears slightly more diffuse, and infiltrates in the right lung appear slightly more extensive. Pleural spaces remain clear. Heart size is normal Impression: Slightly increased infiltrates bilaterally, over 2 days Chest x-ray - 07/24 Findings: Left internal jugular central line is again noted. Cardiomediastinal silhouette is stable. Patchy infiltrates are again noted of the lungs bilaterally. Osseous structures are stable. Impression: No interval change from 07/22/17. 07/25 - chest x-ray Comparison: 07/24/2017 Findings: There is a left jugular central venous catheter and demonstrated. Diffuse mostly upper lung interstitial and alveolar patchy parenchymal infiltrates appears slightly improved, patient on the left. New infiltrates. No effusions. Normal heart size Impression: Slight improvement of parenchymal disease on the left. Otherwise little change, over one day Chest x-ray - 07/28 - Impression: Essentially unchanged bilateral mid and upper lung airspace opacities. However, there is questionable interim cavitation of some of the opacities on the right. 07/30 - chest x-ray - no change (report noted) CT chest: Impression: Pulmonary hyperexpansion. Subcutaneous emphysema in neck and upper chest as well as mediastinal emphysema. Multiple ill-defined groundglass opacities in the lungs bilaterally. This is likely inflammatory. Ill-defined nodule in the right upper lobe, also probably inflammatory given the nature of the other infiltrates. Attempts to reach Dr. Escobar are unsuccessful. The patient's nurse was notified by phone at 10:55 AM 08/07/2017. She informed me that she would relay the message to Dr. Escobar. Chest x-ray - 08/08 - Impression: Stable bilateral neck and supraclavicular subcutaneous emphysema and likely pneumomediastinum Bilateral upper lung interstitial opacities are somewhat less prominent on the current study, may reflect improving parenchymal disease Other findings as noted Microbiology Date/Time Source Procedure Growth Status 07/20/17 16:19 Blood Blood Culture - Final NO GROWTH AFTER 5 DAYS Complete 08/01/17 16:30 Cerebral Spinal Fluid Gram Stain - Final Complete 08/01/17 16:30 Cerebral Spinal Fluid CSF Culture - Final NO GROWTH Complete 08/03/17 06:00 Sputum AFB Specimen Processing Tissue - Final Resulted 08/03/17 06:00 Sputum Acid Fast Bacilli Smear - Final Resulted 08/03/17 06:00 Sputum Acid Fast Bacilli Culture Pending Resulted 07/20/17 22:30 Stool Clostridium difficile Toxin Assay - Final Complete 07/20/17 15:40 Rectum VRE Culture - Final NO VANCOMYCIN RESISTANT ENTEROCOCCUS ... Complete Laboratory Tests Test 08/09/17 03:30 08/09/17 15:36 Sodium Level 122 MMOL/L (136-145) L Potassium Level 4.0 MMOL/L (3.5-5.1) Chloride Level 91 MMOL/L (98-107) L Carbon Dioxide Level 20 MMOL/L (21-32) L Anion Gap 11 mmol/L (5-15) Blood Urea Nitrogen 20 mg/dL (7-18) H Creatinine 0.9 MG/DL (0.55-1.30) Estimat Glomerular Filtration Rate > 60 mL/min (>60) Glucose Level 77 MG/DL (74-106) Calcium Level 8.4 MG/DL (8.5-10.1) L Urine Osmolality Pending Current Medications Medications (Trade) Dose Ordered Sig/Gabriela Route PRN Reason Start Time Stop Time Status Last Admin Dose Admin Acetaminophen (Tylenol) 650 mg Q4H PRN ORAL Mild Pain (Pain Scale 1-3) 07/22/17 14:30 08/19/17 14:29 07/22/17 20:48 Aspirin (Ecotrin) 81 mg DAILY ORAL 07/30/17 09:00 08/29/17 08:59 08/09/17 09:22 Azithromycin (Zithromax) 1,200 mg QWEEK ORAL 08/01/17 09:00 09/04/17 08:59 08/08/17 09:03 Dextrose (Dextrose 50%) STAT PRN IV Hypoglycemia 07/22/17 14:30 08/19/17 14:29 Diphenhydramine HCl (Benadryl) 25 mg Q6H PRN ORAL Itching/Pruritis 07/22/17 14:30 08/19/17 14:29 08/05/17 22:28 Docusate Sodium (Colace) 100 mg EVERY 12 HOURS ORAL 07/22/17 21:00 08/19/17 20:59 08/08/17 09:03 Dolutegravir Sodium (Tivicay) 50 mg DAILY ORAL 08/07/17 14:00 09/06/17 13:59 08/09/17 09:24 Emtricitabine/ Tenofovir (Truvada 200/ 300mg) 1 tab DAILY ORAL 08/07/17 14:00 09/06/17 13:59 08/09/17 09:20 Enoxaparin Sodium (Lovenox) 40 mg QHS SUBQ 07/22/17 21:00 08/19/17 20:59 08/08/17 21:43 Ethambutol HCl (Myambutol) 1,200 mg DAILY ORAL 08/05/17 18:00 09/04/17 17:59 08/09/17 09:20 Isoniazid (Inh) 300 mg DAILY ORAL 08/05/17 18:00 09/04/17 17:59 08/09/17 09:20 Metoprolol Succinate (Toprol XL) 50 mg DAILY ORAL 07/29/17 11:00 08/28/17 10:59 08/05/17 13:27 Multivitamins Therapeutic (Therapeutic Multivitamin) 1 ea DAILY ORAL 07/25/17 09:00 08/24/17 08:59 08/09/17 09:23 Ondansetron HCl (Zofran) 4 mg Q6H PRN IVP Nausea & Vomiting 07/22/17 14:30 08/19/17 14:29 08/08/17 15:53 Pantoprazole (Protonix) 40 mg ACBREAKFAST ORAL 07/23/17 09:00 08/22/17 08:59 08/09/17 06:21 Pyrazinamide (Pza) 1,500 mg DAILY ORAL 08/05/17 18:00 09/04/17 17:59 08/09/17 09:19 Pyridoxine HCl (Vitamin B6) 50 mg DAILY ORAL 08/06/17 09:00 09/05/17 08:59 08/09/17 09:23 Rifampin (Rifadin) 600 mg DAILY ORAL 08/05/17 18:00 09/04/17 17:59 08/09/17 09:20 Sodium Chloride 500 ml @ 20 mls/hr ONCE ONCE IV 08/09/17 15:00 08/10/17 15:59 08/09/17 15:31 Trimethoprim/ Sulfamethoxazole (Bactrim-DS) 2 ea Q8HR ORAL 07/31/17 16:00 08/12/17 15:59 08/09/17 13:17 Valganciclovir (Valcyte) 900 mg DAILY ORAL 08/14/17 09:00 08/28/17 23:59 Valganciclovir (Valcyte) 900 mg Q12HR@0630,1830 ORAL 07/31/17 17:00 08/13/17 23:59 08/09/17 06:21 Vitamin D (Vitamin D) 1,000 intlu DAILY ORAL 07/25/17 09:00 08/24/17 08:59 08/09/17 09:22 WEN ANTOINE Aug 09, 2017 17:29
[2017-08-09 20:00] VITALS: BP 96/77
[2017-08-09] MEDS: Enoxaparin 40mg Inj SUBQ SCH (21:49)
--- NOTE | 2017-08-09 23:01 | Progress Note ---
DATE: 08/09/2017 SUBJECTIVE: The patient complains again, of no additional pain or discomfort. The vision remains the same. OBJECTIVE: HEENT: Vision in the right eye remains bare to no light perception. The left eye was 20/25 at near. Pupillary examination was unchanged with an afferent defect on the right, which could be called amaurotic. The left was normal. External examination again remained normal. The anterior segment appeared quiet in either eye with no reaction or conjunctival injection. Funduscopic examination of the right eye showed persistence of the vitreous debris and floaters. These were possibly less dense, yielding a better view of the posterior pole. The retina showed areas of pigmentation with activity of the retinitis appearing less marked. The retina remained all attached. Examination of the left eye showed no change in the size of a small cotton wool spot. No evidence of vitreous reaction was seen and no peripheral retinitis was noted. ASSESSMENT: Cytomegalovirus retinitis right eye, no progression. The patient still shows no sign of activity in the left eye aside from the single cotton wool spot, which may or may not be related to his systemic disease. He will be watched at less frequent intervals. The antiviral treatment at the moment would seem to be effective and should be continued. Theodore Villeda M.D. DR: ALEXANDER JOB#: [id number] CC:
[2017-08-10] VITALS: BP 104/53
[2017-08-10 04:00] VITALS: BP 95/68
[2017-08-10 05:33] LABS: MEAN CORPUSCULAR HEMOGLOBIN 29.7 PG (27.0-31.0); MEAN CORPUSCULAR HGB CONC 34.9 G/DL (32.0-36.0); MEAN CORPUSCULAR VOLUME 85 FL (80-99); MEAN PLATELET VOLUME 8.8 FL (6.5-10.1); PLATELET COUNT 234 K/UL (150-450); RED BLOOD COUNT 4.02 M/UL (4.70-6.10); RED CELL DISTRIBUTION WIDTH 15.8 % (11.6-14.8); WHITE BLOOD COUNT 2.9 K/UL (4.8-10.8)
[2017-08-10 05:42] LABS: ANION GAP 8 mmol/L (5-15); CALCIUM 8.1 MG/DL (8.5-10.1); CARBON DIOXIDE 20 MMOL/L (21-32); CHLORIDE 97 MMOL/L (98-107); CREATININE 0.8 MG/DL (0.55-1.30); GLOMERULAR FILTRATION RATE > 60 mL/min (>60); POTASSIUM 4.1 MMOL/L (3.5-5.1); SODIUM 125 MMOL/L (136-145)
[2017-08-10] MEDS: Bactrim DS (160mg/800mg) tab ORAL SCH ×3 (05:47→21:11)
[2017-08-10] MEDS ORDERED: NaCl 3% 500ml 500 ML IV ONE ×2 (06:15→15:01)
[2017-08-10 06:21] LABS: ALANINE AMINOTRANSFERASE 29 U/L (12-78); AMYLASE 360 U/L (25-115); ASPARTATE AMINO TRANSFERASE 26 U/L (15-37); BILIRUBIN,DIRECT < 0.1 MG/DL (0.0-0.3); LIPASE 1781 U/L (73-393); MAGNESIUM 1.8 MG/DL (1.8-2.4); TOTAL PROTEIN 6.6 G/DL (6.4-8.2)
[2017-08-10 08:00] VITALS: BP 108/84
[2017-08-10] MEDS: Docusate 100mg cap ORAL SCH ×3 (09:00→21:11)
[2017-08-10] MEDS: Metoprolol Succinate XL 50mg tab ORAL SCH (09:00)
[2017-08-10] MEDS: Pyridoxine 50mg tab ORAL SCH (09:09)
[2017-08-10] MEDS: Dolutegravir Sodium 50mg tab ORAL SCH (09:09)
[2017-08-10] MEDS: Isoniazid 300mg tab ORAL SCH (09:09)
[2017-08-10] MEDS: Vitamin D 1000 IU Tab ORAL SCH (09:10)
[2017-08-10] MEDS: Aspirin EC 81mg tab ORAL SCH (09:10)
[2017-08-10] MEDS: Multivitamin w/Minerals tab ORAL SCH (09:10)
[2017-08-10 09:20] LABS: ANISOCYTOSIS 1+; BAND NEUTROPHILS % (MANUAL) 0 % (0-8); BASOPHILS % (MANUAL) 0 % (0-2); EOSINOPHILS % (MANUAL) 3 % (0-3); LYMPHOCYTES % (MANUAL) 14 % (20-45); NEUTROPHILS % (MANUAL) 79 % (45-75); PLATELET ESTIMATE ADEQUATE; PLATELET MORPHOLOGY NORMAL; TOTAL CELLS COUNTED 100
[2017-08-10] MEDS: Rifabutin 150mg cap ORAL SCH (09:38)
--- NOTE | 2017-08-10 10:47 | Pulmonology Progress Note ---
Assessment/Plan Problems: (1) HIV disease (2) AIDS (acquired immune deficiency syndrome) (3) Pneumonia Assessment/Plan pneumomediastinum no pneumothorax possibly due to intrapulmonary disease monitor clinically oxygen therapy not needed ID noted thoracic surgery called CT chest reviewed and improved monitor imaging for change expect resolution with time- nontoxic at present appears stable at present ok to dc per pulmonary defer to ID monitor imaging for complete resolution would likely monitor after discharge Subjective Allergies: Coded Allergies: No Known Allergies (Unverified , 07/20/17) Subjective no distress Objective Last 24 Hour Vital Signs Date Time Temp Pulse Resp B/P (MAP) Pulse Ox O2 Delivery O2 Flow Rate FiO2 08/10/17 08:00 105 08/10/17 08:00 97.7 113 20 108/84 99 Room Air 08/10/17 04:28 123 08/10/17 04:00 97.7 104 20 95/68 97 Room Air 08/10/17 00:10 92 08/10/17 00:00 98.1 109 20 104/53 98 Room Air 08/09/17 20:07 107 08/09/17 20:00 98.4 113 20 96/77 100 Room Air 08/09/17 16:00 97.7 96 20 106/52 98 Room Air 08/09/17 16:00 102 08/09/17 12:00 98.0 97 21 103/62 98 Room Air 08/09/17 11:52 96 Objective cachectic WDWN NAD clear breath sounds bilaterally without rhonchi or wheeze [id number] without MRG NABS nontender no HSM no CCE nonfocal Laboratory Tests 08/09/17 15:36: Urine Osmolality 790H 08/10/17 03:40: White Blood Count 2.9L, Red Blood Count 4.02L, Hemoglobin 11.9L, Hematocrit 34.2L, Mean Corpuscular Volume 85, Mean Corpuscular Hemoglobin 29.7, Mean Corpuscular Hemoglobin Concent 34.9, Red Cell Distribution Width 15.8H, Platelet Count 234, Mean Platelet Volume 8.8, Neutrophils (%) (Auto) , Lymphocytes (%) (Auto) , Monocytes (%) (Auto) , Eosinophils (%) (Auto) , Basophils (%) (Auto) , Differential Total Cells Counted 100, Neutrophils % ( Manual) 79H, Lymphocytes % (Manual) 14L, Monocytes % (Manual) 4, Eosinophils % ( Manual) 3, Basophils % (Manual) 0, Band Neutrophils 0, Platelet Estimate Adequate, Platelet Morphology Normal, Anisocytosis 1+, Sodium Level 125L, Potassium Level 4.1, Chloride Level 97L, Carbon Dioxide Level 20L, Anion Gap 8, Blood Urea Nitrogen 18, Creatinine 0.8, Estimat Glomerular Filtration Rate > 60 , Glucose Level 75, Calcium Level 8.1L, Magnesium Level 1.8, Total Bilirubin 0.2 , Direct Bilirubin < 0.1, Aspartate Amino Transf (AST/SGOT) 26, Alanine Aminotransferase (ALT/SGPT) 29, Alkaline Phosphatase 103, Total Protein 6.6, Albumin 2.7L, Amylase Level 360H, Lipase 1781H Current Medications Medications (Trade) Dose Ordered Sig/Gabriela Route PRN Reason Start Time Stop Time Status Last Admin Dose Admin Acetaminophen (Tylenol) 650 mg Q4H PRN ORAL Mild Pain (Pain Scale 1-3) 07/22/17 14:30 08/19/17 14:29 07/22/17 20:48 Aspirin (Ecotrin) 81 mg DAILY ORAL 07/30/17 09:00 08/29/17 08:59 08/10/17 09:10 Azithromycin (Zithromax) 1,200 mg QWEEK ORAL 08/01/17 09:00 09/04/17 08:59 08/08/17 09:03 Dextrose (Dextrose 50%) STAT PRN IV Hypoglycemia 07/22/17 14:30 08/19/17 14:29 Diphenhydramine HCl (Benadryl) 25 mg Q6H PRN ORAL Itching/Pruritis 07/22/17 14:30 08/19/17 14:29 08/05/17 22:28 Docusate Sodium (Colace) 100 mg EVERY 12 HOURS ORAL 07/22/17 21:00 08/19/17 20:59 08/10/17 09:08 Dolutegravir Sodium (Tivicay) 50 mg DAILY ORAL 08/07/17 14:00 09/06/17 13:59 08/10/17 09:09 Emtricitabine/ Tenofovir (Truvada 200/ 300mg) 1 tab DAILY ORAL 08/07/17 14:00 09/06/17 13:59 08/10/17 09:10 Enoxaparin Sodium (Lovenox) 40 mg QHS SUBQ 07/22/17 21:00 08/19/17 20:59 08/09/17 21:49 Ethambutol HCl (Myambutol) 1,200 mg DAILY ORAL 08/05/17 18:00 09/04/17 17:59 08/10/17 09:10 Isoniazid (Inh) 300 mg DAILY ORAL 08/05/17 18:00 09/04/17 17:59 08/10/17 09:09 Metoprolol Succinate (Toprol XL) 50 mg DAILY ORAL 07/29/17 11:00 08/28/17 10:59 08/05/17 13:27 Multivitamins Therapeutic (Therapeutic Multivitamin) 1 ea DAILY ORAL 07/25/17 09:00 08/24/17 08:59 08/10/17 09:10 Ondansetron HCl (Zofran) 4 mg Q6H PRN IVP Nausea & Vomiting 07/22/17 14:30 08/19/17 14:29 08/08/17 15:53 Pantoprazole (Protonix) 40 mg ACBREAKFAST ORAL 07/23/17 09:00 08/22/17 08:59 08/10/17 05:47 Pyrazinamide (Pza) 1,500 mg DAILY ORAL 08/05/17 18:00 09/04/17 17:59 08/10/17 09:08 Pyridoxine HCl (Vitamin B6) 50 mg DAILY ORAL 08/06/17 09:00 09/05/17 08:59 08/10/17 09:09 Rifabutin (Mycobutin) 300 mg DAILY ORAL 08/10/17 09:00 09/09/17 08:59 08/10/17 09:38 Rifampin (Rifadin) 600 mg DAILY ORAL 08/05/17 18:00 09/04/17 17:59 08/10/17 09:10 Sodium Chloride 500 ml @ 20 mls/hr ONCE ONCE IV 08/09/17 15:00 08/10/17 15:59 08/09/17 15:31 Trimethoprim/ Sulfamethoxazole (Bactrim-DS) 2 ea Q8HR ORAL 07/31/17 16:00 08/12/17 15:59 08/10/17 05:47 Valganciclovir (Valcyte) 900 mg DAILY ORAL 08/14/17 09:00 08/28/17 23:59 Valganciclovir (Valcyte) 900 mg Q12HR@0630,1830 ORAL 07/31/17 17:00 08/13/17 23:59 08/10/17 05:47 Vitamin D (Vitamin D) 1,000 intlu DAILY ORAL 07/25/17 09:00 08/24/17 08:59 08/10/17 09:10 MAKAYLA GARZA Aug 10, 2017 10:47
[2017-08-10 12:00] VITALS: BP 124/79
--- NOTE | 2017-08-10 12:20 | General Progress Note ---
Assessment/Plan Assessment/Plan AIDS - per ID. Pneumonia - m/p PCP with [facility]. On [employer] IV Abx and IV Bactrim for immuno Compromised HIV patients. Doubt MTB. AFB's smear negative. DC Resp. Isolation. In [facility]. New neck Emphysema + Pneumomediastinum both minimal on CT scan. AIDS Cachexia Encephalopathy s/p LP. Results pending. Has CMV Retinitis. On Valacyclovir oral which is a good alternative! Spoke to Dr. García in [facility] @ [facility]. Patient still high risk for M. TB. despite negative AFBs. She recommends CSF M. TB PCR + CSF AFB to be added. Left VM to Micro lab. 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 Off [facility]Isolation per [facility]. Awaiting repeat Chest CT. From checking with the lab these tests were not done! Patient unstable for DC or transfer due to the following developing/unresolving issues: New Pneumomediastinum+ subcutanueous emphysema New pancreatitis New hyponatremia Unresolved blindness CT Chest much improved. Serum sodium 125 better. If serum sodium better tomorrow DC home. Subjective Allergies: Coded Allergies: No Known Allergies (Unverified , 07/20/17) Subjective No new c/o Objective Last 24 Hour Vital Signs Date Time Temp Pulse Resp B/P (MAP) Pulse Ox O2 Delivery O2 Flow Rate FiO2 08/10/17 09:00 105 108/84 08/10/17 08:00 105 08/10/17 08:00 97.7 113 20 108/84 99 Room Air 08/10/17 04:28 123 08/10/17 04:00 97.7 104 20 95/68 97 Room Air 08/10/17 00:10 92 08/10/17 00:00 98.1 109 20 104/53 98 Room Air 08/09/17 20:07 107 08/09/17 20:00 98.4 113 20 96/77 100 Room Air 08/09/17 16:00 97.7 96 20 106/52 98 Room Air 08/09/17 16:00 102 Intake and Output 08/10/17 08/11/17 19:00 07:00 Intake Total 60 ml Output Total 120 ml Balance -60 ml IV Total 60 ml Output Urine Total 120 ml # Voids 1 # Bowel Movements 1 Laboratory Tests 08/09/17 15:36: Urine Osmolality 790H 08/10/17 03:40: White Blood Count 2.9L, Red Blood Count 4.02L, Hemoglobin 11.9L, Hematocrit 34.2L, Mean Corpuscular Volume 85, Mean Corpuscular Hemoglobin 29.7, Mean Corpuscular Hemoglobin Concent 34.9, Red Cell Distribution Width 15.8H, Platelet Count 234, Mean Platelet Volume 8.8, Neutrophils (%) (Auto) , Lymphocytes (%) (Auto) , Monocytes (%) (Auto) , Eosinophils (%) (Auto) , Basophils (%) (Auto) , Differential Total Cells Counted 100, Neutrophils % ( Manual) 79H, Lymphocytes % (Manual) 14L, Monocytes % (Manual) 4, Eosinophils % ( Manual) 3, Basophils % (Manual) 0, Band Neutrophils 0, Platelet Estimate Adequate, Platelet Morphology Normal, Anisocytosis 1+, Sodium Level 125L, Potassium Level 4.1, Chloride Level 97L, Carbon Dioxide Level 20L, Anion Gap 8, Blood Urea Nitrogen 18, Creatinine 0.8, Estimat Glomerular Filtration Rate > 60 , Glucose Level 75, Calcium Level 8.1L, Magnesium Level 1.8, Total Bilirubin 0.2 , Direct Bilirubin < 0.1, Aspartate Amino Transf (AST/SGOT) 26, Alanine Aminotransferase (ALT/SGPT) 29, Alkaline Phosphatase 103, Total Protein 6.6, Albumin 2.7L, Amylase Level 360H, Lipase 1781H, Hepatitis A IgM Antibody [ Pending], Hepatitis B Surface Antigen [Pending], Hepatitis B Core IgM Antibody [ Pending], Hepatitis C Antibody [Pending], Toxoplasma IgG Antibody [Pending], Toxoplasma IgM Antibody [Pending] Height (Feet): 5 Height (Inches): 8.00 Weight (Pounds): 117 Objective Rt. eye poor vision CV RR Lungs CTA Abd SNT BS + E No CCE Neuro: very slow mentation! MOLLY VÁZQUEZ Aug 10, 2017 12:19
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
[2017-08-10 16:00] VITALS: BP 103/63
[2017-08-10 20:00] VITALS: BP 106/56
[2017-08-10] MEDS: Enoxaparin 40mg Inj SUBQ SCH (21:14)
[2017-08-11] VITALS: BP 109/64
[2017-08-11 04:00] VITALS: BP 115/72
[2017-08-11] MEDS: Bactrim DS (160mg/800mg) tab ORAL SCH ×2 (05:46→13:57)
[2017-08-11 06:03] LABS: ANION GAP 11 mmol/L (5-15); CALCIUM 8.2 MG/DL (8.5-10.1); CARBON DIOXIDE 18 MMOL/L (21-32); CHLORIDE 103 MMOL/L (98-107); CREATININE 0.8 MG/DL (0.55-1.30); GLOMERULAR FILTRATION RATE > 60 mL/min (>60); SODIUM 132 MMOL/L (136-145)
[2017-08-11 08:00] VITALS: BP 121/82
--- NOTE | 2017-08-11 08:50 | Pulmonology Progress Note ---
Assessment/Plan Problems: (1) HIV disease (2) AIDS (acquired immune deficiency syndrome) (3) Pneumonia Assessment/Plan pneumomediastinum no pneumothorax possibly due to intrapulmonary disease monitor clinically oxygen therapy not needed ID noted CT chest reviewed and improved monitor imaging for change expect resolution with time- nontoxic at present ok to dc per pulm with outpatient follow up Subjective Allergies: Coded Allergies: No Known Allergies (Unverified , 07/20/17) Subjective no distress Objective Last 24 Hour Vital Signs Date Time Temp Pulse Resp B/P (MAP) Pulse Ox O2 Delivery O2 Flow Rate FiO2 08/11/17 08:00 98.2 125 18 121/82 95 Room Air 08/11/17 04:00 97.6 81 23 115/72 99 Room Air 08/11/17 03:57 94 08/11/17 00:00 97.0 102 20 109/64 99 Room Air 08/10/17 20:32 108 08/10/17 20:00 97.2 94 20 106/56 100 Room Air 08/10/17 16:00 101 08/10/17 16:00 97.3 97 20 103/63 99 Room Air 08/10/17 12:00 101 08/10/17 12:00 97.3 99 20 124/79 97 Room Air 08/10/17 09:00 105 108/84 Objective cachectic WDWN NAD clear breath sounds bilaterally without rhonchi or wheeze [id number] without MRG NABS nontender no HSM no CCE nonfocal Laboratory Tests 08/11/17 03:55: Sodium Level 132L, Potassium Level 4.0, Chloride Level 103, Carbon Dioxide Level 18L, Anion Gap 11, Blood Urea Nitrogen 18, Creatinine 0.8, Estimat Glomerular Filtration Rate > 60, Glucose Level 104, Calcium Level 8.2L Current Medications Medications (Trade) Dose Ordered Sig/Gabriela Route PRN Reason Start Time Stop Time Status Last Admin Dose Admin Acetaminophen (Tylenol) 650 mg Q4H PRN ORAL Mild Pain (Pain Scale 1-3) 07/22/17 14:30 08/19/17 14:29 07/22/17 20:48 Aspirin (Ecotrin) 81 mg DAILY ORAL 07/30/17 09:00 08/29/17 08:59 08/10/17 09:10 Azithromycin (Zithromax) 1,200 mg QWEEK ORAL 08/01/17 09:00 09/04/17 08:59 08/08/17 09:03 Dextrose (Dextrose 50%) STAT PRN IV Hypoglycemia 07/22/17 14:30 08/19/17 14:29 Diphenhydramine HCl (Benadryl) 25 mg Q6H PRN ORAL Itching/Pruritis 07/22/17 14:30 08/19/17 14:29 08/05/17 22:28 Docusate Sodium (Colace) 100 mg EVERY 12 HOURS ORAL 07/22/17 21:00 08/19/17 20:59 08/10/17 21:11 Dolutegravir Sodium (Tivicay) 50 mg DAILY ORAL 08/07/17 14:00 09/06/17 13:59 08/10/17 09:09 Emtricitabine/ Tenofovir (Truvada 200/ 300mg) 1 tab DAILY ORAL 08/07/17 14:00 09/06/17 13:59 08/10/17 09:10 Enoxaparin Sodium (Lovenox) 40 mg QHS SUBQ 07/22/17 21:00 08/19/17 20:59 08/10/17 21:14 Ethambutol HCl (Myambutol) 1,200 mg DAILY ORAL 08/05/17 18:00 09/04/17 17:59 08/10/17 09:10 Isoniazid (Inh) 300 mg DAILY ORAL 08/05/17 18:00 09/04/17 17:59 08/10/17 09:09 Metoprolol Succinate (Toprol XL) 50 mg DAILY ORAL 07/29/17 11:00 08/28/17 10:59 08/05/17 13:27 Multivitamins Therapeutic (Therapeutic Multivitamin) 1 ea DAILY ORAL 07/25/17 09:00 08/24/17 08:59 08/10/17 09:10 Ondansetron HCl (Zofran) 4 mg Q6H PRN IVP Nausea & Vomiting 07/22/17 14:30 08/19/17 14:29 08/11/17 05:46 Pantoprazole (Protonix) 40 mg ACBREAKFAST ORAL 07/23/17 09:00 08/22/17 08:59 08/11/17 05:46 Pyrazinamide (Pza) 1,500 mg DAILY ORAL 08/05/17 18:00 09/04/17 17:59 08/10/17 09:08 Pyridoxine HCl (Vitamin B6) 50 mg DAILY ORAL 08/06/17 09:00 09/05/17 08:59 08/10/17 09:09 Rifabutin (Mycobutin) 300 mg DAILY ORAL 08/10/17 09:00 09/09/17 08:59 08/10/17 09:38 Rifampin (Rifadin) 600 mg DAILY ORAL 08/05/17 18:00 09/04/17 17:59 08/10/17 09:10 Sodium Chloride 500 ml @ 20 mls/hr ONCE ONCE IV 08/10/17 15:01 08/11/17 16:00 08/10/17 16:01 Trimethoprim/ Sulfamethoxazole (Bactrim-DS) 2 ea Q8HR ORAL 07/31/17 16:00 08/12/17 15:59 08/11/17 05:46 Valganciclovir (Valcyte) 900 mg DAILY ORAL 08/14/17 09:00 08/28/17 23:59 Valganciclovir (Valcyte) 900 mg Q12HR@0630,1830 ORAL 07/31/17 17:00 08/13/17 23:59 08/11/17 05:46 Vitamin D (Vitamin D) 1,000 intlu DAILY ORAL 07/25/17 09:00 08/24/17 08:59 08/10/17 09:10 MAKAYLA GARZA Aug 11, 2017 08:50
[2017-08-11] MEDS: Aspirin EC 81mg tab ORAL SCH (08:54)
[2017-08-11] MEDS: Vitamin D 1000 IU Tab ORAL SCH (08:54)
[2017-08-11] MEDS: Multivitamin w/Minerals tab ORAL SCH (08:55)
[2017-08-11] MEDS: Pyridoxine 50mg tab ORAL SCH (08:55)
[2017-08-11] MEDS: Rifabutin 150mg cap ORAL SCH (08:56)
[2017-08-11] MEDS: Dolutegravir Sodium 50mg tab ORAL SCH (08:56)
[2017-08-11] MEDS: Isoniazid 300mg tab ORAL SCH (08:56)
[2017-08-11] MEDS: Metoprolol Succinate XL 50mg tab ORAL SCH (08:57)
[2017-08-11] MEDS: Docusate 100mg cap ORAL SCH ×2 (09:00→20:29)
--- NOTE | 2017-08-11 11:01 | Diagnostic Imaging Report ---
APPROVED REPORT CPT Code: 59032 Vascular Symptoms Comments: AMS CAROTID (BILATERAL) - Imaging reveals no significant plaque within the right and left extracranial carotid arteries. The Doppler spectral flow analysis is within normal limits throughout the extracranial carotid arteries bilaterally. VERTEBRAL- The vertebral arteries are within normal limits.
[2017-08-11 12:00] VITALS: BP 118/75
--- NOTE | 2017-08-11 15:57 | Infectious Diseases Prog Note ---
Assessment/Plan Assessment/Plan A) 1) pna, + H. Influenza pna/cap pna, ? pcp, ? TB pna, sepsis, shock, fevers, likely cmv retinitis right eye with vision loss, doubt meningitis based on LP with 2 wbc, CMV pcr + - pna clinically better, less sob, chest x-ray better - still with right eye vision loss - d/w Dr. Villeda from ophthalmology and patient unlikely to have right eye vision improvement but trying to prevent further left vision loss - CT chest findings noted, pneumomediastinum 2) hiv, aids - cd4 - 55, viral load - 347, 790 3) ? pancreatitis with elevated amylase and lipase 4) allergies - negative, fh-nc, sh-negative, mar noted 5) d/w RN 6) notes and records noted P) 1) po bactrim x 1 day then change to prophylaxis doses, s/p 2 week treatment of CAP/haemophilus influenzae pna, s/p diflucan, azithromycin prophylaxis, TB treatment - day # 7 2) valganciclovir 900mg bid for two weeks and then 900 mg daily for suppression (to start suppression 08/14) 3) ophthalmology f/u for intravitreal ganciclovir or foscarnet once available , still not initiated 4) can discontinue TB isolation, cleared by department of health in d/w ICP 5) continue tx per primary and consultants, ? GI evaluation for ? pancreatitis, pulmonary evaluation noted for CT chest findings 6) f/u labs, lipase and amylase, check viral load, check TB pcr 7) continue tivicay and truvada, genvoya not available at hospital 8) cd4 - 55, viral load > 300, 000 9) continue treatment per primary and consultants 10) patient to f/u with primary hiv MD as outpatient for f/y vl and cd4 and genotyping if needed Subjective Constitutional: Reports: other - increased appetite , Denies: fever HEENT: Denies: congestion Respiratory: Denies: shortness of breath Cardiovascular: Denies: chest pain Gastrointestinal/Abdominal: Denies: nausea, vomiting, diarrhea Genitourinary: Denies: dysuria, hematuria Psychiatric: Denies: depression Skin: Denies: rash Hematologic: Denies: bleeding Musculoskeletal: Denies: pain Allergies: Coded Allergies: No Known Allergies (Unverified , 07/20/17) Objective Vital Signs Last 24 Hour Vital Signs Date Time Temp Pulse Resp B/P (MAP) Pulse Ox O2 Delivery O2 Flow Rate FiO2 08/11/17 12:00 98.0 111 18 118/75 95 Room Air 08/11/17 12:00 129 08/11/17 08:57 125 121/82 08/11/17 08:00 112 08/11/17 08:00 98.2 125 18 121/82 95 Room Air 08/11/17 04:00 97.6 81 23 115/72 99 Room Air 08/11/17 03:57 94 08/11/17 00:00 97.0 102 20 109/64 99 Room Air 08/10/17 20:32 108 08/10/17 20:00 97.2 94 20 106/56 100 Room Air 08/10/17 16:00 101 08/10/17 16:00 97.3 97 20 103/63 99 Room Air Height (Feet): 5 Height (Inches): 8.00 Weight (Pounds): 116 General Appearance: no acute distress HEENT: normocephalic, atraumatic, anicteric, mucous membranes moist, EOMI, pharynx normal, supple, no JVD Respiratory/Chest: lungs clear, normal breath sounds, no respiratory distress, no accessory muscle use, crackles/rales - less, rhonchi - bilaterally - less Cardiovascular: normal rate, regular rhythm, no gallop/murmur Abdomen: normal bowel sounds, soft, non tender, no organomegaly, non distended Genitourinary: other - no cox Extremities: no cyanosis Skin: no rash Neurologic/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 Infiltrates in the left lung appears slightly more diffuse, and infiltrates in the right lung appear slightly more extensive. Pleural spaces remain clear. Heart size is normal Impression: Slightly increased infiltrates bilaterally, over 2 days Chest x-ray - 07/24 Findings: Left internal jugular central line is again noted. Cardiomediastinal silhouette is stable. Patchy infiltrates are again noted of the lungs bilaterally. Osseous structures are stable. Impression: No interval change from 07/22/17. 07/25 - chest x-ray Comparison: 07/24/2017 Findings: There is a left jugular central venous catheter and demonstrated. Diffuse mostly upper lung interstitial and alveolar patchy parenchymal infiltrates appears slightly improved, patient on the left. New infiltrates. No effusions. Normal heart size Impression: Slight improvement of parenchymal disease on the left. Otherwise little change, over one day Chest x-ray - 07/28 - Impression: Essentially unchanged bilateral mid and upper lung airspace opacities. However, there is questionable interim cavitation of some of the opacities on the right. 07/30 - chest x-ray - no change (report noted) CT chest: Impression: Pulmonary hyperexpansion. Subcutaneous emphysema in neck and upper chest as well as mediastinal emphysema. Multiple ill-defined groundglass opacities in the lungs bilaterally. This is likely inflammatory. Ill-defined nodule in the right upper lobe, also probably inflammatory given the nature of the other infiltrates. Attempts to reach Dr. Escobar are unsuccessful. The patient's nurse was notified by phone at 10:55 AM 08/07/2017. She informed me that she would relay the message to Dr. Escobar. Chest x-ray - 08/08 - Impression: Stable bilateral neck and supraclavicular subcutaneous emphysema and likely pneumomediastinum Bilateral upper lung interstitial opacities are somewhat less prominent on the current study, may reflect improving parenchymal disease Other findings as noted CT - chest - 08/09 noted, report noted Microbiology Date/Time Source Procedure Growth Status 07/20/17 16:19 Blood Blood Culture - Final NO GROWTH AFTER 5 DAYS Complete 08/01/17 16:30 Cerebral Spinal Fluid Gram Stain - Final Complete 08/01/17 16:30 Cerebral Spinal Fluid CSF Culture - Final NO GROWTH Complete 08/03/17 06:00 Sputum AFB Specimen Processing Tissue - Final Resulted 08/03/17 06:00 Sputum Acid Fast Bacilli Smear - Final Resulted 08/03/17 06:00 Sputum Acid Fast Bacilli Culture Pending Resulted 07/20/17 22:30 Stool Clostridium difficile Toxin Assay - Final Complete 07/20/17 15:40 Rectum VRE Culture - Final NO VANCOMYCIN RESISTANT ENTEROCOCCUS ... Complete Laboratory Tests Test 08/11/17 03:55 Sodium Level 132 MMOL/L (136-145) L Potassium Level 4.0 MMOL/L (3.5-5.1) Chloride Level 103 MMOL/L (98-107) Carbon Dioxide Level 18 MMOL/L (21-32) L Anion Gap 11 mmol/L (5-15) Blood Urea Nitrogen 18 mg/dL (7-18) Creatinine 0.8 MG/DL (0.55-1.30) Estimat Glomerular Filtration Rate > 60 mL/min (>60) Glucose Level 104 MG/DL (74-106) Calcium Level 8.2 MG/DL (8.5-10.1) L Current Medications Medications (Trade) Dose Ordered Sig/Gabriela Route PRN Reason Start Time Stop Time Status Last Admin Dose Admin Acetaminophen (Tylenol) 650 mg Q4H PRN ORAL Mild Pain (Pain Scale 1-3) 07/22/17 14:30 08/19/17 14:29 07/22/17 20:48 Aspirin (Ecotrin) 81 mg DAILY ORAL 07/30/17 09:00 08/29/17 08:59 08/11/17 08:54 Azithromycin (Zithromax) 1,200 mg QWEEK ORAL 08/01/17 09:00 09/04/17 08:59 08/08/17 09:03 Dextrose (Dextrose 50%) STAT PRN IV Hypoglycemia 07/22/17 14:30 08/19/17 14:29 Diphenhydramine HCl (Benadryl) 25 mg Q6H PRN ORAL Itching/Pruritis 07/22/17 14:30 08/19/17 14:29 08/05/17 22:28 Docusate Sodium (Colace) 100 mg EVERY 12 HOURS ORAL 07/22/17 21:00 08/19/17 20:59 08/10/17 21:11 Dolutegravir Sodium (Tivicay) 50 mg DAILY ORAL 08/07/17 14:00 09/06/17 13:59 08/11/17 08:56 Emtricitabine/ Tenofovir (Truvada 200/ 300mg) 1 tab DAILY ORAL 08/07/17 14:00 09/06/17 13:59 08/11/17 08:55 Enoxaparin Sodium (Lovenox) 40 mg QHS SUBQ 07/22/17 21:00 08/19/17 20:59 08/10/17 21:14 Ethambutol HCl (Myambutol) 1,200 mg DAILY ORAL 08/05/17 18:00 09/04/17 17:59 08/11/17 08:54 Isoniazid (Inh) 300 mg DAILY ORAL 08/05/17 18:00 09/04/17 17:59 08/11/17 08:56 Metoprolol Succinate (Toprol XL) 50 mg DAILY ORAL 07/29/17 11:00 08/28/17 10:59 08/11/17 08:57 Multivitamins Therapeutic (Therapeutic Multivitamin) 1 ea DAILY ORAL 07/25/17 09:00 08/24/17 08:59 08/11/17 08:55 Ondansetron HCl (Zofran) 4 mg Q6H PRN IVP Nausea & Vomiting 07/22/17 14:30 08/19/17 14:29 08/11/17 05:46 Pantoprazole (Protonix) 40 mg ACBREAKFAST ORAL 07/23/17 09:00 08/22/17 08:59 08/11/17 05:46 Pyrazinamide (Pza) 1,500 mg DAILY ORAL 08/05/17 18:00 09/04/17 17:59 08/11/17 08:55 Pyridoxine HCl (Vitamin B6) 50 mg DAILY ORAL 08/06/17 09:00 09/05/17 08:59 08/11/17 08:55 Rifabutin (Mycobutin) 300 mg DAILY ORAL 08/10/17 09:00 09/09/17 08:59 08/11/17 08:56 Sodium Chloride 500 ml @ 20 mls/hr ONCE ONCE IV 08/10/17 15:01 08/11/17 16:00 08/10/17 16:01 Trimethoprim/ Sulfamethoxazole (Bactrim-DS) 2 ea Q8HR ORAL 07/31/17 16:00 08/12/17 15:59 08/11/17 13:57 Valganciclovir (Valcyte) 900 mg DAILY ORAL 08/14/17 09:00 08/28/17 23:59 Valganciclovir (Valcyte) 900 mg Q12HR@0630,1830 ORAL 07/31/17 17:00 08/13/17 23:59 08/11/17 05:46 Vitamin D (Vitamin D) 1,000 intlu DAILY ORAL 07/25/17 09:00 08/24/17 08:59 08/11/17 08:54 WEN ANTOINE Aug 11, 2017 15:57
[2017-08-11 16:00] VITALS: BP 118/70
--- NOTE | 2017-08-11 18:09 | General Progress Note ---
Assessment/Plan Assessment/Plan AIDS - per ID. Pneumonia - m/p PCP with [facility]. On Broad Spectrum IV Abx and IV Bactrim for immuno Compromised HIV patients. Doubt MTB. AFB's smear negative. DC Resp. Isolation. In [facility]AY. New neck Emphysema + Pneumomediastinum both minimal on CT scan. 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 On Valacyclovir oral which is a good alternative! Spoke to Dr. García in [facility] @ [place]. Patient still high risk for M. TB. despite negative AFBs. She recommends CSF M. TB PCR + CSF AFB to be added. Left VM to Micro lab. DW inseminator. Off Isolation per [facility]. Patient unstable for DC or transfer due to the following developing/unresolving issues: New Pneumomediastinum+ subcutanueous emphysema New pancreatitis Unresolved blindness CT Chest much improved. 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 Ambulated with great difficulties and severe dyspnea. Objective Last 24 Hour Vital Signs Date Time Temp Pulse Resp B/P (MAP) Pulse Ox O2 Delivery O2 Flow Rate FiO2 08/11/17 16:00 98.7 103 17 118/70 98 Room Air 08/11/17 16:00 109 08/11/17 12:00 98.0 111 18 118/75 95 Room Air 08/11/17 12:00 129 08/11/17 08:57 125 121/82 08/11/17 08:00 112 08/11/17 08:00 98.2 125 18 121/82 95 Room Air 08/11/17 04:00 97.6 81 23 115/72 99 Room Air 08/11/17 03:57 94 08/11/17 00:00 97.0 102 20 109/64 99 Room Air 08/10/17 20:32 108 08/10/17 20:00 97.2 94 20 106/56 100 Room Air Intake and Output 08/11/17 08/12/17 19:00 07:00 Intake Total 160 ml Output Total 350 ml Balance -190 ml IV Total 160 ml Output Urine Total 350 ml # Bowel Movements 1 Laboratory Tests 08/11/17 03:55: Sodium Level 132L, Potassium Level 4.0, Chloride Level 103, Carbon Dioxide Level 18L, Anion Gap 11, Blood Urea Nitrogen 18, Creatinine 0.8, Estimat Glomerular Filtration Rate > 60, Glucose Level 104, Calcium Level 8.2L Height (Feet): 5 Height (Inches): 8.00 Weight (Pounds): 116 Objective Rt. eye poor vision. Extremely Cachectic. CV RR Lungs CTA Abd SNT BS + E No CCE Neuro: very slow mentation! MOLLY VÁZQUEZ Aug 11, 2017 18:09
[2017-08-11 20:00] VITALS: BP 101/64
[2017-08-11] MEDS: Enoxaparin 40mg Inj SUBQ SCH (20:28)
[2017-08-12] VITALS: BP 110/67
[2017-08-12 04:00] VITALS: BP 110/60
[2017-08-12 05:13] LABS: TOXOPLASMA IGG ANTIBODY <3.0 IU/mL (0.0-7.1)
[2017-08-12 06:15] LABS: MEAN CORPUSCULAR HEMOGLOBIN 29.7 PG (27.0-31.0); MEAN CORPUSCULAR HGB CONC 34.2 G/DL (32.0-36.0); MEAN CORPUSCULAR VOLUME 87 FL (80-99); MEAN PLATELET VOLUME 7.6 FL (6.5-10.1); PLATELET COUNT 205 K/UL (150-450); RED BLOOD COUNT 3.56 M/UL (4.70-6.10); RED CELL DISTRIBUTION WIDTH 17.3 % (11.6-14.8); WHITE BLOOD COUNT 2.7 K/UL (4.8-10.8)
[2017-08-12 06:41] LABS: ALANINE AMINOTRANSFERASE 33 U/L (12-78); ALBUMIN/GLOBULIN RATIO 0.6 (1.0-2.7); ANION GAP 8 mmol/L (5-15); ASPARTATE AMINO TRANSFERASE 32 U/L (15-37); CALCIUM 8.2 MG/DL (8.5-10.1); CARBON DIOXIDE 20 MMOL/L (21-32); CHLORIDE 104 MMOL/L (98-107); CREATININE 0.7 MG/DL (0.55-1.30); GLOMERULAR FILTRATION RATE > 60 mL/min (>60); POTASSIUM 3.6 MMOL/L (3.5-5.1); SODIUM 132 MMOL/L (136-145); TOTAL PROTEIN 6.1 G/DL (6.4-8.2)
[2017-08-12 06:52] LABS: AMYLASE 424 U/L (25-115); LIPASE 2399 U/L (73-393)
[2017-08-12 07:51] LABS: BAND NEUTROPHILS % (MANUAL) 0 % (0-8); BASOPHILS % (MANUAL) 0 % (0-2); EOSINOPHILS % (MANUAL) 13 % (0-3); HYPOCHROMASIA 1+; LYMPHOCYTES % (MANUAL) 6 % (20-45); NEUTROPHILS % (MANUAL) 77 % (45-75); PLATELET ESTIMATE ADEQUATE; PLATELET MORPHOLOGY NORMAL; TOTAL CELLS COUNTED 100
[2017-08-12 08:00] VITALS: BP 116/67
[2017-08-12] MEDS: Docusate 100mg cap ORAL SCH ×2 (08:28→21:00)
[2017-08-12] MEDS: Bactrim DS (160mg/800mg) tab ORAL SCH (08:28)
[2017-08-12] MEDS: Aspirin EC 81mg tab ORAL SCH (08:29)
[2017-08-12] MEDS: Isoniazid 300mg tab ORAL SCH (08:30)
[2017-08-12] MEDS: Rifabutin 150mg cap ORAL SCH (08:32)
[2017-08-12] MEDS: Dolutegravir Sodium 50mg tab ORAL SCH (08:33)
[2017-08-12] MEDS: Multivitamin w/Minerals tab ORAL SCH (08:33)
[2017-08-12] MEDS: Pyridoxine 50mg tab ORAL SCH (08:34)
[2017-08-12] MEDS: Vitamin D 1000 IU Tab ORAL SCH (08:34)
[2017-08-12] MEDS: Metoprolol Succinate XL 50mg tab ORAL SCH (08:35)
--- NOTE | 2017-08-12 11:54 | General Progress Note ---
Assessment/Plan Assessment/Plan AIDS - per ID. Pneumonia - m/p PCP with Cav[facility]. On Broad Spectrum IV Abx and IV Bactrim for immuno Compromised HIV patients. Doubt MTB. AFB's smear negative. DC Resp. Isolation. In KAY. New neck Emphysema + Pneumomediastinum both minimal on CT scan. 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 On Valacyclovir oral which is a good alternative! Spoke to Dr. García in [facility] @ [place]. Patient still high risk for M. TB. despite negative AFBs. She recommends CSF M. TB PCR + CSF AFB to be added. Left VM to Micro lab. 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 Off Isolation per [facility]. Patient unstable for DC or transfer due to the following developing/unresolving issues: New Pneumomediastinum+ subcutanueous emphysema New pancreatitis Unresolved blindness CT Chest much improved. 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 Off #% Nacl. Elevated pancreatic enzymes are drug-induced. RITO pharmcy. Alerted ID. Subjective Allergies: Coded Allergies: No Known Allergies (Unverified , 07/20/17) Subjective No new c/o. Ambulated with great difficulties and severe dyspnea. Objective Last 24 Hour Vital Signs Date Time Temp Pulse Resp B/P (MAP) Pulse Ox O2 Delivery O2 Flow Rate FiO2 08/12/17 10:28 98 08/12/17 08:35 100 116/67 08/12/17 08:00 98.2 100 116/67 08/12/17 04:00 97.6 89 20 110/60 100 Room Air 08/12/17 04:00 89 08/12/17 00:00 86 08/12/17 00:00 97.4 87 20 110/67 100 Room Air 08/11/17 20:00 96 08/11/17 20:00 98.1 99 20 101/64 100 Room Air 08/11/17 16:00 98.7 103 17 118/70 98 Room Air 08/11/17 16:00 109 08/11/17 12:00 98.0 111 18 118/75 95 Room Air 08/11/17 12:00 129 Laboratory Tests 08/11/17 20:00: Urine Osmolality 857H 08/12/17 04:20: White Blood Count 2.7L, Red Blood Count 3.56L, Hemoglobin 10.6L, Hematocrit 30.9L, Mean Corpuscular Volume 87, Mean Corpuscular Hemoglobin 29.7, Mean Corpuscular Hemoglobin Concent 34.2, Red Cell Distribution Width 17.3H, Platelet Count 205, Mean Platelet Volume 7.6, Neutrophils (%) (Auto) , Lymphocytes (%) (Auto) , Monocytes (%) (Auto) , Eosinophils (%) (Auto) , Basophils (%) (Auto) , Differential Total Cells Counted 100, Neutrophils % ( Manual) 77H, Lymphocytes % (Manual) 6L, Monocytes % (Manual) 4, Eosinophils % ( Manual) 13H, Basophils % (Manual) 0, Band Neutrophils 0, Platelet Estimate Adequate, Platelet Morphology Normal, Hypochromasia 1+, Sodium Level 132L, Potassium Level 3.6, Chloride Level 104, Carbon Dioxide Level 20L, Anion Gap 8, Blood Urea Nitrogen 14, Creatinine 0.7, Estimat Glomerular Filtration Rate > 60 , Glucose Level 99, Calcium Level 8.2L, Total Bilirubin 0.1L, Aspartate Amino Transf (AST/SGOT) 32, Alanine Aminotransferase (ALT/SGPT) 33, Alkaline Phosphatase 88, Total Protein 6.1L, Albumin 2.4L, Globulin 3.7, Albumin/ Globulin Ratio 0.6L, Amylase Level 424H, Lipase 2399H Height (Feet): 5 Height (Inches): 8.00 Weight (Pounds): 120 Objective Rt. eye poor vision. Extremely Cachectic. CV RR Lungs CTA Abd SNT BS + E No CCE Neuro: very slow mentation! MOLLY VÁZQUEZ Aug 12, 2017 11:54
[2017-08-12 12:00] VITALS: BP 104/64
--- NOTE | 2017-08-12 14:13 | Pulmonology Progress Note ---
Assessment/Plan Problems: (1) HIV disease (2) AIDS (acquired immune deficiency syndrome) (3) Pneumonia Assessment/Plan pneumomediastinum no pneumothorax possibly due to intrapulmonary disease monitor clinically oxygen therapy not needed ID noted CT chest reviewed and improved monitor imaging for change expect resolution with time- nontoxic at present ok to dc per pulm with outpatient follow up Subjective Allergies: Coded Allergies: No Known Allergies (Unverified , 07/20/17) Subjective no distress Objective Last 24 Hour Vital Signs Date Time Temp Pulse Resp B/P (MAP) Pulse Ox O2 Delivery O2 Flow Rate FiO2 08/12/17 12:31 96 08/12/17 10:28 98 08/12/17 08:35 100 116/67 08/12/17 08:00 98.2 100 116/67 08/12/17 08:00 82 08/12/17 04:00 97.6 89 20 110/60 100 Room Air 08/12/17 04:00 89 08/12/17 00:00 86 08/12/17 00:00 97.4 87 20 110/67 100 Room Air 08/11/17 20:00 96 08/11/17 20:00 98.1 99 20 101/64 100 Room Air 08/11/17 16:00 98.7 103 17 118/70 98 Room Air 08/11/17 16:00 109 Objective cachectic WDWN NAD clear breath sounds bilaterally without rhonchi or wheeze [id number] without MRG NABS nontender no HSM no CCE nonfocal Laboratory Tests 08/11/17 20:00: Urine Osmolality 857H 08/12/17 04:20: White Blood Count 2.7L, Red Blood Count 3.56L, Hemoglobin 10.6L, Hematocrit 30.9L, Mean Corpuscular Volume 87, Mean Corpuscular Hemoglobin 29.7, Mean Corpuscular Hemoglobin Concent 34.2, Red Cell Distribution Width 17.3H, Platelet Count 205, Mean Platelet Volume 7.6, Neutrophils (%) (Auto) , Lymphocytes (%) (Auto) , Monocytes (%) (Auto) , Eosinophils (%) (Auto) , Basophils (%) (Auto) , Differential Total Cells Counted 100, Neutrophils % ( Manual) 77H, Lymphocytes % (Manual) 6L, Monocytes % (Manual) 4, Eosinophils % ( Manual) 13H, Basophils % (Manual) 0, Band Neutrophils 0, Platelet Estimate Adequate, Platelet Morphology Normal, Hypochromasia 1+, Sodium Level 132L, Potassium Level 3.6, Chloride Level 104, Carbon Dioxide Level 20L, Anion Gap 8, Blood Urea Nitrogen 14, Creatinine 0.7, Estimat Glomerular Filtration Rate > 60 , Glucose Level 99, Calcium Level 8.2L, Total Bilirubin 0.1L, Aspartate Amino Transf (AST/SGOT) 32, Alanine Aminotransferase (ALT/SGPT) 33, Alkaline Phosphatase 88, Total Protein 6.1L, Albumin 2.4L, Globulin 3.7, Albumin/ Globulin Ratio 0.6L, Amylase Level 424H, Lipase 2399H Current Medications Medications (Trade) Dose Ordered Sig/Gabriela Route PRN Reason Start Time Stop Time Status Last Admin Dose Admin Acetaminophen (Tylenol) 650 mg Q4H PRN ORAL Mild Pain (Pain Scale 1-3) 07/22/17 14:30 08/19/17 14:29 07/22/17 20:48 Aspirin (Ecotrin) 81 mg DAILY ORAL 07/30/17 09:00 08/29/17 08:59 08/12/17 08:29 Azithromycin (Zithromax) 1,200 mg QWEEK ORAL 08/01/17 09:00 09/04/17 08:59 08/08/17 09:03 Dextrose (Dextrose 50%) STAT PRN IV Hypoglycemia 07/22/17 14:30 08/19/17 14:29 Diphenhydramine HCl (Benadryl) 25 mg Q6H PRN ORAL Itching/Pruritis 07/22/17 14:30 08/19/17 14:29 08/05/17 22:28 Docusate Sodium (Colace) 100 mg EVERY 12 HOURS ORAL 07/22/17 21:00 08/19/17 20:59 08/10/17 21:11 Enoxaparin Sodium (Lovenox) 40 mg QHS SUBQ 07/22/17 21:00 08/19/17 20:59 08/11/17 20:28 Ethambutol HCl (Myambutol) 1,200 mg DAILY ORAL 08/05/17 18:00 09/04/17 17:59 08/12/17 08:29 Isoniazid (Inh) 300 mg DAILY ORAL 08/05/17 18:00 09/04/17 17:59 08/12/17 08:30 Metoprolol Succinate (Toprol XL) 50 mg DAILY ORAL 07/29/17 11:00 08/28/17 10:59 08/12/17 08:35 Multivitamins Therapeutic (Therapeutic Multivitamin) 1 ea DAILY ORAL 07/25/17 09:00 08/24/17 08:59 08/12/17 08:33 Ondansetron HCl (Zofran) 4 mg Q6H PRN IVP Nausea & Vomiting 07/22/17 14:30 08/19/17 14:29 08/11/17 05:46 Pantoprazole (Protonix) 40 mg ACBREAKFAST ORAL 07/23/17 09:00 08/22/17 08:59 08/12/17 06:10 Pyrazinamide (Pza) 1,500 mg DAILY ORAL 08/05/17 18:00 09/04/17 17:59 08/12/17 08:33 Pyridoxine HCl (Vitamin B6) 50 mg DAILY ORAL 08/06/17 09:00 09/05/17 08:59 08/12/17 08:34 Rifabutin (Mycobutin) 300 mg DAILY ORAL 08/10/17 09:00 09/09/17 08:59 08/12/17 08:32 Trimethoprim/ Sulfamethoxazole (Bactrim-DS) 1 ea DAILY ORAL 08/12/17 09:00 09/11/17 08:59 08/12/17 08:28 Valganciclovir (Valcyte) 900 mg DAILY ORAL 08/13/17 09:00 09/12/17 08:59 Vitamin D (Vitamin D) 1,000 intlu DAILY ORAL 07/25/17 09:00 08/24/17 08:59 08/12/17 08:34 MAKAYLA GARZA Aug 12, 2017 14:13
[2017-08-12 16:00] VITALS: BP 91/50
[2017-08-12 20:00] VITALS: BP 91/54
[2017-08-12] MEDS: Enoxaparin 40mg Inj SUBQ SCH (21:13)
[2017-08-13 00:13] VITALS: BP 99/61
[2017-08-13 04:00] VITALS: BP 100/62
[2017-08-13 05:28] LABS: LIPASE 2737 U/L (73-393)
[2017-08-13 05:36] LABS: AMYLASE 508 U/L (25-115)
[2017-08-13 08:00] VITALS: BP 102/62
[2017-08-13] MEDS: Metoprolol Succinate XL 50mg tab ORAL SCH (09:00)
[2017-08-13] MEDS: Docusate 100mg cap ORAL SCH ×2 (09:00→21:00)
[2017-08-13] MEDS: Vitamin D 1000 IU Tab ORAL SCH (09:32)
[2017-08-13] MEDS: Multivitamin w/Minerals tab ORAL SCH (09:32)
[2017-08-13] MEDS: Isoniazid 300mg tab ORAL SCH (09:33)
[2017-08-13] MEDS: Aspirin EC 81mg tab ORAL SCH (09:33)
[2017-08-13] MEDS: Rifabutin 150mg cap ORAL SCH (09:34)
[2017-08-13] MEDS: Pyridoxine 50mg tab ORAL SCH (09:34)
[2017-08-13] MEDS: Bactrim DS (160mg/800mg) tab ORAL SCH (09:34)
--- NOTE | 2017-08-13 10:14 | General Progress Note ---
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 No acute event. Left sided vision impairment Objective Last 24 Hour Vital Signs Date Time Temp Pulse Resp B/P (MAP) Pulse Ox O2 Delivery O2 Flow Rate FiO2 08/13/17 09:00 100 102/62 08/13/17 08:00 96 08/13/17 08:00 98.3 100 21 102/62 100 Room Air 08/13/17 04:00 92 08/13/17 04:00 97.9 88 18 100/62 99 Room Air 08/13/17 00:20 98 Room Air 08/13/17 00:13 97.5 88 18 99/61 89 Room Air 08/13/17 00:00 86 08/12/17 20:00 89 08/12/17 20:00 98.0 84 18 91/54 98 Room Air 08/12/17 16:02 84 08/12/17 16:00 98.2 82 18 91/50 98 Room Air 08/12/17 12:31 96 08/12/17 12:00 98.2 94 104/64 08/12/17 10:28 98 Intake and Output 08/13/17 08/14/17 19:00 07:00 Intake Total 150 ml Output Total 400 ml Balance -250 ml Intake Oral 150 ml Output Urine Total 400 ml # Voids 2 # Bowel Movements 2 Laboratory Tests 08/13/17 04:15: Amylase Level 508*H, Lipase 2737H Height (Feet): 5 Height (Inches): 8.00 Weight (Pounds): 113 Objective NAD, AAOx3 mild bilat basilar crackles+ S1,S2,RRR, no M/R/G soft,non tender, BS+ no edema PORTER,OSITO Aug 13, 2017 10:14
[2017-08-13 12:00] VITALS: BP 102/57
--- NOTE | 2017-08-13 14:17 | Infectious Diseases Prog Note ---
Assessment/Plan Assessment/Plan A) 1) pna, + H. Influenza pna/cap pna, ? pcp, ? TB pna, sepsis, shock, fevers, likely cmv retinitis right eye with vision loss, doubt meningitis based on LP with 2 wbc, CMV pcr + - pna clinically better, less sob, chest x-ray better - still with right eye vision loss - d/w Dr. Villeda from ophthalmology and patient unlikely to have right eye vision improvement but trying to prevent further left vision loss - CT chest findings noted, pneumomediastinum 2) hiv, aids - cd4 - 55, viral load - 347, 790 3) ? pancreatitis with elevated amylase and lipase - ? meds and d/w pharmacy and both ganciclovir and tivicay/truvada can cause pancreatitis, ? biliary tract , ct a/p noted 4) allergies - negative, fh-nc, sh-negative, mar noted 5) d/w RN 6) notes and records noted P) 1) bactrim and azithromycin prophylaxis, s/p tx for pn, TB tx per department of health recommendations 2) valganciclovir 900mg/daily, s/p induction - hold for now secondary to pancreatitis 3) ophthalmology f/u for intravitreal ganciclovir or foscarnet once available , still not initiated 4) hold tivicay and truvada because of pancreatitis 5) continue tx per primary and consultants, GI evaluation for ? cause pancreatitis, pulmonary evaluation noted for CT chest findings, us ordered 6) f/u labs, lipase and amylase 7) cd4 - 55, viral load > 300, 000 8) patient to f/u with primary hiv MD as outpatient for f/y vl and cd4 and genotyping if needed Subjective Constitutional: Denies: fever HEENT: Denies: congestion Gastrointestinal/Abdominal: Reports: nausea, Denies: vomiting, diarrhea Genitourinary: Denies: dysuria, hematuria Neurologic: Denies: headache Psychiatric: Denies: depression Hematologic: Denies: bleeding Musculoskeletal: Denies: pain Allergies: Coded Allergies: No Known Allergies (Unverified , 07/20/17) Objective Vital Signs Last 24 Hour Vital Signs Date Time Temp Pulse Resp B/P (MAP) Pulse Ox O2 Delivery O2 Flow Rate FiO2 08/13/17 12:00 98.0 92 21 102/57 98 Room Air 08/13/17 12:00 92 08/13/17 09:00 100 102/62 08/13/17 08:00 96 08/13/17 08:00 98.3 100 21 102/62 100 Room Air 08/13/17 04:00 92 08/13/17 04:00 97.9 88 18 100/62 99 Room Air 08/13/17 00:20 98 Room Air 08/13/17 00:13 97.5 88 18 99/61 89 Room Air 08/13/17 00:00 86 08/12/17 20:00 89 08/12/17 20:00 98.0 84 18 91/54 98 Room Air 08/12/17 16:02 84 08/12/17 16:00 98.2 82 18 91/50 98 Room Air Height (Feet): 5 Height (Inches): 8.00 Weight (Pounds): 113 General Appearance: no acute distress HEENT: normocephalic, atraumatic, anicteric, mucous membranes moist, EOMI, pharynx normal, supple, no JVD Respiratory/Chest: normal breath sounds, no respiratory distress, no accessory muscle use, rhonchi - bilaterally Cardiovascular: normal rate, regular rhythm, no gallop/murmur, no JVD Abdomen: normal bowel sounds, soft, non tender, no organomegaly, non distended Genitourinary: other - no cox Extremities: no cyanosis Skin: no rash Neurologic/Psychiatric: 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 Infiltrates in the left lung appears slightly more diffuse, and infiltrates in the right lung appear slightly more extensive. Pleural spaces remain clear. Heart size is normal Impression: Slightly increased infiltrates bilaterally, over 2 days Chest x-ray - 07/24 Findings: Left internal jugular central line is again noted. Cardiomediastinal silhouette is stable. Patchy infiltrates are again noted of the lungs bilaterally. Osseous structures are stable. Impression: No interval change from 07/22/17. 07/25 - chest x-ray Comparison: 07/24/2017 Findings: There is a left jugular central venous catheter and demonstrated. Diffuse mostly upper lung interstitial and alveolar patchy parenchymal infiltrates appears slightly improved, patient on the left. New infiltrates. No effusions. Normal heart size Impression: Slight improvement of parenchymal disease on the left. Otherwise little change, over one day Chest x-ray - 07/28 - Impression: Essentially unchanged bilateral mid and upper lung airspace opacities. However, there is questionable interim cavitation of some of the opacities on the right. 07/30 - chest x-ray - no change (report noted) CT chest: Impression: Pulmonary hyperexpansion. Subcutaneous emphysema in neck and upper chest as well as mediastinal emphysema. Multiple ill-defined groundglass opacities in the lungs bilaterally. This is likely inflammatory. Ill-defined nodule in the right upper lobe, also probably inflammatory given the nature of the other infiltrates. Attempts to reach Dr. Escobar are unsuccessful. The patient's nurse was notified by phone at 10:55 AM 08/07/2017. She informed me that she would relay the message to Dr. Escobar. Chest x-ray - 08/08 - Impression: Stable bilateral neck and supraclavicular subcutaneous emphysema and likely pneumomediastinum Bilateral upper lung interstitial opacities are somewhat less prominent on the current study, may reflect improving parenchymal disease Other findings as noted CT - chest - 08/09 noted, report noted Microbiology Date/Time Source Procedure Growth Status 07/20/17 16:19 Blood Blood Culture - Final NO GROWTH AFTER 5 DAYS Complete 08/01/17 16:30 Cerebral Spinal Fluid Gram Stain - Final Complete 08/01/17 16:30 Cerebral Spinal Fluid CSF Culture - Final NO GROWTH Complete 08/03/17 06:00 Sputum AFB Specimen Processing Tissue - Final Resulted 08/03/17 06:00 Sputum Acid Fast Bacilli Smear - Final Resulted 08/03/17 06:00 Sputum Acid Fast Bacilli Culture Pending Resulted 07/20/17 22:30 Stool Clostridium difficile Toxin Assay - Final Complete 07/20/17 15:40 Rectum VRE Culture - Final NO VANCOMYCIN RESISTANT ENTEROCOCCUS ... Complete Labs Test 08/11/17 03:55 08/11/17 20:00 08/12/17 04:20 08/13/17 04:15 Sodium Level 132 MMOL/L (136-145) 132 MMOL/L (136-145) Potassium Level 4.0 MMOL/L (3.5-5.1) 3.6 MMOL/L (3.5-5.1) Chloride Level 103 MMOL/L (98-107) 104 MMOL/L (98-107) Carbon Dioxide Level 18 MMOL/L (21-32) 20 MMOL/L (21-32) Anion Gap 11 mmol/L (5-15) 8 mmol/L (5-15) Blood Urea Nitrogen 18 mg/dL (7-18) 14 mg/dL (7-18) Creatinine 0.8 MG/DL (0.55-1.30) 0.7 MG/DL (0.55-1.30) Estimat Glomerular Filtration Rate > 60 mL/min (>60) > 60 mL/min (>60) Glucose Level 104 MG/DL (74-106) 99 MG/DL (74-106) Calcium Level 8.2 MG/DL (8.5-10.1) 8.2 MG/DL (8.5-10.1) Urine Osmolality 857 mOsm/kg (429-449) White Blood Count 2.7 K/UL (4.8-10.8) Red Blood Count 3.56 M/UL (4.70-6.10) Hemoglobin 10.6 G/DL (14.2-18.0) Hematocrit 30.9 % (42.0-52.0) Mean Corpuscular Volume 87 FL (80-99) Mean Corpuscular Hemoglobin 29.7 PG (27.0-31.0) Mean Corpuscular Hemoglobin Concent 34.2 G/DL (32.0-36.0) Red Cell Distribution Width 17.3 % (11.6-14.8) Platelet Count 205 K/UL (150-450) Mean Platelet Volume 7.6 FL (6.5-10.1) Neutrophils (%) (Auto) % (45.0-75.0) Lymphocytes (%) (Auto) % (20.0-45.0) Monocytes (%) (Auto) % (1.0-10.0) Eosinophils (%) (Auto) % (0.0-3.0) Basophils (%) (Auto) % (0.0-2.0) Differential Total Cells Counted 100 Neutrophils % (Manual) 77 % (45-75) Lymphocytes % (Manual) 6 % (20-45) Monocytes % (Manual) 4 % (1-10) Eosinophils % (Manual) 13 % (0-3) Basophils % (Manual) 0 % (0-2) Band Neutrophils 0 % (0-8) Platelet Estimate Adequate Platelet Morphology Normal Hypochromasia 1+ Total Bilirubin 0.1 MG/DL (0.2-1.0) Aspartate Amino Transf (AST/SGOT) 32 U/L (15-37) Alanine Aminotransferase (ALT/SGPT) 33 U/L (12-78) Alkaline Phosphatase 88 U/L (46-116) Total Protein 6.1 G/DL (6.4-8.2) Albumin 2.4 G/DL (3.4-5.0) Globulin 3.7 g/dL Albumin/Globulin Ratio 0.6 (1.0-2.7) Amylase Level 424 U/L (25-115) 508 U/L (25-115) Lipase 2399 U/L (73-393) 2737 U/L (73-393) Laboratory Tests Test 08/13/17 04:15 Amylase Level 508 U/L (25-115) *H Lipase 2737 U/L (73-393) H Current Medications Medications (Trade) Dose Ordered Sig/Gabriela Route PRN Reason Start Time Stop Time Status Last Admin Dose Admin Acetaminophen (Tylenol) 650 mg Q4H PRN ORAL Mild Pain (Pain Scale 1-3) 07/22/17 14:30 08/19/17 14:29 07/22/17 20:48 Aspirin (Ecotrin) 81 mg DAILY ORAL 07/30/17 09:00 08/29/17 08:59 08/13/17 09:33 Azithromycin (Zithromax) 1,200 mg QWEEK ORAL 08/01/17 09:00 09/04/17 08:59 08/08/17 09:03 Dextrose (Dextrose 50%) STAT PRN IV Hypoglycemia 07/22/17 14:30 08/19/17 14:29 Diphenhydramine HCl (Benadryl) 25 mg Q6H PRN ORAL Itching/Pruritis 07/22/17 14:30 08/19/17 14:29 08/05/17 22:28 Docusate Sodium (Colace) 100 mg EVERY 12 HOURS ORAL 07/22/17 21:00 08/19/17 20:59 08/10/17 21:11 Enoxaparin Sodium (Lovenox) 40 mg QHS SUBQ 07/22/17 21:00 08/19/17 20:59 08/12/17 21:13 Ethambutol HCl (Myambutol) 1,200 mg DAILY ORAL 08/05/17 18:00 09/04/17 17:59 08/13/17 09:34 Isoniazid (Inh) 300 mg DAILY ORAL 08/05/17 18:00 09/04/17 17:59 08/13/17 09:33 Metoprolol Succinate (Toprol XL) 50 mg DAILY ORAL 07/29/17 11:00 08/28/17 10:59 08/12/17 08:35 Multivitamins Therapeutic (Therapeutic Multivitamin) 1 ea DAILY ORAL 07/25/17 09:00 08/24/17 08:59 08/13/17 09:32 Ondansetron HCl (Zofran) 4 mg Q6H PRN IVP Nausea & Vomiting 07/22/17 14:30 08/19/17 14:29 08/11/17 05:46 Pantoprazole (Protonix) 40 mg ACBREAKFAST ORAL 07/23/17 09:00 08/22/17 08:59 08/13/17 06:13 Pyrazinamide (Pza) 1,500 mg DAILY ORAL 08/05/17 18:00 09/04/17 17:59 08/13/17 09:34 Pyridoxine HCl (Vitamin B6) 50 mg DAILY ORAL 08/06/17 09:00 09/05/17 08:59 08/13/17 09:34 Rifabutin (Mycobutin) 300 mg DAILY ORAL 08/10/17 09:00 09/09/17 08:59 08/13/17 09:34 Trimethoprim/ Sulfamethoxazole (Bactrim-DS) 1 ea DAILY ORAL 08/12/17 09:00 09/11/17 08:59 08/13/17 09:34 Valganciclovir (Valcyte) 900 mg DAILY ORAL 08/13/17 09:00 09/12/17 08:59 08/13/17 09:32 Vitamin D (Vitamin D) 1,000 intlu DAILY ORAL 07/25/17 09:00 08/24/17 08:59 08/13/17 09:32 WEN ANTOINE Aug 13, 2017 14:17
--- NOTE | 2017-08-13 14:18 | Diagnostic Imaging Report ---
Indication: Flank pain TECHNIQUE: Multiplanar grayscale and color Doppler imaging of the abdomen. COMPARISON: CT of the abdomen and pelvis 07/20/2017 FINDINGS: Imaged portions of the pancreatic head unremarkable in appearance. There is diffuse increased hepatic echogenicity. No discrete liver lesion is appreciated. Hepatic contour is smooth. Liver is normal in size, measuring 14.8 cm in length. Gallbladder is unremarkable in appearance. There is no gallbladder wall thickening or pericholecystic fluid. No appreciable cholelithiasis. Portal vein is patent with normal direction of flow. Common bile duct measures 2.7 mm in diameter. Right kidney measures 10.1 cm in length. Left kidney measures 14.7 cm in length. Both kidneys demonstrate normal parenchymal thickness and echogenicity. Normal color flow to the bilateral kidneys is seen. There is no urinary tract stone or hydronephrosis bilaterally.. Spleen measures 9 cm in length. Imaged portions of the IVC and aorta are normal in caliber. There is no ascites.. IMPRESSION: Diffusely increased hepatic echogenicity most commonly reflective of hepatic steatosis. Additional hepatocellular disease should be excluded clinically. Otherwise, unremarkable abdominal sonogram.
--- NOTE | 2017-08-13 15:50 | General Progress Note ---
Assessment/Plan Assessment/Plan GI CONSULT ATSP for pancreatitis Assessment Asymptomatic enzymatic pancreatitis ? infectious (CMV, TB) ? Meds (Bactrim, other) ? structural (pancreas divisum) ? microlithiasis ? autoimmune Recommendations check MRCP check IgG4 Will consider EUS Subjective Allergies: Coded Allergies: No Known Allergies (Unverified , 07/20/17) Objective Last 24 Hour Vital Signs Date Time Temp Pulse Resp B/P (MAP) Pulse Ox O2 Delivery O2 Flow Rate FiO2 08/13/17 12:00 98.0 92 21 102/57 98 Room Air 08/13/17 12:00 92 08/13/17 09:00 100 102/62 08/13/17 08:00 96 08/13/17 08:00 98.3 100 21 102/62 100 Room Air 08/13/17 04:00 92 08/13/17 04:00 97.9 88 18 100/62 99 Room Air 08/13/17 00:20 98 Room Air 08/13/17 00:13 97.5 88 18 99/61 89 Room Air 08/13/17 00:00 86 08/12/17 20:00 89 08/12/17 20:00 98.0 84 18 91/54 98 Room Air 08/12/17 16:02 84 08/12/17 16:00 98.2 82 18 91/50 98 Room Air Intake and Output 08/13/17 08/14/17 19:00 07:00 Intake Total 180 ml Output Total 500 ml Balance -320 ml Intake Oral 180 ml Output Urine Total 500 ml # Voids 3 # Bowel Movements 5 Laboratory Tests 08/13/17 04:15: Amylase Level 508*H, Lipase 2737H Height (Feet): 5 Height (Inches): 8.00 Weight (Pounds): 113 PADMAJA HERNANDEZ Aug 13, 2017 15:50
[2017-08-13 16:00] VITALS: BP 100/69
[2017-08-13 20:47] VITALS: BP 96/63
[2017-08-13] MEDS: Enoxaparin 40mg Inj SUBQ SCH (22:26)
[2017-08-14] VITALS: BP 100/62
[2017-08-14 04:00] VITALS: BP 104/55
[2017-08-14 04:42] LABS: MEAN CORPUSCULAR HEMOGLOBIN 30.2 PG (27.0-31.0); MEAN CORPUSCULAR HGB CONC 34.2 G/DL (32.0-36.0); MEAN CORPUSCULAR VOLUME 88 FL (80-99); MEAN PLATELET VOLUME 7.1 FL (6.5-10.1); PLATELET COUNT 207 K/UL (150-450); RED BLOOD COUNT 3.57 M/UL (4.70-6.10); RED CELL DISTRIBUTION WIDTH 18.1 % (11.6-14.8); WHITE BLOOD COUNT 3.2 K/UL (4.8-10.8)
--- NOTE | 2017-08-14 05:01 | Consultation ---
DATE OF CONSULTATION: 08/13/2017 GASTROENTEROLOGY CONSULTATION CONSULTING PHYSICIAN: Kristie Starks M.D. REFERRING PHYSICIAN: Jose Roberson M.D. CHIEF COMPLAINT: I was asked to see this patient by Dr. Jose Roberson for evaluation of pancreatitis. HISTORY OF PRESENT ILLNESS: The patient is a 51-year-old man, who was brought into the hospital due to multiple medical problems. The patient has HIV and is also positive for CMV. He has been on multiple medications and tuberculosis is suspected. During the course of his stay, the amylase and lipase have been noted to be elevated and are rising. The patient denies any abdominal pain. He had some nausea and vomiting before he was admitted, but he feels better now and is essentially asymptomatic. He drinks only occasionally, but has not drank for several months and he has never had a history of pancreatitis or gallstones reviewed in the past. PAST MEDICAL HISTORY: History of AIDS. MEDICATIONS: See chart for details. ALLERGIES: None. FAMILY HISTORY: Noncontributory. SOCIAL HISTORY: The patient does not smoke or drink at this time. REVIEW OF SYSTEMS: Otherwise negative. PHYSICAL EXAMINATION: GENERAL: Thin white man seen in his room. HEENT: Normocephalic and atraumatic. Sclerae anicteric. Oropharynx clear. NECK: Supple. CHEST: Clear to auscultation. CARDIOVASCULAR: Revealed a regular rate. ABDOMEN: Soft and nontender. EXTREMITIES: Revealed no edema. LABORATORY AND DIAGNOSTIC DATA: Laboratory data were noted. Imaging studies were noted. ASSESSMENT: This patient presents with significant elevation in amylase and lipase consistent with enzymatic pancreatitis, but is essentially asymptomatic. Differential diagnosis would include antigens such as infectious pancreatitis, which was seen as Cytomegalovirus, Cryptosporidium, and other pathogens. Other possibilities would include drug-induced pancreatitis such as that seen with Bactrim and other medications. Autoimmune pancreatitis can be considered, but this is not likely. Structural abnormalities such as that seen in pancreatic disease or microlithiasis can be seen. RECOMMENDATIONS: 1. CMV treatment per Infectious Diseases men's custom hair piece consultant. 2. Check MRCP. 3. We will consider EUS. 4. Check IgG-4. 5. Eliminate medications, which may have pancreatitis side effects as feasible. Thank you for asking me to participate in the care of this patient. Kristie Starks M.D. DR: DIA JOB#: [id number] CC:
[2017-08-14 05:06] LABS: BAND NEUTROPHILS % (MANUAL) 0 % (0-8); BASOPHILS % (MANUAL) 1 % (0-2); EOSINOPHILS % (MANUAL) 6 % (0-3); LYMPHOCYTES % (MANUAL) 11 % (20-45); NEUTROPHILS % (MANUAL) 80 % (45-75); PLATELET ESTIMATE ADEQUATE; PLATELET MORPHOLOGY NORMAL; TOTAL CELLS COUNTED 100
[2017-08-14 05:13] LABS: ALANINE AMINOTRANSFERASE 41 U/L (12-78); ALBUMIN/GLOBULIN RATIO 0.7 (1.0-2.7); AMYLASE 466 U/L (25-115); ANION GAP 7 mmol/L (5-15); ASPARTATE AMINO TRANSFERASE 39 U/L (15-37); CALCIUM 8.2 MG/DL (8.5-10.1); CARBON DIOXIDE 24 MMOL/L (21-32); CHLORIDE 105 MMOL/L (98-107); CREATININE 0.7 MG/DL (0.55-1.30); GLOMERULAR FILTRATION RATE > 60 mL/min (>60); LIPASE 2484 U/L (73-393); POTASSIUM 3.9 MMOL/L (3.5-5.1); SODIUM 135 MMOL/L (136-145); TOTAL PROTEIN 6.3 G/DL (6.4-8.2)
[2017-08-14 08:00] VITALS: BP 100/58
[2017-08-14] MEDS: Metoprolol Succinate XL 50mg tab ORAL SCH (09:00)
[2017-08-14] MEDS: Docusate 100mg cap ORAL SCH ×2 (09:00→21:00)
[2017-08-14] MEDS: Aspirin EC 81mg tab ORAL SCH (09:31)
[2017-08-14] MEDS: Vitamin D 1000 IU Tab ORAL SCH (09:31)
[2017-08-14] MEDS: Pyridoxine 50mg tab ORAL SCH (09:32)
[2017-08-14] MEDS: Isoniazid 300mg tab ORAL SCH (09:32)
[2017-08-14] MEDS: Rifabutin 150mg cap ORAL SCH (09:32)
[2017-08-14] MEDS: Multivitamin w/Minerals tab ORAL SCH (09:32)
[2017-08-14] MEDS: Bactrim DS (160mg/800mg) tab ORAL SCH (09:35)
[2017-08-14 12:00] VITALS: BP 96/66
--- NOTE | 2017-08-14 13:28 | General Progress Note ---
Assessment/Plan Assessment/Plan Assessment Asymptomatic enzymatic pancreatitis ? infectious (CMV, TB) ? Meds (Bactrim, other) ? structural (pancreas divisum) ? microlithiasis ? autoimmune Recommendations check MRCP - ordered check IgG4 - pending Will consider EUS Subjective Allergies: Coded Allergies: No Known Allergies (Unverified , 07/20/17) Subjective Feels OK no abd pain Objective Last 24 Hour Vital Signs Date Time Temp Pulse Resp B/P (MAP) Pulse Ox O2 Delivery O2 Flow Rate FiO2 08/14/17 12:00 97.3 99 18 96/66 100 Room Air 08/14/17 09:00 99 100/58 08/14/17 08:00 97.0 99 20 100/58 100 Room Air 08/14/17 08:00 99 08/14/17 04:00 91 08/14/17 04:00 97.7 93 20 104/55 98 Room Air 08/14/17 00:00 105 08/14/17 00:00 98.1 102 20 100/62 100 Room Air 08/13/17 20:47 98.4 124 20 96/63 100 Room Air 08/13/17 20:00 96 08/13/17 19:42 120 08/13/17 16:00 108 08/13/17 16:00 98.5 111 20 100/69 98 Room Air Laboratory Tests 08/14/17 04:00: White Blood Count 3.2L, Red Blood Count 3.57L, Hemoglobin 10.8L, Hematocrit 31.5L, Mean Corpuscular Volume 88, Mean Corpuscular Hemoglobin 30.2, Mean Corpuscular Hemoglobin Concent 34.2, Red Cell Distribution Width 18.1H, Platelet Count 207, Mean Platelet Volume 7.1, Neutrophils (%) (Auto) , Lymphocytes (%) (Auto) , Monocytes (%) (Auto) , Eosinophils (%) (Auto) , Basophils (%) (Auto) , Differential Total Cells Counted 100, Neutrophils % ( Manual) 80H, Lymphocytes % (Manual) 11L, Monocytes % (Manual) 2, Eosinophils % ( Manual) 6H, Basophils % (Manual) 1, Band Neutrophils 0, Platelet Estimate Adequate, Platelet Morphology Normal, Sodium Level 135L, Potassium Level 3.9, Chloride Level 105, Carbon Dioxide Level 24, Anion Gap 7, Blood Urea Nitrogen 17 , Creatinine 0.7, Estimat Glomerular Filtration Rate > 60, Glucose Level 106, Calcium Level 8.2L, Total Bilirubin < 0.1L, Aspartate Amino Transf (AST/SGOT) 39H, Alanine Aminotransferase (ALT/SGPT) 41, Alkaline Phosphatase 90, Total Protein 6.3L, Albumin 2.6L, Globulin 3.7, Albumin/Globulin Ratio 0.7L, Amylase Level 466H, Lipase 2484H, Immunoglobulin G [Pending], Immunoglobulin G1 [Pending ], Immunoglobulin G2 [Pending], Immunoglobulin G3 [Pending], Immunoglobulin G4 [ Pending] Height (Feet): 5 Height (Inches): 8.00 Weight (Pounds): 116 Objective Thin WM NCAT supple CTA RRR soft ND NT no edema nonfocal PADMAJA HERNANDEZ Aug 14, 2017 13:28
--- NOTE | 2017-08-14 14:05 | General Progress Note ---
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 No acute event. Left sided vision impairment Objective Last 24 Hour Vital Signs Date Time Temp Pulse Resp B/P (MAP) Pulse Ox O2 Delivery O2 Flow Rate FiO2 08/14/17 12:00 93 08/14/17 12:00 97.3 99 18 96/66 100 Room Air 08/14/17 09:00 99 100/58 08/14/17 08:00 97.0 99 20 100/58 100 Room Air 08/14/17 08:00 99 08/14/17 04:00 91 08/14/17 04:00 97.7 93 20 104/55 98 Room Air 08/14/17 00:00 105 08/14/17 00:00 98.1 102 20 100/62 100 Room Air 08/13/17 20:47 98.4 124 20 96/63 100 Room Air 08/13/17 20:00 96 08/13/17 19:42 120 08/13/17 16:00 108 08/13/17 16:00 98.5 111 20 100/69 98 Room Air Laboratory Tests 08/14/17 04:00: White Blood Count 3.2L, Red Blood Count 3.57L, Hemoglobin 10.8L, Hematocrit 31.5L, Mean Corpuscular Volume 88, Mean Corpuscular Hemoglobin 30.2, Mean Corpuscular Hemoglobin Concent 34.2, Red Cell Distribution Width 18.1H, Platelet Count 207, Mean Platelet Volume 7.1, Neutrophils (%) (Auto) , Lymphocytes (%) (Auto) , Monocytes (%) (Auto) , Eosinophils (%) (Auto) , Basophils (%) (Auto) , Differential Total Cells Counted 100, Neutrophils % ( Manual) 80H, Lymphocytes % (Manual) 11L, Monocytes % (Manual) 2, Eosinophils % ( Manual) 6H, Basophils % (Manual) 1, Band Neutrophils 0, Platelet Estimate Adequate, Platelet Morphology Normal, Sodium Level 135L, Potassium Level 3.9, Chloride Level 105, Carbon Dioxide Level 24, Anion Gap 7, Blood Urea Nitrogen 17 , Creatinine 0.7, Estimat Glomerular Filtration Rate > 60, Glucose Level 106, Calcium Level 8.2L, Total Bilirubin < 0.1L, Aspartate Amino Transf (AST/SGOT) 39H, Alanine Aminotransferase (ALT/SGPT) 41, Alkaline Phosphatase 90, Total Protein 6.3L, Albumin 2.6L, Globulin 3.7, Albumin/Globulin Ratio 0.7L, Amylase Level 466H, Lipase 2484H, Immunoglobulin G [Pending], Immunoglobulin G1 [Pending ], Immunoglobulin G2 [Pending], Immunoglobulin G3 [Pending], Immunoglobulin G4 [ Pending] Height (Feet): 5 Height (Inches): 8.00 Weight (Pounds): 116 Objective NAD, AAOx3 mild bilat basilar crackles+ S1,S2,RRR, no M/R/G soft,non tender, BS+ no edema PORTEROSITO Aug 14, 2017 14:05
[2017-08-14 16:00] VITALS: BP 113/74
[2017-08-14 20:00] VITALS: BP 109/58
[2017-08-14] MEDS: Enoxaparin 40mg Inj SUBQ SCH (21:25)
[2017-08-15 00:53] VITALS: BP 101/55
[2017-08-15 04:00] VITALS: BP 101/55
[2017-08-15 05:48] LABS: AMYLASE 433 U/L (25-115); LIPASE 2345 U/L (73-393)
[2017-08-15 08:00] VITALS: BP 99/61
[2017-08-15] MEDS: Docusate 100mg cap ORAL SCH ×2 (09:00→21:00)
--- NOTE | 2017-08-15 11:17 | GI Progress Note ---
Assessment/Plan Problems: (1) Anemia ICD Codes: D64.9 - Anemia, unspecified SNOMED: 294833031 (2) CMV retinitis (3) Elevated lipase ICD Codes: R74.8 - Abnormal levels of other serum enzymes SNOMED: 442028673 (4) AIDS (acquired immune deficiency syndrome) ICD Codes: B20 - Human immunodeficiency virus [HIV] disease SNOMED: 89291901 (5) Severe malnutrition ICD Codes: E43 - Unspecified severe protein-calorie malnutrition SNOMED: 97211053 Status: unchanged Status Narrative Discussed with Dr. Torres. Assessment/Plan Assessment Asymptomatic enzymatic pancreatitis ? infectious (CMV, TB) ? Meds (Bactrim, other) ? structural (pancreas divisum) ? microlithiasis ? autoimmune Recommendations check MRCP - ordered check IgG4 - pending Will consider EUS ppi bowel regime fu labs Subjective Subjective denies any abdominal pain working with PT today tolerating diet Objective Last 24 Hour Vital Signs Date Time Temp Pulse Resp B/P (MAP) Pulse Ox O2 Delivery O2 Flow Rate FiO2 08/15/17 08:00 99 08/15/17 04:00 98.1 113 20 101/55 99 Room Air 08/15/17 04:00 113 08/15/17 00:53 98.6 97 20 101/55 99 Room Air 08/15/17 00:00 128 08/14/17 20:00 115 08/14/17 20:00 98.2 98 20 109/58 97 Room Air 08/14/17 16:00 101 08/14/17 16:00 97.2 101 20 113/74 100 Room Air 08/14/17 12:00 93 08/14/17 12:00 97.3 99 18 96/66 100 Room Air Laboratory Tests Test 08/15/17 05:00 Amylase Level 433 U/L (25-115) H Lipase 2345 U/L (73-393) H Height (Feet): 5 Height (Inches): 8.00 Weight (Pounds): 118 General Appearance: WD/WN, no apparent distress, alert, thin Cardiovascular: normal rate Respiratory/Chest: normal breath sounds, no respiratory distress Abdominal Exam: normal bowel sounds, non tender, soft Extremities: normal range of motion, non-tender Aissatou Vela N.PNoah Aug 15, 2017 11:17
[2017-08-15] MEDS: Bactrim DS (160mg/800mg) tab ORAL SCH (11:39)
[2017-08-15] MEDS: Vitamin D 1000 IU Tab ORAL SCH (11:39)
[2017-08-15] MEDS: Aspirin EC 81mg tab ORAL SCH (11:40)
[2017-08-15] MEDS: Metoprolol Succinate XL 50mg tab ORAL SCH (11:40)
[2017-08-15] MEDS: Isoniazid 300mg tab ORAL SCH (11:41)
[2017-08-15] MEDS: Rifabutin 150mg cap ORAL SCH (11:42)
[2017-08-15] MEDS: Multivitamin w/Minerals tab ORAL SCH (11:43)
[2017-08-15] MEDS: Azithromycin 600mg Tab ORAL SCH (11:43)
[2017-08-15] MEDS: Pyridoxine 50mg tab ORAL SCH (11:44)
[2017-08-15 12:00] VITALS: BP 117/60
--- NOTE | 2017-08-15 15:11 | Diagnostic Imaging Report ---
Indication: Abdominal pain. Pancreatitis Technique: MRI of the abdomen was performed in a 1.5 Devora magnet. Pulse sequences obtained include coronal and axial T2 single shot fast spin echo breathhold and respiratory gated coronal T2 3-D M.R.C.P.; this data set was displayed in different projections or MIPs. In addition, multiple coronal oblique thin T2 weighted, fat saturated SE sequences obtained through the CBD. Comparison: None Findings: Biliary ducts are not dilated. Gallbladder is unremarkable. There is no evidence of choledocholithiasis. Breathing motion limits evaluation. There is no free fluid identified. IMPRESSION: Negative MRCP
--- NOTE | 2017-08-15 15:23 | General Progress Note ---
Assessment/Plan Assessment/Plan AIDS - per ID. Pneumonia - m/p PCP with Cavitary Lesions. On [employer] IV Abx and IV Bactrim for immuno Compromised HIV patients. Doubt MTB. AFB's smear negative. DC Resp. Isolation. In KAY. Resolving. New neck Emphysema + Pneumomediastinum both minimal on CT scan. 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 New pancreatitis - negative MRCP! Etiology unclear. Nonresolving and unexplained. Unresolved blindness CT Chest much improved. Severe SIADH - resolved. Subjective Allergies: Coded Allergies: No Known Allergies (Unverified , 07/20/17) Subjective No new c/o. Ambulated with great difficulties and severe dyspnea. Objective Last 24 Hour Vital Signs Date Time Temp Pulse Resp B/P (MAP) Pulse Ox O2 Delivery O2 Flow Rate FiO2 08/15/17 12:00 97.0 138 20 117/60 100 Room Air 08/15/17 11:45 135 08/15/17 11:40 95 104/70 08/15/17 08:00 99 08/15/17 08:00 97.0 91 20 99/61 99 Room Air 08/15/17 04:00 98.1 113 20 101/55 99 Room Air 08/15/17 04:00 113 08/15/17 00:53 98.6 97 20 101/55 99 Room Air 08/15/17 00:00 128 08/14/17 20:00 115 08/14/17 20:00 98.2 98 20 109/58 97 Room Air 08/14/17 16:00 101 08/14/17 16:00 97.2 101 20 113/74 100 Room Air Laboratory Tests 08/15/17 05:00: Amylase Level 433H, Lipase 2345H Height (Feet): 5 Height (Inches): 8.00 Weight (Pounds): 118 Objective Rt. eye poor vision. Extremely Cachectic. CV RR Lungs CTA Abd SNT BS + E No CCE Neuro: very slow mentation! MOLLY VÁZQUEZ Aug 15, 2017 15:23
[2017-08-15 16:00] VITALS: BP 100/58
--- NOTE | 2017-08-15 16:30 | Infectious Diseases Prog Note ---
Assessment/Plan Assessment/Plan A) 1) pna, + H. Influenza pna/cap pna, ? pcp, ? 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 Villeda from ophthalmology and patient unlikely to have right eye vision improvement but trying to prevent further left vision loss - CT chest findings noted, pneumomediastinum 2) hiv, aids - cd4 - 55, viral load - 347, 790 3) ? pancreatitis with elevated amylase and lipase - ? meds, ? bactrim per GI consult notes, d/w pharmacy and both ganciclovir and tivicay/truvada can cause pancreatitis, ? biliary tract, ct a/p noted - amylase and lipase somewhat less - ganciclovir held, hiv tx held, bactrim pcp dosing changed to one tablet daily dosing for prophylaxis 4) allergies - negative, fh-nc, sh-negative, mar noted 5) d/w RN 6) notes and records noted P) 1) bactrim and azithromycin prophylaxis, s/p tx for pna, TB tx per department of health recommendations 2) valganciclovir 900mg/daily, s/p induction - hold for now secondary to pancreatitis, will d/w GI about restarting 3) ophthalmology f/u for intravitreal ganciclovir or foscarnet once available , still not initiated 4) hold tivicay and truvada because of pancreatitis - will d/w GI about restarting 5) continue tx per primary and consultants, GI evaluation for ? cause pancreatitis, pulmonary evaluation noted for CT chest findings, us ordered 6) f/u labs, lipase and amylase, check g-6pd 7) cd4 - 55, viral load > 300, 000 8) patient to f/u with primary hiv MD as outpatient for f/y vl and cd4 and genotyping if needed 9) d/w Dr. Roberson Subjective Constitutional: Denies: fever HEENT: Reports: other - vision overall improved, Denies: congestion Respiratory: Denies: shortness of breath Cardiovascular: Denies: chest pain Gastrointestinal/Abdominal: Denies: nausea, vomiting, diarrhea Genitourinary: Denies: dysuria, hematuria, frequency Neurologic: Denies: headache Psychiatric: Denies: depression Skin: Denies: rash Hematologic: Denies: bleeding Musculoskeletal: Denies: pain Allergies: Coded Allergies: No Known Allergies (Unverified , 07/20/17) Objective Vital Signs Last 24 Hour Vital Signs Date Time Temp Pulse Resp B/P (MAP) Pulse Ox O2 Delivery O2 Flow Rate FiO2 08/15/17 16:00 97.3 116 18 100/58 98 Room Air 08/15/17 12:00 97.0 138 20 117/60 100 Room Air 08/15/17 11:45 135 08/15/17 11:40 95 104/70 08/15/17 08:00 99 08/15/17 08:00 97.0 91 20 99/61 99 Room Air 08/15/17 04:00 98.1 113 20 101/55 99 Room Air 08/15/17 04:00 113 08/15/17 00:53 98.6 97 20 101/55 99 Room Air 08/15/17 00:00 128 08/14/17 20:00 115 08/14/17 20:00 98.2 98 20 109/58 97 Room Air Height (Feet): 5 Height (Inches): 8.00 Weight (Pounds): 118 General Appearance: no acute distress HEENT: normocephalic, atraumatic, anicteric, mucous membranes moist Respiratory/Chest: lungs clear, normal breath sounds, no respiratory distress, no accessory muscle use Cardiovascular: normal rate, regular rhythm, no gallop/murmur, no JVD Abdomen: normal bowel sounds, soft, non tender, no organomegaly, non distended Genitourinary: other - no cox Extremities: no cyanosis Skin: no rash Neurologic/Psychiatric: mixer dry food products II-XII 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 Infiltrates in the left lung appears slightly more diffuse, and infiltrates in the right lung appear slightly more extensive. Pleural spaces remain clear. Heart size is normal Impression: Slightly increased infiltrates bilaterally, over 2 days Chest x-ray - 07/24 Findings: Left internal jugular central line is again noted. Cardiomediastinal silhouette is stable. Patchy infiltrates are again noted of the lungs bilaterally. Osseous structures are stable. Impression: No interval change from 07/22/17. 07/25 - chest x-ray Comparison: 07/24/2017 Findings: There is a left jugular central venous catheter and demonstrated. Diffuse mostly upper lung interstitial and alveolar patchy parenchymal infiltrates appears slightly improved, patient on the left. New infiltrates. No effusions. Normal heart size Impression: Slight improvement of parenchymal disease on the left. Otherwise little change, over one day Chest x-ray - 07/28 - Impression: Essentially unchanged bilateral mid and upper lung airspace opacities. However, there is questionable interim cavitation of some of the opacities on the right. 07/30 - chest x-ray - no change (report noted) CT chest: Impression: Pulmonary hyperexpansion. Subcutaneous emphysema in neck and upper chest as well as mediastinal emphysema. Multiple ill-defined groundglass opacities in the lungs bilaterally. This is likely inflammatory. Ill-defined nodule in the right upper lobe, also probably inflammatory given the nature of the other infiltrates. Attempts to reach Dr. Escobar are unsuccessful. The patient's nurse was notified by phone at 10:55 AM 08/07/2017. She informed me that she would relay the message to Dr. Escobar. Chest x-ray - 08/08 - Impression: Stable bilateral neck and supraclavicular subcutaneous emphysema and likely pneumomediastinum Bilateral upper lung interstitial opacities are somewhat less prominent on the current study, may reflect improving parenchymal disease Other findings as noted CT - chest - 08/09 noted, report noted Microbiology Date/Time Source Procedure Growth Status 07/20/17 16:19 Blood Blood Culture - Final NO GROWTH AFTER 5 DAYS Complete 08/01/17 16:30 Cerebral Spinal Fluid Gram Stain - Final Complete 08/01/17 16:30 Cerebral Spinal Fluid CSF Culture - Final NO GROWTH Complete 08/03/17 06:00 Sputum AFB Specimen Processing Tissue - Final Resulted 08/03/17 06:00 Sputum Acid Fast Bacilli Smear - Final Resulted 08/03/17 06:00 Sputum Acid Fast Bacilli Culture Pending Resulted 07/20/17 22:30 Stool Clostridium difficile Toxin Assay - Final Complete 07/20/17 15:40 Rectum VRE Culture - Final NO VANCOMYCIN RESISTANT ENTEROCOCCUS ... Complete Laboratory Tests Test 08/15/17 05:00 Amylase Level 433 U/L (25-115) H Lipase 2345 U/L (73-393) H Current Medications Medications (Trade) Dose Ordered Sig/Gabriela Route PRN Reason Start Time Stop Time Status Last Admin Dose Admin Acetaminophen (Tylenol) 650 mg Q4H PRN ORAL Mild Pain (Pain Scale 1-3) 07/22/17 14:30 08/19/17 14:29 07/22/17 20:48 Aspirin (Ecotrin) 81 mg DAILY ORAL 07/30/17 09:00 08/29/17 08:59 08/15/17 11:40 Azithromycin (Zithromax) 1,200 mg QWEEK ORAL 08/01/17 09:00 09/04/17 08:59 08/15/17 11:43 Dextrose (Dextrose 50%) STAT PRN IV Hypoglycemia 07/22/17 14:30 08/19/17 14:29 Diphenhydramine HCl (Benadryl) 25 mg Q6H PRN ORAL Itching/Pruritis 07/22/17 14:30 08/19/17 14:29 08/05/17 22:28 Docusate Sodium (Colace) 100 mg EVERY 12 HOURS ORAL 07/22/17 21:00 08/19/17 20:59 08/10/17 21:11 Enoxaparin Sodium (Lovenox) 40 mg QHS SUBQ 07/22/17 21:00 08/19/17 20:59 08/14/17 21:25 Ethambutol HCl (Myambutol) 1,200 mg DAILY ORAL 08/05/17 18:00 09/04/17 17:59 08/15/17 11:42 Isoniazid (Inh) 300 mg DAILY ORAL 08/05/17 18:00 09/04/17 17:59 08/15/17 11:41 Metoprolol Succinate (Toprol XL) 50 mg DAILY ORAL 07/29/17 11:00 08/28/17 10:59 08/15/17 11:40 Multivitamins Therapeutic (Therapeutic Multivitamin) 1 ea DAILY ORAL 07/25/17 09:00 08/24/17 08:59 08/15/17 11:43 Ondansetron HCl (Zofran) 4 mg Q6H PRN IVP Nausea & Vomiting 07/22/17 14:30 08/19/17 14:29 08/11/17 05:46 Pantoprazole (Protonix) 40 mg ACBREAKFAST ORAL 07/23/17 09:00 08/22/17 08:59 08/15/17 05:55 Pyrazinamide (Pza) 1,500 mg DAILY ORAL 08/05/17 18:00 09/04/17 17:59 08/15/17 11:41 Pyridoxine HCl (Vitamin B6) 50 mg DAILY ORAL 08/06/17 09:00 09/05/17 08:59 08/15/17 11:44 Rifabutin (Mycobutin) 300 mg DAILY ORAL 08/10/17 09:00 09/09/17 08:59 08/15/17 11:42 Trimethoprim/ Sulfamethoxazole (Bactrim-DS) 1 ea DAILY ORAL 08/12/17 09:00 09/11/17 08:59 08/15/17 11:39 Vitamin D (Vitamin D) 1,000 intlu DAILY ORAL 07/25/17 09:00 08/24/17 08:59 08/15/17 11:39 WEN ANTOINE Aug 15, 2017 16:30
[2017-08-15 20:00] VITALS: BP 108/61
[2017-08-15] MEDS: Enoxaparin 40mg Inj SUBQ SCH (20:50)
[2017-08-16] VITALS (7 sets, daily range): BP systolic 93–115; BP diastolic 50–70
[2017-08-16 05:19] LABS: BASOPHILS % (AUTO) 1.5 % (0.0-2.0); EOSINOPHILS % (AUTO) 4.6 % (0.0-3.0); LYMPHOCYTES % (AUTO) 9.7 % (20.0-45.0); MEAN CORPUSCULAR HEMOGLOBIN 30.1 PG (27.0-31.0); MEAN CORPUSCULAR HGB CONC 33.5 G/DL (32.0-36.0); MEAN CORPUSCULAR VOLUME 90 FL (80-99); MEAN PLATELET VOLUME 6.7 FL (6.5-10.1); MONOCYTES % (AUTO) 0.5 % (1.0-10.0); NEUTROPHILS % (AUTO) 83.7 % (45.0-75.0); PLATELET COUNT 223 K/UL (150-450); RED BLOOD COUNT 3.12 M/UL (4.70-6.10); RED CELL DISTRIBUTION WIDTH 19.3 % (11.6-14.8); WHITE BLOOD COUNT 3.8 K/UL (4.8-10.8)
[2017-08-16 05:49] LABS: ALANINE AMINOTRANSFERASE 39 U/L (12-78); ALBUMIN/GLOBULIN RATIO 0.7 (1.0-2.7); AMYLASE 383 U/L (25-115); ANION GAP 7 mmol/L (5-15); ASPARTATE AMINO TRANSFERASE 24 U/L (15-37); CALCIUM 8.1 MG/DL (8.5-10.1); CARBON DIOXIDE 25 MMOL/L (21-32); CHLORIDE 105 MMOL/L (98-107); CREATININE 0.6 MG/DL (0.55-1.30); GLOMERULAR FILTRATION RATE > 60 mL/min (>60); LIPASE 2178 U/L (73-393); POTASSIUM 3.7 MMOL/L (3.5-5.1); SODIUM 137 MMOL/L (136-145); TOTAL PROTEIN 5.7 G/DL (6.4-8.2)
[2017-08-16] MEDS: Docusate 100mg cap ORAL SCH ×2 (08:11→21:27)
[2017-08-16] MEDS: Vitamin D 1000 IU Tab ORAL SCH (08:50)
[2017-08-16] MEDS: Multivitamin w/Minerals tab ORAL SCH (08:51)
[2017-08-16] MEDS: Pyridoxine 50mg tab ORAL SCH (08:51)
[2017-08-16] MEDS: Aspirin EC 81mg tab ORAL SCH (08:51)
[2017-08-16] MEDS: Isoniazid 300mg tab ORAL SCH (08:52)
[2017-08-16] MEDS: Rifabutin 150mg cap ORAL SCH (08:58)
[2017-08-16] MEDS: Metoprolol Succinate XL 50mg tab ORAL SCH (11:01)
--- NOTE | 2017-08-16 11:05 | General Progress Note ---
Assessment/Plan Assessment/Plan AIDS - per ID. Pneumonia - m/p PCP with Cavitary Lesions. On [employer] Spectrum IV Abx and IV Bactrim for immuno Compromised HIV patients. Doubt MTB. AFB's smear negative. DC Resp. Isolation. In KAY. Resolving. New neck Emphysema + Pneumomediastinum both minimal on CT scan. 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 New pancreatitis - negative MRCP! Etiology unclear. Nonresolving and unexplained. Enzymes fortunately trending down Unresolved blindness CT Chest much improved. Severe SIADH - resolved. Subjective Allergies: Coded Allergies: No Known Allergies (Unverified , 07/20/17) Subjective No new c/o. Ambulated with great difficulties and severe dyspnea. Objective Last 24 Hour Vital Signs Date Time Temp Pulse Resp B/P (MAP) Pulse Ox O2 Delivery O2 Flow Rate FiO2 08/16/17 11:01 103 115/65 08/16/17 10:45 103 115/65 08/16/17 08:55 97.5 107 20 93/52 98 Room Air 08/16/17 04:00 105 08/16/17 04:00 98.6 103 20 102/54 100 Room Air 08/16/17 00:00 98.6 100 20 95/60 99 Room Air 08/16/17 00:00 97 08/15/17 20:00 102 08/15/17 20:00 98.1 116 20 108/61 98 Room Air 08/15/17 16:32 109 08/15/17 16:00 97.3 116 18 100/58 98 Room Air 08/15/17 12:00 97.0 138 20 117/60 100 Room Air 08/15/17 11:45 135 08/15/17 11:40 95 104/70 Intake and Output 08/16/17 08/17/17 19:00 07:00 Intake Total 480 ml Output Total 160 ml Balance 320 ml Intake Oral 480 ml Output Urine Total 160 ml # Voids 1 Laboratory Tests 08/16/17 03:40: White Blood Count 3.8L, Red Blood Count 3.12L, Hemoglobin 9.4L, Hematocrit 28.1L , Mean Corpuscular Volume 90, Mean Corpuscular Hemoglobin 30.1, Mean Corpuscular Hemoglobin Concent 33.5, Red Cell Distribution Width 19.3H, Platelet Count 223, Mean Platelet Volume 6.7, Neutrophils (%) (Auto) 83.7H, Lymphocytes (%) (Auto) 9.7L, Monocytes (%) (Auto) 0.5L, Eosinophils (%) (Auto) 4.6H, Basophils (%) (Auto) 1.5, Ijxxnqi-2-Fzecbgqgt Dehydrogenase [Pending], RBC Ncbmtpp-0-Tcrvwgoxh Dehydrogen [Pending], Sodium Level 137, Potassium Level 3.7, Chloride Level 105, Carbon Dioxide Level 25, Anion Gap 7, Blood Urea Nitrogen 21H, Creatinine 0.6, Estimat Glomerular Filtration Rate > 60, Glucose Level 107H, Calcium Level 8.1L, Total Bilirubin 0.1L, Aspartate Amino Transf ( AST/SGOT) 24, Alanine Aminotransferase (ALT/SGPT) 39, Alkaline Phosphatase 83, Total Protein 5.7L, Albumin 2.3L, Globulin 3.4, Albumin/Globulin Ratio 0.7L, Amylase Level 383H, Lipase 2178H Height (Feet): 5 Height (Inches): 8.00 Weight (Pounds): 121 Objective Rt. eye poor vision. Extremely Cachectic. CV RR Lungs CTA Abd SNT BS + E No CCE Neuro: very slow mentation! MOLLY VÁZQUEZ Aug 16, 2017 11:05
--- NOTE | 2017-08-16 13:57 | GI Progress Note ---
Assessment/Plan Problems: (1) Anemia ICD Codes: D64.9 - Anemia, unspecified SNOMED: 178897165 (2) CMV retinitis (3) Elevated lipase ICD Codes: R74.8 - Abnormal levels of other serum enzymes SNOMED: 085971683 (4) AIDS (acquired immune deficiency syndrome) ICD Codes: B20 - Human immunodeficiency virus [HIV] disease SNOMED: 31898889 (5) Severe malnutrition ICD Codes: E43 - Unspecified severe protein-calorie malnutrition SNOMED: 44472168 Status: stable Status Narrative Discussed with Dr. Torres. Assessment/Plan Assessment Asymptomatic enzymatic pancreatitis ? infectious (CMV, TB) ? Meds (Bactrim, HIV meds, other) ? structural (pancreas divisum) ? microlithiasis ? autoimmune MRCP reviewed >> unremarkable Recommendations defer EUS at this time >> monitor lipase levels monitor medications that can cause lipase elevation check IgG4 - pending ppi bowel regime PT eval fu labs Subjective Subjective denies any abdominal pain working with PT today tolerating diet asymptomatic Objective Last 24 Hour Vital Signs Date Time Temp Pulse Resp B/P (MAP) Pulse Ox O2 Delivery O2 Flow Rate FiO2 08/16/17 11:01 103 115/65 08/16/17 10:45 103 115/65 08/16/17 08:55 97.5 107 20 93/52 98 Room Air 08/16/17 04:00 105 08/16/17 04:00 98.6 103 20 102/54 100 Room Air 08/16/17 00:00 98.6 100 20 95/60 99 Room Air 08/16/17 00:00 97 08/15/17 20:00 102 08/15/17 20:00 98.1 116 20 108/61 98 Room Air 08/15/17 16:32 109 08/15/17 16:00 97.3 116 18 100/58 98 Room Air Intake and Output 08/16/17 08/17/17 19:00 07:00 Intake Total 480 ml Output Total 160 ml Balance 320 ml Intake Oral 480 ml Output Urine Total 160 ml # Voids 1 Laboratory Tests Test 08/16/17 03:40 White Blood Count 3.8 K/UL (4.8-10.8) L Red Blood Count 3.12 M/UL (4.70-6.10) L Hemoglobin 9.4 G/DL (14.2-18.0) L Hematocrit 28.1 % (42.0-52.0) L Mean Corpuscular Volume 90 FL (80-99) Mean Corpuscular Hemoglobin 30.1 PG (27.0-31.0) Mean Corpuscular Hemoglobin Concent 33.5 G/DL (32.0-36.0) Red Cell Distribution Width 19.3 % (11.6-14.8) H Platelet Count 223 K/UL (150-450) Mean Platelet Volume 6.7 FL (6.5-10.1) Neutrophils (%) (Auto) 83.7 % (45.0-75.0) H Lymphocytes (%) (Auto) 9.7 % (20.0-45.0) L Monocytes (%) (Auto) 0.5 % (1.0-10.0) L Eosinophils (%) (Auto) 4.6 % (0.0-3.0) H Basophils (%) (Auto) 1.5 % (0.0-2.0) Bowbpdz-3-Flioiemod Dehydrogenase Pending RBC Xwtvcwa-0-Hkcqnlvyz Dehydrogen Pending Sodium Level 137 MMOL/L (136-145) Potassium Level 3.7 MMOL/L (3.5-5.1) Chloride Level 105 MMOL/L (98-107) Carbon Dioxide Level 25 MMOL/L (21-32) Anion Gap 7 mmol/L (5-15) Blood Urea Nitrogen 21 mg/dL (7-18) H Creatinine 0.6 MG/DL (0.55-1.30) Estimat Glomerular Filtration Rate > 60 mL/min (>60) Glucose Level 107 MG/DL (74-106) H Calcium Level 8.1 MG/DL (8.5-10.1) L Total Bilirubin 0.1 MG/DL (0.2-1.0) L Aspartate Amino Transf (AST/SGOT) 24 U/L (15-37) Alanine Aminotransferase (ALT/SGPT) 39 U/L (12-78) Alkaline Phosphatase 83 U/L (46-116) Total Protein 5.7 G/DL (6.4-8.2) L Albumin 2.3 G/DL (3.4-5.0) L Globulin 3.4 g/dL Albumin/Globulin Ratio 0.7 (1.0-2.7) L Amylase Level 383 U/L (25-115) H Lipase 2178 U/L (73-393) H Height (Feet): 5 Height (Inches): 8.00 Weight (Pounds): 121 General Appearance: WD/WN, no apparent distress, alert, thin Cardiovascular: normal rate Respiratory/Chest: normal breath sounds, no respiratory distress Abdominal Exam: normal bowel sounds, non tender, soft Extremities: normal range of motion, non-tender Aissatou Vela N.P. Aug 16, 2017 13:57
[2017-08-16] MEDS: Enoxaparin 40mg Inj SUBQ SCH (21:29)
[2017-08-17] VITALS: BP 95/61
[2017-08-17 04:00] VITALS: BP 102/57
[2017-08-17 06:05] LABS: MEAN CORPUSCULAR HEMOGLOBIN 30.1 PG (27.0-31.0); MEAN CORPUSCULAR VOLUME 91 FL (80-99); MEAN PLATELET VOLUME 6.3 FL (6.5-10.1); PLATELET COUNT 229 K/UL (150-450); RED BLOOD COUNT 3.09 M/UL (4.70-6.10); RED CELL DISTRIBUTION WIDTH 20.1 % (11.6-14.8); WHITE BLOOD COUNT 3.8 K/UL (4.8-10.8)
[2017-08-17 06:29] LABS: ALANINE AMINOTRANSFERASE 40 U/L (12-78); ALBUMIN/GLOBULIN RATIO 0.7 (1.0-2.7); ANION GAP 6 mmol/L (5-15); ASPARTATE AMINO TRANSFERASE 26 U/L (15-37); CARBON DIOXIDE 26 MMOL/L (21-32); CHLORIDE 102 MMOL/L (98-107); CREATININE 0.6 MG/DL (0.55-1.30); GLOMERULAR FILTRATION RATE > 60 mL/min (>60); POTASSIUM 3.2 MMOL/L (3.5-5.1); SODIUM 134 MMOL/L (136-145); TOTAL PROTEIN 5.9 G/DL (6.4-8.2)
[2017-08-17 08:00] VITALS: BP 107/62
[2017-08-17 09:00] LABS: IGG SERUM 883 mg/dL (700-1600); IGG SUBCLASS 1 619 mg/dL (248-810); IGG SUBCLASS 2 164 mg/dL (130-555); IGG SUBCLASS 3 46 mg/dL (15-102); IGG SUBCLASS 4 25 mg/dL (2-96)
[2017-08-17] MEDS: Docusate 100mg cap ORAL SCH ×3 (09:00→21:00)
--- NOTE | 2017-08-17 09:10 | General Progress Note ---
Assessment/Plan Assessment/Plan AIDS - per ID. Pneumonia - m/p PCP with Cavitary Lesions. On Broad Spectrum IV Abx and IV Bactrim for immuno Compromised HIV patients. Doubt MTB. AFB's smear negative. DC Resp. Isolation. In KAY. Resolving. New neck Emphysema + Pneumomediastinum both minimal on CT scan. Resolved. 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 New pancreatitis - negative MRCP! Etiology unclear. Suspect CMV !! Resolving . Unresolved blindness Severe SIADH - resolved. OK for Med/Surg. Dysphagia - needs Video Swallow Subjective Allergies: Coded Allergies: No Known Allergies (Unverified , 07/20/17) Subjective No new c/o. Ambulates with great difficulties and severe dyspnea and tachycardia. Objective Last 24 Hour Vital Signs Date Time Temp Pulse Resp B/P (MAP) Pulse Ox O2 Delivery O2 Flow Rate FiO2 08/17/17 08:00 98.8 118 20 107/62 96 Room Air 08/17/17 04:00 99.5 112 20 102/57 98 Room Air 08/17/17 04:00 111 08/17/17 00:00 108 08/17/17 00:00 99.0 109 20 95/61 99 Room Air 08/16/17 20:49 98.0 119 20 99/70 99 Room Air 08/16/17 20:00 119 08/16/17 16:05 106 08/16/17 16:00 97.3 108 20 106/64 98 Room Air 08/16/17 12:00 97.7 104 20 94/50 100 Room Air 08/16/17 11:41 100 08/16/17 11:01 103 115/65 08/16/17 10:45 103 115/65 Laboratory Tests 08/17/17 05:00: White Blood Count 3.8L, Red Blood Count 3.09L, Hemoglobin 9.3L, Hematocrit 28.1L , Mean Corpuscular Volume 91, Mean Corpuscular Hemoglobin 30.1, Mean Corpuscular Hemoglobin Concent 33.0, Red Cell Distribution Width 20.1H, Platelet Count 229, Mean Platelet Volume 6.3L, Neutrophils (%) (Auto) , Lymphocytes (%) (Auto) , Monocytes (%) (Auto) , Eosinophils (%) (Auto) , Basophils (%) (Auto) , Sodium Level 134L, Potassium Level 3.2L, Chloride Level 102, Carbon Dioxide Level 26, Anion Gap 6, Blood Urea Nitrogen 15, Creatinine 0.6, Estimat Glomerular Filtration Rate > 60, Glucose Level 99, Calcium Level 8.0L, Total Bilirubin 0.2, Aspartate Amino Transf (AST/SGOT) 26, Alanine Aminotransferase (ALT/SGPT) 40, Alkaline Phosphatase 80, Total Protein 5.9L, Albumin 2.4L, Globulin 3.5, Albumin/Globulin Ratio 0.7L Height (Feet): 5 Height (Inches): 8.00 Weight (Pounds): 125 Objective Rt. eye poor vision. Extremely Cachectic. CV RR Lungs CTA Abd SNT BS + E No CCE Neuro: very slow mentation! MOLLY VÁZQUEZ Aug 17, 2017 09:10
[2017-08-17 09:19] LABS: AMYLASE 320 U/L (25-115); LIPASE 1402 U/L (73-393)
[2017-08-17] MEDS: Pyridoxine 50mg tab ORAL SCH (09:28)
[2017-08-17] MEDS: Rifabutin 150mg cap ORAL SCH (09:30)
[2017-08-17] MEDS: Aspirin EC 81mg tab ORAL SCH (09:31)
[2017-08-17] MEDS: Multivitamin w/Minerals tab ORAL SCH (09:31)
[2017-08-17] MEDS: Metoprolol Succinate XL 50mg tab ORAL SCH (09:32)
[2017-08-17] MEDS: Isoniazid 300mg tab ORAL SCH (09:32)
[2017-08-17] MEDS: Vitamin D 1000 IU Tab ORAL SCH (09:32)
[2017-08-17] MEDS: Bactrim DS (160mg/800mg) tab ORAL SCH (09:32)
[2017-08-17 12:00] VITALS: BP 97/52
--- NOTE | 2017-08-17 13:26 | GI Progress Note ---
Assessment/Plan Problems: (1) Anemia ICD Codes: D64.9 - Anemia, unspecified SNOMED: 164215040 (2) CMV retinitis (3) Elevated lipase ICD Codes: R74.8 - Abnormal levels of other serum enzymes SNOMED: 656297116 (4) AIDS (acquired immune deficiency syndrome) ICD Codes: B20 - Human immunodeficiency virus [HIV] disease SNOMED: 13321111 (5) Severe malnutrition ICD Codes: E43 - Unspecified severe protein-calorie malnutrition SNOMED: 45709002 Status: stable Status Narrative Discussed with Dr. Torres. Assessment/Plan Assessment Asymptomatic enzymatic pancreatitis ? infectious (CMV, TB) ? Meds (Bactrim, HIV meds, other) ? structural (pancreas divisum) ? microlithiasis ? autoimmune MRCP reviewed >> unremarkable ST eval reviewed check IgG4 - negative Recommendations defer EUS at this time >> monitor lipase levels, downtrending monitor medications that can cause lipase elevation ppi bowel regime PT eval fu labs Subjective Subjective denies any abdominal pain working with PT today tolerating diet asymptomatic Objective Last 24 Hour Vital Signs Date Time Temp Pulse Resp B/P (MAP) Pulse Ox O2 Delivery O2 Flow Rate FiO2 08/17/17 12:00 98.9 111 21 97/52 95 Room Air 08/17/17 11:57 107 08/17/17 09:32 118 107/62 08/17/17 08:05 122 08/17/17 08:00 98.8 118 20 107/62 96 Room Air 08/17/17 04:00 99.5 112 20 102/57 98 Room Air 08/17/17 04:00 111 08/17/17 00:00 108 08/17/17 00:00 99.0 109 20 95/61 99 Room Air 08/16/17 20:49 98.0 119 20 99/70 99 Room Air 08/16/17 20:00 119 08/16/17 16:05 106 08/16/17 16:00 97.3 108 20 106/64 98 Room Air Intake and Output 08/16/17 08/17/17 19:00 07:00 Intake Total 840 ml 100 ml Output Total 160 ml Balance 680 ml 100 ml Intake Oral 840 ml 100 ml Output Urine Total 160 ml # Voids 3 3 # Bowel Movements 2 Laboratory Tests Test 08/17/17 05:00 White Blood Count 3.8 K/UL (4.8-10.8) L Red Blood Count 3.09 M/UL (4.70-6.10) L Hemoglobin 9.3 G/DL (14.2-18.0) L Hematocrit 28.1 % (42.0-52.0) L Mean Corpuscular Volume 91 FL (80-99) Mean Corpuscular Hemoglobin 30.1 PG (27.0-31.0) Mean Corpuscular Hemoglobin Concent 33.0 G/DL (32.0-36.0) Red Cell Distribution Width 20.1 % (11.6-14.8) H Platelet Count 229 K/UL (150-450) Mean Platelet Volume 6.3 FL (6.5-10.1) L Neutrophils (%) (Auto) % (45.0-75.0) Lymphocytes (%) (Auto) % (20.0-45.0) Monocytes (%) (Auto) % (1.0-10.0) Eosinophils (%) (Auto) % (0.0-3.0) Basophils (%) (Auto) % (0.0-2.0) Sodium Level 134 MMOL/L (136-145) L Potassium Level 3.2 MMOL/L (3.5-5.1) L Chloride Level 102 MMOL/L (98-107) Carbon Dioxide Level 26 MMOL/L (21-32) Anion Gap 6 mmol/L (5-15) Blood Urea Nitrogen 15 mg/dL (7-18) Creatinine 0.6 MG/DL (0.55-1.30) Estimat Glomerular Filtration Rate > 60 mL/min (>60) Glucose Level 99 MG/DL (74-106) Calcium Level 8.0 MG/DL (8.5-10.1) L Total Bilirubin 0.2 MG/DL (0.2-1.0) Aspartate Amino Transf (AST/SGOT) 26 U/L (15-37) Alanine Aminotransferase (ALT/SGPT) 40 U/L (12-78) Alkaline Phosphatase 80 U/L (46-116) Total Protein 5.9 G/DL (6.4-8.2) L Albumin 2.4 G/DL (3.4-5.0) L Globulin 3.5 g/dL Albumin/Globulin Ratio 0.7 (1.0-2.7) L Amylase Level 320 U/L (25-115) H Lipase 1402 U/L (73-393) H Height (Feet): 5 Height (Inches): 8.00 Weight (Pounds): 125 General Appearance: WD/WN, no apparent distress, alert Cardiovascular: normal rate Respiratory/Chest: normal breath sounds, no respiratory distress Abdominal Exam: normal bowel sounds, non tender, soft Extremities: normal range of motion, non-tender Aissatou Vela N.P. Aug 17, 2017 13:26
[2017-08-17 16:00] VITALS: BP 95/60
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
--- NOTE | 2017-08-17 19:47 | Infectious Diseases Prog Note ---
Assessment/Plan Assessment/Plan A) 1) pna, + H. Influenza pna/cap pna, ? pcp, ? 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 Villeda from ophthalmology and patient unlikely to have right eye vision improvement but trying to prevent further left vision loss - CT chest findings noted, pneumomediastinum 2) hiv, aids - cd4 - 55, viral load - 347, 790 3) ? pancreatitis with elevated amylase and lipase - ? meds, ? bactrim per GI consult notes, d/ - amylase and lipase decreasing - ganciclovir started and lipase decreased 4) allergies - negative, fh-nc, sh-negative, mar noted 5) d/w RN 6) notes and records noted P) 1) bactrim and azithromycin prophylaxis, s/p tx for pna, TB tx per department of health recommendations 2) valganciclovir 900mg/daily, s/p induction 3) ophthalmology f/u for intravitreal ganciclovir or foscarnet once available , still not initiated 4) restart tivicay and truvada and watch lipase and amylase 5) continue tx per primary and consultants, GI evaluation for ? cause pancreatitis, pulmonary evaluation noted for CT chest findings, us ordered 6) f/u labs, lipase and amylase, check g-6pd 7) cd4 - 55, viral load > 300, 000 8) patient to f/u with primary hiv MD as outpatient for f/y vl and cd4 and genotyping if needed 9) d/w GI and pharmacy Subjective Constitutional: Denies: fever HEENT: Denies: congestion Respiratory: Denies: shortness of breath Cardiovascular: Denies: chest pain Gastrointestinal/Abdominal: Denies: nausea, vomiting, diarrhea Genitourinary: Denies: dysuria, hematuria Neurologic: Denies: headache Psychiatric: Denies: depression Skin: Denies: rash Hematologic: Denies: bleeding Musculoskeletal: Denies: pain Allergies: Coded Allergies: No Known Allergies (Unverified , 07/20/17) Objective Vital Signs Last 24 Hour Vital Signs Date Time Temp Pulse Resp B/P (MAP) Pulse Ox O2 Delivery O2 Flow Rate FiO2 08/17/17 16:00 100.4 101 21 95/60 97 Room Air 08/17/17 15:20 122 08/17/17 12:00 98.9 111 21 97/52 95 Room Air 08/17/17 11:57 107 08/17/17 09:32 118 107/62 08/17/17 08:05 122 08/17/17 08:00 98.8 118 20 107/62 96 Room Air 08/17/17 04:00 99.5 112 20 102/57 98 Room Air 08/17/17 04:00 111 08/17/17 00:00 108 08/17/17 00:00 99.0 109 20 95/61 99 Room Air 08/16/17 20:49 98.0 119 20 99/70 99 Room Air 08/16/17 20:00 119 Height (Feet): 5 Height (Inches): 8.00 Weight (Pounds): 125 General Appearance: WD/WN HEENT: normocephalic, atraumatic, anicteric, mucous membranes moist Respiratory/Chest: lungs clear, normal breath sounds, no respiratory distress, no accessory muscle use Cardiovascular: normal rate, regular rhythm, no gallop/murmur, no JVD Abdomen: normal bowel sounds, soft, non tender, no organomegaly, non distended Genitourinary: other - no cox Extremities: no cyanosis Skin: no rash 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 Infiltrates in the left lung appears slightly more diffuse, and infiltrates in the right lung appear slightly more extensive. Pleural spaces remain clear. Heart size is normal Impression: Slightly increased infiltrates bilaterally, over 2 days Chest x-ray - 07/24 Findings: Left internal jugular central line is again noted. Cardiomediastinal silhouette is stable. Patchy infiltrates are again noted of the lungs bilaterally. Osseous structures are stable. Impression: No interval change from 07/22/17. 07/25 - chest x-ray Comparison: 07/24/2017 Findings: There is a left jugular central venous catheter and demonstrated. Diffuse mostly upper lung interstitial and alveolar patchy parenchymal infiltrates appears slightly improved, patient on the left. New infiltrates. No effusions. Normal heart size Impression: Slight improvement of parenchymal disease on the left. Otherwise little change, over one day Chest x-ray - 07/28 - Impression: Essentially unchanged bilateral mid and upper lung airspace opacities. However, there is questionable interim cavitation of some of the opacities on the right. 07/30 - chest x-ray - no change (report noted) CT chest: Impression: Pulmonary hyperexpansion. Subcutaneous emphysema in neck and upper chest as well as mediastinal emphysema. Multiple ill-defined groundglass opacities in the lungs bilaterally. This is likely inflammatory. Ill-defined nodule in the right upper lobe, also probably inflammatory given the nature of the other infiltrates. Attempts to reach Dr. Escobar are unsuccessful. The patient's nurse was notified by phone at 10:55 AM 08/07/2017. She informed me that she would relay the message to Dr. Escobar. Chest x-ray - 08/08 - Impression: Stable bilateral neck and supraclavicular subcutaneous emphysema and likely pneumomediastinum Bilateral upper lung interstitial opacities are somewhat less prominent on the current study, may reflect improving parenchymal disease Other findings as noted CT - chest - 08/09 noted, report noted Microbiology Date/Time Source Procedure Growth Status 07/20/17 16:19 Blood Blood Culture - Final NO GROWTH AFTER 5 DAYS Complete 08/01/17 16:30 Cerebral Spinal Fluid Gram Stain - Final Complete 08/01/17 16:30 Cerebral Spinal Fluid CSF Culture - Final NO GROWTH Complete 08/03/17 06:00 Sputum AFB Specimen Processing Tissue - Final Resulted 08/03/17 06:00 Sputum Acid Fast Bacilli Smear - Final Resulted 08/03/17 06:00 Sputum Acid Fast Bacilli Culture Pending Resulted 07/20/17 22:30 Stool Clostridium difficile Toxin Assay - Final Complete 07/20/17 15:40 Rectum VRE Culture - Final NO VANCOMYCIN RESISTANT ENTEROCOCCUS ... Complete Laboratory Tests Test 08/17/17 05:00 White Blood Count 3.8 K/UL (4.8-10.8) L Red Blood Count 3.09 M/UL (4.70-6.10) L Hemoglobin 9.3 G/DL (14.2-18.0) L Hematocrit 28.1 % (42.0-52.0) L Mean Corpuscular Volume 91 FL (80-99) Mean Corpuscular Hemoglobin 30.1 PG (27.0-31.0) Mean Corpuscular Hemoglobin Concent 33.0 G/DL (32.0-36.0) Red Cell Distribution Width 20.1 % (11.6-14.8) H Platelet Count 229 K/UL (150-450) Mean Platelet Volume 6.3 FL (6.5-10.1) L Neutrophils (%) (Auto) % (45.0-75.0) Lymphocytes (%) (Auto) % (20.0-45.0) Monocytes (%) (Auto) % (1.0-10.0) Eosinophils (%) (Auto) % (0.0-3.0) Basophils (%) (Auto) % (0.0-2.0) Sodium Level 134 MMOL/L (136-145) L Potassium Level 3.2 MMOL/L (3.5-5.1) L Chloride Level 102 MMOL/L (98-107) Carbon Dioxide Level 26 MMOL/L (21-32) Anion Gap 6 mmol/L (5-15) Blood Urea Nitrogen 15 mg/dL (7-18) Creatinine 0.6 MG/DL (0.55-1.30) Estimat Glomerular Filtration Rate > 60 mL/min (>60) Glucose Level 99 MG/DL (74-106) Calcium Level 8.0 MG/DL (8.5-10.1) L Total Bilirubin 0.2 MG/DL (0.2-1.0) Aspartate Amino Transf (AST/SGOT) 26 U/L (15-37) Alanine Aminotransferase (ALT/SGPT) 40 U/L (12-78) Alkaline Phosphatase 80 U/L (46-116) Total Protein 5.9 G/DL (6.4-8.2) L Albumin 2.4 G/DL (3.4-5.0) L Globulin 3.5 g/dL Albumin/Globulin Ratio 0.7 (1.0-2.7) L Amylase Level 320 U/L (25-115) H Lipase 1402 U/L (73-393) H Current Medications Medications (Trade) Dose Ordered Sig/Gabriela Route PRN Reason Start Time Stop Time Status Last Admin Dose Admin Acetaminophen (Tylenol) 650 mg Q4H PRN ORAL Mild Pain (Pain Scale 1-3) 07/22/17 14:30 08/19/17 14:29 07/22/17 20:48 Aspirin (Ecotrin) 81 mg DAILY ORAL 07/30/17 09:00 08/29/17 08:59 08/17/17 09:31 Azithromycin (Zithromax) 1,200 mg QWEEK ORAL 08/01/17 09:00 09/04/17 08:59 08/15/17 11:43 Dextrose (Dextrose 50%) STAT PRN IV Hypoglycemia 07/22/17 14:30 08/19/17 14:29 Diphenhydramine HCl (Benadryl) 25 mg Q6H PRN ORAL Itching/Pruritis 07/22/17 14:30 08/19/17 14:29 08/05/17 22:28 Docusate Sodium (Colace) 100 mg EVERY 12 HOURS ORAL 07/22/17 21:00 08/19/17 20:59 08/16/17 21:27 Enoxaparin Sodium (Lovenox) 40 mg QHS SUBQ 07/22/17 21:00 08/19/17 20:59 08/16/17 21:29 Ethambutol HCl (Myambutol) 1,200 mg DAILY ORAL 08/05/17 18:00 09/04/17 17:59 08/17/17 09:31 Isoniazid (Inh) 300 mg DAILY ORAL 08/05/17 18:00 09/04/17 17:59 08/17/17 09:32 Metoprolol Succinate (Toprol XL) 50 mg DAILY ORAL 07/29/17 11:00 08/28/17 10:59 08/17/17 09:32 Multivitamins Therapeutic (Therapeutic Multivitamin) 1 ea DAILY ORAL 07/25/17 09:00 08/24/17 08:59 08/17/17 09:31 Ondansetron HCl (Zofran) 4 mg Q6H PRN IVP Nausea & Vomiting 07/22/17 14:30 08/19/17 14:29 08/11/17 05:46 Pantoprazole (Protonix) 40 mg ACBREAKFAST ORAL 07/23/17 09:00 08/22/17 08:59 08/17/17 06:29 Pyrazinamide (Pza) 1,500 mg DAILY ORAL 08/05/17 18:00 09/04/17 17:59 08/17/17 09:31 Pyridoxine HCl (Vitamin B6) 50 mg DAILY ORAL 08/06/17 09:00 09/05/17 08:59 08/17/17 09:28 Rifabutin (Mycobutin) 300 mg DAILY ORAL 08/10/17 09:00 09/09/17 08:59 08/17/17 09:30 Trimethoprim/ Sulfamethoxazole (Bactrim-DS) 1 ea 3XW ORAL 08/17/17 09:00 09/11/17 08:59 08/17/17 09:32 Valganciclovir (Valcyte) 900 mg Q24HRS ORAL 08/15/17 21:00 09/14/17 20:59 08/16/17 21:27 Vitamin D (Vitamin D) 1,000 intlu DAILY ORAL 07/25/17 09:00 08/24/17 08:59 08/17/17 09:32 WEN ANTOINE Aug 17, 2017 19:47
[2017-08-17 20:00] VITALS: BP 100/55
[2017-08-17] MEDS: Enoxaparin 40mg Inj SUBQ SCH (21:04)
[2017-08-18] VITALS: BP 90/55
[2017-08-18 04:00] VITALS: BP 95/55
[2017-08-18 04:49] LABS: MEAN CORPUSCULAR HEMOGLOBIN 30.7 PG (27.0-31.0); MEAN CORPUSCULAR HGB CONC 33.3 G/DL (32.0-36.0); MEAN CORPUSCULAR VOLUME 92 FL (80-99); MEAN PLATELET VOLUME 6.2 FL (6.5-10.1); PLATELET COUNT 211 K/UL (150-450); RED BLOOD COUNT 2.84 M/UL (4.70-6.10); RED CELL DISTRIBUTION WIDTH 19.9 % (11.6-14.8); WHITE BLOOD COUNT 2.8 K/UL (4.8-10.8)
[2017-08-18 05:08] LABS: ALANINE AMINOTRANSFERASE 39 U/L (12-78); ALBUMIN/GLOBULIN RATIO 0.6 (1.0-2.7); AMYLASE 259 U/L (25-115); ANION GAP 9 mmol/L (5-15); ASPARTATE AMINO TRANSFERASE 29 U/L (15-37); CALCIUM 7.9 MG/DL (8.5-10.1); CARBON DIOXIDE 24 MMOL/L (21-32); CHLORIDE 103 MMOL/L (98-107); CREATININE 0.7 MG/DL (0.55-1.30); GLOMERULAR FILTRATION RATE > 60 mL/min (>60); LIPASE 1213 U/L (73-393); POTASSIUM 3.7 MMOL/L (3.5-5.1); SODIUM 136 MMOL/L (136-145); TOTAL PROTEIN 5.9 G/DL (6.4-8.2)
[2017-08-18 08:00] VITALS: BP 102/55
[2017-08-18 08:12] LABS: ANISOCYTOSIS 1+; BAND NEUTROPHILS % (MANUAL) 0 % (0-8); BASOPHILS % (MANUAL) 0 % (0-2); EOSINOPHILS % (MANUAL) 0 % (0-3); HYPOCHROMASIA 1+; LYMPHOCYTES % (MANUAL) 14 % (20-45); NEUTROPHILS % (MANUAL) 83 % (45-75); PLATELET ESTIMATE ADEQUATE; PLATELET MORPHOLOGY NORMAL; TOTAL CELLS COUNTED 100
[2017-08-18] MEDS: Docusate 100mg cap ORAL SCH ×2 (09:00→21:00)
[2017-08-18] MEDS: Dolutegravir Sodium 50mg tab ORAL SCH (09:17)
[2017-08-18] MEDS: Aspirin EC 81mg tab ORAL SCH (09:17)
[2017-08-18] MEDS: Metoprolol Succinate XL 50mg tab ORAL SCH (09:17)
[2017-08-18] MEDS: Pyridoxine 50mg tab ORAL SCH (09:17)
[2017-08-18] MEDS: Vitamin D 1000 IU Tab ORAL SCH (09:17)
[2017-08-18] MEDS: Multivitamin w/Minerals tab ORAL SCH (09:17)
[2017-08-18] MEDS: Isoniazid 300mg tab ORAL SCH (09:18)
[2017-08-18] MEDS: Rifabutin 150mg cap ORAL SCH (09:18)
--- NOTE | 2017-08-18 11:03 | GI Progress Note ---
Assessment/Plan Problems: (1) Anemia ICD Codes: D64.9 - Anemia, unspecified SNOMED: 761849087 (2) CMV retinitis (3) Elevated lipase ICD Codes: R74.8 - Abnormal levels of other serum enzymes SNOMED: 892338328 (4) AIDS (acquired immune deficiency syndrome) ICD Codes: B20 - Human immunodeficiency virus [HIV] disease SNOMED: 00632055 (5) Severe malnutrition ICD Codes: E43 - Unspecified severe protein-calorie malnutrition SNOMED: 26692985 Status: unchanged Status Narrative Discussed with Dr. Torres. Assessment/Plan Assessment Asymptomatic enzymatic pancreatitis ? infectious (CMV, TB) ? Meds (Bactrim, HIV meds, other) ? structural (pancreas divisum) ? microlithiasis ? autoimmune MRCP reviewed >> unremarkable ST eval reviewed check IgG4 - negative Recommendations defer EUS at this time >> monitor lipase levels, downtrending monitor medications that can cause lipase elevation ppi bowel regime PT eval fu labs Subjective Subjective denies any abdominal pain working with PT today tolerating diet asymptomatic Objective Last 24 Hour Vital Signs Date Time Temp Pulse Resp B/P (MAP) Pulse Ox O2 Delivery O2 Flow Rate FiO2 08/18/17 09:17 103 102/55 08/18/17 08:00 99.1 103 21 102/55 99 Room Air 08/18/17 07:57 125 08/18/17 04:00 124 08/18/17 04:00 99.0 116 20 95/55 98 Room Air 08/18/17 00:00 119 08/18/17 00:00 99.0 120 20 90/55 96 Room Air 08/17/17 20:20 100.0 08/17/17 20:00 122 08/17/17 20:00 100.9 122 20 100/55 96 Room Air 08/17/17 16:00 100.4 101 21 95/60 97 Room Air 08/17/17 15:20 122 08/17/17 12:00 98.9 111 21 97/52 95 Room Air 08/17/17 11:57 107 Intake and Output 08/17/17 08/18/17 19:00 07:00 Intake Total 720 ml 100 ml Output Total 850 ml Balance 720 ml -750 ml Intake Oral 720 ml 100 ml Output Urine Total 850 ml # Voids 3 2 # Bowel Movements 4 2 Laboratory Tests Test 08/18/17 03:30 White Blood Count 2.8 K/UL (4.8-10.8) L Red Blood Count 2.84 M/UL (4.70-6.10) L Hemoglobin 8.7 G/DL (14.2-18.0) L Hematocrit 26.1 % (42.0-52.0) L Mean Corpuscular Volume 92 FL (80-99) Mean Corpuscular Hemoglobin 30.7 PG (27.0-31.0) Mean Corpuscular Hemoglobin Concent 33.3 G/DL (32.0-36.0) Red Cell Distribution Width 19.9 % (11.6-14.8) H Platelet Count 211 K/UL (150-450) Mean Platelet Volume 6.2 FL (6.5-10.1) L Neutrophils (%) (Auto) % (45.0-75.0) Lymphocytes (%) (Auto) % (20.0-45.0) Monocytes (%) (Auto) % (1.0-10.0) Eosinophils (%) (Auto) % (0.0-3.0) Basophils (%) (Auto) % (0.0-2.0) Differential Total Cells Counted 100 Neutrophils % (Manual) 83 % (45-75) H Lymphocytes % (Manual) 14 % (20-45) L Monocytes % (Manual) 3 % (1-10) Eosinophils % (Manual) 0 % (0-3) Basophils % (Manual) 0 % (0-2) Band Neutrophils 0 % (0-8) Platelet Estimate Adequate Platelet Morphology Normal Hypochromasia 1+ Anisocytosis 1+ Sodium Level 136 MMOL/L (136-145) Potassium Level 3.7 MMOL/L (3.5-5.1) Chloride Level 103 MMOL/L (98-107) Carbon Dioxide Level 24 MMOL/L (21-32) Anion Gap 9 mmol/L (5-15) Blood Urea Nitrogen 15 mg/dL (7-18) Creatinine 0.7 MG/DL (0.55-1.30) Estimat Glomerular Filtration Rate > 60 mL/min (>60) Glucose Level 115 MG/DL (74-106) H Calcium Level 7.9 MG/DL (8.5-10.1) L Total Bilirubin 0.2 MG/DL (0.2-1.0) Aspartate Amino Transf (AST/SGOT) 29 U/L (15-37) Alanine Aminotransferase (ALT/SGPT) 39 U/L (12-78) Alkaline Phosphatase 76 U/L (46-116) Total Protein 5.9 G/DL (6.4-8.2) L Albumin 2.2 G/DL (3.4-5.0) L Globulin 3.7 g/dL Albumin/Globulin Ratio 0.6 (1.0-2.7) L Amylase Level 259 U/L (25-115) H Lipase 1213 U/L (73-393) H Height (Feet): 5 Height (Inches): 8.00 Weight (Pounds): 128 General Appearance: WD/WN, no apparent distress, alert, thin Cardiovascular: normal rate Respiratory/Chest: normal breath sounds, no respiratory distress Abdominal Exam: normal bowel sounds, non tender, soft Extremities: normal range of motion, non-tender Aissatou Vela N.P. Aug 18, 2017 11:03
[2017-08-18 12:00] VITALS: BP 93/54
--- NOTE | 2017-08-18 15:04 | General Progress Note ---
Assessment/Plan Assessment/Plan AIDS - per ID. Pneumonia - m/p PCP with Cavitary Lesions. On [facility] [employer] IV Abx and IV Bactrim for immuno Compromised HIV patients. Doubt MTB. AFB's smear negative. DC Resp. Isolation. In KAY. Resolving. New neck Emphysema + Pneumomediastinum both minimal on CT scan. Resolved. 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 New pancreatitis - negative MRCP! Etiology unclear. Suspect CMV !! Resolving . Unresolved blindness Severe SIADH - resolved. OK for Med/Surg. Dysphagia - needs Video Swallow Doing well DC home Subjective Allergies: Coded Allergies: No Known Allergies (Unverified , 07/20/17) Subjective No new c/o. Ambulates with great difficulties and severe dyspnea and tachycardia. Objective Last 24 Hour Vital Signs Date Time Temp Pulse Resp B/P (MAP) Pulse Ox O2 Delivery O2 Flow Rate FiO2 08/18/17 12:00 99.6 120 20 93/54 99 Room Air 08/18/17 11:43 119 08/18/17 09:17 103 102/55 08/18/17 08:00 99.1 103 21 102/55 99 Room Air 08/18/17 07:57 125 08/18/17 04:00 124 08/18/17 04:00 99.0 116 20 95/55 98 Room Air 08/18/17 00:00 119 08/18/17 00:00 99.0 120 20 90/55 96 Room Air 08/17/17 20:20 100.0 08/17/17 20:00 122 08/17/17 20:00 100.9 122 20 100/55 96 Room Air 08/17/17 16:00 100.4 101 21 95/60 97 Room Air 08/17/17 15:20 122 Intake and Output 08/17/17 08/18/17 19:00 07:00 Intake Total 720 ml 100 ml Output Total 850 ml Balance 720 ml -750 ml Intake Oral 720 ml 100 ml Output Urine Total 850 ml # Voids 3 2 # Bowel Movements 4 2 Laboratory Tests 08/18/17 03:30: White Blood Count 2.8L, Red Blood Count 2.84L, Hemoglobin 8.7L, Hematocrit 26.1L , Mean Corpuscular Volume 92, Mean Corpuscular Hemoglobin 30.7, Mean Corpuscular Hemoglobin Concent 33.3, Red Cell Distribution Width 19.9H, Platelet Count 211, Mean Platelet Volume 6.2L, Neutrophils (%) (Auto) , Lymphocytes (%) (Auto) , Monocytes (%) (Auto) , Eosinophils (%) (Auto) , Basophils (%) (Auto) , Differential Total Cells Counted 100, Neutrophils % ( Manual) 83H, Lymphocytes % (Manual) 14L, Monocytes % (Manual) 3, Eosinophils % ( Manual) 0, Basophils % (Manual) 0, Band Neutrophils 0, Platelet Estimate Adequate, Platelet Morphology Normal, Hypochromasia 1+, Anisocytosis 1+, Sodium Level 136, Potassium Level 3.7, Chloride Level 103, Carbon Dioxide Level 24, Anion Gap 9, Blood Urea Nitrogen 15, Creatinine 0.7, Estimat Glomerular Filtration Rate > 60, Glucose Level 115H, Calcium Level 7.9L, Total Bilirubin 0.2, Aspartate Amino Transf (AST/SGOT) 29, Alanine Aminotransferase (ALT/SGPT) 39, Alkaline Phosphatase 76, Total Protein 5.9L, Albumin 2.2L, Globulin 3.7, Albumin/Globulin Ratio 0.6L, Amylase Level 259H, Lipase 1213H Height (Feet): 5 Height (Inches): 8.00 Weight (Pounds): 128 Objective Rt. eye poor vision. Extremely Cachectic. CV RR Lungs CTA Abd SNT BS + E No CCE Neuro: very slow mentation! MOLLY VÁZQUEZ Aug 18, 2017 15:04
[2017-08-18 15:20] VITALS: BP 99/56
[2017-08-18 15:22] LABS: G6PD RBC 3.08 x10E6/uL (4.14-5.80); GLUCOSE 6 PHOSPHATE DEHYDR 288 (146-376)
[2017-08-18] MEDS ORDERED: NS 500ML ONE ×2 (15:42→16:01)
[2017-08-18] MEDS ORDERED: Tubing IV Secondary IV ONE (16:01)
[2017-08-18 20:00] VITALS: BP 108/64
[2017-08-18] MEDS: Enoxaparin 40mg Inj SUBQ SCH (20:56)
[2017-08-19] VITALS: BP 93/53
[2017-08-19 04:00] VITALS: BP 95/63
[2017-08-19 05:49] LABS: MEAN CORPUSCULAR HEMOGLOBIN 30.8 PG (27.0-31.0); MEAN CORPUSCULAR HGB CONC 33.4 G/DL (32.0-36.0); MEAN CORPUSCULAR VOLUME 92 FL (80-99); MEAN PLATELET VOLUME 6.6 FL (6.5-10.1); PLATELET COUNT 216 K/UL (150-450); RED BLOOD COUNT 2.98 M/UL (4.70-6.10); RED CELL DISTRIBUTION WIDTH 20.1 % (11.6-14.8); WHITE BLOOD COUNT 2.2 K/UL (4.8-10.8)
[2017-08-19 05:56] LABS: ALANINE AMINOTRANSFERASE 41 U/L (12-78); ALBUMIN/GLOBULIN RATIO 0.6 (1.0-2.7); AMYLASE 254 U/L (25-115); ANION GAP 8 mmol/L (5-15); ASPARTATE AMINO TRANSFERASE 35 U/L (15-37); CALCIUM 7.2 MG/DL (8.5-10.1); CARBON DIOXIDE 25 MMOL/L (21-32); CHLORIDE 102 MMOL/L (98-107); CREATININE 0.7 MG/DL (0.55-1.30); GLOMERULAR FILTRATION RATE > 60 mL/min (>60); LIPASE 1297 U/L (73-393); POTASSIUM 3.7 MMOL/L (3.5-5.1); SODIUM 135 MMOL/L (136-145); TOTAL PROTEIN 6.1 G/DL (6.4-8.2)
[2017-08-19 08:00] VITALS: BP 102/59
--- NOTE | 2017-08-19 08:06 | Diagnostic Imaging Report ---
Indication: Status post fall Technique: Continuous helical CT scanning of the head was performed utilizing automated exposure control without intravenous contrast material. Axial and coronal reconstructions were obtained. Comparison: CT head 07/28/2017 and MRI brain 07/29/2017 CT dose: Total DLP 1414.47 mGycm; CTDI vol 70.38 mGy Findings: There is no acute intracranial hemorrhage, mass effect or cortical edema. No focal high or low density area noted within the brain. Particularly, no definite abnormality in the region of the previously described cortical diffusion abnormality seen on MRI 07/29/2017. The ventricles, cisterns and sulci are slightly prominent consistent with very mild volume loss however more than expected for patient's age; size and configuration of the ventricular system is unchanged compared to the prior exam. The posterior fossa and fourth ventricle are unremarkable. Sellar and suprasellar regions are grossly unremarkable. Visualized mastoid air cells and paranasal sinuses are unremarkable. No focal lesions of the bony calvarium or soft tissues of the scalp are seen. Impression: No evidence of acute intracranial hemorrhage, mass effect or cortical edema. No definite abnormality seen on CT in the region of the previously described cortical diffusion abnormality seen on MRI 07/29/2017. MRI may be obtained for more sensitive evaluation as clinically indicated. The CT scanner at [facility] is accredited by the [place] [employer] and the scans are performed using protocols designed to limit radiation exposure to as low as reasonably achievable to attain images of sufficient resolution adequate for diagnostic evaluation.
[2017-08-19] MEDS: Dolutegravir Sodium 50mg tab ORAL SCH (08:26)
[2017-08-19] MEDS: Pyridoxine 50mg tab ORAL SCH (08:27)
[2017-08-19] MEDS: Bactrim DS (160mg/800mg) tab ORAL SCH (08:27)
[2017-08-19] MEDS: Metoprolol Succinate XL 50mg tab ORAL SCH (08:27)
[2017-08-19] MEDS: Isoniazid 300mg tab ORAL SCH (08:27)
[2017-08-19] MEDS: Multivitamin w/Minerals tab ORAL SCH (08:28)
[2017-08-19] MEDS: Vitamin D 1000 IU Tab ORAL SCH (08:28)
[2017-08-19] MEDS: Rifabutin 150mg cap ORAL SCH (08:28)
[2017-08-19] MEDS: Aspirin EC 81mg tab ORAL SCH (08:28)
[2017-08-19] MEDS: Docusate 100mg cap ORAL SCH (09:00)
[2017-08-19 09:48] LABS: BAND NEUTROPHILS % (MANUAL) 1 % (0-8); EOSINOPHILS % (MANUAL) 1 % (0-3); LYMPHOCYTES % (MANUAL) 16 % (20-45); NEUTROPHILS % (MANUAL) 74 % (45-75); TOTAL CELLS COUNTED 100
[2017-08-19 09:49] LABS: ANISOCYTOSIS 2+; BASOPHILS % (MANUAL) 0 % (0-2); HYPOCHROMASIA 1+; PLATELET ESTIMATE ADEQUATE; PLATELET MORPHOLOGY NORMAL
--- NOTE | 2017-08-19 11:02 | General Progress Note ---
Assessment/Plan Assessment/Plan AIDS - per ID. Pneumonia - m/p PCP with Cavitary Lesions. On [employer] IV Abx and IV Bactrim for immuno Compromised HIV patients. Doubt MTB. AFB's smear negative. DC Resp. Isolation. In KAY. Resolving. New neck Emphysema + Pneumomediastinum both minimal on CT scan. Resolved. 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 New pancreatitis - negative MRCP! Etiology unclear. Suspect CMV !! Resolving . Unresolved blindness Severe SIADH - resolved. OK for Med/Surg. Dysphagia - needs Video Swallow Doing well DC home Subjective Allergies: Coded Allergies: No Known Allergies (Unverified , 07/20/17) Subjective Fell and hit the head last night. Objective Last 24 Hour Vital Signs Date Time Temp Pulse Resp B/P (MAP) Pulse Ox O2 Delivery O2 Flow Rate FiO2 08/19/17 08:27 116 102/59 08/19/17 08:00 98.4 116 18 102/59 97 Room Air 08/19/17 08:00 122 08/19/17 04:00 101 08/19/17 04:00 99.5 106 20 95/63 98 Room Air 08/19/17 00:28 99.7 08/19/17 00:00 99.9 110 20 93/53 98 Room Air 08/19/17 00:00 124 08/18/17 20:00 99.7 110 20 108/64 100 Room Air 08/18/17 20:00 148 08/18/17 15:20 112 08/18/17 15:20 100.9 118 21 99/56 98 Room Air 08/18/17 12:00 99.6 120 20 93/54 99 Room Air 08/18/17 11:43 119 Intake and Output 08/18/17 08/19/17 19:00 07:00 Intake Total 650 ml 458 ml Output Total 1200 ml 1000 ml Balance -550 ml -542 ml Intake Oral 650 ml 458 ml Output Urine Total 1200 ml 1000 ml # Voids 3 5 # Bowel Movements 1 6 Laboratory Tests 08/19/17 03:20: White Blood Count 2.2L, Red Blood Count 2.98L, Hemoglobin 9.2L, Hematocrit 27.5L , Mean Corpuscular Volume 92, Mean Corpuscular Hemoglobin 30.8, Mean Corpuscular Hemoglobin Concent 33.4, Red Cell Distribution Width 20.1H, Platelet Count 216, Mean Platelet Volume 6.6, Neutrophils (%) (Auto) , Lymphocytes (%) (Auto) , Monocytes (%) (Auto) , Eosinophils (%) (Auto) , Basophils (%) (Auto) , Differential Total Cells Counted 100, Neutrophils % ( Manual) 74, Lymphocytes % (Manual) 16L, Monocytes % (Manual) 8, Eosinophils % ( Manual) 1, Basophils % (Manual) 0, Band Neutrophils 1, Platelet Estimate Adequate, Platelet Morphology Normal, Hypochromasia 1+, Anisocytosis 2+, Sodium Level 135L, Potassium Level 3.7, Chloride Level 102, Carbon Dioxide Level 25, Anion Gap 8, Blood Urea Nitrogen 14, Creatinine 0.7, Estimat Glomerular Filtration Rate > 60, Glucose Level 102, Calcium Level 7.2L, Total Bilirubin 0.2 , Aspartate Amino Transf (AST/SGOT) 35, Alanine Aminotransferase (ALT/SGPT) 41, Alkaline Phosphatase 71, Total Protein 6.1L, Albumin 2.2L, Globulin 3.9, Albumin /Globulin Ratio 0.6L, Amylase Level 254H, Lipase 1297H Height (Feet): 5 Height (Inches): 8.00 Weight (Pounds): 127 Objective No signs of head trauma Rt. eye poor vision. Extremely Cachectic. CV RR Lungs CTA Abd SNT BS + E No CCE Neuro: very slow mentation! MOLLY VÁZQUEZ Aug 19, 2017 11:02
[2017-08-19 12:00] VITALS: BP 98/56
--- NOTE | 2017-08-19 13:35 | GI Progress Note ---
Assessment/Plan Problems: (1) Anemia ICD Codes: D64.9 - Anemia, unspecified SNOMED: 733516466 (2) CMV retinitis (3) Elevated lipase ICD Codes: R74.8 - Abnormal levels of other serum enzymes SNOMED: 113059832 (4) AIDS (acquired immune deficiency syndrome) ICD Codes: B20 - Human immunodeficiency virus [HIV] disease SNOMED: 04291760 (5) Severe malnutrition ICD Codes: E43 - Unspecified severe protein-calorie malnutrition SNOMED: 40093872 Status: progressing, unchanged Status Narrative Discussed with Dr. Torres. Assessment/Plan Assessment Asymptomatic enzymatic pancreatitis ? infectious (CMV, TB) ? Meds (Bactrim, HIV meds, other) ? structural (pancreas divisum) ? microlithiasis ? autoimmune MRCP reviewed >> unremarkable ST eval reviewed check IgG4 - negative Recommendations defer EUS at this time >> monitor lipase levels, downtrending monitor medications that can cause lipase elevation ppi bowel regime PT eval fu labs Subjective Subjective denies any abdominal pain working with PT today tolerating diet asymptomatic states he fell last night Objective Last 24 Hour Vital Signs Date Time Temp Pulse Resp B/P (MAP) Pulse Ox O2 Delivery O2 Flow Rate FiO2 08/19/17 12:00 98.2 104 20 98/56 97 Room Air 08/19/17 08:27 116 102/59 08/19/17 08:00 98.4 116 18 102/59 97 Room Air 08/19/17 08:00 122 08/19/17 04:00 101 08/19/17 04:00 99.5 106 20 95/63 98 Room Air 08/19/17 00:28 99.7 08/19/17 00:00 99.9 110 20 93/53 98 Room Air 08/19/17 00:00 124 08/18/17 20:00 99.7 110 20 108/64 100 Room Air 08/18/17 20:00 148 08/18/17 15:20 112 08/18/17 15:20 100.9 118 21 99/56 98 Room Air Intake and Output 08/18/17 08/19/17 19:00 07:00 Intake Total 650 ml 458 ml Output Total 1200 ml 1000 ml Balance -550 ml -542 ml Intake Oral 650 ml 458 ml Output Urine Total 1200 ml 1000 ml # Voids 3 5 # Bowel Movements 1 6 Laboratory Tests Test 12/22/17 03:20 White Blood Count 2.2 K/UL (4.8-10.8) L Red Blood Count 2.98 M/UL (4.70-6.10) L Hemoglobin 9.2 G/DL (14.2-18.0) L Hematocrit 27.5 % (42.0-52.0) L Mean Corpuscular Volume 92 FL (80-99) Mean Corpuscular Hemoglobin 30.8 PG (27.0-31.0) Mean Corpuscular Hemoglobin Concent 33.4 G/DL (32.0-36.0) Red Cell Distribution Width 20.1 % (11.6-14.8) H Platelet Count 216 K/UL (150-450) Mean Platelet Volume 6.6 FL (6.5-10.1) Neutrophils (%) (Auto) % (45.0-75.0) Lymphocytes (%) (Auto) % (20.0-45.0) Monocytes (%) (Auto) % (1.0-10.0) Eosinophils (%) (Auto) % (0.0-3.0) Basophils (%) (Auto) % (0.0-2.0) Differential Total Cells Counted 100 Neutrophils % (Manual) 74 % (45-75) Lymphocytes % (Manual) 16 % (20-45) L Monocytes % (Manual) 8 % (1-10) Eosinophils % (Manual) 1 % (0-3) Basophils % (Manual) 0 % (0-2) Band Neutrophils 1 % (0-8) Platelet Estimate Adequate Platelet Morphology Normal Hypochromasia 1+ Anisocytosis 2+ Sodium Level 135 MMOL/L (136-145) L Potassium Level 3.7 MMOL/L (3.5-5.1) Chloride Level 102 MMOL/L (98-107) Carbon Dioxide Level 25 MMOL/L (21-32) Anion Gap 8 mmol/L (5-15) Blood Urea Nitrogen 14 mg/dL (7-18) Creatinine 0.7 MG/DL (0.55-1.30) Estimat Glomerular Filtration Rate > 60 mL/min (>60) Glucose Level 102 MG/DL (74-106) Calcium Level 7.2 MG/DL (8.5-10.1) L Total Bilirubin 0.2 MG/DL (0.2-1.0) Aspartate Amino Transf (AST/SGOT) 35 U/L (15-37) Alanine Aminotransferase (ALT/SGPT) 41 U/L (12-78) Alkaline Phosphatase 71 U/L (46-116) Total Protein 6.1 G/DL (6.4-8.2) L Albumin 2.2 G/DL (3.4-5.0) L Globulin 3.9 g/dL Albumin/Globulin Ratio 0.6 (1.0-2.7) L Amylase Level 254 U/L (25-115) H Lipase 1297 U/L (73-393) H Height (Feet): 5 Height (Inches): 8.00 Weight (Pounds): 127 General Appearance: WD/WN, no apparent distress, alert, other - generalized weakness Cardiovascular: normal rate Respiratory/Chest: normal breath sounds, no respiratory distress Abdominal Exam: normal bowel sounds, non tender, soft Extremities: normal range of motion, non-tender Aissatou Vela N.P. Aug 19, 2017 13:35
[2017-08-19] MEDS ORDERED: NS 275ml ONE (16:04)
[2017-08-19] MEDS ORDERED: NS 500ML ONE (16:04)
--- NOTE | 2017-08-24 15:21 | Discharge Summary ---
Discharge Summary Hospital Course Date of Admission Jul 20, 2017 at 13:15 Date of Discharge Aug 19, 2017 at 16:05 Admitting Diagnosis hypotension, weakness HPI John Barrientos is a 51 year old male who was admitted on Jul 20, 2017 at 13:15 for Weakness Hospital Course dc summary #[id number] Discharge Condition Upon Discharge: stable Discharge Disposition Patient was discharged to Home (01) Discharge Diagnoses: Discharge Instructions Discharge Instructions Special Instructions I have been assigned to complete a D/C Summary on this account. I was not involved in the patient management Anabelle Sanchez NP (Vanchtein) Aug 24, 2017 15:21
--- NOTE | 2017-08-24 22:30 | Discharge Summary 2 SIG ---
DATE OF ADMISSION: 07/20/2017 DATE OF DISCHARGE: 08/19/2017 REASON FOR ADMISSION: 51-year-old male with history of HIV, presented with 3 to 4 months of generalized weakness, unintentional weight loss, occasional fever, chills, and occasional diarrhea. He denied history of PCP, TB, or other opportunistic infections. The patient was not taking any medications for HIV management. The patient stated that he was recently unable to keep down food or liquid. He denied chest pain, shortness of breath, abdominal pain, and urinary complaints. The patient was afebrile and tachycardic. Noted low sodium and elevated lipase. The patient had no leukocytosis. Stable hemoglobin and hematocrit. No other significant metabolic abnormalities. The patient was given IV fluids in the emergency department. Chest x-ray showed left-sided infiltrate. The patient was pancultured and started on empiric antibiotics. EKG revealed sinus tachycardia. No acute ischemic changes. The patient was admitted with generalized weakness, pneumonia, elevated lipase, hyponatremia and HIV disease. HOSPITAL COURSE: The patient was admitted. While still in the emergency department, the patient was hypotensive and tachycardic. Blood pressure did not respond to intravenous fluids. Left-sided internal jugular central line was placed, and the patient was transferred to ICU for hemodynamic support. The patient initially was on pressor to keep mean arterial pressure above 65. Hypotension was likely multifactorial secondary to volume depletion as well as the infectious process. IV fluids were continued. Blood pressure was slowly improved. The patient was able to be weaned from pressor as shock resolved. ID consult along with pulmonary consult were requested. The patient was started on empiric antibiotics. The patient was placed on isolation. Sputum culture revealed Haemophilus influenzae. Blood cultures were negative. Acid-fast bacilli x3 were negative. Supplemental oxygen and pulmonary toilet were provided as needed. Chest x-ray was followed up on a regular basis. Hair Spring Cutter closely followed. CD4 count was 55, consistent with diagnosis of AIDS. ART therapy was reinstituted by ID specialist. Ophthalmology consult was requested for right eye blindness. Serology for opportunistic infection revealed negative cryptococci, negative Mycobacterium tuberculosis by PCR, but positive cytomegalovirus antibody. RPR was nonreactive. Negative toxoplasmosis, negative VZV by DNA, high positive cytomegalovirus DNA qualitative PCR, and negative TB test. 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 Bindery Supervisor initially was planned surgery. Upon discussion with channel cementer insole machine, the patient unlikely to have right eye vision improvement, but channel cementer insole machine was trying to prevent further left vision loss. The patient was started on ganciclovir, status post induction. The patient to follow up with channel cementer insole machine for intravitreal ganciclovir or foscarnet . The patient undergone lumbar puncture for possible meningitis which was unremarkable with normal opening and closed pressures. Cerebral spinal fluid was clean and culture was negative. Infectious Disease doctor doubted any meningitis, provided normal lumbar puncture. CT of the chest revealed extensive subcutaneous emphysema in the neck, mediastinal emphysema, subjacent emphysema also noted in the supraclavicular regions and upper posterior chest wall. No evidence of mediastinal adenopathy. No hilar adenopathy. Patchy bilateral pulmonary infiltrates were identified and lungs were diffusely hyperexpanded. Nodular density 10 mm in the right upper lobe. Numerous ground-glass nodular ill-defined opacities bilaterally, likely inflammatory. An ill-defined nodule in the right upper lobe, also probably inflammatory. TB clearance was obtained by the Department of Health. Hair Spring Cutter closely followed. The patient had no pneumothorax despite pneumomediastinum. No need for oxygen. Pulse oximetry was stable on room air. The patient was clinically improving. Repeated CT chest revealed significant improvement. It showed considerable improvement, but persistent pneumomediastinum and supraclavicular and chest wall emphysema. No pneumothorax. Hair Spring Cutter concluded to expect resolution with time. The patient was nontoxic, respiratory status with improvement. Hair Spring Cutter cleared the patient for discharge. Neurologist followed the patient. Initial CT of the head was negative. The patient reported transient right hemiplegia and clumsiness on the right arm. Subsequently, neurologist ordered an MRI of the brain. MRI of the brain revealed very unusual foci like areas of restricted diffusion in superficial left parietal cortex and a single smaller lesion in the right parietal cortex; possibility of atypical superficial cortical infarct should be considered. Subsequently, MRI of the brain was repeated in few days on 07/29/2017 and it demonstrated prominent bilateral parietal and left posterior frontal cortical foci of diffusion restriction now with associated T2 abnormality and a single small focus of contrast enhancement chronic most likely presented evolution of atypical cortical infarct; multiplicity raising possibility of embolic etiology. However, since the distribution was unusual, other possibility of ischemia such as vasculitis should be considered. Subsequently, neurologist diagnosed the patient with acute ischemic left middle cerebral artery distribution stroke with right arm weakness and ataxia as well as multiple atypical cortical ischemic lesions .Aspirin was started, coagulation profile was unremarkable. Patient was working with physical and occupational therapists. Noted elevated lipase and amylase. GI consult was requested. MRI of the abdomen was negative. Abdominal ultrasound revealed evidence of hepatic steatosis, otherwise, negative. Hepatitis panel was negative. Lipase and amylase were closely followed. According to the GI, the patient likely had asymptomatic enzymatic pancreatitis, possibly due to the medication (Bactrim, HIV, other ), possibly due to infection (cytomegalovirus tuberculosis), structural defect (pancreas divisum), possible microlithiasis, possible autoimmune. IgG4 was negative. Per GI specialist, defer endoscopic ultrasound at this time. Lipase and amylase were trending down. The patient was started on PPI. Bowel regimen instituted. Follow up with GI as an outpatient. Speech therapy evaluation was requested due to dysphagia. Strict aspiration precaution were maintained. The patient was instructed on aspiration/reflux precautions. The patient was noted to have initially hyponatremia. 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 Sodium up to 135 prior for discharge. The patient was on fluid restriction. Severe SIADH resolved. The patient status post treatment for Haemophilus pneumonia. According to the ID recommendations, he was on Bactrim and azithromycin prophylaxis as well as started on ganciclovir. The patient also restarted on Tivicay and Truvada. The patient need to follow up with his HIV provider The patient will need outpatient follow-up for viral load, CD4 count, and genotyping if needed. Hemoglobin and hematocrit were closely monitored, remained stable at baseline, no need for transfusion. Family refused SNF. The patient was stable for discharged home. Outpatient follow up with the primary care provider and HIV provider. The patient also needs to follow up with the channel cementer insole machine for intravitreal procedure. FINAL DIAGNOSES: 1. Sepsis. 2. Shock. 3. Acquired immunodeficiency syndrome encephalopathy. 4. Pneumonia Haemophilus influenzae, status post treatment. 5. Possible Pneumocystis pneumonia. 6. Acquired immunodeficiency syndrome status. 7. Cachexia associated with acquired immunodeficiency syndrome. 8. 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 9. Multiple atypical cortical ischemic lesions. 10. Pneumomediastinum. 11. Asymptomatic enzymatic pancreatitis. 12. Severe syndrome of inappropriate antidiuretic hormone secretion, resolved. 13. Dysphagia. DISCHARGE MEDICATIONS: List of medication and prescriptions provided to the patient. DISCHARGE INSTRUCTIONS: The patient was discharged home. Follow up with the channel cementer insole machine for procedure. Follow up with the HIV provider to monitor CD4 count and viral load as well as the HAART treatment . Follow up with the primary medical doctor. Jose Roberson M.D. I have been assigned to dictate discharge summary on this account and I was not involved in the patient's management. Anabelle Sanchez N.P. (Vanchtein) DR: CARLYN JOB#: [id number] CC: BEV
--- NOTE | 2017-09-01 16:39 | Diagnostic Imaging Report ---
Indications: Dysphagia Technique: Patient ingested multiple substances under the supervision of speech pathology. Video fluoroscopic recording performed. Total fluoroscopy time 301 seconds. Total dose area product [id number] mGycm2 Comparison: none Findings: There is penetration of thin liquid barium. No definite aspiration. With ingestion of nectar and honey thick liquid barium, there is early pooling in the vallecula. No significant aspiration or penetration. Ingestion of barium puree and masticated solids is uneventful. No significant residual Impression: Penetration of thin liquid barium Please refer to speech pathology report for more detailed analysis
== END 2017-08-19 16:05 | disposition home or self-care (01) | DRG 890 ==
LOC: EDBD 11:19 → EMR 12:17 → 4E 13:15 → EDBEDREQ 14:09 → ICU 19:09 → 2W 07-22 14:24
PROC: 05HM33Z Insertion of Infusion Device into Right Internal Jugular Vein, Percutaneous Approach (ICD-10-PCS; 2017-07-20)
PROC: 009U3ZX Drainage of Spinal Canal, Percutaneous Approach, Diagnostic (ICD-10-PCS; principal; 2017-08-01)
DX: A41.9 Sepsis, unspecified organism (principal); B20 Human immunodeficiency virus [HIV] disease; G93.40 Encephalopathy, unspecified; R65.21 Severe sepsis with septic shock; I63.8 Other cerebral infarction; E43 Unspecified severe protein-calorie malnutrition; J14 Pneumonia due to Hemophilus influenzae; R64 Cachexia; E87.1 Hypo-osmolality and hyponatremia; Z68.1 Body mass index [BMI] 19.9 or less, adult; H30.891 Other chorioretinal inflammations, right eye; B25.8 Other cytomegaloviral diseases; H52.4 Presbyopia; K85.90 Acute pancreatitis without necrosis or infection, unspecified; R27.0 Ataxia, unspecified; G83.21 Monoplegia of upper limb affecting right dominant side; B37.0 Candidal stomatitis; E22.2 Syndrome of inappropriate secretion of antidiuretic hormone; R13.10 Dysphagia, unspecified; J98.2 Interstitial emphysema; D64.9 Anemia, unspecified; B59 Pneumocystosis
CPT/HCPCS: 36415; 70450; 70553; 71010; 71250; 74177; 74181; 74230; 76700; 80048; 80053; 80061; 80076; 80202; 81001; 81241; 82140; 82150; 82330; 82607; 82784; 82787; 82945; 82955; 83605; 83615; 83690; 83735; 83935; 84100; 84157; 84207; 84311; 85007; 85025; 85301; 85303; 85306; 85610; 85730; 86021; 86039; 86225; 86360; 86580; 86592; 86644; 86695; 86696; 86705; 86709; 86777; 86778; 86803; 86850; 86900; 86901; 87040; 87070; 87081; 87116; 87181; 87205; 87324; 87340; 87449; 87496; 87497; 87529; 87536; 87556; 89051; 93005; 93880; 93970; 95819; 99291; A9585; J2405; J8499

== ENCOUNTER 2017-08-27 15:43 | Emergency (ER) | payer MEDICAID ==
[~2017-08-27] VITALS: Ht 177.8 cm; Wt 59.4 kg
[2017-08-27] MEDS ORDERED: PROTONIX40 MG ORAL (17:26)
[2017-08-27] MEDS ORDERED: NYSTATIN100000 UN1 ORAL (17:26)
[2017-08-27 17:35] VITALS: BP 117/66
--- NOTE | 2017-08-27 23:26 | Emergency Room Report ---
History of Present Illness General Chief Complaint: General Complaint Source: Patient, Medical Record Present Illness HPI 51-year-old male presents ED complaining of white plaque in his throat x3 days. Denies any pain. Denies any sore throat or cough. Patient has history of HIV. Patient states that he was admitted for nearly one month and discharged last week. States that he had a similar plaque in his mouth which was treated and resolved. does not know what the treatment was. No other aggravating relieving factors. Denies any other associated symptom Allergies: Coded Allergies: No Known Allergies (Unverified , 07/20/17) Patient History Past Medical History: HIV Past Surgical History: none Pertinent Family History: none Social History: Denies: smoking, alcohol use, drug use Immunizations: UTD Reviewed Nursing Documentation: PMH: Agreed, PSxH: Agreed Nursing Documentation-PMH Past Medical History: No History, Except For Hx Cardiac Problems: No Hx Cancer: No Hx Gastrointestinal Problems: Yes Hx Neurological Problems: No Review of Systems All Other Systems: negative except mentioned in HPI Physical Exam Vital Signs Date Time Temp Pulse Resp B/P (MAP) Pulse Ox O2 Delivery O2 Flow Rate FiO2 08/27/17 16:15 97.5 101 18 117/66 98 Room Air Sp02 EP Interpretation: reviewed, normal General Appearance: no apparent distress, alert, GCS 15, non-toxic Head: normocephalic, atraumatic Eyes: bilateral eye normal inspection, bilateral eye PERRL ENT: hearing grossly normal, no angioedema, normal voice, other - whitish plaque in oropharynx. scrapes off Neck: full range of motion, supple/symm/no masses Respiratory: chest non-tender, lungs clear, normal breath sounds, speaking full sentences Cardiovascular #1: regular rate, rhythm, no edema Cardiovascular #2: 2+ carotid (R), 2+ carotid (L), 2+ radial (R), 2+ radial (L) , 2+ dorsalis pedis (R), 2+ dorsalis pedis (L) Gastrointestinal: normal bowel sounds, non tender, soft, non-distended, no guarding, no rebound Rectal: deferred Genitourinary: normal inspection, no CVA tenderness Musculoskeletal: back normal, gait/station normal, normal range of motion, non- tender Neurologic: alert, oriented x3, responsive, motor strength/tone normal, sensory intact, speech normal Psychiatric: judgement/insight normal, memory normal, mood/affect normal, no suicidal/homicidal ideation Reflexes: 3+ bicep (R), 3+ bicep (L), 3+ tricep (R), 3+ tricep (L), 3+ knee (R) , 3+ knee (L) Skin: normal color, no rash, warm/dry, well hydrated Lymphatic: no adenopathy Medical Decision Making Diagnostic Impression: Primary Impression: Oral thrush ER Course Hospital Course 51-year-old male presents ED with white discoloration in his mouth Differential diagnoses include: leukoplakia, pharyngitis, thrush Clinical course Patient placed on stretcher. After initial history, physical exam reveals a thin male in no acute distress. Bilateral TM unremarkable. There is white plaque in the oropharynx. nonerythematous base. scrapes off Given patient's history of HIV consistent with thrush. We'll prescribe nystatin Diagnosis - oral thrush Stable and discharged home with prescriptions for nystatin. Instructed to followup with PMD. return to ED if symptoms recur or worsen Last Vital Signs Date Time Temp Pulse Resp B/P (MAP) Pulse Ox O2 Delivery O2 Flow Rate FiO2 08/27/17 17:35 97.5 101 18 117/66 98 Room Air Status: improved Disposition: HOME, SELF-CARE Condition: Stable Scripts Nystatin* (NYSTATIN*) 100,000 Unit/1 Ml Oral.susp 5 ML ORAL FOUR TIMES A DAY for 10 Days, ML Swish in the mouth and retain for as long as possible (several minutes) before swallowing Prov: BROOK ERNST M.D. 08/27/17 Pantoprazole* (PROTONIX*) 40 Mg Tablet. 40 MG ORAL DAILY, #30 TAB Prov: BROOK ERNST M.D. 08/27/17 Referrals: NOT CHOSEN IPA/,REFERRING (PCP) Patient Instructions: Threlisabeth, Adult, Cwan-he-Ooud BROOK ERNST M.D. Aug 27, 2017 23:26
== END 2017-08-27 17:35 | disposition home or self-care (01) ==
LOC: EMR 16:42
DX: B37.0 Candidal stomatitis (principal)
CPT/HCPCS: 99284